=== PATIENT | male | born 1980 | race Caucasian/White ===

== ENCOUNTER 2017-08-16 07:10 | Emergency (ER) | payer SELFPAY ==
--- NOTE | 2017-08-16 08:06 | EDPHYS ---
Physician Documentation [facility] Name: Amna Jenkins Jr Age: 37 yrs Sex: Male : 1980 Arrival Date: 08/16/2017 Time: 07:14 Bed 14 Private MD: ED Physician Gal Francisco HPI: 08/16 08:02 This 37 yrs old Male presents to ER via Ambulatory with complaints of Flank eemli Pain, Blood Pressure Problem. 08:02 The patient complains of pain in the left low back and left mid back. The pain does not emeli radiate. Onset: The symptoms/episode began/occurred 1 day(s) ago. Modifying factors: The symptoms are alleviated by nothing. the symptoms are aggravated by nothing. Associated signs and symptoms: The patient has no apparent associated signs or symptoms. Severity of pain: At its worst the pain was very mild in the emergency department the pain has resolved and did so just prior to arrival. The patient has experienced similar episodes in the past, a few times. Historical: - Allergies: 07:21 No Known Allergies; ss - Home Meds: 07:21 None [Active]; ss - PMHx: 07:21 Hypertension; GI Bleed; ss - PSHx: 07:21 None; ss - Immunization history:: Adult Immunizations up to date. - Social history:: Smoking status: Patient/guardian denies using tobacco. - Ebola Screening: : Patient denies exposure to infectious person Patient denies travel to an Ebola-affected area in the 21 days before illness onset. ROS: 08:03 Constitutional: Negative for fever, chills, and weight loss, Eyes: Negative for injury, emeli pain, redness, and discharge, ENT: Negative for injury, pain, and discharge, Neck: Negative for injury, pain, and swelling, Cardiovascular: Negative for chest pain, palpitations, and edema, Respiratory: Negative for shortness of breath, cough, wheezing, and pleuritic chest pain, Back: Negative for injury and pain, : Negative for injury, bleeding, discharge, and swelling, MS/Extremity: Negative for injury and deformity, Skin: Negative for injury, rash, and discoloration, Neuro: Negative for headache, weakness, numbness, tingling, and seizure, Psych: Negative for depression, anxiety, suicide ideation, homicidal ideation, and hallucinations, Allergy/Immunology: Negative for hives, rash, and allergies, Endocrine: Negative for neck swelling, polydipsia, polyuria, polyphagia, and marked weight changes, Hematologic/Lymphatic: Negative for swollen nodes, abnormal bleeding, and unusual bruising. 08:03 Abdomen/GI: Positive for abdominal pain. 08:03 Abdomen/GI: Positive for Exam: 08:03 Constitutional: This is a well developed, well nourished patient who is awake, alert, emeli and in no acute distress. Head/Face: Normocephalic, atraumatic. Eyes: Pupils equal round and reactive to light, extra-ocular motions intact. Lids and lashes normal. Conjunctiva and sclera are non-icteric and not injected. Cornea within normal limits. Periorbital areas with no swelling, redness, or edema. ENT: Nares patent. No nasal discharge, no septal abnormalities noted. Tympanic membranes are normal and external auditory canals are clear. Oropharynx with no redness, swelling, or masses, exudates, or evidence of obstruction, uvula midline. Mucous membranes moist. Neck: Trachea midline, no thyromegaly or masses palpated, and no cervical lymphadenopathy. Supple, full range of motion without nuchal rigidity, or vertebral point tenderness. No Meningismus. Chest/axilla: Normal chest wall appearance and motion. Nontender with no deformity. No lesions are appreciated. Cardiovascular: Regular rate and rhythm with a normal S1 and S2. No gallops, murmurs, or rubs. Normal PMI, no JVD. No pulse deficits. Respiratory: Lungs have equal breath sounds bilaterally, clear to auscultation and percussion. No rales, rhonchi or wheezes noted. No increased work of breathing, no retractions or nasal flaring. Abdomen/GI: Soft, non-tender, with normal bowel sounds. No distension or tympany. No guarding or rebound. No evidence of tenderness throughout. Back: No spinal tenderness. No costovertebral tenderness. Full range of motion. Male : Normal genitalia with no discharge or lesions. Skin: Warm, dry with normal turgor. Normal color with no rashes, no lesions, and no evidence of cellulitis. MS/ Extremity: Pulses equal, no cyanosis. Neurovascular intact. Full, normal range of motion. Neuro: Awake and alert, GCS 15, oriented to person, place, time, and situation. Cranial nerves II-XII grossly intact. Motor strength 5/5 in all extremities. Sensory grossly intact. Cerebellar exam normal. Normal gait. Psych: Awake, alert, with orientation to person, place and time. Behavior, mood, and affect are within normal limits. Vital Signs: 07:21 BP 141 / 96; Pulse 67; Resp 16; Temp 97.9(TE); Pulse Ox 99% on R/A; Pain 4/10; ss 08:20 BP 119 / 86; Pulse 80; Resp 17; Pulse Ox 99% on R/A; rb1 MDM: 07:23 Patient medically screened. [facility] 08:04 Data reviewed: vital signs, nurses notes, lab test result(s). [facility] 08/16 08:12 Order name: Urine Dipstick--Ancillary (enter results) 08/16 08:02 Order name: Urine Dipstick-Ancillary (obtain specimen); Complete Time: 08:14 [facility] Administered Medications: No medications were administered Disposition: 08/16/17 08:05 Discharged to Home. Impression: Abdominal tenderness, Essential (primary) hypertension. - Condition is Stable. - Discharge Instructions: Abdominal Pain, Adult, Hypertension, Abdominal Pain, Adult, [id number], Hypertension, Rzyw-[id number], How to Take Your Blood Pressure, [id number], Managing Your High Blood Pressure. - Prescriptions for Pepcid 20 mg Oral Tablet - take 1 tablet by ORAL route every 12 hours for 10 days; 20 tablet. - Medication Reconciliation Form, Thank You Letter, Antibiotic Education, Prescription Opioid Use form. - Follow up: Private Physician; When: 2 - 3 days; Reason: Recheck today's complaints, Continuance of care, Re-evaluation by your physician. Follow up: Moy Valencia MD; When: 2 - 3 days; Reason: Recheck today's complaints, Continuance of care, Re-evaluation by your physician. - Problem is new. - Symptoms have improved. Signatures: Dispatcher [employer] EDGal Cazares MD MD cha Smirch, Shelby, RN RN ss Juliana Schafer, DEEPTHI RN rb1 Corrections: (The following items were deleted from the chart) 08:21 08:05 08/16/2017 08:05 Discharged to Home. Impression: Abdominal tenderness; Essential rb1 (primary) hypertension. Condition is Stable. Forms are Medication Reconciliation Form, Thank You Letter, Antibiotic Education, Prescription Opioid Use. Follow up: Private Physician; When: 2 - 3 days; Reason: Recheck today's complaints, Continuance of care, Re-evaluation by your physician. Follow up: Moy Valencia; When: 2 - 3 days; Reason: Recheck today's complaints, Continuance of care, Re-evaluation by your physician. Problem is new. Symptoms have improved. emeli
--- NOTE | 2017-08-16 08:06 | ER ---
Nurse's Notes [facility] Name: Amna Jenkins Jr Age: 37 yrs Sex: Male : 1980 Arrival Date: 08/16/2017 Time: 07:14 Bed 14 Private MD: Diagnosis: Abdominal tenderness;Essential (primary) hypertension Presentation: 08/16 07:18 Presenting complaint: Patient states: RUQ pain that began 4 days ago. Pt states, "my ss gallbladder is enlarged that I know of, and my blood pressure has been running high the past three weeks, but then it'll go down and make me feel drained." Pt reports at times the pain to his RUQ gets so bad it makes him nauseated. Pain is reportedly worse when he eats or drinks. Transition of care: patient was not received from another setting of care. Onset of symptoms is unknown. Risk Assessment: Do you want to hurt yourself or someone else? Patient reports no desire to harm self or others. Initial Sepsis Screen: Does the patient meet any 2 criteria? No. Patient's initial sepsis screen is negative. Does the patient have a suspected source of infection? No. Patient's initial sepsis screen is negative. Care prior to arrival: None. 07:18 Method Of Arrival: Ambulatory ss 07:18 Acuity: NEYDA 3 ss 07:22 Note Pt reports he has not taken his blood pressure medication in a while. ss Historical: - Allergies: 07:21 No Known Allergies; ss - Home Meds: 07:21 None [Active]; ss - PMHx: 07:21 Hypertension; GI Bleed; ss - PSHx: 07:21 None; ss - Immunization history:: Adult Immunizations up to date. - Social history:: Smoking status: Patient/guardian denies using tobacco. - Ebola Screening: : Patient denies exposure to infectious person Patient denies travel to an Ebola-affected area in the 21 days before illness onset. Screenin:25 Abuse screen: Denies threats or abuse. Nutritional screening: No deficits noted. rb1 Tuberculosis screening: No symptoms or risk factors identified. Fall Risk None identified. Assessment: 07:25 General: Appears in no apparent distress. comfortable, Behavior is calm, cooperative. rb1 Pain: Complains of pain in right upper quadrant Pain currently is 5 out of 10 on a pain scale. Pain began x 4 days. Neuro: Level of Consciousness is awake, alert, obeys commands, Oriented to person, place, time, situation. Cardiovascular: Capillary refill < 3 seconds is brisk in bilateral fingers. Respiratory: Airway is patent Respiratory effort is even, unlabored, Respiratory pattern is regular, symmetrical. GI: Reports nausea. : No signs and/or symptoms were reported regarding the genitourinary system. Derm: Skin is pink, warm \\T\\ dry. Vital Signs: 07:21 BP 141 / 96; Pulse 67; Resp 16; Temp 97.9(TE); Pulse Ox 99% on R/A; Pain 4/10; ss 08:20 BP 119 / 86; Pulse 80; Resp 17; Pulse Ox 99% on R/A; rb1 ED Course: 07:14 Patient arrived in ED. rg4 07:20 Triage completed. 07:21 Arm band placed on right wrist. 07:23 Gal Francisco MD is Attending Physician. [facility] 07:25 Patient has correct armband on for positive identification. Bed in low position. Call rb1 light in reach. Side rails up X 1. Pulse ox on. NIBP on. 07:36 Juliana Schafer, RN is Primary Nurse. rb1 08:05 Moy Valencia MD is Referral Physician. emeli 08:21 No provider procedures requiring assistance completed. Patient did not have IV access rb1 during this emergency room visit. Administered Medications: No medications were administered Outcome: 08:05 Discharge ordered by . emeli 08:21 Discharged to home ambulatory. rb1 08:21 Condition: stable 08:21 Discharge instructions given to patient, Instructed on discharge instructions, follow up and referral plans. medication usage, Demonstrated understanding of instructions, follow-up care, medications, Prescriptions given X 1. 08:21 Patient left the ED. rb1 Signatures: Gal Francisco MD MD cha Smirch, Shelby, RN RN Juliana Schafer, DEEPTHI RN rb1 Shannan Burciaga rg4
[2017-08-16 08:29] VITALS: TEMP 97.9; O2SAT 99
[2017-08-16 08:31] VITALS: BP 119/86
[2017-08-16 08:48] LABS: Urine Blood TRACE (NEG); Urine Glucose NEGATIVE (NEG); Urine Protein NEGATIVE (NEG)
== END 2017-08-16 08:21 | disposition home or self-care (01) ==
LOC: ER 07:10
DX: R10.9 Unspecified abdominal pain (principal); I10 Essential (primary) hypertension
CPT/HCPCS: 81003; 99283

== ENCOUNTER 2017-11-29 21:16 | Emergency (ER) | payer SELFPAY ==
[2017-11-29] MEDS ORDERED: DIAZEPAM 2 MG TABLET ONE (22:27)
[2017-11-29] MEDS ORDERED: PROMETHAZINE 25 MG/ML VIAL ONE (22:27)
[2017-11-29] MEDS ORDERED: KETOROLAC 30 MG/ML INJ ONE (22:27)
--- NOTE | 2017-11-29 23:30 | EDPHYS ---
Physician Documentation [facility] Name: Amna Jenkins Jr Age: 37 yrs Sex: Male : 1980 Arrival Date: 11/29/2017 Time: 21:19 Bed 14 Private MD: ED Physician Jesse Ch HPI: 11/29 21:57 This 37 yrs old Male presents to ER via Ambulatory with complaints of snw Congestion, Headache. 21:57 The patient complains of pain to the top of head, left frontal area, left side of the snw back of head, left temporal area, right frontal area, right side of the back of head and right temporal area. The patient describes the headache as a pressure. Onset: The symptoms/episode began/occurred 4 day(s) ago, and became persistent. Associated signs and symptoms: Pertinent positives: malaise, nausea, blurred vision, noise exacerbates headache. Severity of symptoms: At its worst the pain was moderate. Headache History: The patient has had previous headaches and this one is similar to previous episodes. The patient has experienced a previous episode. The patient has not recently seen a physician. recently sent home from work and pt needs work excuse. Historical: - Allergies: 21:44 No Known Allergies; tl2 - Home Meds: 21:44 lisinopril 20 mg Oral tab 1 tab once daily [Active]; tl2 - PMHx: 21:44 GI Bleed; Hypertension; tl2 - PSHx: 21:44 EGD; tl2 - Immunization history:: Adult Immunizations up to date. - Social history:: Smoking status: Patient/guardian denies using tobacco. - Ebola Screening: : No symptoms or risks identified at this time. ROS: 21:55 Eyes: Negative for injury, pain, redness, and discharge. snw 21:55 Cardiovascular: Negative for chest pain, palpitations, and edema, Respiratory: Negative for shortness of breath, cough, wheezing, and pleuritic chest pain, Abdomen/GI: Negative for abdominal pain, nausea, vomiting, diarrhea, and constipation, Back: Negative for injury and pain, : Negative for injury, bleeding, discharge, and swelling, MS/Extremity: Negative for injury and deformity, Skin: Negative for injury, rash, and discoloration. 21:55 Constitutional: Positive for malaise. 21:55 ENT: Positive for sinus congestion. 21:55 Neuro: Positive for headache, visual changes. Exam: 21:54 Constitutional: This is a well developed, well nourished patient who is awake, alert, snw and in no acute distress. Head/Face: Normocephalic, atraumatic. Eyes: Pupils equal round and reactive to light, extra-ocular motions intact. Lids and lashes normal. Conjunctiva and sclera are non-icteric and not injected. Cornea within normal limits. Periorbital areas with no swelling, redness, or edema. ENT: Nares patent. No nasal discharge, no septal abnormalities noted. Tympanic membrane to right is normal, TM to left is opaque with fluid behind TM and external auditory canals are clear. Oropharynx with no redness, swelling, or masses, exudates, or evidence of obstruction, uvula midline. Mucous membranes moist. Neck: Trachea midline, no thyromegaly or masses palpated, and no cervical lymphadenopathy. Supple, full range of motion without nuchal rigidity, or vertebral point tenderness. No Meningismus. Chest/axilla: Normal chest wall appearance and motion. Nontender with no deformity. No lesions are appreciated. Cardiovascular: Regular rate and rhythm with a normal S1 and S2. No gallops, murmurs, or rubs. Normal PMI, no JVD. No pulse deficits. 21:55 Respiratory: Lungs have equal breath sounds bilaterally, clear to auscultation and snw percussion. No rales, rhonchi or wheezes noted. No increased work of breathing, no retractions or nasal flaring. Abdomen/GI: Soft, non-tender, with normal bowel sounds. No distension or tympany. No guarding or rebound. No evidence of tenderness throughout. Back: No spinal tenderness. No costovertebral tenderness. Full range of motion. MS/ Extremity: Pulses equal, no cyanosis. Neurovascular intact. Full, normal range of motion. Neuro: Awake and alert, GCS 15, oriented to person, place, time, and situation. Cranial nerves II-XII grossly intact. Motor strength 5/5 in all extremities. Sensory grossly intact. Cerebellar exam normal. Normal gait. Psych: Awake, alert, with orientation to person, place and time. Behavior, mood, and affect are within normal limits. 21:55 Skin: Appearance: Color: erythematous, Temperature: normal temperature, Moisture: normal moisture. Vital Signs: 21:44 BP 137 / 94; Pulse 81; Resp 18; Temp 98.4(O); Pulse Ox 98% on R/A; Weight 99.79 kg; tl2 Height 5 ft. 10 in. (177.80 cm); Pain 6/10; 11/30 00:28 BP 135 / 93; Pulse 78; Resp 18; Pulse Ox 98% on R/A; tl2 11/29 21:44 Body Mass Index 31.57 (99.79 kg, 177.80 cm) tl2 [place] Coma Score: 11/29 23:32 Eye Response: spontaneous(4). Verbal Response: oriented(5). Motor Response: obeys snw commands(6). Total: 15. MDM: 21:53 Patient medically screened. snw 23:32 Data reviewed: vital signs, nurses notes. Data interpreted: Pulse oximetry: on room air snw is 98 %. Interpretation: normal. Counseling: I had a detailed discussion with the patient and/or guardian regarding: the historical points, exam findings, and any diagnostic results supporting the discharge/admit diagnosis, the presence of at least one elevated blood pressure reading (>120/80) during this emergency department visit, radiology results, the need for outpatient follow up, to return to the emergency department if symptoms worsen or persist or if there are any questions or concerns that arise at home. Special discussion: I discussed with the patient the need to follow-up with the PCP/specialist for the noted incidental finding on X-ray/CT scanning. Based on the history and exam findings, there is no indication for further emergent testing or inpatient evaluation. I discussed with the patient/guardian the need to see the ENT specialist for further evaluation of the symptoms. I discussed with the patient/guardian the need to see the primary care provider for further evaluation of the symptoms. pulmonary nodule, f/u outpt chest CT within 12 months. 11/29 21:53 Order name: CT Head C Spine snw Administered Medications: 22:30 Drug: Phenergan 25 mg Route: IM; Site: left gluteus; tl2 11/30 00:29 Follow up: Response: No adverse reaction tl2 11/29 22:30 Drug: TORadol 60 mg Route: IM; Site: right deltoid; tl2 10/10 00:29 Follow up: Response: No adverse reaction; Pain is decreased tl2 11/29 22:30 Drug: Valium 2 mg Route: PO; tl2 11/30 00:29 Follow up: Response: No adverse reaction; Pain is decreased tl2 00:04 Drug: Augmentin 875 mg Route: PO; tl2 00:30 Follow up: Response: No adverse reaction tl2 Disposition: 02:41 Co-signature as Attending Physician, Jesse Ch MD. rn Disposition: 11/29/17 23:30 Discharged to Home. Impression: Acute maxillary sinusitis, Acute sphenoidal sinusitis, Essential (primary) hypertension. - Condition is Stable. - Discharge Instructions: Migraine Headache, Hypertension, Sinusitis, Adult, Pulmonary Nodule, DASH Eating Plan, Rehydration, Adult, Managing Your Hypertension. - Prescriptions for Augmentin 875- 125 mg Oral Tablet - take 1 tablet by ORAL route every 12 hours for 10 days; 20 tablet. Zyrtec 10 mg Oral Tablet - take 1 tablet by ORAL route once daily As needed; 20 tablet. promethazine 25 mg Oral Tablet - take 1 tablet by ORAL route every 6 hours As needed; 20 tablet. - Work release form, Medication Reconciliation Form, Thank You Letter, Antibiotic Education, Prescription Opioid Use form. - Follow up: Private Physician; When: 2 - 3 days; Reason: Recheck today's complaints, Continuance of care, Re-evaluation by your physician. Follow up: Emergency Department; When: As needed; Reason: Worsening of condition. - Notes: Please f/u with PCP regarding incidental lung findings of pulmonary nodule. Signatures: Dispatcher [employer] EDMS Crystal Harris, KEVIN-C TRANSMISSION SYSTEMS OPERATOR-Csnw Jesse Ch MD MD rn Knox, Taylor, RN RN tl2 Corrections: (The following items were deleted from the chart) 00:30 11/29 23:30 11/29/2017 23:30 Discharged to Home. Impression: Acute maxillary sinusitis; tl2 Acute sphenoidal sinusitis; Essential (primary) hypertension. Condition is Stable. Forms are Medication Reconciliation Form, Thank You Letter, Antibiotic Education, Prescription Opioid Use. Follow up: Private Physician; When: 2 - 3 days; Reason: Recheck today's complaints, Continuance of care, Re-evaluation by your physician. Follow up: Emergency Department; When: As needed; Reason: Worsening of condition. snw
--- NOTE | 2017-11-29 23:30 | ER ---
Nurse's Notes [facility] Name: Amna Jenkins Jr Age: 37 yrs Sex: Male : 1980 Arrival Date: 11/29/2017 Time: 21:19 Bed 14 Private MD: Diagnosis: Acute maxillary sinusitis;Acute sphenoidal sinusitis;Essential (primary) hypertension Presentation: 11/29 21:42 Presenting complaint: Patient states: right ear pain since Tuesday and sinus congestion tl2 for 2 weeks. denies fever. Transition of care: patient was not received from another setting of care. Resp Distress? No respiratory distress is noted at this time. Onset of symptoms was November 24, 2017. Risk Assessment: Do you want to hurt yourself or someone else? Patient reports no desire to harm self or others. Initial Sepsis Screen: Does the patient meet any 2 criteria? No. Patient's initial sepsis screen is negative. Does the patient have a suspected source of infection? No. Patient's initial sepsis screen is negative. Care prior to arrival: None. 21:42 Method Of Arrival: Ambulatory tl2 21:42 Acuity: NEYDA 4 tl2 Triage Assessment: 21:44 General: Appears in no apparent distress. uncomfortable, Behavior is calm, cooperative, tl2 appropriate for age. Pain: Complains of pain in right ear, headache. Neuro: Level of Consciousness is awake, alert, obeys commands, Oriented to person, place, time, situation. Cardiovascular: Denies chest pain. Respiratory: Airway is patent Respiratory effort is even, unlabored, Respiratory pattern is regular, symmetrical, Breath sounds are clear bilaterally. GI: No signs and/or symptoms were reported involving the gastrointestinal system. : No signs and/or symptoms were reported regarding the genitourinary system. Derm: Skin is pink, warm \T\ dry. Historical: - Allergies: 21:44 No Known Allergies; tl2 - Home Meds: 21:44 lisinopril 20 mg Oral tab 1 tab once daily [Active]; tl2 - PMHx: 21:44 GI Bleed; Hypertension; tl2 - PSHx: 21:44 EGD; tl2 - Immunization history:: Adult Immunizations up to date. - Social history:: Smoking status: Patient/guardian denies using tobacco. - Ebola Screening: : No symptoms or risks identified at this time. Screenin:46 Abuse screen: Denies threats or abuse. Nutritional screening: No deficits noted. tl2 Tuberculosis screening: No symptoms or risk factors identified. Fall Risk None identified. Assessment: 21:44 General: see triage assessment. tl2 23:07 Reassessment: Patient appears in no apparent distress at this time. Patient and/or tl2 family updated on plan of care and expected duration. Pain level reassessed. Patient is alert, oriented x 3, equal unlabored respirations, skin warm/dry/pink. 11/30 00:28 Reassessment: Patient appears in no apparent distress at this time. Patient and/or tl2 family updated on plan of care and expected duration. Pain level reassessed. Patient is alert, oriented x 3, equal unlabored respirations, skin warm/dry/pink. Pt verbalized understanding of discharge instructions, need for follow up and prescription usage Patient states feeling better. Vital Signs: 11/29 21:44 BP 137 / 94; Pulse 81; Resp 18; Temp 98.4(O); Pulse Ox 98% on R/A; Weight 99.79 kg; tl2 Height 5 ft. 10 in. (177.80 cm); Pain 6/10; 11/30 00:28 BP 135 / 93; Pulse 78; Resp 18; Pulse Ox 98% on R/A; tl2 11/29 21:44 Body Mass Index 31.57 (99.79 kg, 177.80 cm) tl2 [place] Coma Score: 11/29 23:32 Eye Response: spontaneous(4). Verbal Response: oriented(5). Motor Response: obeys snw commands(6). Total: 15. ED Course: 21:19 Patient arrived in ED. am2 21:34 Crystal Harris FNP-C [facility]. snw 21:34 Jesse Ch MD is Attending Physician. snw 21:42 Jessica Pro, DEEPTHI is Primary Nurse. tl2 21:44 Triage completed. tl2 21:44 Arm band placed on right wrist. tl2 21:46 Patient has correct armband on for positive identification. Bed in low position. Call tl2 light in reach. Side rails up X 1. 22:04 CT Head C Spine In Process Unspecified. EDMS 11/30 00:28 No provider procedures requiring assistance completed. Patient did not have IV access tl2 during this emergency room visit. Administered Medications: 11/29 22:30 Drug: Phenergan 25 mg Route: IM; Site: left gluteus; tl2 12/01 99:29 Follow up: Response: No adverse reaction tl2 11/29 22:30 Drug: TORadol 60 mg Route: IM; Site: right deltoid; tl2 12/01 99:29 Follow up: Response: No adverse reaction; Pain is decreased tl2 11/29 22:30 Drug: Valium 2 mg Route: PO; tl2 11/30 00:29 Follow up: Response: No adverse reaction; Pain is decreased tl2 00:04 Drug: Augmentin 875 mg Route: PO; tl2 00:30 Follow up: Response: No adverse reaction tl2 Outcome: 11/29 23:30 Discharge ordered by MD. chung 11/30 00:28 Discharged to home ambulatory, with family. tl2 Condition: stable Discharge instructions given to patient, Instructed on discharge instructions, follow up and referral plans. medication usage, Demonstrated understanding of instructions, follow-up care, medications, Prescriptions given X 3. 00:30 Patient left the ED. tl2 Signatures: Dispatcher [employer] EDMS Crystal Harris, KEVIN-C AGRONOMY ADVISOR-Csnw Jessica Pro RN RN tl2 Cinthia Gruber
[2017-11-29] MEDS ORDERED: AMOX/K CLAV 875 MG TAB ONE (23:55)
[2017-11-30 00:51] VITALS: TEMP 98.4; O2SAT 98
[2017-11-30 00:52] VITALS: BP 135/93
--- NOTE | 2017-11-30 08:15 | RAD REPORT ---
EXAM DESCRIPTION: CT - Head C Spine Mpr Wo Con - 11/30/2017 6:52 am CLINICAL HISTORY: . Head and neck pain. Right ear pain COMPARISON: None. TECHNIQUE: Computed axial tomography of the head and cervical spine was obtained. Sagittal and coronal reconstruction was performed.Loss of the normal lordosis of the cervical spine m ay be secondary to muscle spasm or positioning All CT scans are performed using dose optimization technique as appropriate and may include automated exposure control or mA/KV adjustment according to patient size. FINDINGS: An intracranial bleed is not seen. The ventricles are normal in caliber. An extra-axial fl uid collection is not noted.Fluid is present within the right maxillary and sphenoid sinuses. Fluid w ithin the mastoids is not noted. A cervical fracture is not visualized. No dislocation is noted.Loss of the normal lordosis of the cer vical spine may be secondary to muscle spasm or positioning. Mild spondylosis is present. An obvious disc herniation is not noted. A 4 millimeter right upper lobe nodule is present IMPRESSION: No acute intracranial abnormality is seen. Acute sinusitis A cervical fracture is not visualized. If the patient continues to have symptoms to suggest intracra nial /spinal cord pathology then MRI would be recommended 4 millimeter right upper nodule. Per Fleischner guidelines if patient is low risk no followup is donna mmended. Patient is high risk CT chest in 1 year recommended
== END 2017-11-30 00:30 | disposition home or self-care (01) ==
LOC: ER 21:16
DX: J01.00 Acute maxillary sinusitis, unspecified (principal); J01.30 Acute sphenoidal sinusitis, unspecified; I10 Essential (primary) hypertension
CPT/HCPCS: 70450; 72125; 96372; 99283; J2550

== ENCOUNTER 2018-01-09 21:14 | Emergency (ER) | payer SELFPAY ==
[2018-01-09] MEDS ORDERED: IPRATROPIUM BROM 0.5MG/2.5ML ONE (22:32)
[2018-01-09] MEDS ORDERED: ALBUTEROL 2.5 MG/3 ML NEB SOL ONE (22:32)
[2018-01-09 22:35] LABS: Absolute Lymphocytes (CBC) 2.1 K/uL (0.7-4.9); Absolute Monocytes 0.9 K/uL (0.1-1.3); Absolute Neutrophil 5.6 K/uL (1.8-8.0); Basophils % 0.8 % (0-1.3); Eosinophils % 4.5 % (0-4.4); Hematocrit 42.4 % (39.6-49.0); Lymphocytes % 23.3 % (15.3-44.8); MCH 30.4 pg (27.0-35.0); MCV 86.2 fL (80-100); MPV 9.4 fL (7.6-11.3); Monocytes % 9.7 % (3.3-12.3); RBC Red Blood Cell Count 4.91 M/uL (4.33-5.43)
--- NOTE | 2018-01-09 22:43 | RAD REPORT ---
EXAM DESCRIPTION: RAD - Chest Pa And Lat (2 Views) - 01/09/2018 10:29 pm CLINICAL HISTORY: cough, SOB Chest pain. COMPARISON: Chest Pa And Lat (2 Views) dated 12/21/2016; Chest Single View dated 06/09/2015; CHEST SI NGLE VIEW dated 12/29/2014; CHEST SINGLE VIEW dated 12/13/2014 FINDINGS: The lungs are clear except for a small calcified granuloma in the right apex. The heart is normal in size. No displaced fractures. IMPRESSION: No acute or concerning finding suspected.
[2018-01-09 22:46] LABS: Bilirubin Total 0.5 mg/dL (0.2-1.0); Protein, Total 7.8 g/dL (6.4-8.2)
--- NOTE | 2018-01-09 23:08 | EDPHYS ---
Physician Documentation [facility] Name: Amna Jenkins Jr Age: 37 yrs Sex: Male : 1980 Arrival Date: 01/09/2018 Time: 21:18 Bed 15 Private MD: Mc Candelaria ED Physician Beltran Harrell HPI: 01/09 22:07 This 37 yrs old Male presents to ER via Ambulatory with complaints of Cough, jmm Shortness Of Breath. 22:07 The patient or guardian reports cough, described as moderate. Onset: The jmm symptoms/episode began/occurred gradually, 1 month(s) ago. Associated signs and symptoms: Pertinent positives:. This is a 37 year old male with a history of GI bleeding, HTN that presents to the ED with sinus congestion cough, shortness of breath, progressively worsening over the past month. Patient states last night he vomited after a coughing fit. . Historical: - Allergies: 21:25 "something for pain"; aj1 - Home Meds: 21:25 lisinopril 20 mg Oral tab 1 tab once daily [Active]; aj1 - PMHx: 21:25 GI Bleed; Hypertension; aj1 - Immunization history:: Flu vaccine is not up to date. - Social history:: Smoking status: Patient/guardian denies using tobacco. - Ebola Screening: : Patient denies travel to an Ebola-affected area in the 21 days before illness onset. ROS: 22:07 ENT: Negative for injury, pain, and discharge, Cardiovascular: Negative for chest pain, jmm palpitations, and edema. 22:07 Abdomen/GI: Negative for abdominal pain, nausea, vomiting, diarrhea, and constipation, Back: Negative for injury and pain, MS/Extremity: Negative for injury and deformity, Skin: Negative for injury, rash, and discoloration, Neuro: Negative for headache, weakness, numbness, tingling, and seizure. 22:07 Constitutional: Positive for body aches. 22:07 Respiratory: Positive for cough, shortness of breath. 22:07 All other systems are negative. Exam: 22:07 Head/Face: atraumatic. Eyes: EOMI, no conjunctival erythema appreciated ENT: Moist jmm Mucus Membranes Chest/axilla: Normal chest wall appearance and motion. Cardiovascular: Regular rate and rhythm. No edema appreciated 22:07 Abdomen/GI: Non distended, soft Back: Normal ROM Skin: General appearance color normal MS/ Extremity: Moves all extremities, no obvious deformities appreciated, no edema noted to the lower extremities Neuro: Awake and alert, normal gait Psych: Behavior is normal, Mood is normal, Patient is cooperative and pleasant 22:07 Constitutional: The patient appears in no acute distress, alert, awake. 22:07 Respiratory: the patient does not display signs of respiratory distress, Respirations: normal, Breath sounds: are clear throughout. Vital Signs: 21:25 BP 146 / 99; Pulse 83; Resp 18; Temp 97.8; Pulse Ox 99% on R/A; Weight 99.79 kg (R); aj1 Height 5 ft. 10 in. (177.80 cm) (R); Pain 5/10; 22:56 BP 139 / 93; Pulse 88; Resp 18; Pulse Ox 99% on R/A; jb4 23:40 BP 142 / 85; Pulse 81; Resp 18; Pulse Ox 97% on R/A; jb4 21:25 Body Mass Index 31.57 (99.79 kg, 177.80 cm) [facility] MDM: 22:05 Patient medically screened. [facility] 22:54 Data reviewed: vital signs, nurses notes. Counseling: I had a detailed discussion with rizwana the patient and/or guardian regarding: the historical points, exam findings, and any diagnostic results supporting the discharge/admit diagnosis, the need for outpatient follow up, to return to the emergency department if symptoms worsen or persist or if there are any questions or concerns that arise at home. 01/09 22:06 Order name: CBC with Diff [facility] 01/09 22:06 Order name: CMP [facility] 01/09 22:06 Order name: Influenza Screen (a \\T\\ B) [facility] 01/09 22:44 Order name: CBC with Automated Diff; Complete Time: 22:48 [facility] 01/09 22:47 Order name: Comprehensive Metabolic Panel; Complete Time: 22:48 [facility] 01/09 23:05 Order name: Influenza Screen (A ; Complete Time: 23:07 EDMS 01/09 22:06 Order name: Chest Pa And Lat (2 Views) XRAY [facility] 01/09 22:06 Order name: Saline Lock; Complete Time: 22:21 [facility] 01/09 22:45 Order name: RAD; Complete Time: 22:48 EDMS Administered Medications: 22:35 Drug: DuoNeb (3:1) (2.5 mg - 0.5 mg) 3 ml Route: Nebulizer; jb4 23:09 Follow up: Response: No adverse reaction jb4 Disposition: 01/10 05:41 Co-signature as Attending Physician, Beltran Harrell MD I agree with the assessment and tw4 plan of care. Disposition: 01/09/18 23:08 Discharged to Home. Impression: Acute bronchitis. - Condition is Stable. - Discharge Instructions: Acute Bronchitis, Adult. - Prescriptions for Zithromax Z- Srinivas 250 mg Oral Tablet - take 1 tablet by ORAL route as directed for 5 days Day 1 - take two (2) tablets one time. Day 2, 3, 4 , 5 take one (1) tablet once daily.; 6 tablet. Albuterol Sulfate 90 mcg/actuation - inhale 1-2 puff by INHALATION route every 4-6 hours; 1 Inhaler. Guaifenesin AC 10- 100 mg/5 mL Oral liquid - take 5 milliliter by ORAL route every 4 hours; 60 milliliter. - Medication Reconciliation Form, Thank You Letter, Antibiotic Education, Prescription Opioid Use form. - Follow up: Private Physician; When: 2 - 3 days; Reason: Recheck today's complaints, Continuance of care, Re-evaluation by your physician. Signatures: Dispatcher [employer] EDMS Diamante Desai RN RN aj1 Ross Gibson PA PA jmm Bryson, James, RN RN jb4 Beltran Harrell MD MD tw4 Corrections: (The following items were deleted from the chart) 01/09 23:42 23:08 01/09/2018 23:08 Discharged to Home. Impression: Acute bronchitis. Condition is jb4 Stable. Forms are Medication Reconciliation Form, Thank You Letter, Antibiotic Education, Prescription Opioid Use. Follow up: Private Physician; When: 2 - 3 days; Reason: Recheck today's complaints, Continuance of care, Re-evaluation by your physician. rizwana
--- NOTE | 2018-01-09 23:08 | ER ---
Nurse's Notes [facility] Name: Amna Jenkins Jr Age: 37 yrs Sex: Male : 1980 Arrival Date: 01/09/2018 Time: 21:18 Bed 15 Private MD: Mc Candelaria Diagnosis: Acute bronchitis Presentation: 01/09 21:22 Presenting complaint: Patient states: States that he was seen in this ER one month ago aj1 for the same complaint. States that he feels like he is "breathing underwater" Reports his SOB has gotten worse, his cough has gotten worse and now he has a pain in his right ribs. He has tried OTC Vicks and Robitussin, but it has not helped. Patient has not followed up with his PHCP since his last visit. Transition of care: patient was not received from another setting of care. Onset of symptoms was November 2017. Risk Assessment: Do you want to hurt yourself or someone else? Patient reports no desire to harm self or others. Initial Sepsis Screen: Does the patient meet any 2 criteria? No. Patient's initial sepsis screen is negative. Does the patient have a suspected source of infection? No. Patient's initial sepsis screen is negative. Care prior to arrival: None. 21:22 Method Of Arrival: Ambulatory aj1 21:22 Acuity: NEYDA 3 aj1 Triage Assessment: 21:25 General: Appears in no apparent distress. comfortable, Behavior is calm, cooperative, aj1 appropriate for age. Pain: Complains of pain in right lateral anterior chest Pain currently is 5 out of 10 on a pain scale. Neuro: Level of Consciousness is awake, alert, obeys commands. Cardiovascular: Patient's skin is warm and dry. Respiratory: Reports shortness of breath Airway is patent Respiratory effort is Respiratory pattern is regular, symmetrical, Onset: The symptoms/episode began/occurred one month ago, the patient has mild shortness of breath. Historical: - Allergies: 21:25 "something for pain"; aj1 - Home Meds: 21:25 lisinopril 20 mg Oral tab 1 tab once daily [Active]; aj1 - PMHx: 21:25 GI Bleed; Hypertension; aj1 - Immunization history:: Flu vaccine is not up to date. - Social history:: Smoking status: Patient/guardian denies using tobacco. - Ebola Screening: : Patient denies travel to an Ebola-affected area in the 21 days before illness onset. Screenin:16 Abuse screen: Denies threats or abuse. Nutritional screening: No deficits noted. jb4 Tuberculosis screening: No symptoms or risk factors identified. Fall Risk None identified. Assessment: 21:55 General: Appears in no apparent distress. uncomfortable, Behavior is calm, cooperative, jb4 appropriate for age. Pain: Complains of pain in right subscapular area, right lateral anterior chest and right lateral posterior chest Pain does not radiate. Pain currently is 4 out of 10 on a pain scale. at worst was 8 out of 10 on a pain scale. Neuro: Level of Consciousness is awake, alert, obeys commands, Oriented to person, place, time, situation. Cardiovascular: Heart tones S1 S2 present Patient's skin is warm and dry. Respiratory: Airway is patent Respiratory effort is even, unlabored, Respiratory pattern is regular, symmetrical, Breath sounds are clear bilaterally. GI: No signs and/or symptoms were reported involving the gastrointestinal system. : No signs and/or symptoms were reported regarding the genitourinary system. EENT: No signs and/or symptoms were reported regarding the EENT system. Derm: Skin is intact, Skin is pink, warm \\T\\ dry. Musculoskeletal: Circulation, motion, and sensation intact. 22:56 Reassessment: Patient appears in no apparent distress at this time. Patient and/or jb4 family updated on plan of care and expected duration. Pain level reassessed. Patient is alert, oriented x 3, equal unlabored respirations, skin warm/dry/pink. 23:40 Reassessment: Patient appears in no apparent distress at this time. Patient and/or jb4 family updated on plan of care and expected duration. Pain level reassessed. Patient is alert, oriented x 3, equal unlabored respirations, skin warm/dry/pink. Discussed D/c, F/u with pt, denies questions or concerns. Vital Signs: 21:25 BP 146 / 99; Pulse 83; Resp 18; Temp 97.8; Pulse Ox 99% on R/A; Weight 99.79 kg (R); aj1 Height 5 ft. 10 in. (177.80 cm) (R); Pain 5/10; 22:56 BP 139 / 93; Pulse 88; Resp 18; Pulse Ox 99% on R/A; jb4 23:40 BP 142 / 85; Pulse 81; Resp 18; Pulse Ox 97% on R/A; jb4 21:25 Body Mass Index 31.57 (99.79 kg, 177.80 cm) 1 ED Course: 21:18 Patient arrived in ED. am2 21:18 Mc Candelaria is Private Physician. am2 21:24 Triage completed. aj1 21:25 Arm band placed on Patient placed in an exam room. [facility] 21:51 Ross Gibson PA is PHCP. [facility] 21:51 Beltran Harrell MD is Attending Physician. [facility] 21:52 Hardeep Sahu, RN is Primary Nurse. jb4 22:15 Inserted saline lock: 20 gauge in right antecubital area, using aseptic technique. mw2 Blood collected. 22:16 Patient has correct armband on for positive identification. Call light in reach. Side jb4 rails up X 1. Pulse ox on. NIBP on. 22:21 Influenza Screen (a \\T\\ B) Sent. mw2 22:21 CMP Sent. mw2 22:21 CBC with Diff Sent. mw2 22:21 Chest Pa And Lat (2 Views) XRAY Sent. mw2 23:40 No provider procedures requiring assistance completed. IV discontinued, intact, jb4 bleeding controlled. Administered Medications: 22:35 Drug: DuoNeb (3:1) (2.5 mg - 0.5 mg) 3 ml Route: Nebulizer; jb4 23:09 Follow up: Response: No adverse reaction jb4 Outcome: 23:08 Discharge ordered by . [facility] 23:40 Discharged to home ambulatory. jb4 23:40 Condition: stable 23:40 Discharge instructions given to patient, Instructed on discharge instructions, follow up and referral plans. medication usage, Demonstrated understanding of instructions, follow-up care, medications, Prescriptions given X 3. 23:42 Patient left the ED. jb4 Signatures: Diamante Desai, RN RN aj1 Ross Gibson PA PA Hardeep Boyce, RN RN jb4 Cinthia Gruber am2 Jennifer Obrien mw2
[2018-01-10 00:52] VITALS: TEMP 97.8
[2018-01-10 00:55] VITALS: BP 142/85; O2SAT 97
== END 2018-01-09 23:42 | disposition home or self-care (01) ==
LOC: ER 21:14
DX: J20.9 Acute bronchitis, unspecified (principal); I10 Essential (primary) hypertension; Z79.899 Other long term (current) drug therapy
CPT/HCPCS: 36415; 71046; 80053; 85025; 87804; 94640; 99284

== ENCOUNTER 2019-03-10 17:52 | Emergency (ER) | payer SELFPAY ==
[2019-03-10 18:24] LABS: Absolute Lymphocytes (CBC) 2.2 K/uL (0.7-4.9); Basophils % 0.8 % (0-1.3); Hematocrit 44.8 % (39.6-49.0); MPV 8.9 fL (7.6-11.3); RBC Red Blood Cell Count 5.21 M/uL (4.33-5.43)
[2019-03-10 18:36] LABS: Potassium 3.6 mmol/L (3.5-5.1)
--- NOTE | 2019-03-10 19:00 | RAD REPORT ---
EXAM DESCRIPTION: CT - Head C Spine Cap Jacques Gudion - 03/10/2019 6:37 pm CLINICAL HISTORY: Head and neck injury with chest and abdominal pain status post fall. Head and neck pain . TECHNIQUE: Computed axial tomography of the head and cervical spine was obtained Computed axial tomography of the chest, abdomen and pelvis was obtained. 100 cc Isovue-300 was given intravenously coronal and sagittal reconstruction was performed. All CT scans are performed using dose optimization technique as appropriate and may include automated exposure control or mA/KV adjustment according to patient size. COMPARISON: CT 2015 and 2017 FINDINGS: An intracranial bleed is not seen. The ventricles are normal in caliber. An extra-axial fl uid collection is not noted. A cervical fracture is not seen. No dislocation is seen. Loss of the normal lordosis is unchanged. Sc oliosis involves cervical spine. A mediastinal hematoma is not noted. A pleural effusion is not present. A lung contusion is not seen. The liver, spleen, pancreas, adrenals, kidneys and bladder did not demonstrated dramatic injury. Fatty liver. Left inguinal hernia contains fat. IMPRESSION: 1. No acute intracranial abnormality is seen 2. A cervical fracture is not visualized. If the patient continues have symptoms to suggest intracran ial/spinal cord pathology then MRI would be recommended. 3. No traumatic injury involving the chest, abdomen or pelvis is seen.
[2019-03-10] MEDS ORDERED: FENTANYL CITR 100 MCG/2 ML ONE (19:30)
[2019-03-10] MEDS ORDERED: ONDANSETRON 4 MG/2 ML VIAL ONE (19:30)
[2019-03-10] MEDS ORDERED: KETOROLAC 30 MG/ML INJ ONE (19:30)
--- NOTE | 2019-03-10 19:35 | RAD REPORT ---
EXAM DESCRIPTION: Saima Griffin Left03/10/2019 6:42 pm CLINICAL HISTORY: Left leg pain status post injury FINDINGS: No fracture is seen
--- NOTE | 2019-03-10 19:35 | RAD REPORT ---
EXAM DESCRIPTION: RAD - Femur Left - 03/10/2019 6:41 pm CLINICAL HISTORY: Left leg pain status post fall FINDINGS: Bony density along the superolateral aspect of the patella likely bipartite. A fracture i s doubtful and should be correlated clinically Remainder of the exam unremarkable
--- NOTE | 2019-03-10 20:07 | EDPHYS ---
Physician Documentation [facility] Name: Amna Jenkins Jr Age: 38 yrs Sex: Male : 1980 Arrival Date: 03/10/2019 Time: 17:56 Bed 20 Private MD: ED Physician Cipriano Mahan HPI: 03/10 18:17 This 38 yrs old Male presents to ER via Unassigned with complaints of Fall pm1 Injury. 18:17 Details of fall: The patient fell from a height, off a roof, approximately 8 feet, but pm1 with the patient's fall somewhat interrupted, and struck wood decking. Onset: The symptoms/episode began/occurred just prior to arrival. Associated injuries: The patient sustained left leg and left hip, abrasions to right arm and left Achilles. The patient has not experienced similar symptoms in the past, Patient reports neck pain, but no different than his chronic neck pain. The patient has not recently seen a physician. Uncertain if he hit his head, but no headache. No LOC. 18:17 Patient was on his roof about 3 foot from the edge. Bucket with nails was falling and pm1 he attempted to get it. Slid down the roof and his left leg went into one the rungs of the ladder that he had on the roof. He landed on his left side of his body on to a wood deck . Historical: - Allergies: 18:35 "something for pain"; bp - Home Meds: 18:35 None [Active]; bp - PMHx: 18:35 Hypertension; GI Bleed; bp - Immunization history: Last tetanus immunization: unknown. - Social history:: Smoking status: Patient reports the use of cigarette tobacco products, unknown amount. - Ebola Screening: : No symptoms or risks identified at this time. ROS: 18:17 Constitutional: Negative for fever, chills, and weight loss, Eyes: Negative for injury, pm1 pain, redness, and discharge, ENT: Negative for injury, pain, and discharge. 18:17 Cardiovascular: Negative for chest pain, palpitations, and edema, Respiratory: Negative for shortness of breath, cough, wheezing, and pleuritic chest pain, Abdomen/GI: Negative for abdominal pain, nausea, vomiting, diarrhea, and constipation, Back: Negative for injury and pain, : Negative for injury, bleeding, discharge, and swelling. 18:17 Neuro: Negative for headache, weakness, numbness, tingling, and seizure. 18:17 Neck: Positive for of the lower neck. 18:17 MS/extremity: Positive for pain, of the left hip and left leg, Negative for paresthesias, tingling. 18:17 Skin: Positive for abrasion(s), of the right arm and left Achilles. Exam: 18:17 Constitutional: This is a well developed, well nourished patient who is awake, alert, pm1 and in no acute distress. Head/Face: Normocephalic, atraumatic. Eyes: Pupils equal round and reactive to light, extra-ocular motions intact. Lids and lashes normal. Conjunctiva and sclera are non-icteric and not injected. Cornea within normal limits. Periorbital areas with no swelling, redness, or edema. ENT: Nares patent. No nasal discharge, no septal abnormalities noted. Tympanic membranes are normal and external auditory canals are clear. Oropharynx with no redness, swelling, or masses, exudates, or evidence of obstruction, uvula midline. Mucous membranes moist. Neck: Trachea midline, no thyromegaly or masses palpated, and no cervical lymphadenopathy. Supple, full range of motion without nuchal rigidity, or vertebral point tenderness. No Meningismus. Chest/axilla: Normal chest wall appearance and motion. Nontender with no deformity. No lesions are appreciated. Cardiovascular: Regular rate and rhythm with a normal S1 and S2. No gallops, murmurs, or rubs. No pulse deficits. Respiratory: Lungs have equal breath sounds bilaterally, clear to auscultation and percussion. No rales, rhonchi or wheezes noted. No increased work of breathing, no retractions or nasal flaring. Abdomen/GI: Soft, non-tender, with normal bowel sounds. No distension or tympany. No guarding or rebound. No evidence of tenderness throughout. Back: No spinal tenderness. No costovertebral tenderness. Full range of motion. 18:17 Musculoskeletal/extremity: Extremities: grossly normal except: noted in the left hamstring, left quadriceps and anterior aspect of left ankle: tenderness, swelling to left ankle. No left patellar tenderness present, Pulses: noted to be 2+ in the left dorsalis pedis artery, Calf tenderness, is absent. 18:17 Skin: Appearance: normal except for affected area, injury, abrasion(s), small abrasion noted, of the right arm and left Achilles. 18:17 Neuro: Orientation: is normal, Mentation: is normal, Motor: is normal, moves all fours, Sensation: is normal, no obvious gross deficits. Vital Signs: 18:05 BP 161 / 98; Pulse 108; Resp 16; Temp 97.5; Pulse Ox 98% ; Weight 108.86 kg; bp 19:45 BP 134 / 92; Pulse 84; Resp 18; Pulse Ox 96% ; wh Badger Coma Score: 18:05 Eye Response: spontaneous(4). Verbal Response: oriented(5). Motor Response: obeys bp commands(6). Total: 15. Trauma Score (Adult): 18:05 Eye Response: spontaneous(1); Verbal Response: oriented(1); Motor Response: obeys bp commands(2); Systolic BP: > 89 mm Hg(4); Respiratory Rate: 10 to 29 per min(4); Peter Score: 15; Trauma Score: 12 MDM: 18:02 Patient medically screened. pm1 20:05 Data reviewed: vital signs. Data interpreted: Pulse oximetry: on room air is 96 %. pm1 Interpretation: normal. Counseling: I had a detailed discussion with the patient and/or guardian regarding: the historical points, exam findings, and any diagnostic results supporting the discharge/admit diagnosis, lab results, radiology results, the need for outpatient follow up, a orthopedic surgeon, to return to the emergency department if symptoms worsen or persist or if there are any questions or concerns that arise at home. 03/10 18:00 Order name: Basic Metabolic Panel; Complete Time: 18:41 pm1 18 18:00 Order name: CBC with Diff; Complete Time: 18:33 pm1 03/10 18:00 Order name: CT Traumagram (Head C Spine CAP W Con); Complete Time: 19:01 pm1 03/10 18:00 Order name: Creatinine for Radiology; Complete Time: 18:41 pm1 18 18:00 Order name: Type And Screen; Complete Time: 18:59 pm1 03/10 18:00 Order name: Femur Left XRAY; Complete Time: 19:55 pm1 03/10 17:58 Order name: C-Collar; Complete Time: 18:08 pm1 03/10 18:00 Order name: Labs collected and sent; Complete Time: 18:08 pm1 03/10 18:00 Order name: Tib Fib Left XRAY; Complete Time: 19:55 pm1 03/10 19:56 Order name: Knee Immobilizer; Complete Time: 20:09 pm1 03/10 19:56 Order name: Geoff Wrap: ankle; Complete Time: 20:09 pm1 03/10 19:56 Order name: Crutches; Complete Time: 20:09 pm1 Administered Medications: 19:30 Drug: fentaNYL (PF) 50 mcg Route: IVP; Site: right forearm; 20:10 Follow up: Response: No adverse reaction; Pain is decreased; RASS: Alert and Calm (0) 19:32 Drug: TORadol - Ketorolac 15 mg Route: IVP; Site: right forearm; 20:09 Follow up: Response: No adverse reaction; Pain is decreased 19:36 Drug: Zofran 4 mg Route: IVP; Site: right forearm; 20:09 Follow up: Response: No adverse reaction; Pain is decreased; RASS: Alert and Calm (0) 20:09 Follow up: Response: No adverse reaction; Nausea is decreased Disposition: 03/11 15:20 Co-signature as Attending Physician, Cipriano Mahan MD. ma2 Disposition: 03/10/19 20:06 Discharged to Home. Impression: Contusion of left hip, Pain in left knee, Pain in left ankle and joints of left foot, Fall from, out of or through roof. - Condition is Stable. - Discharge Instructions: Contusion, Crutch Use, Knee Immobilizer, Knee Pain, Hip Pain, Ankle Pain. - Prescriptions for Tylenol- Codeine #3 300-30 mg Oral Tablet - take 2 tablets by ORAL route every 6 hours As needed; 20 tablet. Diclofenac Sodium 75 mg Oral Tablet, Delayed Release (E.C.) - take 1 tablet by ORAL route 2 times per day As needed; 30 tablet. - Medication Reconciliation Form, Thank You Letter, Antibiotic Education, Prescription Opioid Use form. - Follow up: Emergency Department; When: As needed; Reason: Worsening of condition. Follow up: Private Physician; When: 2 - 3 days; Reason: Recheck today's complaints, Continuance of care, Re-evaluation by your physician. - Problem is new. - Symptoms have improved. Signatures: Dispatcher [employer] EDMS Koko Mahan, FLEET MAINTENANCE MANAGER FLEET MAINTENANCE MANAGER pm1 Man Parker Biswas RN RN Cipriano Frederick MD MD ma2 Corrections: (The following items were deleted from the chart) 03/10 20:24 20:06 03/10/2019 20:06 Discharged to Home. Impression: Contusion of left hip; Pain in wh left knee; Pain in left ankle and joints of left foot; Fall from, out of or through roof. Condition is Stable. Forms are Medication Reconciliation Form, Thank You Letter, Antibiotic Education, Prescription Opioid Use. Follow up: Emergency Department; When: As needed; Reason: Worsening of condition. Follow up: Private Physician; When: 2 - 3 days; Reason: Recheck today's complaints, Continuance of care, Re-evaluation by your physician. Problem is new. Symptoms have improved. pm1
--- NOTE | 2019-03-10 20:07 | ER ---
Nurse's Notes [facility] Name: Amna Jenkins Jr Age: 38 yrs Sex: Male : 1980 Arrival Date: 03/10/2019 Time: 17:56 Bed 20 Private MD: Diagnosis: Contusion of left hip;Pain in left knee;Pain in left ankle and joints of left foot;Fall from, out of or through roof Presentation: 03/10 18:05 Transition of care: patient was not received from another setting of care. Onset of bp symptoms is unknown. Risk Assessment: Do you want to hurt yourself or someone else? Patient reports no desire to harm self or others. Initial Sepsis Screen: Does the patient meet any 2 criteria? HR > 90 bpm. No. Patient's initial sepsis screen is negative. Does the patient have a suspected source of infection? No. Patient's initial sepsis screen is negative. 18:10 Presenting complaint: EMS states: FALL FROM LADDER ONTO PORCH, C/O LEFT HIP, KNEE AND bp ANKLE PAIN. 18:10 Care prior to arrival: None. Mechanism of Injury: Fall from roof. Trauma event details: bp Injury occurred in the [facility], Injury occurred: at home. Injury occurred: March 10, 2019 Injury occurred at: 17:00. 18:10 Acuity: NEYDA 3 bp 18:10 Method Of Arrival: EMS: [facility] bp Triage Assessment: 18:05 General: SEE TRAUMA CHART. bp Trauma Activation: Consult Physician: ED Physician; Name: ; Notified At: ; Arrived At: Physician: General Surgeon; Name: ; Notified At: ; Arrived At: Physician: Radiology; Name: ; Notified At: ; Arrived At: Physician: Respiratory; Name: ; Notified At: ; Arrived At: Physician: Lab; Name: ; Notified At: ; Arrived At: Historical: - Allergies: 18:35 "something for pain"; bp - Home Meds: 18:35 None [Active]; bp - PMHx: 18:35 Hypertension; GI Bleed; bp - Immunization history: Last tetanus immunization: unknown. - Social history:: Smoking status: Patient reports the use of cigarette tobacco products, unknown amount. - Ebola Screening: : No symptoms or risks identified at this time. Screenin:05 Abuse screen: Denies threats or abuse. Denies injuries from another. Tuberculosis bp screening: No symptoms or risk factors identified. 18:05 Nutritional screening: No deficits noted. bp 18:05 Fall Risk Fall in past 12 months (25 points). No secondary diagnosis (0 pts). IV access bp (20 points). Ambulatory Aid- None/Bed Rest/Nurse Assist (0 pts). Gait- Normal/Bed Rest/Wheelchair (0 pts) Mental Status- Oriented to own ability (0 pts). Total Coats Fall Scale indicates High Risk Score (45 or more points). Fall prevention measures have been instituted. Side Rails Up X 2 Placed Close to Nursing Station Frequent Obs/Assessments Occuring As available patient and family educated on Fall Prevention Program and Strategies. Primary Survey: 18:05 NO uncontrolled hemorrhage observed. A: The patient is alert. Airway: patent. bp Breathing/Chest: Respiratory pattern: regular, Respiratory effort: spontaneous, unlabored, Breath sounds: clear, bilaterally. Circulation: Skin color: pink, Skin temperature: warm, dry. Disability Alert. Exposure/Environment: All clothing and personal items were removed. Forensic evidence collection is not deemed to be indicated at this time. Items placed in patient belonging bag. There is no evidence of uncontrolled external bleeding. Obvious injury(ies) are noted at this time: LEFT HIP, KNEE AND ANKLE PAIN. 19:30 Reassessment Breathing/Chest Respiratory pattern Regular Respiratory effort Spontaneous wh Unlabored Breath sounds Clear. Assessment: 18:05 General: Appears in no apparent distress. comfortable, Behavior is cooperative, bp appropriate for age, anxious. Pain: Complains of pain in left leg and left Achilles. Neuro: Level of Consciousness is awake, alert, obeys commands, Oriented to person, place, time, situation, Appropriate for age. EENT: No deficits noted. Cardiovascular: No deficits noted. Respiratory: No deficits noted. GI: No signs and/or symptoms were reported involving the gastrointestinal system. : No signs and/or symptoms were reported regarding the genitourinary system. Derm: No deficits noted. Musculoskeletal: Circulation, motion, and sensation intact. Range of motion: intact in all extremities. Injury Description: Bruise sustained to left leg and left Achilles. 18:07 Reassessment: PT TO CT. bp 19:30 Reassessment: Patient appears in no apparent distress at this time. Patient and/or wh family updated on plan of care and expected duration. Pain level reassessed. Patient is alert, oriented x 3, equal unlabored respirations, skin warm/dry/pink. Vital Signs: 18:05 BP 161 / 98; Pulse 108; Resp 16; Temp 97.5; Pulse Ox 98% ; Weight 108.86 kg; bp 19:45 BP 134 / 92; Pulse 84; Resp 18; Pulse Ox 96% ; wh Benton Coma Score: 18:05 Eye Response: spontaneous(4). Verbal Response: oriented(5). Motor Response: obeys bp commands(6). Total: 15. Trauma Score (Adult): 18:05 Eye Response: spontaneous(1); Verbal Response: oriented(1); Motor Response: obeys bp commands(2); Systolic BP: > 89 mm Hg(4); Respiratory Rate: 10 to 29 per min(4); Benton Score: 15; Trauma Score: 12 ED Course: 17:56 Patient arrived in ED. bp 17:58 Koko Mahan NP is PHCP. pm1 17:58 Cipriano Mahan MD is Attending Physician. pm1 18:05 Patient maintains SpO2 saturation greater than 95% on room air. Thermoregulation: warm bp blanket given to patient. 18:05 Patient has correct armband on for positive identification. Bed in low position. Call bp light in reach. Side rails up X2. 18:05 Arm band placed on. bp 18:07 Inserted saline lock: 18 gauge in right forearm, using aseptic technique. Blood bp collected. 18:28 Parker [facility], RN is Primary Nurse. bp 18:30 Triage completed. bp 18:37 CT Traumagram (Head C Spine CAP W Con) In Process Unspecified. EDMS 18:39 CT completed. Patient tolerated procedure well. Patient moved to radiology. mw3 18:40 Femur Left XRAY In Process Unspecified. EDMS 18:40 Tib Fib Left XRAY In Process Unspecified. EDMS 20:22 No provider procedures requiring assistance completed. IV discontinued, intact, wh bleeding controlled, No redness/swelling at site. Administered Medications: 19:30 Drug: fentaNYL (PF) 50 mcg Route: IVP; Site: right forearm; wh 20:10 Follow up: Response: No adverse reaction; Pain is decreased; RASS: Alert and Calm (0) wh 19:32 Drug: TORadol - Ketorolac 15 mg Route: IVP; Site: right forearm; 20:09 Follow up: Response: No adverse reaction; Pain is decreased 19:36 Drug: Zofran 4 mg Route: IVP; Site: right forearm; 20:09 Follow up: Response: No adverse reaction; Pain is decreased; RASS: Alert and Calm (0) 20:09 Follow up: Response: No adverse reaction; Nausea is decreased Intake: 18:05 PO: 0ml; Total: 0ml. bp Output: 18:05 Urine: 0ml; Total: 0ml. bp Outcome: 20:06 Discharge ordered by MD. pm1 20:23 Discharged to home via wheelchair, with crutches, with family. 20:23 Condition: stable 20:23 Discharge instructions given to patient, Instructed on discharge instructions, follow up and referral plans. no drinking with medication, no driving heavy equipment, medication usage, crutch walking, POC Demonstrated understanding of instructions, follow-up care, medications, crutch walking, splint care, POC Prescriptions given X 1. 20:24 Patient's length of stay was not longer than 2 hours. 20:24 Patient left the ED. Signatures: Dispatcher [employer] EDMS Koko Mahan NP HIDE AND SKIN COLERER pm1 Yvette Conway Parker Keenan, DEEPTHI RN bp Analilia Burgess mw3 Corrections: (The following items were deleted from the chart) 18:30 18:28 Presenting complaint: EMS states: FALL FROM LADDER ONTO PORCH, C/O LEFT HIP, KNEE bp AND ANKLE PAIN bp
[2019-03-10 20:36] VITALS: TEMP 97.5
[2019-03-10 20:37] VITALS: BP 134/92; O2SAT 96
== END 2019-03-10 20:24 | disposition home or self-care (01) ==
LOC: ER 17:52
DX: S70.02XA Contusion of left hip, initial encounter (principal); M25.572 Pain in left ankle and joints of left foot; W13.2XXA Fall from, out of or through roof, initial encounter; Y93.89 Activity, other specified; Y92.9 Unspecified place or not applicable; I10 Essential (primary) hypertension; Z72.0 Tobacco use
CPT/HCPCS: 36415; 70450; 71260; 72125; 74177; 80048; 85025; 86850; 86900; 86901; 96374; 96375; 99284; J2405; J3010; Q9967

== ENCOUNTER 2020-04-10 21:04 | Emergency (ER) | payer SELFPAY ==
[2020-04-10 21:47] LABS: Urine Blood NEGATIVE (NEG); Urine Glucose NEGATIVE (NEG); Urine Protein NEGATIVE (NEG); Urine Specific Gravity 1.015 (1.005-1.030)
[2020-04-10 21:51] LABS: Absolute Lymphocytes (CBC) 1.7 K/uL (0.7-4.9); Basophils % 1.1 % (0-1.3); Hematocrit 42.8 % (39.6-49.0); Lymphocytes % 24.4 % (15.3-44.8); MPV 8.7 fL (7.6-11.3); RBC Red Blood Cell Count 5.07 M/uL (4.33-5.43)
[2020-04-10 21:52] LABS: Protime INR 1.03
[2020-04-10 21:55] LABS: Barbiturates NEGATIVE (NEGATIVE); Benzodiazepines NEGATIVE (NEGATIVE); Cocaine NEGATIVE (NEGATIVE); METHAMPHETAM NEGATIVE (NEGATIVE); Methadone NEGATIVE (NEGATIVE); Opiates NEGATIVE (NEGATIVE); Phencyclidine NEGATIVE (NEGATIVE); THC Cannibis NEGATIVE (NEGATIVE)
[2020-04-10 22:05] LABS: ALT/SGPT 81 U/L (12-78); AST/SGOT 38 U/L (15-37); Albumin 3.9 g/dL (3.4-5.0); Alkaline Phosphatase 60 U/L (45-117); BUN Blood Urea Nitrogen 5 mg/dL (7-18); Bicarbonate 27 mmol/L (21-32); Bilirubin Direct 0.2 mg/dL (0-0.2); Bilirubin Total 0.6 mg/dL (0.2-1.0); Glucose Level 112 mg/dL (74-106); NT PRO-BNP 6 pg/mL (<125); Potassium 3.6 mmol/L (3.5-5.1); Protein, Total 7.8 g/dL (6.4-8.2); Sodium Level 140 mmol/L (136-145); Troponin (Emerg Dept Use Only) < 0.02 ng/mL (0.0-0.045)
--- NOTE | 2020-04-10 22:23 | RAD REPORT ---
EXAM DESCRIPTION: RAD - Chest Single View - 04/10/2020 10:01 pm CLINICAL HISTORY: CHEST PAIN Chest pain. COMPARISON: Chest Pa And Lat (2 Views) dated 01/09/2018; Chest Pa And Lat (2 Views) dated 12/21/2016 ; Chest Single View dated 06/09/2015; CHEST SINGLE VIEW dated 12/29/2014 FINDINGS: Portable technique limits examination quality. The lungs are grossly clear. The heart is normal in size. No displaced fractures. IMPRESSION: No acute intrathoracic process suspected.
[2020-04-11] MEDS ORDERED: KETOROLAC 30 MG/ML INJ ONE (01:03)
[2020-04-11] MEDS ORDERED: HYDRALAZINE HCL 20 MG/ML VIAL ONE (01:03)
--- NOTE | 2020-04-11 01:52 | EDPHYS ---
Physician Documentation [facility] Name: Amna Jenkins Jr Age: 40 yrs Sex: Male : 1980 Arrival Date: 04/10/2020 Time: 21:05 Bed 3 Private MD: ED Physician Beltran Harrell HPI: 04/10 22:00 This 40 yrs old Male presents to ER via EMS with complaints of Chest Pain. tw4 22:00 The patient or guardian reports chest pain that is located primarily in the substernal tw4 area. The pain radiates to the left arm. Associated signs and symptoms: The patient has no apparent associated signs or symptoms. The chest pain is described as dull, a heaviness. Duration: The patient or guardian reports a single episode. Modifying factors: The symptoms are alleviated by nothing. the symptoms are aggravated by nothing. Severity of pain: At its worst the pain was moderate in the emergency department the pain is unchanged. The patient has not experienced similar symptoms in the past. Historical: - Allergies: 21:08 "something for pain"; mg2 - PMHx: 21:08 GI Bleed; Hypertension; mg2 - Immunization history:: Flu vaccine status is unknown. - Social history:: Smoking status: Patient denies any tobacco usage or history of. ROS: 22:00 Constitutional: Negative for fever, chills, and weight loss, Eyes: Negative for injury, tw4 pain, redness, and discharge, ENT: Negative for injury, pain, and discharge, Neck: Negative for injury, pain, and swelling, Respiratory: Negative for shortness of breath, cough, wheezing, and pleuritic chest pain, Abdomen/GI: Negative for abdominal pain, nausea, vomiting, diarrhea, and constipation, Back: Negative for injury and pain, MS/Extremity: Negative for injury and deformity, Skin: Negative for injury, rash, and discoloration, Neuro: Negative for headache, weakness, numbness, tingling, and seizure. 22:00 Cardiovascular: Positive for chest pain, Negative for edema, orthopnea, palpitations, paroxysmal nocturnal dyspnea. Exam: 22:00 Constitutional: This is a well developed, well nourished patient who is awake, alert, tw4 and in no acute distress. Head/Face: Normocephalic, atraumatic. Chest/axilla: Normal chest wall appearance and motion. Nontender with no deformity. No lesions are appreciated. Cardiovascular: Regular rate and rhythm with a normal S1 and S2. No gallops, murmurs, or rubs. Normal PMI, no JVD. No pulse deficits. Respiratory: Lungs have equal breath sounds bilaterally, clear to auscultation and percussion. No rales, rhonchi or wheezes noted. No increased work of breathing, no retractions or nasal flaring. Abdomen/GI: Soft, non-tender, with normal bowel sounds. No distension or tympany. No guarding or rebound. No evidence of tenderness throughout. Back: No spinal tenderness. No costovertebral tenderness. Full range of motion. MS/ Extremity: Pulses equal, no cyanosis. Neurovascular intact. Full, normal range of motion. Neuro: Awake and alert, GCS 15, oriented to person, place, time, and situation. Cranial nerves II-XII grossly intact. Motor strength 5/5 in all extremities. Sensory grossly intact. Cerebellar exam normal. Normal gait. Vital Signs: 21:08 BP 139 / 91; Pulse 88; Resp 18; Temp 98; Pulse Ox 98% on R/A; mg2 22:21 Pulse 81; Resp 18; Pulse Ox 97% on R/A; mg2 04/11 00:25 BP 140 / 105; Pulse 81; Resp 18; Pulse Ox 98% on R/A; Pain 5/10; em 01:54 BP 134 / 90; Pulse 65; Resp 18; Pulse Ox 98% on R/A; em MDM: 04/10 21:18 Patient medically screened. tw4 04/11 01:48 Differential diagnosis: cholecystitis, Cholelithiasis myocarditis, pancreatitis, tw4 pulmonary embolus, stable angina, thoracic aortic disection. HEART Score: History: Moderately Suspicious (1), ECG: Normal (0), Age: < or = 45 years (0), Risk Factors: 1 or 2 risk factors (1), [Hypertension] Troponin: < or = 1 x Normal Limit (0), Total Score = 2. Data reviewed: vital signs, nurses notes. Data interpreted: Pulse oximetry: Interpretation: normal. Test interpretation: by ED physician or midlevel provider: ECG, plain radiologic studies. Counseling: I had a detailed discussion with the patient and/or guardian regarding: the historical points, exam findings, and any diagnostic results supporting the discharge/admit diagnosis, lab results. Special discussion: Based on the patient's history, exam, and Dx evaluation, there is no indication for emergent intervention or inpatient Tx. It is understood by the patient/guardian that if the Sx's persist or worsen they need to return immediately for re-evaluation. I discussed with the patient/guardian in detail that at this point there is no indication for admission to the hospital. It is understood, however, that if the symptoms persist or worsen the patient needs to return immediately for re-evaluation. 04/10 21:07 Order name: Basic Metabolic Panel; Complete Time: 23:31 mg2 0218 23:31 Interpretation: Normal except: GLUC 112; BUN 5. 04/10 21:07 Order name: CBC with Diff; Complete Time: 23:31 mg2 0218 23:31 Interpretation: Within normal limits. 04/10 21:07 Order name: LFT's; Complete Time: 23:31 mg2 04/10 23:31 Interpretation: Normal except: AST 38; ALT 81; GLOB 3.9; A/G 1.0. 04/10 21:07 Order name: Magnesium; Complete Time: 23:31 mg2 02 23:31 Interpretation: Within normal limits: MG 2.0. 04/10 21:07 Order name: NT PRO-BNP; Complete Time: 23:31 mg2 0218 23:31 Interpretation: Within normal limits: NT PRO-BNP 6. 04/10 21:07 Order name: PT-INR; Complete Time: 23:31 mg2 18 23:32 Interpretation: Within normal limits: PT 11.8. 04/10 21:07 Order name: Troponin (emerg Dept Use Only); Complete Time: 23:31 mg2 18 23:32 Interpretation: Within normal limits: TROPED < 0.02. 04/10 21:07 Order name: XRAY Chest (1 view); Complete Time: 23:31 mg2 18 23:32 Interpretation: No acute disease. 04/10 21:25 Order name: Urine Drug Screen; Complete Time: 23:31 4 04/10 21:37 Order name: Urine Dipstick--Ancillary (enter results); Complete Time: 23:31 [facility] 04/10 23:47 Order name: Troponin (emerg Dept Use Only) tw4 04/10 23:47 Order name: Troponin (Emerg Dept Use Only); Complete Time: 01:48 EDMS 04/10 21: Order name: EKG; Complete Time: 21: mg2 04/10 21: Order name: Cardiac monitoring; Complete Time: 21: mg2 04/10 21: Order name: EKG - Nurse/Tech; Complete Time: 21: mg2 04/10 21: Order name: IV Saline Lock; Complete Time: 21: mg2 04/10 21: Order name: Labs collected and sent; Complete Time: 21: mg2 04/10 21: Order name: O2 Per Protocol; Complete Time: : mg2 04/10 21: Order name: O2 Sat Monitoring; Complete Time: : mg2 EC/18 22:00 Rate is 85 beats/min. Rhythm is regular. QRS Seth is Normal. PA interval is prolonged. tw4 QT interval is normal. No Q waves. T waves are Normal. No ST changes noted. Clinical impression: 1st degree heart block. Interpreted by me. Reviewed by me. Administered Medications: 04/11 00:50 Drug: hydrALAZINE 5 mg Route: IV; Rate: bolus; Site: left antecubital; em 00:52 Drug: TORadol 30 mg Route: IVP; Site: left antecubital; em Disposition: 04/11/20 01:51 Discharged to Home. Impression: Other chest pain, Hypertension secondary to other renal disorders. - Condition is Stable. - Discharge Instructions: Nonspecific Chest Pain, Hypertension, [id number]. - Medication Reconciliation Form, Thank You Letter, Antibiotic Education, Prescription Opioid Use form. - Follow up: Private Physician; When: Upon discharge from the Emergency Department; Reason: Recheck today's complaints, Continuance of care, Re-evaluation by your physician. - Problem is new. - Symptoms have improved. Signatures: Dispatcher [employer] Haris Guerrero, RN RN em Beltran Harrell MD MD tw4 Julien Crooks RN RN mg2 Corrections: (The following items were deleted from the chart) 02:06 01:51 04/11/2020 01:51 Discharged to Home. Impression: Other chest pain; Hypertension mg2 secondary to other renal disorders. Condition is Stable. Forms are Medication Reconciliation Form, Thank You Letter, Antibiotic Education, Prescription Opioid Use. Follow up: Private Physician; When: Upon discharge from the Emergency Department; Reason: Recheck today's complaints, Continuance of care, Re-evaluation by your physician. Problem is new. Symptoms have improved. tw4
--- NOTE | 2020-04-11 01:52 | ER ---
Nurse's Notes [facility] Name: Amna Jenkins Jr Age: 40 yrs Sex: Male : 1980 Arrival Date: 04/10/2020 Time: 21:05 Bed 3 Private MD: Diagnosis: Other chest pain;Hypertension secondary to other renal disorders Presentation: 04/10 21:09 Chief complaint: EMS states: he has chest pressure started 40 mins ago. also complained mg2 of left arm numbness and jaw pain given 324 ASA, 100 mcg Fentanyl enroute. Coronavirus screen: Client denies travel out of the [place] in the last 14 days. At this time, the client does not indicate any symptoms associated with coronavirus-19. Ebola Screen: No symptoms or risks identified at this time. Initial Sepsis Screen: Does the patient meet any 2 criteria? No. Patient's initial sepsis screen is negative. Does the patient have a suspected source of infection? No. Patient's initial sepsis screen is negative. Risk Assessment: Do you want to hurt yourself or someone else?. Onset of symptoms was April 10, 2020. 21:09 Method Of Arrival: EMS: [facility] mg2 21:09 Acuity: NEYDA 3 mg2 Historical: - Allergies: 21:08 "something for pain"; mg2 - PMHx: 21:08 GI Bleed; Hypertension; mg2 - Immunization history:: Flu vaccine status is unknown. - Social history:: Smoking status: Patient denies any tobacco usage or history of. Screenin:09 Abuse screen: Denies threats or abuse. Denies injuries from another. Nutritional mg2 screening: No deficits noted. Tuberculosis screening: No symptoms or risk factors identified. Fall Risk IV access (20 points). Assessment: 21:13 General: Appears in no apparent distress. comfortable, Behavior is calm, cooperative. mg2 Pain: Complains of pain in chest. Neuro: Level of Consciousness is awake, alert, obeys commands, Oriented to person, place, time, situation. Cardiovascular: Capillary refill < 3 seconds Patient's skin is warm and dry. Chest pain is described as mild. Respiratory: Airway is patent Respiratory effort is even, unlabored, Respiratory pattern is regular, symmetrical. GI: No signs and/or symptoms were reported involving the gastrointestinal system. : EENT: No signs and/or symptoms were reported regarding the EENT system. Derm: Skin is intact, is healthy with good turgor, Skin is pink, warm \\T\\ dry. normal. Musculoskeletal: Circulation, motion, and sensation intact. Capillary refill < 3 seconds. 22:21 Reassessment: Patient appears in no apparent distress at this time. Patient and/or mg2 family updated on plan of care and expected duration. Pain level reassessed. Patient is alert, oriented x 3, equal unlabored respirations, skin warm/dry/pink. 23:00 Reassessment: Patient appears in no apparent distress at this time. Patient and/or em family updated on plan of care and expected duration. Pain level reassessed. Patient is alert, oriented x 3, equal unlabored respirations, skin warm/dry/pink. 04/11 02:05 Reassessment: Patient denies pain at this time. Patient states feeling better. Patient mg2 states symptoms have improved. Vital Signs: 04/10 21:08 BP 139 / 91; Pulse 88; Resp 18; Temp 98; Pulse Ox 98% on R/A; mg2 22:21 Pulse 81; Resp 18; Pulse Ox 97% on R/A; mg2 04/11 00:25 BP 140 / 105; Pulse 81; Resp 18; Pulse Ox 98% on R/A; Pain 5/10; em 01:54 BP 134 / 90; Pulse 65; Resp 18; Pulse Ox 98% on R/A; em ED Course: 04/10 21:05 Patient arrived in ED. cf2 21:08 No provider procedures requiring assistance completed. Maintain EMS IV. Dressing mg2 intact. Good blood return noted. Site clean \\T\\ dry. Gauge \\T\\ site: 18 \\T\\ lAC. Patient maintains SpO2 saturation greater than 95% on room air. 21:10 Haris Freed, RN is Primary Nurse. em 21:11 Triage completed. mg2 21:11 Arm band placed on. mg2 21:14 Patient has correct armband on for positive identification. section leader on. Pulse mg2 ox on. NIBP on. 21:18 Beltran Harrell MD is Attending Physician. tw4 22:01 XRAY Chest (1 view) In Process Unspecified. EDMS 04/11 02:05 IV discontinued, intact, bleeding controlled, No redness/swelling at site. Pressure mg2 dressing applied. Administered Medications: 00:50 Drug: hydrALAZINE 5 mg Route: IV; Rate: bolus; Site: left antecubital; em 00:52 Drug: TORadol 30 mg Route: IVP; Site: left antecubital; em Outcome: 01:51 Discharge ordered by . tw4 02:06 Discharged to home ambulatory. mg2 02:06 Condition: improved 02:06 Discharge instructions given to patient, Instructed on discharge instructions, follow up and referral plans. medication usage, Demonstrated understanding of instructions, follow-up care. 02:06 Patient left the ED. mg2 Signatures: Dispatcher [employer] Haris Guerrero RN RN em Beltran Harrell MD MD tw4 Julien Crooks RN RN mg2 Daryl Abarca cf2 Corrections: (The following items were deleted from the chart) 04/10 21:13 21:09 Chief complaint: EMS states: he has chest pressure started 40 mins ago. given 324 mg2 ASA, 100 mcg Fentanyl enroute mg2 21:14 21:09 Chief complaint: EMS states: he has chest pressure started 40 mins ago. also mg2 complained of left arm numbness and pain given 324 ASA, 100 mcg Fentanyl enroute. mg2
[2020-04-11 02:32] VITALS: TEMP 98
[2020-04-11 02:35] VITALS: O2SAT 98
[2020-04-11 02:36] VITALS: BP 134/90
== END 2020-04-11 02:06 | disposition home or self-care (01) ==
LOC: ER 21:04
DX: R07.9 Chest pain, unspecified (principal); N28.9 Disorder of kidney and ureter, unspecified; I15.1 Hypertension secondary to other renal disorders
CPT/HCPCS: 36415; 71045; 80048; 80076; 80307; 81003; 83735; 83880; 84484; 85025; 85610; 96374; 96375; 99285; J0360

== ENCOUNTER 2021-09-20 21:58 | Emergency (ER) | payer SELFPAY ==
[2021-09-20 22:30] LABS: Absolute Lymphocytes (CBC) 2.2 K/uL (0.7-4.9); Hematocrit 41.3 % (39.6-49.0); MCV 83.1 fL (80-100); MPV 8.9 fL (7.6-11.3); RBC Red Blood Cell Count 4.97 M/uL (4.33-5.43)
[2021-09-20 22:54] LABS: Potassium 3.5 mmol/L (3.5-5.1); Troponin High Sensitivity 5.4 pg/mL (<58.9)
[2021-09-20] MEDS ORDERED: ACETAMINOPHEN 500 MG TAB ONE (22:56)
[2021-09-21] MEDS ORDERED: NA CHLORIDE 0.9% 500 ML ONE (00:23)
[2021-09-21] MEDS ORDERED: MECLIZINE HCL 12.5 MG TAB ONE (01:12)
--- NOTE | 2021-09-21 01:41 | ER ---
Nurse's Notes [facility] Name: Amna Jenkins Jr Age: 41 yrs Sex: Male : 1980 Arrival Date: 09/20/2021 Time: 21:59 Bed 18 Private MD: Diagnosis: Chest pain, unspecified;Hypertensive heart disease without heart failure Presentation: 09/20 22:14 Chief complaint: EMS states: [facility] [place] [facility] [employer] [facility]. c/o chest pain at aa9 08/30, upon ASA administration pain reported at 05/31. Released from [facility] on Tuesday with recommendation for cardiac follow up. pt reports possible AFib DX and blood in urine. Coronavirus screen: Vaccine status: Patient reports being unvaccinated. Ebola Screen: Patient denies exposure to infectious person. Patient denies travel to an Ebola-affected area in the 21 days before illness onset. No symptoms or risks identified at this time. Initial Sepsis Screen: Does the patient meet any 2 criteria? No. Patient's initial sepsis screen is negative. Does the patient have a suspected source of infection? No. Patient's initial sepsis screen is negative. Risk Assessment: Do you want to hurt yourself or someone else? Patient reports no desire to harm self or others. Onset of symptoms was September 20, 2021. 22:14 Method Of Arrival: EMS: [facility] aa9 22:14 Acuity: NEYDA 3 aa9 22:18 Care prior to arrival: Medication(s) given: ASA, 81 mg, x 4, zofran 4 mg, 1/2 inch aa9 nitro topical IV initiated. 18 GA, in the left in the right antecubital area, Glucose check: 144. Triage Assessment: 22:17 General: Appears uncomfortable, Behavior is cooperative, anxious. Pain: Complains of aa9 pain in chest. Historical: - Allergies: 22:17 No Known Allergies; aa9 - PMHx: 22:17 GI Bleed; Hypertension; aa9 - Immunization history:: Client reports having NOT received the Covid vaccine. Flu vaccine is not up to date. - Social history:: Smoking status: Patient denies any tobacco usage or history of. Screenin:01 Abuse screen: Denies threats or abuse. Denies injuries from another. Nutritional hb screening: No deficits noted. Tuberculosis screening: No symptoms or risk factors identified. Fall Risk None identified. Assessment: 21:59 General: Appears in no apparent distress. Behavior is calm, cooperative. Pain: Pain hb currently is 4 out of 10 on a pain scale. Neuro: Level of Consciousness is awake, alert, obeys commands, Oriented to person, place, time, situation. Cardiovascular: Patient's skin is warm and dry. Chest pain left sided. Respiratory: Respiratory effort is even, unlabored, Respiratory pattern is regular, symmetrical. GI: No signs and/or symptoms were reported involving the gastrointestinal system. : No signs and/or symptoms were reported regarding the genitourinary system. EENT: No signs and/or symptoms were reported regarding the EENT system. Derm: Skin is pink, warm \\T\\ dry. Musculoskeletal: No signs and/or symptoms reported regarding the musculoskeletal system. 23:32 Reassessment: No changes from previously documented assessment. Patient and/or family ll3 updated on plan of care and expected duration. Pain level reassessed. Patient is alert, oriented x 3, equal unlabored respirations, skin warm/dry/pink. 09/21 00:47 Reassessment: Pt c/o H/A, and feeling lightheaded and dizzy, Dr. Malloy notified, ll3 received a verbal order to D/C the nitro patch and for a 500 ml bolus of NS, medicated as ordered, tolerated well. 01:01 Reassessment: Fathers contact info [phone]. 3 Vital Signs: 09/20 22:14 BP 138 / 91; Pulse 67; Resp 18 S; Temp 98.7(O); Pulse Ox 98% on R/A; Weight 99.79 kg aa9 (R); Height 5 ft. 9 in. (175.26 cm) (R); Pain 4/10; 22:22 BP 138 / 91; Pulse 67; Resp 18 S; Temp 98.5(O); Pulse Ox 98% on R/A; Weight 99.79 kg aa9 (R); Height 5 ft. 9 in. (175.26 cm) (R); Pain 4/10; 23:32 BP 117 / 76; Pulse 67; Resp 11; Pulse Ox 97% on R/A; ll3 09/21 00:47 BP 108 / 76; Pulse 56; Resp 15; Pulse Ox 97% on R/A; ll3 01:12 BP 100 / 64 Supine; Pulse 50; Resp 16; Pulse Ox 100% on R/A; ll3 01:12 BP 111 / 75 Sitting; Pulse 55; Resp 15; Pulse Ox 100% on R/A; ll3 01:12 BP 110 / 71 Standing; Pulse 55; Resp 15; Pulse Ox 100% on R/A; ll3 09/20 22:22 Body Mass Index 32.49 (99.79 kg, 175.26 cm) aa9 ED Course: 09/20 21:59 Patient arrived in ED. hb 21:59 Maintain EMS IV. Dressing intact. Good blood return noted. Site clean \\T\\ dry. Gauge \\T\\ hb site: 18g LAC. Patient maintains SpO2 saturation greater than 95% on room air. 22:01 Armando Malloy MD is Attending Physician. kdr 22:01 Arm band placed on. hb 22:05 Clary Ware, RN is Primary Nurse. hb 22:17 Triage completed. aa9 22:45 XRAY Chest (1 view) In Process Unspecified. EDMS 23:36 Patient has correct armband on for positive identification. Bed in low position. Call ll3 light in reach. Side rails up X 1. Client placed on continuous cardiac and pulse oximetry monitoring. NIBP monitoring applied. 08 01:54 No provider procedures requiring assistance completed. IV discontinued, intact, ll3 bleeding controlled, No redness/swelling at site. Pressure dressing applied. Administered Medications: 09/20 22:50 Drug: Tylenol 1000 mg Route: PO; hb 09/21 01:56 Follow up: Response: No adverse reaction ll3 00:21 Drug: NS 0.9% 500 ml Route: IV; Rate: bolus; Site: left antecubital; ll3 01:11 Follow up: Response: No adverse reaction; IV Status: Completed infusion; IV Intake: ll3 500ml 01:05 Drug: Meclizine 25 mg Route: PO; ll3 01:56 Follow up: Response: No adverse reaction ll3 Medication: 09/20 22:01 VIS not applicable for this client. hb Intake: 09/21 01:11 IV: 500ml; Total: 500ml. ll3 Outcome: 01:41 Discharge ordered by . kdr 01:54 Discharged to home ambulatory, with family. ll3 01:54 Condition: stable 01:54 Discharge instructions given to patient, family, Instructed on discharge instructions, follow up and referral plans. medication usage, Demonstrated understanding of instructions, follow-up care, medications, Prescriptions given X 1. 01:56 Patient left the ED. ll3 Signatures: Dispatcher [employer] EDMS Armando Malloy MD MD [facility] Clary Ware RN RN Eileen Francisco RN RN ll3 Micaela Patton RN RN aa9 Corrections: (The following items were deleted from the chart) 09/20 22:17 22:17 Allergies: "something for pain"; aa9 aa9 22:22 22:14 Chief complaint: EMS states: [facility] [employer] [facility]. c/o chest pain aa9 at 08/30 aa9 22:23 22:14 Chief complaint: EMS states: pt [facility]. c/o chest pain aa9 at 08/30. Released from [facility] on Tuesday with recommendation for cardiac follow up. pt reports possible AFib DX and blood in urine. aa9
--- NOTE | 2021-09-21 01:41 | EDPHYS ---
Physician Documentation [facility] Name: Amna Jenkins Jr Age: 41 yrs Sex: Male : 1980 Arrival Date: 09/20/2021 Time: 21:59 Bed 18 Private MD: ED Physician Armando Malloy HPI: 09/20 23:28 This 41 yrs old Male presents to ER via EMS with complaints of Chest Pain. kdr 23:28 The patient or guardian reports chest pain that is located primarily in the anterior kdr chest wall, left, chest diffusely, anterior aspect of left upper chest, mid-sternal area, left lateral anterior chest and left lateral posterior chest. The pain radiates to the left shoulder. Associated signs and symptoms: Pertinent positives: lightheadedness, near-syncope. The chest pain is described as aching, dull, a heaviness, a pressure. Duration: The patient or guardian reports multiple episodes, that are intermittent, that wax and wane, with no pattern. Modifying factors: The symptoms are alleviated by nothing. the symptoms are aggravated by nothing. Severity of pain: At its worst the pain was moderate severe just prior to arrival, in the emergency department the pain has improved moderately. The patient has experienced similar episodes in the past, Patient states that he has been having intermittent chest pain of this nature for the past 2 years. He seen a labor relations consultant and was recently admitted at [facility]. He was discharged last Tuesday.. As noted above. Patient had acute onset of left lateral chest pain. It starts around his axillary area and radiates into his left chest and up into her shoulder.. Historical: - Allergies: 22:17 No Known Allergies; aa9 - PMHx: 22:17 GI Bleed; Hypertension; aa9 - Immunization history:: Client reports having NOT received the Covid vaccine. Flu vaccine is not up to date. - Social history:: Smoking status: Patient denies any tobacco usage or history of. ROS: 23:28 Constitutional: Negative for fever, chills, and weight loss, Eyes: Negative for injury, kdr pain, redness, and discharge, ENT: Negative for injury, pain, and discharge, Neck: Negative for injury, pain, and swelling, Respiratory: Negative for shortness of breath, cough, wheezing, and pleuritic chest pain, Abdomen/GI: Negative for abdominal pain, nausea, vomiting, diarrhea, and constipation, Back: Negative for injury and pain, : Negative for injury, bleeding, discharge, and swelling, MS/Extremity: Negative for injury and deformity, Skin: Negative for injury, rash, and discoloration, Neuro: Negative for headache, weakness, numbness, tingling, and seizure activity. Psych: Negative for depression, anxiety, suicide ideation, homicidal ideation, and hallucinations, Allergy/Immunology: Negative for hives, rash, and allergies, Endocrine: Negative for neck swelling, polydipsia, polyuria, polyphagia, and marked weight changes, Hematologic/Lymphatic: Negative for swollen nodes, abnormal bleeding, and unusual bruising. 23:28 Cardiovascular: Positive for chest pain, Negative for edema, orthopnea, palpitations. Exam: 23:24 ECG was reviewed by the Attending Physician. kdr 23:28 Constitutional: This is a well developed, well nourished patient who is awake, alert, kdr and in no acute distress. Head/Face: Normocephalic, atraumatic. Eyes: Pupils equal round and reactive to light, extra-ocular motions intact. Lids and lashes normal. Conjunctiva and sclera are non-icteric and not injected. Cornea within normal limits. Periorbital areas with no swelling, redness, or edema. Neck: Trachea midline, no thyromegaly or masses palpated, and no cervical lymphadenopathy. Supple, full range of motion without nuchal rigidity, or vertebral point tenderness. No Meningismus. Chest/axilla: Normal chest wall appearance and motion. Nontender with no deformity. No lesions are appreciated. Cardiovascular: Regular rate and rhythm with a normal S1 and S2. No gallops, murmurs, or rubs. Normal PMI, no JVD. No pulse deficits. Respiratory: Lungs have equal breath sounds bilaterally, clear to auscultation and percussion. No rales, rhonchi or wheezes noted. No increased work of breathing, no retractions or nasal flaring. Abdomen/GI: Soft, non-tender, with normal bowel sounds. No distension or tympany. No guarding or rebound. No evidence of tenderness throughout. Back: No spinal tenderness. No costovertebral tenderness. Full range of motion. Skin: Warm, dry with normal turgor. Normal color with no rashes, no lesions, and no evidence of cellulitis. MS/ Extremity: Pulses equal, no cyanosis. Neurovascular intact. Full, normal range of motion. Neuro: Awake and alert, GCS 15, oriented to person, place, time, and situation. Cranial nerves II-XII grossly intact. Motor strength 5/5 in all extremities. Sensory grossly intact. Cerebellar exam normal. Normal gait. Psych: Awake, alert, with orientation to person, place and time. Behavior, mood, and affect are within normal limits. Vital Signs: 22:14 BP 138 / 91; Pulse 67; Resp 18 S; Temp 98.7(O); Pulse Ox 98% on R/A; Weight 99.79 kg aa9 (R); Height 5 ft. 9 in. (175.26 cm) (R); Pain 4/10; 22:22 BP 138 / 91; Pulse 67; Resp 18 S; Temp 98.5(O); Pulse Ox 98% on R/A; Weight 99.79 kg aa9 (R); Height 5 ft. 9 in. (175.26 cm) (R); Pain 4/10; 23:32 BP 117 / 76; Pulse 67; Resp 11; Pulse Ox 97% on R/A; ll3 09/21 00:47 BP 108 / 76; Pulse 56; Resp 15; Pulse Ox 97% on R/A; ll3 01:12 BP 100 / 64 Supine; Pulse 50; Resp 16; Pulse Ox 100% on R/A; ll3 01:12 BP 111 / 75 Sitting; Pulse 55; Resp 15; Pulse Ox 100% on R/A; ll3 01:12 BP 110 / 71 Standing; Pulse 55; Resp 15; Pulse Ox 100% on R/A; ll3 09/20 22:22 Body Mass Index 32.49 (99.79 kg, 175.26 cm) aa9 MDM: 09/20 23:28 Data reviewed: vital signs, nurses notes, lab test result(s), EKG, radiologic studies. kdr Counseling: I had a detailed discussion with the patient and/or guardian regarding: the historical points, exam findings, and any diagnostic results supporting the discharge/admit diagnosis, lab results, radiology results, the need for outpatient follow up. 09/21 01:41 Patient medically screened. kdr 09/20 21:59 Order name: Basic Metabolic Panel; Complete Time: :12 hb 09/20 21:59 Order name: CBC with Diff; Complete Time: 22:46 hb 09/20 21:59 Order name: Troponin HS; Complete Time: 00:12 hb 09/20 21:59 Order name: XRAY Chest (1 view) hb 09/21 00:04 Order name: Troponin HS; Complete Time: 01:03 ll3 09/20 21:59 Order name: EKG; Complete Time: 22:01 hb 09/20 21:59 Order name: Cardiac monitoring; Complete Time: 21:59 hb 09/20 21:59 Order name: EKG - Nurse/Tech; Complete Time: 21:59 hb 09/20 21:59 Order name: IV Saline Lock; Complete Time: 21:59 hb 09/20 21:59 Order name: Labs collected and sent; Complete Time: 21:59 hb 09/20 21:59 Order name: O2 Per Protocol; Complete Time: 21:59 hb 09/20 21:59 Order name: O2 Sat Monitoring; Complete Time: 21:59 hb 09/21 01:04 Order name: Orthostatic Blood Pressure; Complete Time: 01:12 kdr EC/31 23:24 Rate is 67 beats/min. Rhythm is regular, Sinus Rhythm with No ectopy, Right bundle kdr branch block. QRS [place] is Normal. [place] interval is normal. QRS interval is normal. QT interval is normal. Clinical impression: NSR w/ Non-specific ST/T Changes. Administered Medications: 22:50 Drug: Tylenol 1000 mg Route: PO; 09/21 01:56 Follow up: Response: No adverse reaction ll3 00:21 Drug: NS 0.9% 500 ml Route: IV; Rate: bolus; Site: left antecubital; ll3 01:11 Follow up: Response: No adverse reaction; IV Status: Completed infusion; IV Intake: ll3 500ml 01:05 Drug: Meclizine 25 mg Route: PO; ll3 01:56 Follow up: Response: No adverse reaction ll3 Disposition Summary: 09/21/21 01:41 Discharge Ordered Location: Home kdr Problem: an acute exacerbation kdr Symptoms: have improved kdr Condition: Stable kdr Diagnosis - Chest pain, unspecified kdr - Hypertensive heart disease without heart failure kdr Followup: kdr - With: Private Physician - When: 2 - 3 days - Reason: If symptoms return, Further diagnostic work-up, Recheck today's complaints, Continuance of care, Re-evaluation by your physician Discharge Instructions: - Discharge Summary Sheet kdr - Nonspecific Chest Pain, Adult, [id number] kdr - Hypertension, Adult, [id number] kdr Forms: - Medication Reconciliation Form kdr - Thank You Letter kdr Prescriptions: - isosorbide dinitrate 10 mg Oral tablet - take 1 tablet by ORAL route 3 times per day As needed; 16 tablet; Refills: 0, kdr Product Selection Permitted Signatures: Dispatcher [employer] EDMS Armando Malloy MD MD kdr Clary Ware RN RN Eileen Francisco RN RN ll3 Micaela Patton RN RN aa9 Corrections: (The following items were deleted from the chart) 09/20 22:17 22:17 Allergies: "something for pain"; aa9 aa9
[2021-09-21 03:09] VITALS: TEMP 98.5
[2021-09-21 03:20] VITALS: BP 110/71; O2SAT 100
--- NOTE | 2021-09-21 12:20 | EKG ---
Test Date: 2021-09-20 Test Time: 21:57:18 Director Of Early Childhood: HENRY MEASUREMENT RESULTS: Intervals: Rate: 67 NE: 194 QRSD: 112 QT: 378 QTc: 399 [place]: P: 41 NE: 194 QRS: 7 T: 21 INTERPRETIVE STATEMENTS: Normal sinus rhythm Incomplete right bundle branch block Borderline ECG Compared to ECG 04/10/2020 21:06:40 Incomplete right bundle-branch block now present Sinus bradycardia no longer present First degree AV block no longer present Electronically Signed On 09-21-21 12:19:51 CDT by Beto Serrano
--- NOTE | 2021-09-21 13:11 | RAD REPORT ---
EXAM DESCRIPTION: RAD - Chest Single View - 09/20/2021 10:43 pm CLINICAL HISTORY: CHEST PAIN COMPARISON: None. FINDINGS: Single frontal radiograph view of the chest. Cardiomediastinal silhouette: Normal size and contour. Lungs: No consolidation, pneumothorax, or pleural effusion. Bones: No acute osseous abnormality. Leads overlie the chest. Upper abdomen: No abnormality identified. IMPRESSION: 1. No acute pulmonary process identified. Electronically signed by: Dimas Luz 09/20/2021 11:20 PM CDT Due to temporary technical issues with the PACS/Fluency reporting system, reports are being signed by the in house radiologists without review as a courtesy to insure prompt reporting. The interpreting radiologist is fully responsible for the content of the report.
== END 2021-09-21 01:56 | disposition home or self-care (01) ==
LOC: ER 21:58
DX: I11.9 Hypertensive heart disease without heart failure (principal); I10 Essential (primary) hypertension
CPT/HCPCS: 36415; 71045; 80048; 84484; 85025; 93005; 96360; 99284; J7040; J8597

== ENCOUNTER 2022-12-08 10:56 | Observation (INO) | payer SELFPAY ==
--- OUTSIDE RECORDS SUMMARY | 2022-12-08 11:04 | XMS REPORT | Continuity of Care Document ---
:1980 Author Organization [facility] t Address [address] [place] [address] Care Team Providers Name Role Phone PCP, PATIENT DOES NOT HAVE A Primary Care Physician UnavailLEROY Marti Attending Clinician Unavailable Leroy Em Attending Clinician JEREMI LUCIANO Attending Clinician Unavailable Nara Young Attending Clinician Jeremi Luciano MD Attending Clinician LEROY NELSON Admitting Clinician Unavailable JEREMI LUCIANO Admitting Clinician Unavailable Jeremi Luciano MD Admitting Clinician Problems Condition Condition Condition Status Onset Resolution Last Treating Co mments Source Name Details Category Date Date Treatment Clinician Date Paroxysmal Paroxysmal Disease Active U nivers atrial atrial 09-17 [place] History of History of Disease Active U nivers myocardial myocardial 09-17 [place] of infarction [place] [facility] [place] Hypertensi Hypertensi Disease Active U nivers on on 09-17 ity of 00:00: [address] Hyperlipid Hyperlipid Disease Active U earlene emia emia 09-17 ity of 00:00: [address] Family Family Disease Active Univers history of history of 09-17 [place] premature [place] coronary coronary 00 [place] artery artery Branch disease disease Chest Chest Disease Active Univers pain, pain, 09-16 it[place] of unspecifie [place]if[place] d type [facility] Obesity Obesity Disease Active Univers (BMI (BMI 09-16 ity of 30-39.9) 30-39.9) 00:00: [address] Allergies, Adverse Reactions, Alerts Allergy Allergy Status Severity Reaction(s) Onset Inactive Treating Comm ents Source Name Type Date Date Clinician NO KNOWN Drug Active Univers ALLERGIE Class ity of S [facility] Social History Social Habit Start Date Stop Date Quantity Comments Source Gender identity [facility]it [facility] of [facility] Social 2022-09-28 2022-09-28 Univers ity of function 00:00:00 00:00:00 [facility] Exposure to 2021-09-06 2021-09-16 Not sure [facility] SARS-CoV-2 (event) 00:00:00 15:50:00 [facility] Tobacco use and 2021-09-16 2021-09-16 Smokeless Universit y of exposure 00:00:00 00:00:00 tobacco non-user [facility] Sex Assigned At [birth year] Universit y of 00:00:00 00:00:00 [facility] Smoking Status Start Date Stop Date Source Never smoked tobacco [facility] Medications Ordered Filled Start Stop Current Ordering Indication Dosage Frequency Signature Comments Components Source Medication Medication Date Date Medication? Clinician (SIG) Name Name acetaminoph 2022- No 650mg 650 mg, U earlene en 09-29 Oral, ity of (TYLENOL) 01:15: 00:34 [place]CE[place] 650 00 :00 dose, On Medic al mg 09/28/22 Branch at 2015, MIO ibuprofen 2022- No 600mg 600 mg, Uni vers (IBU) 09-29 Oral, ity of tablet 600 01:15: 00:34 ONCE, 1 Ap as mg 00 :00 dose, On Medical Tu09/28/22 Branch at 2015, MIO aspirin 81 2021- No [id number] 81mg Take 1 Univers mg chewable 09-18 tablet by it y of tablet 00:00: 04:59 mouth in [place] 00 :00 the Medical Branch for 30 days. maalox:diph Yes 15mL 15 mL, Univ ers enhydrAMINE 09-17 Oral, ity of :lidocaine 20:18: QDAILYPRN, [place] 2 % viscous 28 Starting Medi yakelin 1:1:1 on [facility] Branch (FIRST-MOUT 09/17/21 at [facility]) 1518, oral Until suspension Discontinu 15 mL ed, MIO, epigastric pain iopamidol 2021- No [id number] 80mL 80 mL, U nivers (ISOVUE 09-17 Intravenou ity o f 370-500 mL) 16:15: 16:07 s, ONCE, 1 [place] injection 00 :00 dose, On Medica l 80 mL [facility] Branch 09/17/21 at 1115, Routine nitroglycer No .4mg 0.4 mg, Un [place] in 09-17 Sublingual ity of (NITROSTAT) 16:15: 15:41 , ONCE, 1 [place] sublingual 00 :00 dose, On Medic al tablet 0.4 [facility] Branch mg 09/17/21 at 1115, Routine metoprolol Yes 50mg Take 50 mg U nivers succinate 09-17 by mouth ity of XL 50 mg 24 15:50: [place] tablet 39 morning. Medica l Branch metoprolol Yes 50mg Take 50 mg U nivers succinate 09-17 by mouth ity of XL 50 mg 24 15:50: [place] tablet 39 morning. Medica l Branch isosorbide 2021- No 30mg Take 30 mg Univers mononitrate 09-17 by mouth ity of 30 mg 24 hr 15:31: 00:00 as needed [place] tablet 02 :00 for Other Medical (chest Branch pain). metoprolol 2021- No 50mg 50 mg, Univ ers tartrate 09-17 Oral, ONCE ity of (LOPRESSOR) 15:30: 14:25 NOW, 1 [place] as tablet 50 00 :00 dose, On Medica l mg [facility] Branch 09/17/21 at 1030, Routine aspirin 0 Yes 81mg 81 mg, Univers chewable 09-17 Oral, ity of tablet 81 14:00: DAILY, [place] mg 00 First dose Medical on [facility] Branch 09/17/21 at 0900, Until Discontinu ed, Routine enoxaparin Yes 40mg 40 mg, Unive rs (LOVENOX) 09-17 Subcutaneo ity of injection 14:00: [place], [place]ILY, [place] 40 mg 00 First dose Medical on [facility] Branch 09/17/21 at 0900, Until Discontinu ed, Routine metoprolol Yes 50mg 50 mg, Unive rs succinate 09-17 Oral, ity of XL (TOPROL 14:00: DAILY, [place] XL) tablet 00 First dose Med ical 50 mg on [facility] Branch 09/17/21 at 0900, Until Discontinu ed, Routine nitroglycer Yes .4mg 0.4 mg, Uni vers in 09-17 Sublingual ity of (NITROSTAT) 12:09: , Q5MIN [place] as sublingual 06 PRN, Medical tablet 0.4 Starting Branc h mg on [facility] 09/17/21 at 0709, Until Discontinu ed, Routine, Chest pain ondansetron 0 Yes 4mg 4 mg, Slow Univers (ZOFRAN 09-17 IV Push, ity of (PF)) 04:39: Q6HPRN, [place] injection 4 31 Starting Medi yakelin mg on Tue Branch 09/16/21 at 2339, Until Discontinu ed, Routine, Nausea and Vomiting (N/V) morpHINE (2 No 2mg 2 mg, Slow Univers mg/mL) 09-17 IV Push, ity of injection 2 04:39: 04:38 Q4HPRN, [place] mg 24 :24 Starting Medical on Tue Branch 09/16/21 at 2339, Until Priscila 09/17/21 at 2338, Routine, Pain (scale 7-10) traMADoL 2021- No 50mg 50 mg, Univer s (ULTRAM) 09-17 Oral, ity of tablet 50 04:39: 04:38 Q8HPRN, [place] mg 20 :20 Starting Medical on Tue Branch 09/16/21 at 2339, Until Tue09/18/21 at 2338, Routine, Pain (scale 4-6) acetaminoph Yes 650mg 650 mg, Un [place] en 09-17 Oral, ity of (TYLENOL) 04:39: Q6HPRN, [place] tablet 650 18 Starting Medic al mg on Tue Branch 09/16/21 at 2339, Until Discontinu ed, Routine, Pain (scale 1-3) isosorbide Yes 30mg 30 mg, Unive rs mononitrate 09-17 Oral, PRN, it y of (IMDUR) 24 04:37: 1 dose, [place] tablet 33 Starting Medica l 30 mg on Tue Branch 09/16/21 at 2337, Until Discontinu ed, Routine, chest pain pantoprazol 2021- No [id number] 40mg Take 1 Univers e 40 mg EC 09-17 tablet by ity of tablet 00:00: 04:59 mouth in [place] 00 :00 the Medical morning Branch for 30 days. NaCl 0.9% 2021- No 1000mL at 999 Uni vers (NS) bolus 09-16 mL/hr, ity of infusion 23:00: 00:16 1,000 mL, Ap as 1,000 mL 00 :00 IV Medical Infusion, Branch ONCE, 1 dose, On Tue09/16/21 at 1800, STAT aspirin 2021- No 324mg 324 mg, Unive rs chewable 09-16 Oral, ity of tablet 324 21:45: 20:45 ONCE, 1 [place] mg 00 :00 dose, On Medical Tue Branch 09/16/21 at 1645, Routine benzonatate 2017-02- No 200mg Take 1 [place] 200 mg 03-05 capsule by ity of capsule 00:00: 00:00 mouth 3 [place] 00 :00 (three) Medical times Branch daily as needed for Cough. traMADOL 2015- 50mg Take 1 Univer s (ULTRAM) 50 6-15 - tablet by it y of mg tablet 00:00: 00:00 mouth [place] 00 :00 every 6 Medical (six) Branch hours as needed for Pain (scale 7-10). Vital Signs Vital Name Observation Time Observation Value Comments Source Systolic blood 2022-09-28 23:00:00 130 mm[Hg] Univer [facility]ity of [facility] Diastolic blood 2022-09-28 23:00:00 93 mm[Hg] Unive rsity of [facility] Heart rate 2022-09-28 23:00:00 99 /min [facility]i [facility] Body temperature 2022-09-28 23:00:00 37.06 [place] [facility] rate 2022-09-28 23:00:00 16 /min [facility] O[facility] saturation in 2022-09-28 23:00:00 98 /min University of Arterial blood by [place] [employer] Pulse oximetry Branch Body height 2022-09-28 22:29:00 175.3 cm Universi ty [facility] Body weight 2022-09-28 22:29:00 88.905 kg [facility] BMI 2022-09-28 22:29:00 28.94 [facility] 2021-09-17 16:42:00 133 mm[Hg] Univer sity of [facility] Diastolic blood 2021-09-17 16:42:00 80 mm[Hg] Unive rsity of [facility] Heart rate 2021-09-17 16:42:00 57 /min Universi ty [facility] Body temperature 2021-09-17 16:42:00 36.22 [place] Univ ersity [facility] Respiratory rate 2021-09-17 16:42:00 18 /min Univ ersity [facility] Oxygen saturation in 2021-09-17 16:42:00 97 /min University of Arterial blood by [facility] Pulse oximetry Branch Body weight 2021-09-17 09:08:00 112.492 kg Universi ty [facility] BMI 2021-09-17 09:08:00 35.58 kg/m2 [facility] Body height 2021-09-17 00:56:00 177.8 cm [facility] Procedures Procedure Date / Time Performing Clinician Source Performed TROPONIN I 2022-09-29 00:57:00 Leroy Nelson [facility] XR CHEST 1 VW 2022-09-28 22:52:00 [facility] 2022-09-28 22:44:00 Leslie [facility] CBC WITH DIFF 2022-09-28 22:44:00 Leslie [facility] D-DIMER 2022-09-28 22:44:00 Leslie [facility] CONSENT/REFUSAL FOR 2022-09-28 22:25:13 Doctor [facility]igned, [facility] Name [facility] CT ANGIOGRAPHY CORONARIES 2021-09-17 18:22:48 Zhang Guzman [facility] WITH CARDIAC CALCIUM [facility] SCORE TRANSTHORACIC ECHO (TTE) 2021-09-17 12:51:00 Jeremi Luciano [facility] URINE DRUG (IMMUNOASSAY) 2021-09-17 12:11:00 Pedro [facility] COMPREHENSIVE DRUG [facility] SCREEN CBC WITH DIFF 2021-09-17 10:53:00 Pedro [facility] TROPONIN I 2021-09-17 09:12:00 Pedro [facility] BASIC METABOLIC PANEL 2021-09-17 09:12:00 Pedro [facility] (NA, K, CL, CO2, GLUCOSE, Medica l Branch BUN, CREATININE, CA) TROPONIN I 2021-09-17 05:14:00 Pedro [facility] XR CHEST 1 VW 2021-09-16 21:41:58 Nara Paige [facility] MAGNESIUM 2021-09-16 20:46:00 Nara Paige [facility] TROPONIN I 2021-09-16 20:46:00 Nara Paige [facility] COMP. METABOLIC PANEL 2021-09-16 20:46:00 Nara Paige [facility] ([id number]) [facility] [place] CBC WITH DIFF 2021-09-16 20:46:00 Nara Paige [facility] URINALYSIS 2021-09-16 20:46:00 Nara Paige Lydia [facility] N-TERMINAL PRO-BNP 2021-09-16 20:46:00 [facility] COVID-19 (ID NOW RAPID 2021-09-16 20:46:00 Nara Paige [facility] TESTING) Medical Branch LAB ONLY COVID 2021-09-16 20:46:00 Nara Paige Lydia [facility] HB ECG ROUTINE & RHYTHM 2021-09-16 20:08:21 Nara Paige [facility] [place] NOTICE OF PRIVACY 2021-09-16 19:42:18 Doctor Unassigned, No Univ [facility] PRACTICES Name Medical [place] Encounters Start End Encounter Admission Attending Care Care Encounter Source Date/Time Date/Time Type Type Clinicians Facility Department ID 2022-09-28 2022-09-28 Emergency X [facility] ERT [id number] Univers 17:33:00 20:57:00 LEROY collier [facility] 2022-09-28 2022-09-28 Emergency [facility] [id number] Univers 17:33:00 20:57:00 [facility] [id number] [facility] [id number] [facility] [id number] [facility] 084 Branch 2021-09-16 2021-09-17 Outpatient X YE [facility] LEON [id number] Univers 15:05:00 15:50:00 [facility] 2021-09-16 2021-09-17 Emergency Nara Paige [facility] [id number] Univers 15:05:00 15:50:00 Jeremi Luciano [id number] [facility] SABINE [id number] [facility] [id number] [address] Results Test Description Test Time Test Comments Results Result Comments Source TROPONIN I 2022-09-29 01:30:02 Test Item Value Reference Range Interpretation Comme nts TROPONIN I (test code = 6375248876) 0.003 ng/mL <=0.034 SANJIV (test code = SANJIV) Reference (Normal) Range (defined by the 99th percentile reference limit): <= 0.034 ng/mL Note: Cardiac troponin begins to rise 3-4 hours after the onset of ischemia. Repeat in 4-6 hours if the sample was drawn within 3-4 hours of the onset of the symptom and found normal. Diagnosis of myocardial injury is made with acute changes in cTn concentrations with at least one serial sample above the 99th percentile upper reference limit (URL), taken together with the patient's clinical presentation. Biotin has been reported to cause a negative bias, interpret results relative to patient's use of biotin. Lab Interpretation (test code = Normal 29571-4) [facility] [id number] 23:34:45 Test Item Value Reference Range Interpretation Comments TROPONIN I (test code = 0.003 ng/mL <=0.034 2670924677) SANJIV (test code = SANJIV) Reference (Normal) Range (defined by the 99th percentile reference limit): <= 0.034 ng/mL Note: Cardiac troponin begins to rise 3-4 hours after the onset of ischemia. Repeat in 4-6 hours if the sample was drawn within 3-4 hours of the onset of the symptom and found normal. Diagnosis of myocardial injury is made with acute changes in cTn concentrations with at least one serial sample above the 99th percentile upper reference limit (URL), taken together with the patient's clinical presentation. Biotin has been reported to cause a negative bias, interpret results relative to patient's use of biotin. Lab Interpretation Normal (test code = 77123-7) [facility] Hospital[facility][id number] 23:22:42 Test Item Value Reference Interpretation Comments Range D-DIMER (test code = 0.32 See_Comment [Autom ated [id number]) message] The system which generated this result transmitted reference range : <0.41 ?g/mL (FEU). The reference range was not used to interpret this result as normal/abnormal . SANJIV (test code = This test may be SANJIV) used in conjunction with a clinical pretest probability (PTP) assessment model to exclude venous thromboembolism (VTE) in patients suspected of deep venous thrombosis (DVT) and pulmonary embolism (PE) A D-Dimer value less than 0.50 ?g/ml (FEU) has a negative predicative value of 96 to 100% (95% CI)and 97 to 100% (95% CI) as an aid in the diagnosis of deep vein thrombosis (DVT) and pulmonary embolism when there is low or moderate pretest probability of PE or DVT. D-Dimer values are expressed in initial fibrinogen equivalent units (FEU)" The assay results should be used with other information, including the clinical context, in forming a diagnosis. Lab Interpretation Normal (test code = 54304-1) [facility] WITH [id number] 23:09:03 Test Item Value Reference Range Interpretation Comments WBC (test code = 5.01 See_Comment [Automated 5442-2) message] The sy stem which generated this result transmitted reference range : 4.20 - 10.70 10*3/?L. The reference range was not used to interpret this result as normal/abnormal . RBC (test code = 4.97 See_Comment [Automated 201-8) message] The sy stem which generated this result transmitted reference range : 4.26 - 5.52 10*6/?L. The reference range was not used to interpret this result as normal/abnormal . HGB (test code = 15.0 g/dL 12.2-16.4 718-7) HCT (test code = 42.0 % 38.4-49.3 4544-3) MCV (test code = 84.5 fL 81.7-95.6 787-2) MCH (test code = 30.2 pg 26.1-32.7 785-6) MCHC (test code = 35.7 g/dL 31.2-35.0 H 786-4) RDW-SD (test code = 38.0 fL 38.5-51.6 L 61689-9) RDW-CV (test code = 12.6 % 12.1-15.4 788-0) PLT (test code = 224 See_Comment [Automated 777-3) message] The sy stem which generated this result transmitted reference range : 150 - 328 10*3/ ?L. The reference r michael was not used to interpret this result as normal/abnormal . MPV (test code = 10.6 fL 9.8-13.0 84903-2) NRBC/100 WBC (test 0.0 See_Comment [Automat ed code = 9126652508) message] The system which generated this result transmitted reference range : 0.0 - 10.0 /100 WBCs. The refer ence range was not u sed to interpret th is result as normal/abnormal . NRBC x10^3 (test code See_Comment [Auto mated = 9348409210) message] The s ystem which generated this result transmitted reference range : 10*3/?L. The reference range was not used to interpret this result as normal/abnormal . GRAN MAT (NEUT) % 69.4 % (test code = 770-8) IMM GRAN % (test code 0.20 % = 1167392613) LYMPH % (test code = 12.4 % 736-9) MONO % (test code = 16.0 % 5905-5) EOS % (test code = 1.4 % 713-8) BASO % (test code = 0.6 % 706-2) GRAN MAT x10^3(ANC) 3.48 10*3/uL 1.99-6.95 (test code = 2964397679) IMM GRAN x10^3 (test 0.00-0.06 code = 8863138557) LYMPH x10^3 (test code 0.62 10*3/uL 1.09-3.23 L = 731-0) MONO x10^3 (test code 0.80 10*3/uL 0.36-1.02 = 742-7) EOS x10^3 (test code = 0.07 10*3/uL 0.06-0.53 711-2) BASO x10^3 (test code 0.03 10*3/uL 0.01-0.09 = 704-7) Lab Interpretation Abnormal (test code = 58839-1) [facility] Hospital[facility] (TTE)2021-09-17 17:01:28 Test Item Value Reference Range Interpretation Comments Height (test code = in 3591820402) Weight (test code = lbs 9462602406) Systolic BP (test code = mmHg 6705449015) Diastolic BP (test code mmHg = 4102408980) Heart Rate (test code = bpm 4462104927) BSA (test code = 2.17 m2 1063924106) Ao root annulus (test 3.7 cm code = 0695039138) Ao root diam (test code 3.70 cm = 0292266639) Aortic root (test code = 3.7 cm 5194423974) LVOT diameter (test code 2.19 cm = 8646580571) LVIDD (test code = 5.00 cm 2360460770) IVS (test code = 1.06 cm 8581437538) Interventricular Septum 1.06 cm Diastolic Thickness by 2D (test code = 5869585) LVPWD (test code = 1.06 cm 3840374527) PW (test code = 1.06 cm 0.6-1.7 8510862761) EF(Teich) (test code = 55.80 % 9823011039) LVIDS (test code = 3.60 cm 6219250016) FS (test code = 29 % 4915098406) EF - 2D (test code = 55.80 % 63673114) LA size (test code = 3.2 cm 3622839406) TR Peak Eric (test code = 188.2 cm/s 1574603603) Triscuspid Valve mmHg Regurgitation Peak Gradient (test code = 5140845127) LAV(MOD-sp4) (test code 59.50 mL = 3222110530) E wave decelartion time 0.22 s (test code = 9886463428) MV stenosis pressure 1/2 63.4 ms time (test code = 4572739828) MV Peak E Eric (test code 77.8 cm/s = 2814985412) MV Peak A Eric (test code 81.2 cm/s = 3053739850) E/A ratio (test code = ratio 5425563627) MV Prop V (test code = 39.70 cm/s 8655981773) MV E/e' septal (test 17.5 cm/s code = 1432462212) Tapse (test code = 2.31 cm 5015207844) LVOT stroke volume (test 67.40 cm3 code = 9069301688) LVOT peak eric (test code 91.7 cm/s = 7355832427) LVOT mn grad (test code mmHg = 0442829858) AV LVOT peak gradient mmHg (test code = 7235943890) LVOT peak VTI (test code 18.0 cm = 0369979632) LV V1 mean (test code = 66.30 cm/s 1835536238) Aortic valve mean 94.2 cm/s velocity (test code = 2410470157) Ao peak eric (test code = 134.8 cm/s 8509848043) Ao VTI (test code = 27.8 cm 9189797934) AV area by cont VTI 2.4 cm2 (test code = 6928263789) AV area peak eric (test 2.6 cm2 code = 7692308755) Ao max PG (test code = 7.30 mm[Hg] 7670888085) AV peak gradient (test mmHg code = 0771111986) AV valve area (test code 2.42 cm2 = 4918942947) AV mean gradient (test mmHg code = 4304428474) AV regurgitation 978.3 ms pressure 1/2 time (test code = 5051106764) AI dec slope (test code 71.10 cm/s2 = 3740782936) AI max eric (test code = 237.50 cm/s 2711319881) AI max PG (test code = 22.60 mm[Hg] 6356828148) Radiology Study observation (narrative) (test code = 22676-7) SANJIV (test code = SANJIV) Formatting of this result is different from the original. ?Left?Ventricle: Left ventricle size is normal. Normal wall thickness. Normal wall motion. Normal systolic function with a visually estimated EF of 55 - 60%. Normal diastolic function. ?Tricuspid?Valve: Trace transvalvular regurgitation. Right ventricular systolic pressure is 15-20 mmHg. ?RA pressure is 0-5 mmHg. ?Right?Ventricle: Normal systolic function. Left VentricleLeft ventricle size is normal. Normal wall thickness. Normal wall motion. Normal systolic function with a visually estimated EF of 55 - 60%. Normal diastolic function.Right VentricleRight ventricle size is normal. Normal systolic function.Left AtriumLeft atrium size is normal.Right AtriumRight atrium size is normal.IVC/SVCRA pressure is 0-5 mmHg.Mitral ValveMitral valve structure is normal. Trace transvalvular regurgitation.Tricusp id ValveTricuspid valve structure is grossly normal. Trace transvalvular regurgitation. Right ventricular systolic pressure is 15-20 mmHg. RA pressure is 0-5 mmHg.Aortic ValveTricuspid. Trace transvalvular regurgitation.Pulmoni c ValveNot well visualized. Trace transvalvular regurgitation.Ascendi ng AortaAnnulus and sinus of Valsalva is normal in size.PericardiumNo pericardial effusion.Study DetailsStudy quality was adequate. A complete echocardiogram was performed using 2D, color flow Doppler and spectral Doppler. [facility] HospitalTROP[facility]IN [id number] 21:30:45 Test Item Value Reference Interpretation Comments Range TROPONIN I (test 0.003 ng/mL See_Comment [Automated code = 4577191907) message] The system which generated this result transmitted reference range : <=0.034. The reference range was not used to interpret this result as normal/abnormal . SANJIV (test code = Reference (Normal) SANJIV) Range (defined by the 99th percentile reference limit): <= 0.034 ng/mL Note: Cardiac troponin begins to rise 3-4 hours after the onset of ischemia. Repeat in 4-6 hours if the sample was drawn within 3-4 hours of the onset of the symptom and found normal. Diagnosis of myocardial injury is made with acute changes in cTn concentrations with at least one serial sample above the 99th percentile upper reference limit (URL), taken together with the patient's clinical presentation. Biotin has been reported to cause a negative bias, interpret results relative to patient's use of biotin. Lab Interpretation Normal (test code = 63444-1) [facility] HospitalN-TERMINAL [id number] 21:27:27 Test Item Value Reference Range Interpretation Comments NT-proBNP (test code 23 pg/mL See_Comment [Autom ated = 5494114430) message] The system which generated this result transmitted reference range : <=125. The reference range was not used to interpret this result as normal/abnormal . SANJIV (test code = SANJIV) Biotin has been reported to cause a negative bias, interpret results relative to patient's use of biotin. Lab Interpretation Normal (test code = 13636-7) [facility] HospitalMAG[facility]UM2022-07-27 21:19:03 Test Item Value Reference Range Interpretation Comments MAGNESIUM (test code = 9802971091) 1.9 mg/dL 1.7-2.4 Lab Interpretation (test code = Normal 97750-0) [facility] HospitalCOMP. METABOLIC PANEL (20269)2021-09-16 21:18:43 Test Item Value Reference Range Interpretation Comments NA (test code = 140 mmol/L 135-145 9452580322) K (test code = 4.1 mmol/L 3.5-5 1649091480) CL (test code = 102 mmol/L 98-108 2524446566) CO2 TOTAL (test code = 27 mmol/L 23-31 4086066466) AGAP (test code = 2-16 9422367974) BUN (test code = 4 mg/dL 7-23 L 7229318610) GLUCOSE (test code = 104 mg/dL 70-110 4510603864) CREATININE (test code = 0.97 mg/dL 0.6-1.25 1254645756) TOTAL BILI (test code = 0.9 mg/dL 0.1-1.6 1614010735) CALCIUM (test code = 9.6 mg/dL 8.6-10.6 9830330650) T PROTEIN (test code = 8.0 g/dL 6.3-8.2 5218801707) ALBUMIN (test code = 4.8 g/dL 3.5-5 0485022874) ALK PHOS (test code = 63 U/L 34-122 2294671567) ALTv (test code = 55 U/L 5-50 H 1742-6) AST(SGOT) (test code = 41 U/L 13-40 H 5381337054) eGFR (test code = mL/min/1.73m2 2127860252) SANJIV (test code = SANJIV) Association of Glomerular Filtration Rate (GFR) and Staging of Kidney Disease* + --+ --+ ------+| GFR (mL/min/1.73 m2) ?| With Kidney Damage ?| ?Without Kidney Damage+ --------+ --------+ +| ?>90 ?| ?Stage one ?| ? Normal ?+ ---+ ---+ -------+| ?60-89 ?| ?Stage two ?| ? Decreased GFR ? + --+ --+ ------+| ?30-59 ?| ?Stage three ?| ? Stage three ? + --+ --+ ------+| ?15-29 ?| ?Stage four ? | ? Stage four ?+ ---+ ---+ -------+| ?<15 (or dialysis) ? ?| ?Stage five ? | ? Stage five ?+ ---+ ---+ -------+ *Each stage assumes the associated GFR level has been in effect for at least three months. ?Stages 1 to 5, with or without kidney disease, indicate chronic kidney disease. Notes: Determination of stages one and two (with eGFR >59mL/min/1.73 m2) requires estimation of kidney damage for at least three months as defined by structural or functional abnormalities of the kidney, manifested by either:Pathological abnormalities or Markers of kidney damage (including abnormalities in the composition of the blood or urine or abnormalities in imaging tests). Lab Interpretation Abnormal (test code = 92387-8) [facility] WITH [id number] 21:10:57 Test Item Value Reference Range Interpretation Comments WBC (test code = See_Comment [Automated 0807-2) message] The sy stem which generated this result transmitted reference range : 4.20 - 10.70 10*3/?L. The reference range was not used to interpret this result as normal/abnormal . RBC (test code = See_Comment [Automated 303-8) message] The sy stem which generated this result transmitted reference range : 4.26 - 5.52 10*6/?L. The reference range was not used to interpret this result as normal/abnormal . HGB (test code = 15.2 g/dL 12.2-16.4 718-7) HCT (test code = 42.7 % 38.4-49.3 4544-3) MCV (test code = 83.4 fL 81.7-95.6 787-2) MCH (test code = 29.7 pg 26.1-32.7 785-6) MCHC (test code = 35.6 g/dL 31.2-35 H 786-4) RDW-SD (test code = 37.2 fL 38.5-51.6 L 35107-6) RDW-CV (test code = 12.2 % 12.1-15.4 788-0) PLT (test code = See_Comment [Automated 777-3) message] The sy stem which generated this result transmitted reference range : 150 - 328 10*3/ ?L. The reference r michael was not used to interpret this result as normal/abnormal . MPV (test code = 10.7 fL 9.8-13 52767-8) NRBC/100 WBC (test See_Comment [Automat ed code = 3927698937) message] The system which generated this result transmitted reference range : 0.0 - 10.0 /100 WBCs. The refer ence range was not u sed to interpret th is result as normal/abnormal . NRBC x10^3 (test code See_Comment [Auto mated = 9793414854) message] The s ystem which generated this result transmitted reference range : 10*3/?L. The reference range was not used to interpret this result as normal/abnormal . GRAN MAT (NEUT) % 70.3 % (test code = 770-8) IMM GRAN % (test code 0.40 % = 6211189324) LYMPH % (test code = 19.8 % 736-9) MONO % (test code = 6.7 % 5905-5) EOS % (test code = 1.8 % 713-8) BASO % (test code = 1.0 % 706-2) GRAN MAT x10^3(ANC) 5.45 10*3/uL 1.99-6.95 (test code = 1264374831) IMM GRAN x10^3 (test 0.03 10*3/uL 0-0.06 code = 0376157423) LYMPH x10^3 (test code 1.54 10*3/uL 1.09-3.23 = 731-0) MONO x10^3 (test code 0.52 10*3/uL 0.36-1.02 = 742-7) EOS x10^3 (test code = 0.14 10*3/uL 0.06-0.53 711-2) BASO x10^3 (test code 0.08 10*3/uL 0.01-0.09 = 704-7) Lab Interpretation Abnormal (test code = 66938-6) [facility]
[2022-12-08 11:55] LABS: Absolute Lymphocytes (CBC) 1.7 K/uL (0.7-4.9); Hematocrit 43.4 % (39.6-49.0); Lymphocytes % 26.4 % (15.3-44.8); MCV 84.3 fL (80-100); MPV 8.6 fL (7.6-11.3); Platelets 216 thou/uL (152-406); Protime INR 1.09; RBC Red Blood Cell Count 5.15 M/uL (4.33-5.43)
[2022-12-08 12:08] LABS: Bilirubin Direct 0.2 mg/dL (0-0.2); Bilirubin Indirect, Calculated 0.4 mg/dL (0.2-0.8); Bilirubin Total 0.6 mg/dL (0.2-1.0); Magnesium 2.1 mg/dL (1.6-2.4); Protein, Total 8.1 g/dL (6.4-8.2); Troponin High Sensitivity 5.8 pg/mL (<58.9)
[2022-12-08] MEDS ORDERED: ASPIRIN EC 325 MG TABLET PO ONE (12:17)
--- NOTE | 2022-12-08 12:21 | EKG ---
Test Date: 2022-12-08 Test Time: 11:38:00 [employer]: MEASUREMENT RESULTS: Intervals: Rate: 58 OR: 186 QRSD: 110 QT: 378 QTc: 371 [place]: P: 49 OR: 186 QRS: 23 T: 33 INTERPRETIVE STATEMENTS: Sinus bradycardia Otherwise normal ECG Compared to ECG 05/03/2022 16:20:02 Intraventricular conduction delay no longer present T-wave abnormality no longer present Electronically Signed On 12-08-22 12:20:47 CDT by Beto Serrano
--- NOTE | 2022-12-08 12:21 | RAD REPORT ---
EXAM DESCRIPTION: RAD - Chest Single View - 12/08/2022 11:37 am CLINICAL HISTORY: CHEST PAIN Chest pain. COMPARISON: Chest Single View dated 05/03/2022; Chest Single View dated 09/20/2021; Chest Single View dated 04/10/2020; Chest Pa And Lat (2 Views) dated 01/09/2018 FINDINGS: Portable technique limits examination quality. The lungs are grossly clear. The heart is normal in size. No displaced fractures. IMPRESSION: No acute intrathoracic process suspected.
--- NOTE | 2022-12-08 12:24 | RAD REPORT ---
EXAM DESCRIPTION: CT - Head Brain Wo Cont - 12/08/2022 11:43 am CLINICAL HISTORY: SYNCOPE Headache, drowsiness, syncope COMPARISON: Head angio dated 05/03/2022; Head Brain Wo Cont dated 05/03/2022 TECHNIQUE: All CT scans are performed using dose optimization technique as appropriate and may inclu de automated exposure control or mA/KV adjustment according to patient size. FINDINGS: No intracranial hemorrhage, hydrocephalus or extra-axial fluid collection.No areas of brai n edema or evidence of midline shift. Mild mucoperiosteal thickening is seen right maxillary antrum. The paranasal sinuses and mastoids are otherwise clear. The calvarium is intact. IMPRESSION: No acute intracranial abnormality.
--- NOTE | 2022-12-08 13:06 | ER ---
Nurse's Notes [facility] Name: Amna Jenkins Jr Age: 42 yrs Sex: Male : 1980 Arrival Date: 12/08/2022 Time: 10:56 Bed 4 Private MD: Diagnosis: Chest pain, hypertension, syncope Presentation: 12/08 11:15 Chief complaint: Patient states: "I've been having CP for 1 week now, dizzy spells for mb9 2 weeks, left neck pain, and high BP at home with my systolic in the 200s." Pt denies SOB. Coronavirus screen: Vaccine status: Patient reports receiving the 2nd dose of the covid vaccine. Ebola Screen: No symptoms or risks identified at this time. Initial Sepsis Screen: Does the patient meet any 2 criteria? No. Patient's initial sepsis screen is negative. Does the patient have a suspected source of infection? No. Patient's initial sepsis screen is negative. Risk Assessment: Do you want to hurt yourself or someone else? Patient reports no desire to harm self or others. Onset of symptoms was December 08, 2022. 11:15 Method Of Arrival: Ambulatory mb9 11:15 Acuity: NEYDA 3 mb9 Historical: - Allergies: 11:14 No Known Allergies; mb9 - Home Meds: 11:14 isosorbide mononitrate 20 mg Oral tab 1 tab 2 times per day [Active]; metoprolol mb9 tartrate 50 mg Oral tab 1 tab 2 times per day [Active]; - PMHx: 11:14 GI Bleed; Hypertension; Atrial fibrillation; mb9 - PSHx: 11:14 None; mb9 - Immunization history:: Adult Immunizations up to date. - Social history:: Smoking status: Patient denies any tobacco usage or history of. Screenin:33 [facility] ED Fall Risk Assessment (Adult) Score/Fall Risk Level 0 - 2 = Low Risk nj1 Oriented to surroundings, Maintained a safe environment, Hourly rounding (assess needs \\T\\ fall precautionary measures) done. Abuse screen: Denies threats or abuse. Denies injuries from another. Nutritional screening: No deficits noted. Tuberculosis screening: No symptoms or risk factors identified. Assessment: 11:30 General: Appears in no apparent distress. comfortable, Behavior is calm, cooperative, nj1 appropriate for age. Pain: Complains of pain in chest Pain does not radiate. Pain currently is 4 out of 10 on a pain scale. Neuro: Level of Consciousness is awake, alert, obeys commands, Oriented to person, place, time, situation. Cardiovascular: Patient's skin is warm and dry. Respiratory: Airway is patent Respiratory effort is even, unlabored. 11:48 Pain: Pain began gradually. ko1 18:15 Reassessment: Patient appears in no apparent distress at this time. Patient and/or nj1 family updated on plan of care and expected duration. Pain level reassessed. Patient is alert, oriented x 3, equal unlabored respirations, skin warm/dry/pink. Vital Signs: 11:15 BP 143 / 84; Pulse 79; Resp 18; Temp 98; Pulse Ox 97% on R/A; Weight 90.72 kg; Height 5 mb9 ft. 10 in. ; 11:48 BP 148 / 116; Pulse 65; Resp 14; Pulse Ox 99% ; ko1 12:30 BP 143 / 102; Pulse 71; Resp 19; Pulse Ox 99% ; nj1 13:30 BP 129 / 91; Pulse 63; Resp 14; Pulse Ox 96% on R/A; nj1 16:47 BP 134 / 98; Pulse 72; Resp 16; Pulse Ox 97% ; ko1 18:15 BP 140 / 95; Pulse 83; Resp 17; Pulse Ox 98% ; Pain 4/10; nj1 11:15 Body Mass Index 28.70 (90.72 kg, 177.8 cm) mb9 18:15 Pain Scale: Adult ks1 ED Course: 11:02 Patient arrived in ED. mg5 11:07 Leeanna Kat MD is Attending Physician. sp3 11:12 Jasmin Jarquin, DEEPTHI is Primary Nurse. ko1 11:14 Arm band placed on. mb9 11:17 Triage completed. mb9 11:30 Inserted saline lock: 22 gauge in right forearm, using aseptic technique. Blood nj1 collected. 11:34 Patient has correct armband on for positive identification. Bed in low position. Call nj1 light in reach. Provided Education on: call light, fall precautions. Client placed on continuous cardiac and pulse oximetry monitoring. NIBP monitoring applied. 11:34 Patient maintains SpO2 saturation greater than 95% on room air. nj1 11:38 XRAY Chest (1 view) In Process Unspecified. EDMS 11:44 CT Head Brain wo Cont In Process Unspecified. EDMS 13:05 Cipriano López MD is Hospitalizing Provider. sp3 16:47 Door closed. Noise minimized. Lights dimmed. Warm blanket given. ko1 16:47 No provider procedures requiring assistance completed. Patient admitted, IV remains in ko1 place. Administered Medications: 12:06 Drug: Aspirin PO 325 mg PO once Route: PO; nj1 12:30 Follow up: Response: No adverse reaction nj1 Medication: 16:47 VIS not applicable for this client. ko1 Outcome: 13:06 Decision to Hospitalize by Provider. sp3 18:47 Admitted to Tele accompanied by tech, via wheelchair, room 409, Report called to Zara Valderrama RN 18:47 Condition: stable 18:47 Instructed on the need for admit, 18:52 Patient left the ED. nj Signatures: Dispatcher [employer] Leeanna Watts MD MD sp3 Jasmin Jarquin, RN RN ko1 Candy Macedo, RN RN mb9 Belen Arellano, RN RN nj1 Imelda Loredo mg5 Corrections: (The following items were deleted from the chart) 18:32 18:15 BP 140 / 95; Pulse 83bpm; Resp 17bpm; Pulse Ox 98%; nj1 nj
--- NOTE | 2022-12-08 13:06 | EDPHYS ---
Physician Documentation [facility] Name: Amna Jenkins Jr Age: 42 yrs Sex: Male : 1980 Arrival Date: 12/08/2022 Time: 10:56 Bed 4 Private MD: ED Physician Leeanna Kat HPI: 12/08 11:49 This 42 yrs old Male presents to ER via Ambulatory with complaints of Chest Pain, Blood sp3 Pressure Problem, Dizziness. 11:49 42-year-old male with a history of hypertension, paroxysmal atrial fibrillation who has sp3 ran out of his medication secondary to not being able to go back to his primary doctor in [place] due to his sick son who has seizure disorder presents to the ED secondary to off-and-on chest pain for the last 3 to 4 days. Patient states it comes on and 2 days ago he had a full syncope episode as witnessed by his boss at work while he was working inside of an automobile. He states his blood pressures been over 200 and he has been out of his metoprolol. He is not having chest pain currently but he did earlier today which is what prompted him to come in. His last cardiac stress test was chemically induced and had to be stopped secondary to induced dyspnea occurred approximately 3 years ago at [facility] in the [facility]. Patient denies any headache, URI symptoms, fever, shortness of breath, abdominal pain, nausea, vomiting, diarrhea, focal neurological deficit, rash, known sick contacts, travel history, prolonged immobilization, or any other signs or symptoms on ROS at this time.. Historical: - Allergies: 11:14 No Known Allergies; mb9 - Home Meds: 11:14 isosorbide mononitrate 20 mg Oral tab 1 tab 2 times per day [Active]; metoprolol mb9 tartrate 50 mg Oral tab 1 tab 2 times per day [Active]; - PMHx: 11:14 GI Bleed; Hypertension; Atrial fibrillation; mb9 - PSHx: 11:14 None; mb9 - Immunization history:: Adult Immunizations up to date. - Social history:: Smoking status: Patient denies any tobacco usage or history of. ROS: 11:57 Constitutional: Negative for fever, chills, and weight loss, Eyes: Negative for injury, sp3 pain, redness, and discharge, ENT: Negative for injury, pain, and discharge, Neck: Negative for injury, pain, and swelling, Respiratory: Negative for shortness of breath, cough, wheezing, and pleuritic chest pain, Abdomen/GI: Negative for abdominal pain, nausea, vomiting, diarrhea, and constipation, Back: Negative for injury and pain, MS/Extremity: Negative for injury and deformity, Skin: Negative for injury, rash, and discoloration, Psych: Negative for depression, anxiety, suicide ideation, homicidal ideation, and hallucinations, Allergy/Immunology: Negative for hives, rash, and allergies, Endocrine: Negative for neck swelling, polydipsia, polyuria, polyphagia, and marked weight changes, Hematologic/Lymphatic: Negative for swollen nodes, abnormal bleeding, and unusual bruising, 11:57 All other systems are negative, Exam: 11:57 Constitutional: This is a well developed, well nourished patient who is awake, alert, sp3 and in no acute distress. Head/Face: Normocephalic, atraumatic. Eyes: Pupils equal round and reactive to light, extra-ocular motions intact. Lids and lashes normal. Conjunctiva and sclera are non-icteric and not injected. Cornea within normal limits. Periorbital areas with no swelling, redness, or edema. ENT: Nares patent. No nasal discharge, no septal abnormalities noted. External auditory canals are clear. Oropharynx with no redness, swelling, or masses, exudates, or evidence of obstruction, uvula midline. Mucous membranes moist. Neck: Trachea midline, no thyromegaly or masses palpated, and no cervical lymphadenopathy. Supple, full range of motion without nuchal rigidity, or vertebral point tenderness. No Meningismus. Chest/axilla: Normal chest wall appearance and motion. Nontender with no deformity. No lesions are appreciated. Cardiovascular: Regular rate and rhythm with a normal S1 and S2. No gallops, murmurs, or rubs. Normal PMI, no JVD. No pulse deficits. Respiratory: Lungs have equal breath sounds bilaterally, clear to auscultation and percussion. No rales, rhonchi or wheezes noted. No increased work of breathing, no retractions or nasal flaring. Abdomen/GI: Soft, non-tender, with normal bowel sounds. No distension or tympany. No guarding or rebound. No evidence of tenderness throughout. Back: No spinal tenderness. No costovertebral tenderness. Full range of motion. Skin: Warm, dry with normal turgor. Normal color with no rashes, no lesions, and no evidence of cellulitis. MS/ Extremity: Pulses equal, no cyanosis. Neurovascular intact. Full, normal range of motion. Neuro: Awake and alert, GCS 15, oriented to person, place, time, and situation. Cranial nerves II-XII grossly intact. Motor strength 5/5 in all extremities. Sensory grossly intact. Cerebellar exam normal. Normal gait. Psych: Awake, alert, with orientation to person, place and time. Behavior, mood, and affect are within normal limits. 11:57 ECG was reviewed by the Attending Physician. EKG demonstrates sinus bradycardia 58 bpm with normal intervals, normal QRS, normal axis, nonspecific inferior ST/T changes without evidence of acute ischemia. Vital Signs: 11:15 BP 143 / 84; Pulse 79; Resp 18; Temp 98; Pulse Ox 97% on R/A; Weight 90.72 kg; Height 5 mb9 ft. 10 in. ; 11:48 BP 148 / 116; Pulse 65; Resp 14; Pulse Ox 99% ; ko1 12:30 BP 143 / 102; Pulse 71; Resp 19; Pulse Ox 99% ; nj1 13:30 BP 129 / 91; Pulse 63; Resp 14; Pulse Ox 96% on R/A; nj1 16:47 BP 134 / 98; Pulse 72; Resp 16; Pulse Ox 97% ; ko1 18:15 BP 140 / 95; Pulse 83; Resp 17; Pulse Ox 98% ; Pain 4/10; nj1 11:15 Body Mass Index 28.70 (90.72 kg, 177.8 cm) mb9 18:15 Pain Scale: Adult nj1 MDM: 11:22 Patient medically screened. sp3 11:58 Data reviewed: vital signs, nurses notes, lab test result(s), EKG, radiologic studies. sp3 ED course: 42-year-old male with past cardiac history now presents with recurrent chest pain and hypertension secondary to being out of his medications. His cardiac risk score/heart score is in the moderate range therefore he will require 23-hour observation and cardiology consultation. He is currently not hypertensive and his heart rate is 60. We will hold on any other intervention until his work-up is complete. Differential includes acute coronary syndrome, angina, esophageal reflux, MSK pain.. 12/08 11:22 Order name: Basic Metabolic Panel; Complete Time: 12:51 sp3 12/08 11:22 Order name: CBC with Diff; Complete Time: 12:51 sp3 12/08 11:22 Order name: LFT's; Complete Time: 12:51 sp3 12/08 11:22 Order name: Magnesium; Complete Time: 12:51 sp3 12/08 11:22 Order name: NT PRO-BNP; Complete Time: 12:51 sp3 12/08 11:22 Order name: PT-INR; Complete Time: 12:51 sp3 12/08 11:22 Order name: Troponin HS; Complete Time: 12:51 sp3 12/08 15:27 Order name: T4 Free EDMS 12/08 15:27 Order name: Thyroid Stimulating Hormone EDMS 12/08 15:27 Order name: Urinalysis w/ reflexes EDMS 12/08 15:27 Order name: Basic Metabolic Panel EDMS 12/08 15:27 Order name: Basic Metabolic Panel EDMS 12/08 15:27 Order name: CBC with Automated Diff EDMS 12/08 15:27 Order name: CBC with Automated Diff EDMS 12/08 15:27 Order name: Lipid Profile EDMS 12/08 15:28 Order name: Lipid Profile EDMS 12/08 15:28 Order name: Magnesium EDMS 12/08 15:28 Order name: Magnesium EDMS 12/08 15:28 Order name: Phosphorus EDMS 12/08 15:28 Order name: Phosphorus EDMS 12/08 15:28 Order name: Troponin High Sensitivity EDMS 12/08 15:28 Order name: Troponin High Sensitivity EDMS 12/08 15:28 Order name: Troponin High Sensitivity EDMS 12/08 15:32 Order name: Hemoglobin A1c EDMS 12/08 11:22 Order name: XRAY Chest (1 view); Complete Time: 12:51 sp3 12/08 11:34 Order name: CT Head Brain wo Cont; Complete Time: 12:51 sp3 12/08 15:32 Order name: Echo with Doppler EDMS 12/08 15:32 Order name: Carotid Artery Bilateral EDMS 12/08 11:22 Order name: EKG; Complete Time: 11:23 sp3 12/08 15:27 Order name: CONS Physician Consult EDMS 12/08 11:22 Order name: Cardiac monitoring; Complete Time: 11:35 sp3 12/08 11:22 Order name: EKG - Nurse/Tech; Complete Time: 11:37 sp3 12/08 11:22 Order name: IV Saline Lock; Complete Time: 11:34 sp3 12/08 11:22 Order name: Labs collected and sent; Complete Time: 11:34 sp3 12/08 11:22 Order name: O2 Per Protocol; Complete Time: 11:34 sp3 12/08 11:22 Order name: O2 Sat Monitoring; Complete Time: 11:35 sp3 Administered Medications: 12:06 Drug: Aspirin PO 325 mg PO once Route: PO; nj1 12:30 Follow up: Response: No adverse reaction nj1 Disposition Summary: 12/08/22 13:06 Hospitalization Ordered Notes: Hospitalization Status: Observation sp3 Provider: Cipriano López Location: Telemetry/MedSurg (observation) sp3 Condition: Stable sp3 Problem: an acute exacerbation sp3 Symptoms: have worsened sp3 Bed/Room Type: Standard sp3 Room Assignment: 409(12/08/22 18:13) bd Diagnosis - Chest pain, hypertension, syncope sp3 Forms: - Medication Reconciliation Form sp3 - SBAR form sp3 - Leadership Thank You Letter sp3 Signatures: Dispatcher [employer] EDVerena Reed Setul, MD MD sp3 Candy Macedo RN RN mb9 Belen Arellano RN RN nj1 Corrections: (The following items were deleted from the chart) 18:13 13:06 sp3 bd
--- NOTE | 2022-12-08 18:48 | P.HP ---
Certification for Inpatient Patient admitted to: Observation With expected LOS: >2 Midnights Patient will require the following post-hospital care: None Practitioner: I am a practitioner with admitting privileges, knowledge of patient current condition, hospital course, and medical plan of care. Services: Services provided to patient in accordance with Admission requirements found in Title 42 Section 412.3 of the Code of Federal Regulations Patient History Date of Service: 12/08/22 Reason for admission: Syncopal episodes, Chest pain History of Present Illness: Amna Jenkins is a 42-year-old male with past medical history GI bleed, hypertension, atrial fibrillation who presents to the ED with complaints of Running out of his medication and not being able to see his doctor in [place] due to his sick son who has seizure disorder. He describes chest pain which is off and on in the last 3 to 4 days causing blurry vision and difficult to breath. He also experiences orthopnea, PND, and occasional swelling in his left foot. He states full syncopal episode witnessed at work today while sitting in his truck. His coworkers called the ambulance for him to go to the ED. Initial vitals BP 143/84, heart rate 79, respirations 18, pulse ox 97 on room air. Significant labs troponin 5.8 with redraw of 6.9, TSH 1.440, T40.86, A1c 5.0. Head CT "Mild mucoperiosteal thickening is seen right maxillary antrum. The paranasal sinuses and mastoids are otherwise clear. The calvarium is intact." Amna will be admitted to hospitalist service for evaluation and treatment of syncopal episode and hypertension. Allergies No Known Allergies Allergy (Verified 12/08/22 20:11) Review of Systems General: Chills ENT: Unremarkable Respiratory: Shortness of Breath Cardiovascular: Chest Pain, Unremarkable Gastrointestinal: Unremarkable Genitourinary: Unremarkable Musculoskeletal: Unremarkable Integumentary: Unremarkable Neurological: Other (syncope, lightheadedness) Lymphatics: Unremarkable Physical Examination - Physical Exam General: Alert, In no apparent distress, Oriented x3 HEENT: Atraumatic, Normocephalic, PERRLA Neck: Supple, 2+ carotid pulse no bruit, JVD not distended Respiratory: Clear to auscultation bilaterally, Normal air movement Cardiovascular: No edema, Normal pulses, Regular rate/rhythm, Normal S1 S2 Capillary refill: <2 Seconds Gastrointestinal: Normal bowel sounds, Soft and benign Musculoskeletal: No clubbing, No swelling, No contractures, No erythema Integumentary: No rashes, No breakdown Neurological: Normal speech, Normal strength at 5/5 x4 extr, Normal tone - Studies Laboratory Data (last 24 hrs) 12/08/22 12/08/22 12/08/22 11:30 11:30 11:30 WBC 6.60 Hgb 15.4 Hct 43.4 Plt Count 216 PT 12.0 INR 1.09 Sodium 137 Potassium 4.0 BUN 7 Creatinine 1.03 Glucose 124 H Magnesium 2.1 Total Bilirubin 0.6 AST 21 ALT 44 Alkaline Phosphatase 65 Assessment and Plan - Plan Assessment and plan Syncopal episodes Chest pain r/o ACS and valve dysfunction -head CT "Mild mucoperiosteal thickening is seen right maxillary antrum. The paranasal sinuses and mastoids are otherwise clear. The calvarium is intact." -ECHO and carotid dopplers- pending -serial troponin 5.6/ 6.9 -aspirin, statin, BB started -EKG Bradycardic, sinus rhythm -Consult Dr Serrano, recommendations apprciated h/o HTN -Restart home medication when available DVT ppx: lovenox Full code LOS 2 days Discharge Plan: Home Plan to discharge in: 48 Hours - Advance Directives Does patient have a Living Will: No Does patient have a Durable POA for Healthcare: No Time Spent Managing Pts Care (In Minutes): 55
[2022-12-08 19:33] LABS: Thyroid Stimulating Hormone 1.44 uIU/mL (0.358-3.740)
--- NOTE | 2022-12-08 19:36 | RAD REPORT ---
EXAM DESCRIPTION: US - CP - 12/08/2022 4:09 pm CLINICAL HISTORY: syncopal episodes COMPARISON: Neck Angio dated 05/03/2022 TECHNIQUE: Real-time sonographic grayscale, color duplex, and spectral wave Doppler evaluation of bird carotid systems was performed. FINDINGS: Normal high resistance waveforms are noted in both external carotid arteries. The common c arotid arteries and internal carotid arteries show normal low resistance waveforms. No significant plaque formation is seen. Peak systolic velocity less than 125 cm/ sec bilaterally. I CA/CCA peak systolic ratios less than 2.0 bilaterally. Antegrade flow seen in both vertebral arteries. IMPRESSION: No significant atherosclerotic changes noted. No evidence of a hemodynamically significant stenosis. Evaluation of carotid artery stenosis, if any, is reported based on consensus recommendations of the Society of Radiologists in Ultrasound (Vince et al., Radiology, 2003)
[2022-12-08] MEDS ORDERED: ACETAMINOPHEN 500 MG TAB PO PRN (20:13)
[2022-12-08] MEDS: ATORVASTATIN 40 MG TAB PO SCH (20:28)
[2022-12-08] MEDS: METOPROLOL XL 25 MG TAB PO SCH (20:28)
[2022-12-08] MEDS: ENOXAPARIN 40 MG/0.4 ML SQ SCH (20:29)
[2022-12-08] MEDS ORDERED: ACETAMINOPHEN 500 MG TAB ONE (20:36)
[2022-12-08] MEDS: ONDANSETRON 4 MG (ODT) TAB PO PRN (23:42)
[2022-12-08] MEDS: MECLIZINE HCL 12.5 MG TAB PO SCH (23:42)
[2022-12-09 02:16] LABS: Absolute Lymphocytes (CBC) 2.4 K/uL (0.7-4.9); Hematocrit 41.2 % (39.6-49.0); Lymphocytes % 28.1 % (15.3-44.8); MCV 83.4 fL (80-100); MPV 8.6 fL (7.6-11.3); Platelets 228 thou/uL (152-406); RBC Red Blood Cell Count 4.94 M/uL (4.33-5.43)
[2022-12-09 02:30] LABS: Magnesium 2.2 mg/dL (1.6-2.4); Phosphorus 3.4 mg/dL (2.5-4.9); Potassium 3.7 mEq/L (3.5-5.1)
[2022-12-09 04:01] VITALS: BMI 28.7
[2022-12-09] MEDS ORDERED: POTASSIUM CL SA 10 MEQ TAB PO ONE (05:38)
[2022-12-09] MEDS: ASPIRIN EC 81 MG TAB PO SCH (09:00)
[2022-12-09] MEDS: ONDANSETRON 4 MG (ODT) TAB PO PRN (09:30)
[2022-12-09] MEDS: METOPROLOL XL 25 MG TAB PO SCH ×2 (09:31→20:49)
[2022-12-09] MEDS: ENOXAPARIN 40 MG/0.4 ML SQ SCH (09:32)
[2022-12-09] MEDS: MECLIZINE HCL 12.5 MG TAB PO SCH ×3 (09:32→20:49)
--- NOTE | 2022-12-09 10:45 | P.PN ---
Subjective Date of Service: 12/09/22 Chief Complaint: Syncopal episodes, Chest pain HPI 12/08: Amna Jenkins is a 42-year-old male with past medical history GI bleed, hypertension, atrial fibrillation who presents to the ED with complaints of Running out of his medication and not being able to see his doctor in [place] due to his sick son who has seizure disorder. He describes chest pain which is off and on in the last 3 to 4 days causing blurry vision and difficult to breath. He also experiences orthopnea, PND, and occasional swelling in his left foot. He states full syncopal episode witnessed at work today while sitting in his truck. His coworkers called the ambulance for him to go to the ED. Initial vitals BP 143/84, heart rate 79, respirations 18, pulse ox 97 on room air. Significant labs troponin 5.8 with redraw of 6.9, TSH 1.440, T40.86, A1c 5.0. Head CT "Mild mucoperiosteal thickening is seen right maxillary antrum. The paranasal sinuses and mastoids are otherwise clear. The calvarium is intact." Amna will be admitted to hospitalist service for evaluation and treatment of syncopal episode and hypertension. 12/09: Amna is awake conversing with his nurse. Dr. Serrano will need to schedule him for a necessary procedures this admission. Carotid dopplers negat gabriel for stenosis. Amna continues to have blurry vision, dizziness, orthopnea, and PND. He denies SOB, CORONEL, fever, chills, and abdominal pain. Physical Examination - Vital Signs Temperature: 98.5 F Blood Pressure: 136/86 Pulse: 70 Respirations: 18 Pulse Ox (%): 98 - Studies Laboratory Data (last 24 hrs) 12/08/22 12/08/22 12/08/22 11:30 11:30 11:30 WBC 6.60 Hgb 15.4 Hct 43.4 Plt Count 216 PT 12.0 INR 1.09 Sodium 137 Potassium 4.0 BUN 7 Creatinine 1.03 Glucose 124 H Magnesium 2.1 Total Bilirubin 0.6 AST 21 ALT 44 Alkaline Phosphatase 65 Assessment And Plan - Plan Physical Exam General: Alert, In no apparent distress, Oriented x3 HEENT: Atraumatic, Normocephalic, PERRLA Neck: Supple, 2+ carotid pulse no bruit, JVD not distended Respiratory: Clear to auscultation bilaterally, Normal air movement Cardiovascular: No edema, Normal pulses, Regular rate/rhythm, Normal S1 S2, murmur present Capillary refill: <2 Seconds Gastrointestinal: Normal bowel sounds, Soft and benign Musculoskeletal: No clubbing, No swelling, No contractures, No erythema Integumentary: No rashes, No breakdown Neurological: Normal speech, Normal strength at 5/5 x4 extr, Normal tone Assessment and plan Syncopal episodes Chest pain r/o ACS and valve dysfunction -head CT "Mild mucoperiosteal thickening is seen right maxillary antrum. The paranasal sinuses and mastoids are otherwise clear. The calvarium is intact." -ECHO pending -carotid dopplers- negative for stenosis -serial troponin 5.6/ 6.9/7.0 -aspirin, statin, BB started -EKG Bradycardic, sinus rhythm -Consult Dr Serrano, recommendations apprciated h/o HTN -Restart home medication DVT ppx: lovenox Full code LOS 2 days Time Spent Managing PTS Care (In Minutes): 35
[2022-12-09] MEDS ORDERED: HYDROCODONE/APAP 5/325 MG TAB PO ONE (12:37)
[2022-12-09] MEDS ORDERED: ACETAMIN/CAFFEINE/BUTALB TAB PO ONE (12:37)
--- NOTE | 2022-12-09 13:06 | CON ---
Date of Consultation: 12/09/2022 Reason For Consultation: Chest pain. History Of Present Illness: A 42-year-old male with history of GI bleed, hypertension, atrial fibril lation, presented with chest pain on and off that has been going on for a long time and no ischemia. Evaluation was done recently and no active chest pain at present time. Past Medical History: As outlined above in the HPI. Medications: Refer to reconciliation sheet for detailed list. Allergies: NO KNOWN DRUG ALLERGIES. Family History: No premature coronary artery disease or cancer. Social History: He does not smoke or drink. Does not use any drugs. Review of Systems: All systems reviewed and they were negative except what mentioned in the HPI. Physical Examination: Vital Signs: Reviewed. Head and Neck: Pupils are equal, reactive to light. Intact eye movements. No JVD. No cervical lym phadenopathy. Neck is supple. Thyroid is not enlarged. Lungs: Clear to auscultation bilaterally. No rhonchi, wheezing, or crackles. No accessory muscle u se. Heart: Regular rate and rhythm. No extra sounds. Abdomen: Soft, nontender. Bowel sounds positive. No organomegaly. No masses or hernia. No rigidi ty or rebound. Extremities: No clubbing or cyanosis. Intact pulses. Skin: No rashes or nodules. Neurologic: Alert, awake, oriented x3. No acute focal deficits appreciated. Investigations: Troponins are negative. BUN 10, creatinine 1.0, hemoglobin 14.9. Assessment And Recommendations: Chest pain. It is atypical, but he has been having it for some time now. Ischemia evaluation is warranted. Obtain stress test and echo to further evaluate and follow up after that. SR/MODL Voice ID: [id number] Report ID: [id number]
--- NOTE | 2022-12-09 14:31 | ECHO ---
HEIGHT: 5 ft 10 in WEIGHT: 200 lb 0.054 oz DATE OF STUDY: 12/09/[address]: Ashlyn Coles NP 2-DIMENSIONAL: YES M.MODE: YES DOPPLER: YES COLOR FLOW: YES TDS: PORTABLE: YES DEFINITY: BUBBLE STUDY: DIAGNOSIS: CHEST PAIN, ACUTE CORONARY SYNDROME CARDIAC HISTORY: CATHERIZATION: NO SURGERY: NO PROSTHETIC VALVE: NO PACEMAKER: NO MEASUREMENTS (cm) DIASTOLIC (NORMALS) SYSTOLIC (NORMALS) IVSd 1.1 (0.6-1.2) LA Diam 2.7 (1.9-4.0) LVEF 67% LVIDd 4.1 (3.5-5.7) LVIDs 2.6 (2.0-3.5) %FS 36% LVPWd 1.2 (0.6-1.2) Ao Diam 2.7 (2.0-3.7) 2 DIMENSIONAL ASSESSMENT: RIGHT ATRIUM: NORMAL LEFT ATRIUM: NORMAL RIGHT VENTRICLE: NORMAL LEFT VENTRICLE: NORMAL TRICUSPID VALVE: MILD TRICUSPID REGURGITATION MITRAL VALVE: MILD MITRAL REGURGITATION PULMONIC VALVE: NORMAL AORTIC VALVE: MILD AORTIC INSUFFICIENCY PERICARDIAL EFFUSION: NONE AORTIC ROOT: NORMAL LEFT VENTRICULAR WALL MOTION: NORMAL DOPPLER/COLOR FLOW: SEE BELOW COMMENTS: 1. NORMAL LEFT VENTRICULAR EJECTION FRACTION 55-60% 2. NORMAL WALL MOTION 3. MILD MITRAL REGURGITATION, TRICUSPID REGURGITATION, AORTIC INSUFFICIENCY TECHNOLOGIST: ZACK MCARTHUR
[2022-12-09] MEDS: ATORVASTATIN 40 MG TAB PO SCH (20:50)
[2022-12-09] MEDS ORDERED: HYDROCODONE/APAP 5/325 MG TAB PO PRN (23:15)
[2022-12-10 03:36] LABS: Magnesium 2.1 mg/dL (1.6-2.4); Phosphorus 3.3 mg/dL (2.5-4.9)
[2022-12-10] MEDS ORDERED: REGADENOSON 0.4 MG/5 ML SYR IV ONE (08:12)
[2022-12-10] MEDS: METOPROLOL XL 25 MG TAB PO SCH (09:00)
[2022-12-10] MEDS: ENOXAPARIN 40 MG/0.4 ML SQ SCH (09:00)
[2022-12-10] MEDS: MECLIZINE HCL 12.5 MG TAB PO SCH ×2 (09:00→15:41)
[2022-12-10] MEDS: ASPIRIN EC 81 MG TAB PO SCH (09:00)
[2022-12-10 13:39] VITALS: BP 126/76; TEMP 98.1
--- NOTE | 2022-12-10 13:48 | RAD REPORT ---
EXAM DESCRIPTION: NM - Rest Stress Cardiac Imaging - 12/10/2022 1:13 pm CLINICAL HISTORY: CP Chest pain. COMPARISON: No comparisons TECHNIQUE: The patient was administered approximately 10.8 mCi of Tc 99m Sestamibi prior to resting SPECT imaging of the heart. The patient was then administered approximately 31.5 mCi of Tc 99m Sestam ibi following exercise or pharmacologic stress. Multiplanar SPECT images were reviewed. FINDINGS: No definitive stress induced ischemic defect is seen to suggest stress induced ischemia. I nferior wall moderate to large defect, favored to be artifactual, related to diaphragmatic attenuatio n. A small component of the inferior wall apical segment show some reversible defect which may also b e artifactual. Small to moderate anterior wall mid to apical segment fixed defect, suggestive of a re gion of infarct/scarring. The end diastolic volume is 152 ml, the end systolic volume is 84 ml, and the ejection fraction is 45 %. IMPRESSION: Questionable small component of inferior wall apical segment showing reversible defect, favored to be artifactual No other definitive stress induced ischemia. Larger region of fixed defect along the inferior wall is very likely artifactual. Small to moderate anterior wall mid to apical segment fixed defect suggestive of a region of infarct/ scarring. Mildly reduced left ventricular ejection fraction, 45%.
--- NOTE | 2022-12-10 14:43 | TREADPHA ---
DX: CHEST PAIN Date of Study: 12/09/2022 Ht: 5' 10 " Wt: 200 lb 0.054 oz Consulting Physician: TRELL MEDICATIONS: TYLENOL, ASPIRIN, LIPITOR, LOVENOX, ANTIVERT, TOPROL XL, ZOFRAN HISTORY: 42 YEAR OLD MALE WITH COMPLAINTS OF CHEST PAIN. HISTORY OF HYPERTENSION, HYPERLIPIDEMIA, GASTROESOPHAGEAL REFLUX DISEASE, GI BLEED. NON SMOKER, NON DRINKER. PHYSICIAL EXAMINATION: RESTING B.P.: 126/89 RESTING H.R.: 63 RESTING EKG: NORMAL SINUS RHYTHM PROTOCOL: PHARMACOLOGIC EXERCISE TIME: 3:30 B.P. AT PEAK STRESS: 128/72 IMPRESSION: LEXISCAN INJECTED, FOLLOWED BY CARDIOLITE PER PROTOCOL. SEE NUCLEAR MEDICINE REPORT. NO SUPRAVENTRICULAR TACHCARDIA, VENTRICULAR TACHYCARDIA, PREMATURE ATRIAL COMPLEXES, PREMATURE VENTRICULAR COMPLEXES. PATIENT REPORTED CHEST PAIN FOUR OUT OF TEN BEFORE PROCEDURE. NO CHANGE IN CHEST PAIN. NO ELECTROCARDIOGRAM CHANGES OF ISCHEMIA WITH LEXISCAN.
[2022-12-10 18:05] VITALS: O2SAT 98
--- NOTE | 2022-12-10 18:09 | P.DS ---
Admission Date: 12/08/22 Discharge Date: 12/10/22 Disposition: ROUTINE DISCHARGE Discharge Condition: GOOD Reason for Admission: Syncopal episodes, Chest pain Brief History of Present Illness: Amna Jenkins is a 42-year-old male with past medical history GI bleed, hypertension, atrial fibrillation who presents to the ED with complaints of Running out of his medication and not being able to see his doctor in [place] due to his sick son who has seizure disorder. He describes chest pain which is off and on in the last 3 to 4 days causing blurry vision and difficult to breath. He also experiences orthopnea, PND, and occasional swelling in his left foot. He states full syncopal episode witnessed at work today while sitting in his truck. His coworkers called the ambulance for him to go to the ED. Initial vitals BP 143/84, heart rate 79, respirations 18, pulse ox 97 on room air. Significant labs troponin 5.8 with redraw of 6.9, TSH 1.440, T40.86, A1c 5.0. Head CT "Mild mucoperiosteal thickening is seen right maxillary antrum. The paranasal sinuses and mastoids are otherwise clear. The calvarium is intact." Amna will be admitted to hospitalist service for evaluation and treatment of syncopal episode and hypertension. Hospital Course: Amna Jenkins is a pleasant 50-year-old male with a past medical history significant for GI bleed, hypertension, atrial fibrillation who was admitted to the [facility] on 12/09/2019 for syncopal episode and hypertension. Amna presented to the ED after syncopal episode at work. He is complaining of chest pain for the past 3 to 4 days causing blurriness and difficulty breathing. Dr. Serrano consulted and stress test is negative. Amna ambulates in his room independently, tolerating p.o. diet, tolerating blood pressure meds and atorvastatin during his admission. Amna is stable for discharge. On 12/10/2022, Amna was seen on morning rounds and deemed medically stable for discharge. Amna was discharged with instructions to schedule follow-up appointments with Dr. Serrano. Amna was provided prescriptions for amlodipine, aspirin, atorvastatin. The patient and family members were given the opportunity to ask questions and reported no further questions. Furthermore, all questions were answered to the best of my ability. A copy of this discharge summary will be sent to the above providers to facilitate continuity of care. Today, I personally spent 55 minutes with 50, of which greater than 50% of the time was spent in patient education, counseling, and coordination of care as described above. Physical Exam General: Alert, In no apparent distress, Oriented x3 HEENT: Atraumatic, Normocephalic, PERRLA Neck: Supple, 2+ carotid pulse no bruit, JVD not distended Respiratory: Clear to auscultation bilaterally, Normal air movement Cardiovascular: No edema, Normal pulses, Regular rate/rhythm, Normal S1 S2, murmur present Capillary refill: <2 Seconds Gastrointestinal: Normal bowel sounds, Soft and benign Musculoskeletal: No clubbing, No swelling, No contractures, No erythema Integumentary: No rashes, No breakdown Neurological: Normal speech, Normal strength at 5/5 x4 extr, Normal tone Assessment and plan Vital Signs/Physical Exam: Temp Pulse Resp BP Pulse Ox 98.1 F 69 17 126/76 99 12/10/22 12:00 12/10/22 12:00 12/10/22 12:00 12/10/22 12:00 12/10/22 12:00 Laboratory Data at Discharge: WBC 8.60 thou/uL (4.3-10.9) 12/09/22 01:29 Hgb 14.9 g/dL (13.6-17.9) 12/09/22 01:29 Hct 41.2 % (39.6-49.0) 12/09/22 01:29 Plt Count 228 thou/uL (152-406) 12/09/22 01:29 PT 12.0 SECONDS (9.5-12.5) 12/08/22 11:30 INR 1.09 12/08/22 11:30 Sodium 137 mEq/L (136-145) 12/10/22 02:55 Potassium 4.0 mEq/L (3.5-5.1) 12/10/22 02:55 BUN 16 mg/dL (7-18) 12/10/22 02:55 Creatinine 1.15 mg/dL (0.70-1.30) 12/10/22 02:55 Glucose 125 mg/dL (74-106) H 12/10/22 02:55 Phosphorus 3.3 mg/dL (2.5-4.9) 12/10/22 02:55 Magnesium 2.1 mg/dL (1.6-2.4) 12/10/22 02:55 Total Bilirubin 0.6 mg/dL (0.2-1.0) 12/08/22 11:30 AST 21 U/L (15-37) 12/08/22 11:30 ALT 44 U/L (16-61) 12/08/22 11:30 Alkaline Phosphatase 65 U/L (45-117) 12/08/22 11:30 Triglycerides 276 mg/dL (<150) H 12/09/22 01:29 Cholesterol 162 mg/dL (<200) 12/09/22 01:29 HDL Cholesterol 29 mg/dL (40-60) L 12/09/22 01:29 Cholesterol/HDL Ratio 5.59 12/09/22 01:29 Home Medications: Amlodipine Besylate 5 mg PO DAILY #30 tab 12/10/22 Aspirin [Aspirin EC 81 MG] 81 mg PO DAILY #30 tab 12/10/22 Aspirin [Ecotrin 81 MG] 81 mg PO DAILY #30 tab 12/10/22 Atorvastatin Calcium [Lipitor] 10 mg PO BEDTIME #30 tab 12/10/22 New Medications: Amlodipine Besylate 5 mg PO DAILY #30 tab Aspirin [Aspirin EC 81 MG] 81 mg PO DAILY #30 tab Aspirin [Ecotrin 81 MG] 81 mg PO DAILY #30 tab Atorvastatin Calcium [Lipitor] 10 mg PO BEDTIME #30 tab Physician Discharge Instructions: -DC IV and DC home -Follow-up with PCP in 1 to 2 weeks -Follow-up with Cardiology in 1 to 2 weeks -Please call Dr. López at [phone] if any questions regarding hospital stay -Please call nursing station at [phone] if any nursing or medication questions -Return to the emergency room if symptoms worsen Diet: AHA Activity: Fall precautions Followup: NONE,NONE [Primary Care Provider] - 1-2 Weeks (call to schedule an appointment) Beto Serrano MD [ACTIVE - CAN ADMIT] - 1-2 Weeks (call to schedule an appointment) Time spent managing pt's care (in minutes): 55
== END 2022-12-10 17:40 | disposition home or self-care (01) ==
LOC: ER 10:56 → ERHOLD 15:15 → 4TH 18:42
PROVIDERS: ADMIT Hospitalist; ATTEND Hospitalist
DX: R55 Syncope and collapse (principal); R07.89 Other chest pain; I10 Essential (primary) hypertension; I48.91 Unspecified atrial fibrillation; R06.02 Shortness of breath
CPT/HCPCS: 36415; 70450; 71045; 78452; 80048; 80061; 80076; 83036; 83735; 83880; 84100; 84439; 84443; 84484; 85025; 85610; 93005; 93017; 93306; 93880; 99285; A9500; G0378; J1650; J2785; J8597; Q0162

== ENCOUNTER → 2023-03-16 | Emergency (ER) | payer OTHER, SELFPAY ==
--- OUTSIDE RECORDS SUMMARY | 2023-03-16 10:21 | XMS REPORT | Continuity of Care Document ---
Author Name Unknown Address [address] [facility] [address] [place] [address] [facility] Address [address] [facility] [address] [place] [address] Care Team Providers Care Enrobing Machine Corder Name Role Phone PCP, PATIENT DOES NOT HAVE A Primary Care Physic maximo Unavailable LEROY LANGLEY Attending Clinician UnavailLeroy Carrillo Attending Clinician [phone]- [phone] JEREMI BELCHER Attending Clinician Unavailable Nara Young Attending Clinician [phone] Jeremi Belcher MD Attending Clinician [phone] LEROY LANGLEY Admitting Clinician UnavailJEREMI Watson Admitting Clinician Unavailable Jeremi Belcher MD Admitting Clinician [phone] Problems Condition Name Condition Details Condition Category Status Onset Date Resolution Date Last Treatment Date Treating Clinician Comments Source Paroxysmal atrial fibrillati on Paroxysmal atrial fibrillati on Disease Active 09-17 00:00: 00 [facility] History of myocardial infarction History of myocardial infarction Disease Active 09-17 00:00: 00 [facility] Hypertensi on Hypertensi on Disease Active 09-17 00:00: 00 [facility] Hyperlipid emia Hyperlipid emia Disease Active 09-17 00:00: 00 [facility] Family history of premature coronary artery disease Family history of premature coronary artery disease Disease Active 09-17 00:00: 00 [facility] Chest pain, unspecifie d type Chest pain, unspecifie d type Disease Active 09-16 00:00: 00 [facility] Obesity (BMI 30-39.9) Obesity (BMI 30-39.9) Disease Active 09-16 00:00: 00 [facility] Allergies, Adverse Reactions, Alerts Allergy Name Allergy Type Status Severity Reaction(s) Onset Date Inactive Date Treating Clinician Comments Source NO KNOWN ALLERGIE S Drug Class Active [facility] Social History Social Habit Start Date Stop Date Quantity Comments Source Gender identity [facility] of Social function 2022-09-28 00:00:00 2022-09-28 00:00:00 [facility] Exposure to SARS-CoV-2 (event) 2021-09-06 00:00:00 2021-09-16 15:50:00 Not sure [facility] Tobacco use and exposure 2021-09-16 00:00:00 2021-09-16 00:00:00 Smokeless tobacco non-user [facility] Sex Assigned At 1980 00:00:00 1980 00:00:00 [facility] Smoking Status Start Date Stop Date Source Never smoked tobacco [facility] Medications Ordered Medication Name Filled Medication Name Start Date Stop Date Current Medication? Ordering Clinician Indication Dosage Frequency Signature (SIG) Comments Components Source acetaminoph en (TYLENOL) tablet 650 mg 09-29 01:15: 00 09-29 00:34 :00 No 650mg 650 mg, Oral, ONCE, 1 dose, On Tue09/28/22 at 2015, MIO [facility] ibuprofen (IBU) tablet 600 mg 09-29 01:15: 00 09-29 00:34 :00 No 600mg 600 mg, Oral, ONCE, 1 dose, On Tue09/28/22 at 2015, MIO [facility] aspirin 81 mg chewable tablet 09-18 00:00: 00 10-19 04:59 :00 No [id number] 81mg Take 1 tablet by mouth in the morning for 30 days. [facility] ity [facility] maalox:diph enhydrAMINE :lidocaine 2 % viscous 1:1:1 (FIRST-MOUT HWASH BLM) oral suspension 15 mL 09-17 20:18: 28 Yes 15mL 15 mL, Oral, QDAILYPRN, Starting on Tue09/17/21 at 1518, Until Discontinu ed, MIO, epigastric pain [facility] iopamidol (ISOVUE 370-500 mL) injection 80 mL 09-17 16:15: 00 09-17 16:07 :00 No [id number] 80mL 80 mL, Intravenou s, ONCE, 1 dose, On Tue09/17/21 at 1115, Routine [facility] nitroglycer in (NITROSTAT) sublingual tablet 0.4 mg 09-17 16:15: 00 09-17 15:41 :00 No .4mg 0.4 mg, Sublingual , ONCE, 1 dose, On Tue09/17/21 at 1115, Routine [facility] metoprolol succinate XL 50 mg 24 hr tablet 09-17 15:50: 39 Yes 50mg Take 50 mg by mouth in the morning. [facility] metoprolol succinate XL 50 mg 24 hr tablet 09-17 15:50: 39 Yes 50mg Take 50 mg by mouth in the morning. [facility] isosorbide mononitrate 30 mg 24 hr tablet 09-17 15:31: 02 09-17 00:00 :00 No 30mg Take 30 mg by mouth as needed for Other (chest pain). [facility] metoprolol tartrate (LOPRESSOR) tablet 50 mg 09-17 15:30: 00 09-17 14:25 :00 No 50mg 50 mg, Oral, ONCE NOW, 1 dose, On Tue09/17/21 at 1030, [facility]ine [facility] chewable [facility] 81 mg 09-17 14:00: 00 Yes 81mg 81 mg, Oral, DAILY, First dose on Tue09/17/21 at 0900, Until Discontinu ed, Routine [facility] enoxaparin (LOVENOX) injection 40 mg 09-17 14:00: 00 Yes 40mg 40 mg, Subcutaneo us, DAILY, First dose on Tue09/17/21 at 0900, Until Discontinu ed, Routine Univers it[facility] metoprolol succinate XL (TOPROL XL) tablet 50 mg 09-17 14:00: 00 Yes 50mg 50 mg, Oral, DAILY, First dose on Tue09/17/21 at 0900, Until Discontinu ed, Routine [facility] nitroglycer in (NITROSTAT) sublingual tablet 0.4 mg 09-17 12:09: 06 Yes .4mg 0.4 mg, Sublingual , Q5MIN PRN, Starting on Tue09/17/21 at 0709, Until Discontinu ed, Routine, Chest pain [facility] ondansetron (ZOFRAN (PF)) injection 4 mg 09-17 04:39: 31 Yes 4mg 4 mg, Slow IV Push, Q6HPRN, Starting on Tue09/16/21 at 2339, Until Discontinu ed, Routine, Nausea and Vomiting (N/V) [facility] morpHINE (2 mg/mL) injection 2 mg 09-17 04:39: 24 09-18 04:38 :24 No 2mg 2 mg, Slow IV Push, Q4HPRN, Starting on Tue09/16/21 at 2339, Until Tue09/17/21 at 2338, Routine, Pain (scale 7-10) [facility] traMADoL (ULTRAM) tablet 50 mg 09-17 04:39: 20 09-19 04:38 :20 No 50mg 50 mg, Oral, Q8HPRN, Starting on Tue09/16/21 at 2339, Until Tue09/18/21 at 2338, Routine, Pain (scale 4-6) [facility] acetaminoph en (TYLENOL) tablet 650 mg 09-17 04:39: 18 Yes 650mg 650 mg, Oral, Q6HPRN, Starting on Tue09/16/21 at 2339, Until Discontinu ed, Routine, Pain (scale 1-3) [facility] isosorbide mononitrate (IMDUR) 24 hr tablet 30 mg 09-17 04:37: 33 Yes 30mg 30 mg, Oral, PRN, 1 dose, Starting on Tue09/16/21 at 2337, Until Discontinu ed, Routine, chest pain [facility] pantoprazol e 40 mg EC tablet 09-17 00:00: 00 10-18 04:59 :00 No [id number] 40mg Take 1 tablet by mouth in the morning for 30 days. [facility] NaCl 0.9% (NS) bolus infusion 1,000 mL 09-16 23:00: 00 09-17 00:16 :00 No 1000mL at 999 mL/hr, 1,000 mL, IV Infusion, ONCE, 1 dose, On Tue09/16/21 at 1800, STAT [facility] aspirin chewable tablet 324 mg 09-16 21:45: 00 09-16 20:45 :00 No 324mg 324 mg, Oral, ONCE, 1 dose, On Tue09/16/21 at 1645, Routine [facility] benzonatate 200 mg capsule 2017-02-13 00:00: 00 09-16 00:00 :00 No 200mg Take 1 capsule by mouth 3 (three) times daily as needed for Cough. [facility] traMADOL (ULTRAM) 50 mg tablet 15 00:00: 00 09-16 00:00 :00 No 50mg Take 1 tablet by mouth every 6 (six) hours as needed for Pain (scale 7-10). [facility] Vital Signs Vital Name Observation Time Observation Value Comments Lavelle santigao Systolic blood pressure 2022-09-28 23:00:00 130 mm[Hg[facility] Diastolic blood pressure 2022-09-28 23:00:00 93 mm[Hg[facility] Heart rate 2022-09-28 23:00:00 99 /min [facility] Body temperature 2022-09-28 23:00:00 37.06 Chelsy [facility] Respiratory rate 2022-09-28 23:00:00 16 /min [facility] Oxygen saturation in Arterial blood by Pulse oximetry 2022-09-28 23:00:00 98 /min [facility] Body height 2022-09-28 22:29:00 175.3 cm [facility] Body weight 2022-09-28 22:29:00 88.905 kg [facility] BMI 2022-09-28 22:29:00 28.94 kg/m2 [facility] Systolic blood pressure 2021-09-17 16:42:00 133 mm[Hg] [facility] Diastolic blood pressure 2021-09-17 16:42:00 80 mm[Hg] [facility] Heart rate 2021-09-17 16:42:00 57 /min [facility] Body temperature 2021-09-17 16:42:00 36.22 Chelsy [facility] Respiratory rate 2021-09-17 16:42:00 18 /min [facility] Oxygen saturation in Arterial blood by Pulse oximetry 2021-09-17 16:42:00 97 /min [facility] Body weight 2021-09-17 09:08:00 112.492 kg [facility] BMI 2021-09-17 09:08:00 35.58 kg/m2 [facility] Body height 2021-09-17 00:56:00 177.8 cm [facility] Procedures Procedure Date / Time Performed Performing Clinician Source TROPONIN I 2022-09-29 00:57[facility] 2022-09-28 22:52:00 [facility]ONIN I 2022-09-28 22:44:00 Leroy Langley [facility] CBC WITH DIFF 2022-09-28 22:44:00 Shivam [facility] D-DIMER 2022-09-28 22:44:00 Leroy Langley [facility] CONSENT/REFUSAL FOR DIAGNOSIS AND TREATMENT 2022-09-28 22:25:13 Doctor Unassigned, [place] [facility] CT ANGIOGRAPHY CORONARIES WITH CARDIAC CALCIUM SCORE 2021-09-17 18:22:48 Zhang Guzman [facility] TRANSTHORACIC ECHO (TTE) COMPLETE 2021-09-17 12:51:00 Jeremi Belcher [facility] URINE DRUG (IMMUNOASSAY) - COMPREHENSIVE DRUG SCREEN 2021-09-17 12:11:[address] [facility] CBC WITH DIFF 2021-09-17 10:53:00 Pedro [facility] TROPONIN I 2021-09-17 09:12[facility]OLIC PAN[facility] (NA, K, CL, CO2, GLUCOSE, BUN, CREATININE, CA) 2021-09-17 09:12:[address] [facility] TROPONIN I 2021-09-17 05:14:00 Pedro [facility] XR CHEST 1 VW 2021-09-16 21:41:58 Nara Paige [facility] MAGNESIUM 2021-09-16 20:46:00 [facility] TROPONIN I 2021-09-16 20:46:00 [facility] COMP. METABOLIC PANEL (47399) 2021-09-16 20:46:00 Nara Paige [facility] CBC WITH DIFF 2021-09-16 20:46:00 Nara Paige [facility] URINALYSIS 2021-09-16 20:46:00 Nara Paige [facility] N-TERMINAL PRO-BNP 2021-09-16 20:46:00 Nara Paige [facility] COVID-19 (ID NOW RAPID TESTING) 2021-09-16 20:46:00 Nara Paige [facility] LAB ONLY COVID INTERPRETATION 2021-09-16 20:46:00 Nara Paige [facility] HB ECG ROUTINE & RHYTHM STRIP 2021-09-16 20:08:21 Nara Paige [facility] NOTICE OF PRIVACY PRACTICES 2021-09-16 19:42:18 Doctor Unassigned, [place] [facility] Encounters Start Date/Time End Date/Time Encounter Type Admission Type Attending [facility] Care Department Encounter ID Source 2022-09-28 17:33:00 2022-09-28 20:57:00 Emergency X [facility] ERT [id number] [facility] 2022-09-28 17:33:00 2022-09-28 20:57:00 Emergency Shivam [facility] [id number] [facility] 2021-09-16 15:05:00 2021-09-17 15:50:00 Outpatient X JEREMI BELCHER RUST LEON [id number] [facility] 2021-09-16 15:05:00 2021-09-17 15:50:00 Emergency Nara Paige Yaman [facility] [id number] [facility] Results Test Description Test Time Test Comments Results Result Co mments Source [facility] [id number] 23:34:45* Test Item Value Reference Range Interpretation Comme nts TROPONIN I (test code = 9750230880) 0.003 ng/mL <=0.034 SANJIV (test code = [...] of biotin. Lab Interpretation (test code = 77291-3) Normal [facility][id number] 23:22:42* Test Item Value Reference Range Interpretation Comments D-DIMER (test code = 8191785425) 0.32 See_Comment [Automated message] The system which generated this result transmitted reference range: <0.41 ?g/mL (FEU). The reference range was not used to interpret this result as normal/abnormal. SANJIV (test code = SANJIV) This test may be used in conjunction with a clinical pretest [...] context, in forming a diagnosis. Lab Interpretation (test code = 36223-9) Normal [facility] WITH [id number] 23:09:03* Test Item Value Reference Range Interpretation Comme nts WBC (test code = 6690-2) 5.01 See_Comment [Automated [employer] ge] The system which generated this result transmitted reference range: 4.20 - 10.70 10*3/?L. The reference range was not used to interpret this result as normal/abnormal. RBC (test code = 789-8) 4.97 See_Comment [Automated messa ge] The system which generated this result transmitted reference range: 4.26 - 5.52 10*6/?L. The reference range was not used to interpret this result as normal/abnormal. HGB (test code = 718-7) 15.0 g/dL 12.2-16.4 HCT (test code = 4544-3) 42.0 % 38.4-49.3 MCV (test code = 787-2) 84.5 fL 81.7-95.6 MCH (test code = 785-6) 30.2 pg 26.1-32.7 MCHC (test code = 786-4) 35.7 g/dL 31.2-35.0 H RDW-SD (test code = 20438-5) 38.0 fL 38.5-51.6 L RDW-CV (test code = 788-0) 12.6 % 12.1-15.4 PLT (test code = 777-3) 224 See_Comment [Automated messa ge] The system which generated this result transmitted reference range: 150 - 328 10*3/?L. The reference range was not used to interpret this result as normal/abnormal. MPV (test code = 61066-3) 10.6 fL 9.8-13.0 NRBC/100 WBC (test code = 3999477124) 0.0 See_Comment [Automated [employer] ssage] The system which generated this result transmitted reference range: 0.0 - 10.0 /100 WBCs. The reference range was not used to interpret this result as normal/abnormal. NRBC x10^3 (test code = 0265773305) See_Comment [Automated messa ge] The system which generated this result transmitted reference range: 10*3/?L. The reference range was not used to interpret this result as normal/abnormal. GRAN MAT (NEUT) % (test code = 770-8) 69.4 % IMM GRAN % (test code = 8956705816) 0.20 % LYMPH % (test code = 736-9) 12.4 % MONO % (test code = 5905-5) 16.0 % EOS % (test code = 713-8) 1.4 % BASO % (test code = 706-2) 0.6 % GRAN MAT x10^3(ANC) (test code = 1207711249) 3.48 10*3/uL 1.99-6.95 IMM GRAN x10^3 (test code = 0807758508) 0.00-0.06 LYMPH x10^3 (test code = 731-0) 0.62 10*3/uL 1.09-3.23 L MONO x10^3 (test code = 742-7) 0.80 10*3/uL 0.36-1.02 EOS x10^3 (test code = 711-2) 0.07 10*3/uL 0.06-0.53 BASO x10^3 (test code = 704-7) 0.03 10*3/uL 0.01-0.09 Lab Interpretation (test code = 85735-2) [facility]normal [facility]2021-09-17 17:01:28* Test Item Value Reference Range Interpretation Comme nts Height (test code = 3639009807) in Weight (test code = 8006464947) lbs Systolic BP (test code = 6426411655) mmHg Diastolic BP (test code = 8013344526) mmHg Heart Rate (test code = 0482105801) bpm BSA (test code = 1640837327) 2.17 m2 Ao root annulus (test code = 4809103930) 3.7 cm Ao root diam (test code = 3075367242) 3.70 cm Aortic root (test code = 5111087720) 3.7 cm LVOT diameter (test code = 6980431711) 2.19 cm LVIDD (test code = 5999515044) 5.00 cm IVS (test code = 5078237113) 1.06 cm Interventricular Septum Diastolic Thickness by 2D (test code = 6730962) 1.06 cm LVPWD (test code = 8705159182) 1.06 cm PW (test code = 5723654248) 1.06 cm 0.6-1.1 EF(Teich) (test code = 3302371218) 55.80 % LVIDS (test code = 9806069291) 3.60 cm FS (test code = 2981520170) 29 % EF - 2D (test code = 75399267) 55.80 % LA size (test code = 9991912999) 3.2 cm TR Peak Eric (test code = 9839715659) 188.2 cm/s Triscuspid Valve Regurgitation Peak Gradient (test code = 0052111383) mmHg LAV(MOD-sp4) (test code = 9405838565) 59.50 mL E wave decelartion time (test code = 1455424899) 0.22 s MV stenosis pressure 1/2 time (test code = 4917168281) 63.4 ms MV Peak E Eric (test code = 5292978072) 77.8 cm/s MV Peak A Eric (test code = 3766404872) 81.2 cm/s E/A ratio (test code = 4264129339) ratio MV Prop V (test code = 1815781435) 39.70 cm/s MV E/e' septal (test code = 4477088815) 17.5 cm/s Tapse (test code = 9784737986) 2.31 cm LVOT stroke volume (test code = 0933072134) 67.40 cm3 LVOT peak eric (test code = 8532434708) 91.7 cm/s LVOT mn grad (test code = 8494221275) mmHg AV LVOT peak gradient (test code = 9950325516) mmHg LVOT peak VTI (test code = 8059260625) 18.0 cm LV V1 mean (test code = 6449311552) 66.30 cm/s Aortic valve mean velocity (test code = 4379268270) 94.2 cm/s Ao peak eric (test code = 4948756073) 134.8 cm/s Ao VTI (test code = 1123209618) 27.8 cm AV area by cont VTI (test code = 5503247036) 2.4 cm2 AV area peak eric (test code = 5524229735) 2.6 cm2 Ao max PG (test code = 2134394864) 7.30 mm[Hg] AV peak gradient (test code = 0129066388) mmHg AV valve area (test code = 1428742597) 2.42 cm2 AV mean gradient (test code = 6145403384) mmHg AV regurgitation pressure 1/2 time (test code = 6203186875) 978.3 ms AI dec slope (test code = 0373912412) 71.10 cm/s2 AI max eric (test code = 8351432722) 237.50 cm/s AI max PG (test code = 5110035831) 22.60 mm[Hg] Radiology Study observation (narrative) (test code = 62027-8) SANJIV (test code = SANJIV) Formatting of [...] 2D, color flow Doppler and spectral Doppler. [facility] [id number] 21:30:45* Test Item Value Reference Range Interpretation Comments TROPONIN I (test code = 4300049742) 0.003 ng/mL See_Comment [Automated message] The system which generated this result transmitted reference range: <=0.034. The reference range was not used to interpret this result as normal/abnormal. SANJIV (test code = SANJIV) Reference (Normal) [...] of biotin. Lab Interpretation (test code = 81223-3) Normal [facility] [id number] 21:27:27* Test Item Value Reference Range Interpretation Comme nts NT-proBNP (test code = 8160785759) 23 pg/mL See_Comment [Automated message] The system which generated this result transmitted reference range: <=125. The reference range was not used to interpret this result as normal/abnormal. SANJIV (test code = SANJIV) Biotin has been reported to cause a negative bias, interpret results relative to patient's use of biotin. Lab Interpretation (test code = 96400-0) Normal [facility]2022-07-27 21:19:03* Test Item Value Reference Range Interpretation Comme nts MAGNESIUM (test code = 6682671805) 1.9 mg/dL 1.7-2.4 Lab Interpretation (test cod e = 38514-7) Normal [facility]OLIC PANEL (59476)2021-09-16 21:18:43* Test Item Value Reference Range Interpretation Comme nts NA (test code = 7279128905) 140 mmol/L 135-145 K (test code = 0163362665) 4.1 mmol/L 3.5-5 CL (test code = 4869201850) 102 mmol/L 98-108 CO2 TOTAL (test code = 6732208135) 27 mmol/L 23-31 AGAP (test code = 4915666224) 2-16 BUN (test code = 8708637494) 4 mg/dL 7-23 L GLUCOSE (test code = 7123441411) 104 mg/dL 70-110 CREATININE (test code = 8669751979) 0.97 mg/dL 0.6-1.25 TOTAL BILI (test code = 1750788618) 0.9 mg/dL 0.1-1.1 CALCIUM (test code = 2295945668) 9.6 mg/dL 8.6-10.6 T PROTEIN (test code = 2817897760) 8.0 g/dL 6.3-8.2 ALBUMIN (test code = 1031624074) 4.8 g/dL 3.5-5 ALK PHOS (test code = 3810967007) 63 U/L 34-122 ALTv (test code = 1742-6) 55 U/L 5-50 H AST(SGOT) (test code = 3071938324) 41 U/L 13-40 H eGFR (test code = 5465138710) mL/min/1.73m2 SANJIV (test code = SANJIV) Association of [...] or abnormalities in imaging tests). Lab Interpretation (test code = 56642-3) Abnormal [facility] WITH [id number] 21:10:57* Test Item Value Reference Range Interpretation Comme nts WBC (test code = 6690-2) See_Comment [Automated messa ge] The system which generated this result transmitted reference range: 4.20 - 10.70 10*3/?L. The reference range was not used to interpret this result as normal/abnormal. RBC (test code = 789-8) See_Comment [Automated messa ge] The system which generated this result transmitted reference range: 4.26 - 5.52 10*6/?L. The reference range was not used to interpret this result as normal/abnormal. HGB (test code = 718-7) 15.2 g/dL 12.2-16.4 HCT (test code = 4544-3) 42.7 % 38.4-49.3 MCV (test code = 787-2) 83.4 fL 81.7-95.6 MCH (test code = 785-6) 29.7 pg 26.1-32.7 MCHC (test code = 786-4) 35.6 g/dL 31.2-35 H RDW-SD (test code = 34312-0) 37.2 fL 38.5-51.6 L RDW-CV (test code = 788-0) 12.2 % 12.1-15.4 PLT (test code = 777-3) See_Comment [Automated [employer]] The system which generated this result transmitted reference range: 150 - 328 10*3/?L. The reference range was not used to interpret this result as normal/abnormal. MPV (test code = 90895-3) 10.7 fL 9.8-13 NRBC/100 WBC (test code = 8372022186) See_Comment [Automated [employer] ssage] The system which generated this result transmitted reference range: 0.0 - 10.0 /100 WBCs. The reference range was not used to interpret this result as normal/abnormal. NRBC x10^3 (test code = 6149206043) See_Comment [Automated messa ge] The system which generated this result transmitted reference range: 10*3/?L. The reference range was not used to interpret this result as normal/abnormal. GRAN MAT (NEUT) % (test code = 770-8) 70.3 % IMM GRAN % (test code = 7810266648) 0.40 % LYMPH % (test code = 736-9) 19.8 % MONO % (test code = 5905-5) 6.7 % EOS % (test code = 713-8) 1.8 % BASO % (test code = 706-2) 1.0 % GRAN MAT x10^3(ANC) (test code = 3160599443) 5.45 10*3/uL 1.99-6.95 IMM GRAN x10^3 (test code = 3832733803) 0.03 10*3/uL 0-0.06 LYMPH x10^3 (test code = 731-0) 1.54 10*3/uL 1.09-3.23 MONO x10^3 (test code = 742-7) 0.52 10*3/uL 0.36-1.02 EOS x10^3 (test code = 711-2) 0.14 10*3/uL 0.06-0.53 BASO x10^3 (test code = 704-7) 0.08 10*3/uL 0.01-0.09 Lab Interpretation (test code = 93025-4) Abnormal [facility] Notes Date/Time Note Provider Source 2022-09-28 20:56:02 DIzYYEG9w9WGUDH6NXpi G1IZSe1TnP6T kqKpnQF9ymRGuisUKtx3Op+rxcOId8lH 3149-39-72G79:56:02 Awake, alert oriented X4, respiratory even and unlabored,skin w/d color appropriate for race, moves all ext well, pt encouraged to follow up with pcp and or return as neededPt given printed and verbal discharge instructions regarding Chest pain, Pain of left upper extremity , patient verbralized understanding and signature obtained, patient denies any other concerns.Advised to seek medical attention for new/prolonged/worsening of symptoms, No adverse reaction to meds given in ER noted upon dischargePt [facility] [address]-7Qjmslbyhj department RrbpGT6247-70-86N19:56:46Emergen department [id number] .7.2.230406|[id number] e for patient zvhg49408-3RfcsXM889219870Dtgtyx J Amanda [address] TmauJpcryjwgyRekxrnpvcZPTP660193 8761ERNIEURFEAFNBLTIAZCAKJ8498-6 09-28T20:56:461.2.840.420108.1.72 .3.15|1.2.840.502783.1.13.104.2. [id number] Marlen Thomson Amanda RN [facility] 2022-09-28 18:26:10 VLlSr9JbaXm2cDe1gY2A TwUSMU61PJKJ UZTg/UMoALKLgRxTTfFvSGy8io+WKZzO 4930-07-22G81:26:10 Patient's name and verified with patient. Chief Complaint Patient presents with Chest Pain Dizziness Patient ambulatory with steady gait with EC arrival. Patient is conscious and alert, with normal/unlabored breathing, and normal color/tone for ethnicity -oriented to name, time, place, and situation. GCS 15.Patient reports chest pain since this morning - patient mentions that he took a nitroglycerin and he felt some relief but the pressure has been "going on and off" all day regardless of medication. Patient denies nausea, vomiting, shortness of breath, fever, chills, and diarrhea. Past Medical History: Diagnosis Date HTN (hypertension) No known allergies. Vitals obtained. Assessment performed. IV in place and patent.Placed on continuous spo2/cardiac monitoring, HR 87Bed low and locked, secured with two rails, call light within reach.Belongings at bedside. Patient [place] [id number] department [id number]:32:09[facility] department [id number] e for patient [id number] la Jon R[address] Yq[id number] 8:32:[id number] .3.15|[id number]. [id number] Mirta Jon RN [facility] 2022-09-28 17:26:15 [id number] CLZhFWBGgGbF/[id number] [id number]:26:15 Pt to ed via pov. Alert and ambulatory. Vss. C/o chest pain radiating to back and dizziness. Onset approx 2 weeks but has gotten increasingly worse. Took one nitro this morning around 1030 am. States it did help slightly. [id number] department Triage [id number]:28:49[facility] department Triage [id number] e for patient [id number] department [id number] A Paul RN[address] Fj[id number] :28:[id number] .3.15|[id number]. [id number] Christy Fernandez RN [facility]
--- NOTE | 2023-03-16 11:11 | RAD REPORT ---
EXAM DESCRIPTION: CT - Head C Spine Mpr Wo Con - 03/16/2023 10:50 am CLINICAL HISTORY: Head and neck injury status post fall. Head and neck pain. Left arm numbness COMPARISON: 2018 TECHNIQUE: Computed axial tomography of the head and cervical spine was obtained. Sagittal and coronal reconstruction was performed. All CT scans are performed using dose optimization technique as appropriate and may include automated exposure control or mA/KV adjustment according to patient size. FINDINGS: An intracranial bleed is not seen. The ventricles are normal in caliber. No significant hypodensity within the brain. An extra-axial fluid collection is not noted. Fluid within the visualized sinuses and mastoids is not seen A cervical fracture is not visualized. No dislocation is noted. Chronic loss of the normal lordosis of the cervical spine paraumbilical spondylosis. No high-grade ce ntral/foraminal stenosis IMPRESSION: No acute intracranial abnormality is seen. A cervical fracture is not visualized. If the patient continues to have symptoms to suggest intracranial /spinal cord/spinal canal pathology then MRI would be recommended
--- NOTE | 2023-03-16 11:14 | RAD REPORT ---
EXAM DESCRIPTION: Cherrie Single View03/16/2023 10:54 am CLINICAL HISTORY: Chest pain COMPARISON: 2022 FINDINGS: Calcified granuloma right lung The lungs appear clear of acute infiltrate. The heart is normal size IMPRESSION: No acute abnormalities displayed
[2023-03-16 11:53] LABS: Hematocrit 45.1 % (39.6-49.0); Lymphocytes % 28.5 % (15.3-44.8); MCV 84.1 fL (80-100); MPV 8.5 fL (7.6-11.3); Platelets 272 thou/uL (152-406); Protime INR 1.11; RBC Red Blood Cell Count 5.36 M/uL (4.33-5.43)
[2023-03-16 12:06] LABS: Potassium 4.2 mEq/L (3.5-5.1); Troponin High Sensitivity 4.2 pg/mL (<58.9)
--- NOTE | 2023-03-16 13:04 | ER ---
Nurse's Notes [facility] Name: Amna Jenkins Jr Age: 42 yrs Sex: Male : 1980 Arrival Date: 03/16/2023 Time: 10:18 Bed 11 Private MD: Diagnosis: Essential (primary) hypertension;Chest pain, unspecified Presentation: 03/16 10:25 Chief complaint: Patient states: he has been having high blood pressure "for a couple ap3 weeks". patient also reports dizziness with possible syncope 3 days ago which he reports head and neck pain since. patient also reports intermittent blurry vision over the last two weeks. Coronavirus screen: At this time, the client does not indicate any symptoms associated with coronavirus-19. Ebola Screen: No symptoms or risks identified at this time. Initial Sepsis Screen: Does the patient meet any 2 criteria? No. Patient's initial sepsis screen is negative. Does the patient have a suspected source of infection? No. Patient's initial sepsis screen is negative. Risk Assessment: Do you want to hurt yourself or someone else? Patient reports no desire to harm self or others. Onset of symptoms is unknown. 10:25 Method Of Arrival: Ambulatory ap3 10:25 Acuity: NEYDA 3 ap3 Triage Assessment: 10:29 General: Appears in no apparent distress. Behavior is calm, cooperative, appropriate ap3 for age. Pain: Complains of pain in anterior aspect of left shoulder and neck Pain currently is 6 out of 10 on a pain scale. Pain began 2-3 days ago. Neuro: Level of Consciousness is awake, alert, obeys commands, Oriented to person, place, time, situation, Appropriate for age Moves all extremities. Gait is steady, Facial symmetry appears normal, Reports a syncopal episode. Cardiovascular: Patient's skin is warm and dry. Respiratory: Airway is patent Respiratory effort is even, unlabored, Respiratory pattern is regular, symmetrical. 10:29 EENT: Reports blurred vision since approx 2 weeks ago. ap3 Historical: - Allergies: 10:27 No Known Allergies; ap3 - Home Meds: 10:27 amlodipine oral [Active]; aspirin 81 mg Oral capsule [Active]; atorvastatin oral ap3 [Active]; - PMHx: 10:27 Atrial fibrillation; GI Bleed; Hypertension; ap3 - Immunization history:: Client reports having NOT received the Covid vaccine. Flu vaccine is not up to date. - Social history:: Smoking status: Patient denies any tobacco usage or history of. - Family history:: not pertinent. - Hospitalizations: : No recent hospitalization is reported. Screenin:30 [facility] ED Fall Risk Assessment (Adult) History of falling in the last 3 months, ap3 including since admission Yes- physiologic fall (2 pts) Confusion or Disorientation No (0 pts) Intoxicated or Sedated No (0 pts) Impaired Gait No (0 pts) Mobility Assist Device Used No (0 pt) Altered Elimination No (0 pt). Abuse screen: Denies threats or abuse. Nutritional screening: No deficits noted. Tuberculosis screening: No symptoms or risk factors identified. Assessment: 10:30 Pain: Pain does not radiate. ap3 11:29 Reassessment: No changes from previously documented assessment. Patient and/or family ll1 updated on plan of care and expected duration. Pain level reassessed. 11:40 Reassessment: No changes from previously documented assessment. Patient and/or family ll1 updated on plan of care and expected duration. Pain level reassessed. Patient is alert, oriented x 3, equal unlabored respirations, skin warm/dry/pink. 13:09 Reassessment: No changes from previously documented assessment. Patient and/or family tl4 updated on plan of care and expected duration. Pain level reassessed. Patient is alert, oriented x 3, equal unlabored respirations, skin warm/dry/pink. Pain: Complains of pain in chest Pain does not radiate. Vital Signs: 10:25 BP 139 / 94; Pulse 85; Resp 17; Temp 97; Pulse Ox 100% ; Weight 99.79 kg; Height 5 ft. ap3 9 in. ; Pain 6/10; 13:09 BP 120 / 88; Pulse 88; Resp 15; Pulse Ox 100% on R/A; Pain 5/10; tl4 13:34 BP 126 / 87; Pulse 74; Resp 15; Pulse Ox 99% on R/A; Pain 5/10; tl4 10:25 Body Mass Index 32.49 (99.79 kg, 175.26 cm) ap3 10:25 Pain Scale: Adult ap3 13:09 Pain Scale: Adult tl4 13:34 Pain Scale: Adult tl4 Vitals: 13:09 Cardiac Rhythm Assessment Regular Sinus rhythm. tl4 13:34 Cardiac Rhythm Assessment Regular Sinus rhythm. tl4 [place] Coma Score: 13:09 Eye Response: spontaneous(4). Motor Response: obeys commands(6). Verbal Response: tl4 oriented(5). Total: 15. 13:34 Eye Response: spontaneous(4). Motor Response: obeys commands(6). Verbal Response: tl4 oriented(5). Total: 15. ED Course: 10:21 Patient arrived in ED. mg5 10:27 Triage completed. ap3 10:30 Arm band placed on right wrist. ap3 10:30 Patient maintains SpO2 saturation greater than 95% on room air. ap3 10:32 Jesse Ch MD is Attending Physician. rn 10:43 EKG done, by ED staff, reviewed by Jesse Ch MD. ap3 10:49 CT Head C Spine In Process Unspecified. EDMS 10:56 XRAY Chest (1 view) In Process Unspecified. EDMS 11:25 Inserted saline lock: 22 gauge in right antecubital area, using aseptic technique. ll1 Blood collected. 12:35 Robert Elaine is Primary Nurse. tl4 13:02 Patient has correct armband on for positive identification. Placed in gown. Bed in low tl4 position. Call light in reach. Side rails up X2. Provided Education on: ed process. Client placed on continuous cardiac and pulse oximetry monitoring. NIBP monitoring applied. regulator inspector on. Door closed. Lights dimmed. Moved to private room. Warm blanket given. 13:03 No provider procedures requiring assistance completed. tl4 13:35 IV discontinued, intact, bleeding controlled, No redness/swelling at site. Pressure tl4 dressing applied. Administered Medications: No medications were administered Medication: 13:02 VIS not applicable for this client. tl4 Outcome: 13:03 Discharge ordered by . rn 13:35 Discharged to home ambulatory, tl4 13:35 Condition: stable 13:35 Discharge instructions given to patient, Instructed on discharge instructions, follow up and referral plans. medication usage, Demonstrated understanding of instructions, follow-up care, medications, Prescriptions given X 2, 13:35 Patient left the ED. tl4 Signatures: Dispatcher [employer] EDMS Jesse Ch MD MD rn Prokisch, Amanda, RN RN ap3 Jh Rosas RN RN ll1 Imelda Loredo mg5 Robert Elaine tl4 Corrections: (The following items were deleted from the chart) 10:30 10:29 General: Appears in no apparent distress. Behavior is calm, cooperative, ap3 appropriate for age, ap3 13:16 13:15 Pain: Complains of pain in chest Pain does not radiate. Pain currently is 55 out tl4 of 10 on a pain scale. tl4
--- NOTE | 2023-03-16 13:04 | EDPHYS ---
Physician Documentation [facility] Name: Amna Jenkins Jr Age: 42 yrs Sex: Male : 1980 Arrival Date: 03/16/2023 Time: 10:18 Bed 11 Private MD: ED Physician Jesse Ch HPI: 03/16 11:18 This 42 yrs old Male presents to ER via Ambulatory with complaints of Chest Pain, Blood rn Pressure Problem, Near Syncope, Headache. 11:18 The patient has elevated blood pressure and discovered this at home. Onset: The rn symptoms/episode began/occurred at an unknown time. Modifying factors:. Associated signs and symptoms: Pertinent positives: chest pain, headache, lightheadedness, Pertinent negatives: weakness. Severity of symptoms: At its worst the blood pressure was moderate, in the emergency department the blood pressure is improved. The patient has experienced similar episodes in the past. Patient reports known hypertension, takes amlodipine. Has had problems for the last few weeks including headache, dizziness, chest pain, intermittent blurred vision. States checks his blood pressure and usually pretty high but at times gets too low as well. Took blood pressure medication this morning and blood pressure has improved.. Historical: - Allergies: 10:27 No Known Allergies; ap3 - Home Meds: 10:27 amlodipine oral [Active]; aspirin 81 mg Oral capsule [Active]; atorvastatin oral ap3 [Active]; - PMHx: 10:27 Atrial fibrillation; GI Bleed; Hypertension; ap3 - Immunization history:: Client reports having NOT received the Covid vaccine. Flu vaccine is not up to date. - Social history:: Smoking status: Patient denies any tobacco usage or history of. - Family history:: not pertinent. - Hospitalizations: : No recent hospitalization is reported. ROS: 11:18 Constitutional: Negative for fever, chills, and weight loss, Eyes: Positive for rn intermittent blurred vision Neck: Negative for injury, pain, and swelling, Cardiovascular: Positive for chest pain Respiratory: Negative for shortness of breath, cough, wheezing, and pleuritic chest pain, Abdomen/GI: Negative for abdominal pain, nausea, vomiting, diarrhea, and constipation, Back: Negative for injury and pain, MS/Extremity: Negative for injury and deformity, Skin: Negative for injury, rash, and discoloration, Neuro: Positive for headache, negative for focal weakness or numbness Exam: 11:18 Constitutional: This is a well developed, well nourished patient who is awake, alert, rn and in no acute distress. Head/Face: Normocephalic, atraumatic. Eyes: Pupils equal round and reactive to light, extra-ocular motions intact. Cardiovascular: Regular rate and rhythm. No pulse deficits. Respiratory: No increased work of breathing, no retractions or nasal flaring. Abdomen/GI: Soft, non-tender MS/ Extremity: Pulses equal, no cyanosis. Neurovascular intact. Full, normal range of motion. Equal circumference. Neuro: Awake and alert, GCS 15, oriented to person, place, time, and situation. Cranial nerves II-XII grossly intact. Motor strength 5/5 in all extremities. Sensory grossly intact. Cerebellar exam normal. Normal gait. Vital Signs: 10:25 BP 139 / 94; Pulse 85; Resp 17; Temp 97; Pulse Ox 100% ; Weight 99.79 kg; Height 5 ft. ap3 9 in. ; Pain 6/10; 13:09 BP 120 / 88; Pulse 88; Resp 15; Pulse Ox 100% on R/A; Pain 5/10; tl4 13:34 BP 126 / 87; Pulse 74; Resp 15; Pulse Ox 99% on R/A; Pain 5/10; tl4 10:25 Body Mass Index 32.49 (99.79 kg, 175.26 cm) ap3 10:25 Pain Scale: Adult ap3 13:09 Pain Scale: Adult tl4 13:34 Pain Scale: Adult tl4 [place] Coma Score: 13:09 Eye Response: spontaneous(4). Motor Response: obeys commands(6). Verbal Response: tl4 oriented(5). Total: 15. 13:34 Eye Response: spontaneous(4). Motor Response: obeys commands(6). Verbal Response: tl4 oriented(5). Total: 15. MDM: 10:32 Patient medically screened. rn 13:02 Differential diagnosis: hypertensive crisis, Malignant HTN, CVA, intracerebral rn hemorrhage, Anxiety, blunt trauma, radiculopathy. Data reviewed: vital signs, nurses notes, lab test result(s), EKG, radiologic studies, CT scan, plain films, and as a result, I will discharge patient. Counseling: I had a detailed discussion with the patient and/or guardian regarding the historical points, exam findings, and any diagnostic results supporting the discharge/admit diagnosis, lab results, radiology results, the need for outpatient follow up, to return to the emergency department if symptoms worsen or persist or if there are any questions or concerns that arise at home. Counseling: I had a detailed discussion with the patient and/or guardian regarding the presence of at least one elevated blood pressure reading (>120/80) during this emergency department visit. Response to treatment: the patient's symptoms have mildly improved after treatment, and as a result, I will discharge patient. Special discussion: Based on the patient's history, exam, and Dx evaluation, there is no indication for emergent intervention or inpatient Tx. It is understood by the patient/guardian that if the Sx's persist or worsen they need to return immediately for re-evaluation. I have referred the patient to see his PCP for further evaluation of high blood pressure. I discussed with the patient/guardian in detail that at this point there is no indication for admission to the hospital. It is understood, however, that if the symptoms persist or worsen the patient needs to return immediately for re-evaluation. 03/16 10:39 Order name: Basic Metabolic Panel; Complete Time: 12:03/16 10:39 Order name: CBC with Diff; Complete Time: :03/16 10:39 Order name: NT PRO-BNP; Complete Time: 12:03/16 10:39 Order name: PT-INR; Complete Time: 12:03/16 10:39 Order name: Troponin HS; Complete Time: 12:03/16 10:39 Order name: CT Head C Spine; Complete Time: 11:18 03/16 10:39 Order name: XRAY Chest (1 view); Complete Time: 11:18 03/16 10:39 Order name: EKG; Complete Time: 10:40 03/16 10:39 Order name: Cardiac monitoring; Complete Time: 12:35 03/16 10:39 Order name: EKG - Nurse/Tech; Complete Time: 10:44 03/16 10:39 Order name: IV Saline Lock; Complete Time: 11:30 03/16 10:39 Order name: Labs collected and sent; Complete Time: 11:30 ap3 03/16 10:39 Order name: O2 Per Protocol; Complete Time: 12:35 ap3 03/16 10:39 Order name: O2 Sat Monitoring; Complete Time: 12:35 ap3 Administered Medications: No medications were administered Disposition Summary: 03/16/23 13:03 Discharge Ordered Notes: Location: Home rn Problem: an ongoing problem rn Symptoms: have improved rn Condition: Stable rn Diagnosis - Essential (primary) hypertension rn - Chest pain, unspecified rn Followup: rn - With: Private Physician - When: As needed - Reason: Recheck today's complaints, Re-evaluation by your physician Discharge Instructions: - Discharge Summary Sheet rn - Nonspecific Chest Pain, Adult rn - Hypertension, Adult rn Forms: - Medication Reconciliation Form rn - Thank You Letter rn - Antibiotic rn eligibility - Prescription Opioid Use rn - Patient Portal Instructions rn - Leadership Thank You Letter rn Prescriptions: - gabapentin 300 mg Oral capsule - take 1 capsule ORAL route every 8 hours As needed; 14 capsule; Refills: 0, rn Product Selection Permitted - Cyclobenzaprine 10 mg Oral tablet - take 1 tablet ORAL route every 8 hours As needed; 15 tablet; Refills: 0, rn Product Selection Permitted Signatures: Dispatcher [employer] Jesse Gutierrez MD MD rn Cinthia Mondragon RN RN ap3
[2023-03-16 16:02] VITALS: BP 126/87; TEMP 97; O2SAT 99
--- NOTE | 2023-03-17 16:30 | EKG ---
Test Date: 2023-03-16 Test Time: 10:35:28 Slasher Hand: ALP MEASUREMENT RESULTS: Intervals: Rate: 85 [place]: 180 QRSD: 114 QT: 346 QTc: 411 Page: P: 63 [place]: 180 QRS: 30 T: 40 INTERPRETIVE STATEMENTS: Normal sinus rhythm Normal ECG Compared to ECG 02/07/2023 23:48:18 No significant changes Electronically Signed On 03-17-23 16:26:16 [employer] by Beto Serrano
== END ==
LOC: ER 10:18
DX: I10 Essential (primary) hypertension (principal); R07.89 Other chest pain; I48.91 Unspecified atrial fibrillation; Z28.310 Unvaccinated for COVID-19; Z79.82 Long term (current) use of aspirin
CPT/HCPCS: 36415; 70450; 71045; 72125; 80048; 83880; 84484; 85025; 85610; 93005; 99285

== ENCOUNTER 2023-10-24 17:43 | Observation (INO) | payer OTHER ==
--- OUTSIDE RECORDS SUMMARY | 2023-10-24 17:47 | XMS REPORT | Continuity of Care Document ---
Author Name Unknown Address [address] [facility]. [address] [place] [address] [facility] thconnect Address [address] [facility] [address] [place] [address] Care Team Providers Care Quality Engineer Name Role Phone PCP, PATIENT DOES NOT HAVE A Primary Care Physic maximo Unavailable CHAD BAUTISTA Attending Clinician Unavailable LAB90 Attending Clinician Unavailable JOHNATHAN SANCHEZ Attending Clinician Unavailable 2, Adc Lab Attending Clinician Unavailable Johnathan Sanchez MD Attending Clinician [phone] LEROY LANGLEY Attending Clinician UnavailLeroy Carrillo Attending Clinician + [phone] JEREMI BELHCER Attending Clinician Unavailable Naar Young Attending Clinician [phone] Jeremi Belcher MD Attending Clinician [phone] LEROY LANGLEY Admitting Clinician UnavailJEREMI Watson Admitting Clinician Unavailable Jeremi Belcher MD Admitting Clinician [phone] Payers Payer Name Policy Type Policy Number Effective Date Expirati on Date Source [facility] JAMAL CRISTOPHER COPAY FOCUS 9 [id number] 2023 00:00:00 [facility] [id number] 2023 00:00:00 Problems Condition Name Condition Details Condition Category Status Onset Date Resolution Date Last Treatment Date Treating Clinician Comments Source Hyperlipid emia Hyperlipid emia Disease Active 05-22 00:00: 00 Chey Seybold - Externa l HTN (hypertens ion) HTN (hypertens ion) Disease Active 05-22 00:00: 00 Chey Seybold - Externa l Fatty liver Fatty liver Disease Active 05-22 00:00: 00 Chey Seybold - Externa l Obesity Obesity Disease Active 05-22 00:00: 00 Chey Seybold - Externa l Paroxysmal atrial fibrillati on Paroxysmal atrial fibrillati on Disease Active 09-17 00:00: 00 [facility] History of myocardial infarction History of myocardial infarction Disease Active 09-17 00:00: 00 [facility] Hypertensi on Hypertensi on Disease Active 09-17 00:00: 00 [facility] Hyperlipid emia Hyperlipid emia Disease Active 09-17 00:00: 00 [facility] Family history of premature coronary artery disease Family history of premature coronary artery disease Disease Active 09-17 00:00: 00 [facility] Chest pain, unspecifie d type Chest pain, unspecifie d type Disease Active 09-16 00:00: 00 [facility] Obesity (BMI 30-39.9) Obesity (BMI 30-39.9) Disease Active 09-16 00:00: 00 [facility] Allergies, Adverse Reactions, Alerts Allergy Name Allergy Type Status Severity Reaction(s) Onset Date Inactive Date Treating Clinician Comments Source NO KNOWN ALLERGIE S Drug Class Active [facility] Social History Social Habit Start Date Stop Date Quantity Comments Source Gender identity [facility] Sexual orientation K christal Metcalfybold - External Tobacco use and exposure 2023-05-23 00:00:00 2023-05-23 00:00:00 Smokeless tobacco non-user Chey Beltrán - External Alcohol intake 2023-05-23 00:00:00 2023-05-23 00:00:00 Current drinker of alcohol (finding) Chey Beltrán - External History of Social function 2023-05-23 00:00:00 2023-05-23 00:00:00 Chey Beltrán - External Education - What is the highest level of school you have completed or the highest degree you have received? 2023-05-23 00:00:00 2023-05-23 00:00:00 12th grade Chey Beltrán - External Alcohol Comment 2023-05-23 00:00:00 2023-05-23 00:00:00 rarely Chey Beltrán - External Exposure to SARS-CoV-2 (event) 2021-09-06 00:00:00 2021-09-16 15:50:00 Not sure [facility] Sex Assigned At 1980 00:00:00 1980 00:00:00 Chey Beltrán - External Smoking Status Start Date Stop Date Source Never smoked tobacco Chey Beltrán - External Medications Ordered Medication Name Filled Medication Name Start Date Stop Date Current Medication? Ordering Clinician Indication Dosage Frequency Signature (SIG) Comments Components Source Amlodipine Besylate (NORVASC) 5 MG oral Tablet 05-22 00:00: 00 Yes [id number] 5mg Take 1 tablet (5 mg total) by mouth daily. Chey johnson Atorvastati n Calcium 10 MG oral Tablet 05-22 00:00: 00 Yes [id number] 10mg Take 1 tablet (10 mg total) by mouth nightly. Chey johnson Meloxicam 15 MG oral Tablet 05-22 00:00: 00 Yes [id number] 15mg QD Take 1 tablet (15 mg total) by mouth daily as needed for pain. Chey johnson Aspirin Low Dose 81 MG oral Tablet Delayed Response 3- 00:00: 00 Yes 81mg Take 1 tablet (81 mg total) by mouth daily. Chey johnson Atorvastati n Calcium 10 MG oral Tablet 2022-02 00:00: 00 05-22 00:00 :00 No 10mg Take 1 tablet (10 mg total) by mouth daily. Chey jhonson Amlodipine Besylate (NORVASC) 5 MG oral Tablet 2022-02 00:00: 00 05-22 00:00 :00 No 5mg Take 1 tablet (5 mg total) by mouth daily. Chey johnson acetaminoph en (TYLENOL) tablet 650 mg 09-29 01:15: 00 09-29 00:34 :00 No 650mg 650 mg, Oral, ONCE, 1 dose, On Tue09/28/22 at 2014, MIO [facility] ibuprofen (IBU) tablet 600 mg 09-29 01:15: 00 09-29 00:34 :00 No 600mg 600 mg, Oral, ONCE, 1 dose, On Tue09/28/22 at 2014, MIO [facility] aspirin 81 mg chewable tablet 09-18 00:00: 00 10-19 04:59 :00 No [id number] 81mg Take 1 tablet by mouth in the morning for 30 days. [facility] maalox:diph enhydrAMINE :lidocaine 2 % viscous 1:1:1 (FIRST-MOUT HWASH BLM) oral suspension 15 mL 09-17 20:18: 28 Yes 15mL 15 mL, Oral, QDAILYPRN, Starting on Tue09/17/21 at 1518, Until Discontinu ed, MIO, epigastric pain [facility] iopamidol (ISOVUE 370-500 mL) injection 80 mL 09-17 16:15: 00 09-17 16:07 :00 No [id number] 80mL 80 mL, Intravenou s, ONCE, 1 dose, On Tue09/17/21 at 1115, Routine [facility] nitroglycer in (NITROSTAT) sublingual tablet 0.4 mg 09-17 16:15: 00 09-17 15:41 :00 No .4mg 0.4 mg, Sublingual , ONCE, 1 dose, On Tue09/17/21 at 1115, Routine [facility] metoprolol succinate XL 50 mg 24 hr tablet 09-17 15:50: 39 Yes 50mg Take 50 mg by mouth in the morning. [facility] isosorbide mononitrate 30 mg 24 hr tablet 09-17 15:31: 02 09-17 00:00 :00 No 30mg Take 30 mg by mouth as needed for Other (chest pain). [facility] metoprolol tartrate (LOPRESSOR) tablet 50 mg 09-17 15:30: 00 09-17 14:25 :00 No 50mg 50 mg, Oral, ONCE NOW, 1 dose, On Priscila 09/17/21 at 1030, Routine [facility] aspirin chewable tablet 81 mg 09-17 14:00: 00 Yes 81mg 81 mg, Oral, DAILY, First dose on Tue09/17/21 at 0900, Until Discontinu ed, [facility]ox[facility] (LOVENOX) [facility] 40 mg 09-17 14:00: 00 Yes 40mg 40 mg, Subcutaneo us, DAILY, First dose on Tue09/17/21 at 0900, Until Discontinu ed, [facility] succinate XL (TOPROL XL) tablet 50 mg 09-17 14:00: 00 Yes 50mg 50 mg, Oral, DAILY, First dose on Tue09/17/21 at 0900, Until Discontinu ed, Routine [facility] nitroglycer in (NITROSTAT) sublingual tablet 0.4 mg 09-17 12:09: 06 Yes .4mg 0.4 mg, Sublingual , Q5MIN PRN, Starting on Tue09/17/21 at 0709, Until Discontinu ed, Routine, Chest pain [facility] ondansetron (ZOFRAN (PF)) injection 4 mg 09-17 04:39: 31 Yes 4mg 4 mg, Slow IV Push, Q6HPRN, Starting on Tue09/16/21 at 2339, Until Discontinu ed, Routine, Nausea and Vomiting (N/V) [facility] morpHINE (2 mg/mL) injection 2 mg 09-17 04:39: 24 09-18 04:38 :24 No 2mg 2 mg, Slow IV Push, Q4HPRN, Starting on Tue09/16/21 at 2339, Until Priscila 09/17/21 at 2338, Routine, Pain (scale 7-10) [facility] traMADoL (ULTRAM) tablet 50 mg 09-17 04:39: 20 09-19 04:38 :20 No 50mg 50 mg, Oral, Q8HPRN, Starting on Tue09/16/21 at 2339, Until Tue09/18/21 at 2338, Routine, Pain (scale 4-6) [facility] acetaminoph en (TYLENOL) tablet 650 mg 09-17 04:39: 18 Yes 650mg 650 mg, Oral, Q6HPRN, Starting on Tue09/16/21 at 2339, Until Discontinu ed, Routine, Pain (scale 1-3) [facility] isosorbide mononitrate (IMDUR) 24 hr tablet 30 mg 09-17 04:37: 33 Yes 30mg 30 mg, Oral, PRN, 1 dose, Starting on Tue09/16/21 at 2337, Until Discontinu ed, Routine, chest pain [facility] pantoprazol e 40 mg EC tablet 09-17 00:00: 00 10-18 04:59 :00 No [id number] 40mg Take 1 tablet by mouth in the morning for 30 days. [facility] NaCl 0.9% (NS) bolus infusion 1,000 mL 09-16 23:00: 00 09-17 00:16 :00 No 1000mL at 999 mL/hr, 1,000 mL, IV Infusion, ONCE, 1 dose, On Tue09/16/21 at 1800, STAT [facility] aspirin chewable tablet 324 mg 09-16 21:45: 00 09-16 20:45 :00 No 324mg 324 mg, Oral, ONCE, 1 dose, On Tue09/16/21 at 1645, Routine [facility] benzonatate 200 mg capsule 2017-02 00:00: 00 09-16 00:00 :00 No 200mg Take 1 capsule by mouth 3 (three) times daily as needed for Cough. [facility] traMADOL (ULTRAM) 50 mg tablet 08-05 00:00: 00 09-16 00:00 :00 No 50mg Take 1 tablet by mouth every 6 (six) hours as needed for Pain (scale 7-10). [facility] Vital Signs Vital Name Observation Time Observation Value Comments S ource Systolic blood pressure 2023-05-23 19:47:00 134 mm[Hg] Chey Gudinoo ld - External Diastolic blood pressure 2023-05-23 19:47:00 80 mm[Hg] Chey Corral ld - External Heart rate 2023-05-23 19:15:00 91 /min Mariia santana Seybhaily - External Body temperature 2023-05-23 19:15:00 37.11 Chelsy Cheystalin Beltrán - External Respiratory rate 2023-05-23 19:15:00 15 /min Chey Beltrán - External Body height 2023-05-23 19:15:00 175.3 cm Brittanimickey oakes Seybold - External Body weight 2023-05-23 19:15:00 103.874 kg Brittani oakes Seybold - External BMI 2023-05-23 19:15:00 33.82 kg/m2 Brittani oakes ybold - External Oxygen saturation in Arterial blood by Pulse oximetry 2023-05-23 19:15:00 100 /min Chey Corral ld - External Systolic blood pressure 2022-09-28 23:00:00 130 mm[Hg] [facility] Diastolic blood pressure 2022-09-28 23:00:00 93 mm[Hg] [facility] Heart rate 2022-09-28 23:00:00 99 /min [facility] Body temperature 2022-09-28 23:00:00 37.06 Chelsy [facility] Respiratory rate 2022-09-28 23:00:00 16 /min [facility] Oxygen saturation in Arterial blood by Pulse oximetry 2022-09-28 23:00:00 98 /min [facility] Body height 2022-09-28 22:29:00 175.3 cm [facility] Body weight 2022-09-28 22:29:00 88.905 kg [facility] BMI 2022-09-28 22:29:00 28.94 kg/m2 [facility] Systolic blood pressure 2021-09-17 16:42:00 133 mm[Hg] [facility] Diastolic blood pressure 2021-09-17 16:42:00 80 mm[Hg] [facility] Heart rate 2021-09-17 16:42:00 57 /min [facility] Body temperature 2021-09-17 16:42:00 36.22 Chelsy [facility] Respiratory rate 2021-09-17 16:42:00 18 /min [facility] Oxygen saturation in Arterial blood by Pulse oximetry 2021-09-17 16:42:00 97 /min [facility] Body weight 2021-09-17 09:08:00 112.492 kg [facility] BMI 2021-09-17 09:08:00 35.58 kg/m2 [facility] Body height 2021-09-17 00:56:00 177.8 cm [facility] Procedures Procedure Date / Time Performed Performing Clinician Source TROPONIN I 2022-09-29 00:57:00 Leroy Langley [facility] XR CHEST 1 VW 2022-09-28 22:52:00 [facility] TROPONIN I 2022-09-28 22:44:00 Leroy Langley [facility] CBC WITH DIFF 2022-09-28 22:44:00 [facility] D-DIMER 2022-09-28 22:44:00 Leroy Langley [facility] CONSENT/REFUSAL FOR DIAGNOSIS AND TREATMENT 2022-09-28 22:25:13 Doctor Unassigned, Magazine [facility] CT ANGIOGRAPHY CORONARIES WITH CARDIAC CALCIUM SCORE 2021-09-17 18:22:48 Zhang Guzman [facility] TRANSTHORACIC ECHO (TTE) COMPLETE 2021-09-17 12:51:00 Jeremi Belcher [facility] URINE DRUG (IMMUNOASSAY) - COMPREHENSIVE DRUG SCREEN 2021-09-17 12:11:00 Pedro [facility] CBC WITH DIFF 2021-09-17 10:53[facility] 2021-09-17 [facility]OLIC PANEL (NA, K, CL, CO2, GLUCOSE, BUN, CREATININE, CA) 2021-09-17 09:12:00 Pedro [facility] TROPONIN I 2021-09-17 05:14:00 Pedro [facility] XR CHEST 1 VW 2021-09-16 21:41:58 Nara Paige [facility] MAGNESIUM 2021-09-16 20:46:00 [facility] TROPONIN I 2021-09-16 20:46:00 Nara Paige [facility] COMP. METABOLIC PANEL ([id number]) 2021-09-16 20:46:00 Nara Paige Lydia [facility] CBC WITH DIFF 2021-09-16 20:46:00 Nara Paige [facility] URINALYSIS 2021-09-16 20:46:00 [facility] N-TERMINAL PRO-BNP 2021-09-16 20:46:00 Nara Paige Lydia [facility] COVID-19 (ID NOW RAPID TESTING) 2021-09-16 20:46:00 Nara Paige Lydia [facility] LAB ONLY COVID INTERPRETATION 2021-09-16 20:46:00 Nara Paige [facility] HB ECG ROUTINE & RHYTHM STRIP 2021-09-16 20:08:21 Nara Paige [facility] NOTICE OF PRIVACY PRACTICES 2021-09-16 19:42:18 Doctor Unassigned, Magazine [facility] Encounters Start Date/Time End Date/Time Encounter Type Admission Type Attending [facility] Care Department Encounter ID Source 2023-08-01 00:00:00 2023-08-01 00:00:00 Outpatient LILY CHAD CHEY DRAKE [id number] Chey [facility] 2023-07-05 13:45:00 2023-07-05 13:45:00 Outpatient CHAD BAUTISTA [id number] Chey [facility] 2023-06-19 00:00:00 2023-06-19 00:00:00 Outpatient CHAD BAUTISTA [id number] Chey [facility] 2023-05-26 00:00:00 2023-05-26 00:00:00 Outpatient LILY CHAD CHEY DRAKE [id number] Chey [facility] 2023-05-24 08:40:00 2023-05-24 08:40:00 Outpatient LAB90 CHEY DRAKE [id number] [facility] 2023-05-23 14:15:00 2023-05-23 14:15:00 Outpatient LILYCHAD CHEY DRAKE [id number] [facility] 2023-04-27 11:30:00 2023-04-27 12:36:11 Outpatient R JOHNATHAN SANCHEZ [facility] [id number] [facility] 2023-04-27 11:30:00 2023-04-27 11:45:00 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, Adc Lab Johnathan Sanchez [facility] [id number] [facility] 2022-09-28 17:33:00 2022-09-28 20:57:00 Emergency X LEROY LANGLEY [facility] ERT [id number] [facility] 2022-09-28 17:33:00 2022-09-28 20:57:00 Emergency Leroy Langley [facility] [id number] [facility] 2021-09-16 15:05:00 2021-09-17 15:50:00 Outpatient X YE JEREMI [facility] LEON [id number] [facility] 2021-09-16 15:05:00 2021-09-17 15:50:00 Emergency Nara Paige [facility] [id number] [facility] Results Test Description Test Time Test Comments Results Result Co mments Source [id number] 23:34:45* Test Item Value Reference Range Interpretation Comme nts TROPONIN I (test code = 8685421040) 0.003 ng/mL <=0.034 SANJIV (test code = [...] of biotin. Lab Interpretation (test code = 51924-4) Normal [id number] 23:22:42* Test Item Value Reference Range Interpretation Comments D-DIMER (test code = 1887200675) 0.32 See_Comment [Automated message] The system which [...] a diagnosis. Lab Interpretation (test code = 88174-3) Normal [facility] WITH [id number] 23:09:03* Test Item Value Reference Range Interpretation Comme nts WBC (test code = 6690-2) 5.01 See_Comment [Automated DeRev] The system which generated this result transmitted reference range: 4.20 - 10.70 10*3/?L. The reference range was not used to interpret this result as normal/abnormal. RBC (test code = 789-8) 4.97 See_Comment [Automated DeRev] The system which generated this result transmitted [...] g/dL 31.2-35.0 H RDW-SD (test code = 76740-7) 38.0 fL 38.5-51.6 L RDW-CV (test code = 788-0) 12.6 % 12.1-15.4 PLT (test code = 777-3) 224 See_Comment [Automated messa ge] The system which generated this result transmitted reference range: 150 - 328 10*3/?L. The reference range was not used to interpret this result as normal/abnormal. MPV (test code = 65778-9) 10.6 fL 9.8-13.0 NRBC/100 WBC (test code = 0979592167) 0.0 See_Comment [Automated [employer] ssage] The system which generated this result transmitted reference range: 0.0 - 10.0 /100 WBCs. The reference range was not used to interpret this result as normal/abnormal. NRBC x10^3 (test code = 6533169060) See_Comment [Automated messa ge] The system which generated this result transmitted reference range: 10*3/?L. The reference range was not used to interpret this result as normal/abnormal. GRAN MAT (NEUT) % (test code = 770-8) 69.4 % IMM GRAN % (test code = 1257082862) 0.20 % LYMPH % (test code = 736-9) 12.4 % MONO % (test code = 5905-5) 16.0 % EOS % (test code = 713-8) 1.4 % BASO % (test code = 706-2) 0.6 % GRAN MAT x10^3(ANC) (test code = 7595594350) 3.48 10*3/uL 1.99-6.95 IMM GRAN x10^3 (test code = 9690682508) 0.00-0.06 LYMPH x10^3 (test code = 731-0) 0.62 10*3/uL 1.09-3.23 L MONO x10^3 (test code = 742-7) 0.80 10*3/uL 0.36-1.02 EOS x10^3 (test code = 711-2) 0.07 10*3/uL 0.06-0.53 BASO x10^3 (test code = 704-7) 0.03 10*3/uL 0.01-0.09 Lab Interpretation (test code = 68282-9) [facility]-17 17:01:28* Test Item Value Reference Range Interpretation Comme nts Height (test code = 1658618233) in Weight (test code = 3303683311) lbs Systolic BP (test code = 7973768169) mmHg Diastolic BP (test code = 8136048124) mmHg Heart Rate (test code = 1713788308) bpm BSA (test code = 4450997850) 2.17 m2 Ao root annulus (test code = 3064114161) 3.7 cm Ao root diam (test code = 2156313035) 3.70 cm Aortic root (test code = 2809207973) 3.7 cm LVOT diameter (test code = 1998536296) 2.19 cm LVIDD (test code = 6631006845) 5.00 cm IVS (test code = 1505367578) 1.06 cm Interventricular Septum Diastolic Thickness by 2D (test code = 4068016) 1.06 cm LVPWD (test code = 4916859496) 1.06 cm PW (test code = 3686587045) 1.06 cm 0.6-1.1 EF(Teich) (test code = 9668834392) 55.80 % LVIDS (test code = 4096317892) 3.60 cm FS (test code = 9596607881) 29 % EF - 2D (test code = 97262057) 55.80 % LA size (test code = 5712210621) 3.2 cm TR Peak Eric (test code = 5077828538) 188.2 cm/s Triscuspid Valve Regurgitation Peak Gradient (test code = 2972829035) mmHg LAV(MOD-sp4) (test code = 9513814441) 59.50 mL E wave decelartion time (test code = 2220745845) 0.22 s MV stenosis pressure 1/2 time (test code = 6714487018) 63.4 ms MV Peak E Eric (test code = 9493876551) 77.8 cm/s MV Peak A Eric (test code = 6521668642) 81.2 cm/s E/A ratio (test code = 4706027066) ratio MV Prop V (test code = 0084541821) 39.70 cm/s MV E/e' septal (test code = 7510285053) 17.5 cm/s Tapse (test code = 4644979173) 2.31 cm LVOT stroke volume (test code = 6923809968) 67.40 cm3 LVOT peak eric (test code = 1063245591) 91.7 cm/s LVOT mn grad (test code = 4698652110) mmHg AV LVOT peak gradient (test code = 4419652360) mmHg LVOT peak VTI (test code = 5323096981) 18.0 cm LV V1 mean (test code = 6729174003) 66.30 cm/s Aortic valve mean velocity (test code = 1087510868) 94.2 cm/s Ao peak eric (test code = 7302333368) 134.8 cm/s Ao VTI (test code = 1673676384) 27.8 cm AV area by cont VTI (test code = 4045293413) 2.4 cm2 AV area peak eric (test code = 9709471023) 2.6 cm2 Ao max PG (test code = 3864846666) 7.30 mm[Hg] AV peak gradient (test code = 2617677654) mmHg AV valve area (test code = 9595762095) 2.42 cm2 AV mean gradient (test code = 7551670752) mmHg AV regurgitation pressure 1/2 time (test code = 0225195771) 978.3 ms AI dec slope (test code = 4285137408) 71.10 cm/s2 AI max eric (test code = 5140186739) 237.50 cm/s AI max PG (test code = 5453793134) 22.60 mm[Hg] Radiology Study observation (narrative) (test code = 75831-3) SANJIV (test code = SANJIV) Formatting of [...] 2D, color flow Doppler and spectral Doppler. [facility] [id number] 21:30:45* Test Item Value Reference Range Interpretation Comments TROPONIN I (test code = 4801423872) 0.003 ng/mL See_Comment [Automated message] The system [...] of biotin. Lab Interpretation (test code = 56942-4) Normal [id number] 21:27:27* Test Item Value Reference Range Interpretation Comme nts NT-proBNP (test code = 6724893611) 23 pg/mL See_Comment [Automated message] The system which generated this result transmitted reference range: <=125. The reference range was not used to interpret this result as normal/abnormal. SANJIV (test code = SANJIV) Biotin has been reported to cause a negative bias, interpret results relative to patient's use of biotin. Lab Interpretation (test code = 40655-7) Normal [facility] 21:19:03* Test Item Value Reference Range Interpretation Comme nts MAGNESIUM (test code = 3116013861) 1.9 mg/dL 1.7-2.4 Lab Interpretation (test cod e = 18661-3) Normal [facility]OLIC [facility] (16175)2021-09-16 21:18:43* Test Item Value Reference Range Interpretation Comme nts NA (test code = 3791070937) 140 mmol/L 135-145 K (test code = 6708232015) 4.1 mmol/L 3.5-5 CL (test code = 2934921937) 102 mmol/L 98-108 CO2 TOTAL (test code = 9679173059) 27 mmol/L 23-31 AGAP (test code = 6765490462) 2-16 BUN (test code = 9726753193) 4 mg/dL 7-23 L GLUCOSE (test code = 9351713412) 104 mg/dL 70-110 CREATININE (test code = 0175709381) 0.97 mg/dL 0.6-1.25 TOTAL BILI (test code = 7312893802) 0.9 mg/dL 0.1-1.1 CALCIUM (test code = 6263251395) 9.6 mg/dL 8.6-10.6 T PROTEIN (test code = 2342115973) 8.0 g/dL 6.3-8.2 ALBUMIN (test code = 3159705070) 4.8 g/dL 3.5-5 ALK PHOS (test code = 3384847178) 63 U/L 34-122 ALTv (test code = 1742-6) 55 U/L 5-50 H AST(SGOT) (test code = 9792596696) 41 U/L 13-40 H eGFR (test code = 8031864863) mL/min/1.73m2 SANJIV (test code = SANJIV) Association [...] imaging tests). Lab Interpretation (test code = 14371-9) Abnormal [facility] WITH [id number] 21:10:57* Test Item Value Reference Range Interpretation Comme nts WBC (test code = 6690-2) See_Comment [[employer]plan] The system which generated this result transmitted reference range: 4.20 - 10.70 10*3/?L. The reference range was not used to interpret this result as normal/abnormal. RBC (test code = 789-8) See_Comment [[employer]] The system which generated this result transmitted [...] g/dL 31.2-35 H RDW-SD (test code = 68848-6) 37.2 fL 38.5-51.6 L RDW-CV (test code = 788-0) 12.2 % 12.1-15.4 PLT (test code = 777-3) See_Comment [Automated messa ge] The system which generated this result transmitted reference range: 150 - 328 10*3/?L. The reference range was not used to interpret this result as normal/abnormal. MPV (test code = 68191-2) 10.7 fL 9.8-13 NRBC/100 WBC (test code = 6549694425) See_Comment [Automated [employer] ssage] The system which generated this result transmitted reference range: 0.0 - 10.0 /100 WBCs. The reference range was not used to interpret this result as normal/abnormal. NRBC x10^3 (test code = 1289471912) See_Comment [Automated messa ge] The system which generated this result transmitted reference range: 10*3/?L. The reference range was not used to interpret this result as normal/abnormal. GRAN MAT (NEUT) % (test code = 770-8) 70.3 % IMM GRAN % (test code = 7371739498) 0.40 % LYMPH % (test code = 736-9) 19.8 % MONO % (test code = 5905-5) 6.7 % EOS % (test code = 713-8) 1.8 % BASO % (test code = 706-2) 1.0 % GRAN MAT x10^3(ANC) (test code = 3319829067) 5.45 10*3/uL 1.99-6.95 IMM GRAN x10^3 (test code = 8774237793) 0.03 10*3/uL 0-0.06 LYMPH x10^3 (test code = 731-0) 1.54 10*3/uL 1.09-3.23 MONO x10^3 (test code = 742-7) 0.52 10*3/uL 0.36-1.02 EOS x10^3 (test code = 711-2) 0.14 10*3/uL 0.06-0.53 BASO x10^3 (test code = 704-7) 0.08 10*3/uL 0.01-0.09 Lab Interpretation (test code = 62877-1) Abnormal [facility] Notes Date/Time Note Provider Source 2023-04-27 11:30:00 Nater collection only [employer] [facility] 2022-09-28 20:56:02 Formatting of this n ote might be different from the original. Awake, alert oriented X4, respiratory even and unlabored,skin w/d color appropriate for race, moves all ext well, pt encouraged to follow up with pcp and or return as needed Pt given printed and verbal discharge instructions regarding Chest pain, Pain of left upper extremity , patient verbralized understanding and signature obtained, patient denies any other concerns. Advised to seek medical attention for new/prolonged/worsening of symptoms, No adverse reaction to meds given in ER noted upon discharge Pt ambulated to the [facility] with steady gait Marlen Patel RN [facility] 2022-09-28 18:26:10 Formatting of this n ote is different from the original. Patient's name and verified with patient. Chief Complaint Patient presents with Chest Pain Dizziness Patient ambulatory with steady gait with EC arrival. Patient is conscious and alert, with normal/unlabored breathing, and normal color/tone for ethnicity -oriented to name, time, place, and situation. GCS 15. Patient reports chest pain since this morning - patient mentions that he took a nitroglycerin and he felt some relief but the pressure has been "going on and off" all day regardless of medication. Patient denies nausea, vomiting, shortness of breath, fever, chills, and diarrhea. Past Medical History: Diagnosis Date HTN (hypertension) No known allergies. Vitals obtained. Assessment performed. IV in place and patent. Placed on continuous spo2/cardiac monitoring, HR 87 Bed low and locked, secured with two rails, call light within reach. Belongings at bedside. Patient aware of plan of care. Mirta Webb RN Mirta Webb RN [facility] 2022-09-28 17:26:15 Formatting of this n ote might be different from the original. Pt to ed via pov. Alert and ambulatory. Vss. C/o chest pain radiating to back and dizziness. Onset approx 2 weeks but has gotten increasingly worse. Took one nitro this morning around 1030 am. States it did help slightly. Christy Fernandez RN [facility]
[2023-10-24] MEDS ORDERED: ASPIRIN 81 MG CHEWABLE TABLET ONE (18:27)
[2023-10-24] MEDS ORDERED: ONDANSETRON 4 MG/2 ML VIAL ONE (18:27)
[2023-10-24] MEDS ORDERED: MORPHINE 4 MG/ML SYR ONE (18:28)
[2023-10-24 18:35] LABS: Absolute Basophils 0.1 K/uL (0-0.5); Absolute Eosinophils 0.2 K/uL (0-0.5); Absolute Lymphocytes (CBC) 1.9 K/uL (0.7-4.9); Absolute Monocytes 0.6 K/uL (0.1-1.3); Absolute Neutrophil 3.9 K/uL (1.8-8.0); Eosinophils % 2.9 % (0-4.4); Hematocrit 42.9 % (39.6-49.0); Hemoglobin 14.9 g/dL (13.6-17.9); Lymphocytes % 28.7 % (15.3-44.8); MCH 29.8 pg (27.0-35.0); MCHC 34.8 g/dL (32.0-36.0); MCV 85.6 fL (80-100); MPV 8.1 fL (7.6-11.3); Monocytes % 9.1 % (3.3-12.3); Neutrophils % 58.3 % (41.7-73.7); Nucleated Red Blood Cells % 0.1 % (0-0); Platelets 241 thou/uL (152-406); RBC Red Blood Cell Count 5.01 M/uL (4.33-5.43); Red Cell Distribution Width 13.1 % (12.1-15.2)
[2023-10-24 18:36] LABS: PT Prothrombin Time 12.1 SECONDS (9.4-12.5); Protime INR 1.08
[2023-10-24 18:51] LABS: Albumin/Globulin Ratio 1.1 (1.1-1.8); Bilirubin Direct 0.2 mg/dL (0-0.2); Bilirubin Indirect, Calculated 0.4 mg/dL (0.2-0.8); Bilirubin Total 0.6 mg/dL (0.2-1.0); Globulin 3.8 g/dL (2.3-3.5); Magnesium 2.2 mg/dL (1.6-2.4); Protein, Total 7.8 g/dL (6.4-8.2); Troponin High Sensitivity 5.5 pg/mL (<58.9)
--- NOTE | 2023-10-24 18:54 | RAD REPORT ---
EXAM DESCRIPTION: RAD - Chest Single View - 10/24/2023 6:45 pm CLINICAL HISTORY: CHEST PAIN COMPARISON: Chest Single View dated 03/16/2023; Chest Single View dated 02/08/2023; Chest Single View dated 12/08/2022; Chest Single View dated 05/03/2022 FINDINGS: Lines: None. Lungs: No evidence of edema or pneumonia. Pleural: No significant pleural effusions or pneumothorax. Cardiac: The heart size is within normal limits. Mediastinum: Within normal limits. Bones: No acute fractures. Other: None IMPRESSION: No acute cardiopulmonary disease.
--- NOTE | 2023-10-24 18:55 | RAD REPORT ---
EXAM DESCRIPTION: CT - Head Brain Wo Cont - 10/24/2023 6:44 pm CLINICAL HISTORY: htn, dizziness COMPARISON: Head Brain Wo Cont dated 02/08/2023; Head Brain Wo Cont dated 12/08/2022 TECHNIQUE: All CT scans are performed using dose optimization technique as appropriate and may inclu de automated exposure control or mA/KV adjustment according to patient size. FINDINGS: No intracranial hemorrhage, hydrocephalus or extra-axial fluid collection.No areas of brai n edema or evidence of midline shift. The paranasal sinuses and mastoids are clear. The calvarium is intact. IMPRESSION: No acute intracranial abnormality.
--- NOTE | 2023-10-24 19:03 | ER ---
Nurse's Notes [facility] Name: Amna Jenkins Jr Age: 43 yrs Sex: Male : 1980 Arrival Date: 10/24/2023 Time: 17:43 Bed 2 Private MD: Diagnosis: Chest pain, unspecified Presentation: 10/23 18:01 Chief complaint: Patient states: STABBING CHEST PAINS ON RIGHT SIDE RADIATES DOWN ARM db AND LEG. STATES BP HAS BEEN RUNNING HIGH. TAKING MEDICATIONS PRESCRIBED. STATES ALSO HAS BILAT LEG SWELLING. STATES TOOK 2 BABY ASA TODAY. Coronavirus screen: Client denies travel out of the [place] in the last 14 days. At this time, the client does not indicate any symptoms associated with coronavirus-19. Ebola Screen: Patient negative for fever greater than or equal to 101.5 degrees Fahrenheit, and additional compatible Ebola Virus Disease symptoms Patient denies exposure to infectious person. Patient denies travel to an Ebola-affected area in the 21 days before illness onset. No symptoms or risks identified at this time. Initial Sepsis Screen: Does the patient meet any 2 criteria? No. Patient's initial sepsis screen is negative. Does the patient have a suspected source of infection? No. Patient's initial sepsis screen is negative. Risk Assessment: Do you want to hurt yourself or someone else? Patient reports no desire to harm self or others. Onset of symptoms was October 24, 2023. 18:01 Method Of Arrival: Ambulatory db 18:01 Acuity: NEYDA 2 db Triage Assessment: 18:03 General: Appears in no apparent distress. uncomfortable, Behavior is calm, cooperative. db Pain: Complains of pain in chest. Neuro: Level of Consciousness is awake, alert, obeys commands, Oriented to person, place, time, situation. Cardiovascular: Reports chest pain. Respiratory: Airway is patent Respiratory effort is even, unlabored, Respiratory pattern is regular, symmetrical. Historical: - Allergies: 18:02 No Known Allergies; db - PMHx: 18:02 Atrial fibrillation; Hypertension; GI Bleed; db - Immunization history:: Adult Immunizations unknown. - Infectious Disease History:: Denies. - Social history:: Smoking status: Patient denies any tobacco usage or history of. Screenin:34 [facility] ED Fall Risk Assessment (Adult) History of falling in the last 3 months, kc6 including since admission No falls in past 3 months (0 pts) Confusion or Disorientation No (0 pts) Intoxicated or Sedated No (0 pts) Impaired Gait No (0 pts) Mobility Assist Device Used No (0 pt) Altered Elimination No (0 pt) Score/Fall Risk Level 0 - 2 = Low Risk. Abuse screen: Denies threats or abuse. Denies injuries from another. Nutritional screening: No deficits noted. Tuberculosis screening: No symptoms or risk factors identified. Assessment: 18:34 General: Appears in no apparent distress. comfortable, well groomed, well developed, kc6 Behavior is calm, cooperative, appropriate for age. Pain: Complains of pain in base of the skull and right arm and chest Quality of pain is described as sharp, shooting. Neuro: Level of Consciousness is awake, alert, obeys commands, Oriented to person, place, time, situation, Appropriate for age. Cardiovascular: Reports chest pain, Denies shortness of breath, Heart tones S1 S2 present Capillary refill < 3 seconds Rhythm is sinus rhythm. Respiratory: Airway is patent Trachea midline Respiratory effort is even, unlabored, Respiratory pattern is regular, symmetrical. GI: No signs and/or symptoms were reported involving the gastrointestinal system. : No signs and/or symptoms were reported regarding the genitourinary system. EENT: No signs and/or symptoms were reported regarding the EENT system. Derm: No signs and/or symptoms reported regarding the dermatologic system. Skin is intact, is healthy with good turgor, Skin is pink, warm \T\ dry. Musculoskeletal: No signs and/or symptoms reported regarding the musculoskeletal system. Circulation, motion, and sensation intact. Capillary refill < 3 seconds, Range of motion: intact in all extremities. 19:36 Reassessment: Patient appears in no apparent distress at this time. No changes from al5 previously documented assessment. Patient and/or family updated on plan of care and expected duration. Pain level reassessed. Patient is alert, oriented x 3, equal unlabored respirations, skin warm/dry/pink. patient being admitted to room 212. Vital Signs: 18:01 BP 138 / 110; Pulse 72; Resp 16; Temp 98.2; Pulse Ox 100% ; Height 5 ft. 9 in. ; db 18:36 BP 143 / 90; kc6 19:00 BP 127 / 89; Pulse 79; Resp 14; Pulse Ox 98% on R/A; al5 ED Course: 17:46 Patient arrived in ED. mr 17:47 [facility] sb4 17:47 Saul Armando MD is Attending Physician. sb4 18:02 Triage completed. db 18:03 Arm band placed on right wrist. Patient placed in an exam room. db 18:10 Nadira Underwood RN is Primary Nurse. kc6 18:30 Initial lab(s) drawn, by me, sent to lab. Inserted saline lock: 20 gauge in right cc6 antecubital area, using aseptic technique. Blood collected. Flushed with 10 mL NS. 18:30 EKG done, by ED staff, reviewed by Lynsey Almeida PA-C. cc6 18:33 Patient has correct armband on for positive identification. Bed in low position. Call kc6 light in reach. Side rails up X 1. conveyor monitor on. Pulse ox on. NIBP on. Door closed. Noise minimized. Lights dimmed. Warm blanket given. Pillow given. 18:46 XRAY Chest (1 view) In Process Unspecified. EDMS 18:46 Head Brain Wo Cont CT In Process Unspecified. EDMS 19:01 Report given to DEEPTHI Bo \T\ DEEPTHI Vicente. kc6 19:02 Prince Lassiter MD is Hospitalizing Provider. sb4 19:31 Provided Education on: need for admission. al5 19:31 No provider procedures requiring assistance completed. al5 19:32 Patient admitted, IV remains in place. al5 Administered Medications: 18:33 Drug: Aspirin PO Chewable Tablet 162 mg PO once Route: PO; kc6 19:38 Follow up: Response: No adverse reaction; No adverse reaction; chest pain eased up al5 18:33 Drug: morphine IVP or IV 4 mg IVP once over 4 mins Route: IVP; Infused Over: 4 mins; kc6 Site: right antecubital; 19:37 Follow up: Response: No adverse reaction; No adverse reaction; patient states chest al5 pain has eased up but still has head and r sided pain 18:33 Drug: Ondansetron IVP 4 mg IVP once; over 2 minutes Route: IVP; Site: right antecubital;kc6 19:37 Follow up: Response: No adverse reaction; Nausea is decreased al5 19:15 Drug: Nitroglycerin Sublingual 0.4 mg Sublingual once; every five minute if needed x3 al5 Route: Sublingual; 19:28 Drug: Nitroglycerin Sublingual 0.4 mg Sublingual once; every five minute if needed x3 bm8 Route: Sublingual; 20:32 Follow up: Response: No adverse reaction; Pain is decreased al5 Medication: 19:32 VIS not applicable for this client. al5 Outcome: 19:02 Decision to Hospitalize by Provider. sb4 20:32 Admitted to Med/surg accompanied by tech, via wheelchair, room 212, with chart, Report al5 called to christie pulido 20:32 Condition: good 20:32 Instructed on the need for admit, 20:33 Patient left the ED. al5 Signatures: Dispatcher [employer] EDMS Candy Marie, Reg Reg mr Nadira Underwood, RN RN kc6 Juliet Banks, RN RN Lynsey Stahl, PA-C PA-C sb4 Anupam Ribeiro, RN RN bm8 Cinthia Jenkins RN RN al5 Siri Melton cc6 Corrections: (The following items were deleted from the chart) 18:03 18:01 Chief complaint: Patient states: STABBING CHEST PAINS ON RIGHT SIDE RADIATES DOWN db ARM AND LEG. STATES BP HAS BEEN RUNNING HIGH. TAKING MEDICATIONS PRESCRIBED. STATES ALSO HAS BILAT LEG SWELLING db
--- NOTE | 2023-10-24 19:03 | EDPHYS ---
Physician Documentation [facility] Name: Amna Jenkins Jr Age: 43 yrs Sex: Male : 1980 Arrival Date: 10/24/2023 Time: 17:43 Bed 2 Private MD: ED Physician Saul Armando HPI: 10/23 18:22 This 43 yrs old Male presents to ER via Ambulatory with complaints of chest pain, sb4 headache. 18:22 Patient states that he has had substernal chest pain for a few weeks now. He states sb4 that today it started radiating down his right arm and leg. Additionally, he states that he has had severe pain on the top of his head and his blood pressure has been running very high. He states that he has history of atrial fibrillation and is not on blood thinners because of his history of a GI bleed. Additionally he states that he has been "treated for heart attacks and strokes "but was never formally diagnosed with either. His medications include amlodipine, baby aspirin, and atorvastatin which she is not very compliant with. He additionally states that his legs have been swollen intermittently, but improve with elevation. Historical: - Allergies: 18:02 No Known Allergies; db - PMHx: 18:02 Atrial fibrillation; Hypertension; GI Bleed; db - Immunization history:: Adult Immunizations unknown. - Infectious Disease History:: Denies. - Social history:: Smoking status: Patient denies any tobacco usage or history of. ROS: 18:22 Constitutional: Negative for fever, chills, and weight loss, sb4 18:22 Cardiovascular: Positive for chest pain, 18:22 Neuro: Positive for dizziness, headache, 18:22 All other systems are negative, Exam: 18:22 Head/Face: Normocephalic, atraumatic. Eyes: Extra-ocular motions intact. Periorbital sb4 areas with no swelling, redness, or edema. ENT: Mucous membranes moist. Cardiovascular: Regular rate and rhythm with a normal S1 and S2. Respiratory: Lungs have equal breath sounds bilaterally, clear to auscultation and percussion. No rales, rhonchi or wheezes noted. No increased work of breathing, no retractions or nasal flaring. Abdomen/GI: Soft, non-tender, no distension. Skin: Warm, dry with normal turgor. Normal color with no rashes, no lesions, and no evidence of cellulitis. MS/ Extremity: Pulses equal, no cyanosis. Neurovascular intact. Full, normal range of motion. Neuro: Awake and alert, GCS 15, oriented to person, place, time, and situation. Motor strength 5/5 in all extremities. Sensory grossly intact. 18:22 Constitutional: The patient appears alert, awake, uncomfortable, Vital Signs: 18:01 BP 138 / 110; Pulse 72; Resp 16; Temp 98.2; Pulse Ox 100% ; Height 5 ft. 9 in. ; db 18:36 BP 143 / 90; kc6 19:00 BP 127 / 89; Pulse 79; Resp 14; Pulse Ox 98% on R/A; al5 MDM: 17:50 Patient medically screened. sb4 18:39 External Records Reviewed: Inpatient record: nuclear stress test from 12/14/23 showed sb4 "Questionable small component of inferior wall apical segment showing reversible defect, favored to be artifactual No other definitive stress induced ischemia. Larger region of fixed defect along the inferior wall is very likely artifactual. Small to moderate anterior wall mid to apical segment fixed defect suggestive of a region of infarct/scarring. Mildly reduced left ventricular ejection fraction, 45%". 18:52 Scoring Tools HEART Score: History: ECG: Age: Risk Factors: > or = 3 Risk factors for sb4 atherosclerotic disease (2), Troponin: Total Score = 3. 19:02 Data reviewed: vital signs, nurses notes, lab test result(s), EKG, radiologic studies, sb4 and as a result, I will admit patient. Consideration of Admission/Observation Patient was admitted/placed on observation. Counseling: I had a detailed discussion with the patient and/or guardian regarding the historical points, exam findings, and any diagnostic results supporting the discharge/admit diagnosis, the presence of at least one elevated blood pressure reading (>120/80) during this emergency department visit, lab results, radiology results, the need for further work-up and treatment in the hospital. 10/23 18:13 Order name: Basic Metabolic Panel; Complete Time: 18:51 sb4 10/23 18:13 Order name: CBC with Diff; Complete Time: 18:37 sb4 10/23 18:13 Order name: LFT's; Complete Time: 18:51 sb4 10/23 18:13 Order name: Magnesium; Complete Time: 18:51 sb4 10/23 18:13 Order name: NT PRO-BNP; Complete Time: 18:51 sb4 10/23 18:13 Order name: PT-INR; Complete Time: 18:37 sb4 10/23 18:13 Order name: Troponin HS; Complete Time: 18:51 sb4 10/23 19:35 Order name: Urine Drug Screen EDOK 10/23 18:13 Order name: XRAY Chest (1 view); Complete Time: 18:55 sb4 10/23 18:13 Order name: Head Brain Wo Cont CT; Complete Time: 18:55 sb4 10/23 19:35 Order name: Echo with Doppler EDOK 10/23 18:13 Order name: EKG; Complete Time: 18:14 sb4 10/23 18:13 Order name: Cardiac monitoring; Complete Time: 18:25 sb4 10/23 18:13 Order name: EKG - Nurse/Tech; Complete Time: 18:25 sb4 10/23 18:13 Order name: IV Saline Lock; Complete Time: 18:25 sb4 10/23 18:13 Order name: Labs collected and sent; Complete Time: 18:25 sb4 10/23 18:13 Order name: O2 Per Protocol; Complete Time: 18:25 sb4 10/23 18:13 Order name: O2 Sat Monitoring; Complete Time: 18:25 sb4 EC:19 Rate is 68 beats/min. Rhythm is regular, Normal Sinus Rhythm. [place] interval is normal at sb4 182 msec. QRS interval is normal at 114 msec. QT interval is normal at 376 msec. No Q waves. T waves are Normal. No ST changes noted. Clinical impression: No evidence of ischemia. Interpreted by me. Reviewed by me. Administered Medications: 18:33 Drug: Aspirin PO Chewable Tablet 162 mg PO once Route: PO; kc6 19:38 Follow up: Response: No adverse reaction; No adverse reaction; chest pain eased up al5 18:33 Drug: morphine IVP or IV 4 mg IVP once over 4 mins Route: IVP; Infused Over: 4 mins; kc6 Site: right antecubital; 19:37 Follow up: Response: No adverse reaction; No adverse reaction; patient states chest al5 pain has eased up but still has head and r sided pain 18:33 Drug: Ondansetron IVP 4 mg IVP once; over 2 minutes Route: IVP; Site: right antecubital;kc6 19:37 Follow up: Response: No adverse reaction; Nausea is decreased al5 19:15 Drug: Nitroglycerin Sublingual 0.4 mg Sublingual once; every five minute if needed x3 al5 Route: Sublingual; 19:28 Drug: Nitroglycerin Sublingual 0.4 mg Sublingual once; every five minute if needed x3 bm8 Route: Sublingual; 20:32 Follow up: Response: No adverse reaction; Pain is decreased al5 Disposition: 10/24 13:28 Co-signature as Attending Physician, Saul Armando MD I reviewed the patient's care rt provided by the Advanced Practice Provider and agree with the diagnosis and treatment plan. Disposition Summary: 10/24/23 19:02 Hospitalization Ordered Notes: Hospitalization Status: Observation sb4 Provider: Prince Sravani sb4 Location: Telemetry/MedSurg (observation) sb4 Condition: Fair sb4 Problem: new sb4 Symptoms: are unchanged sb4 Bed/Room Type: Standard sb4 Room Assignment: 212(10/24/23 19:21) rv1 Diagnosis - Chest pain, unspecified sb4 Forms: - Medication Reconciliation Form sb4 - SBAR form sb4 - Leadership Thank You Letter sb4 Signatures: Dispatcher [employer] Nadira Childs RN RN kc6 Juliet Banks RN RN Lynsey Stahl PATrenaC PATrenaC sb4 Saul Armando MD MD rt Juliana Bueno rv1 Anupam Ribeiro RN RN bm8 Cinthia Jenkins RN RN al5 Corrections: (The following items were deleted from the chart) 10/23 18:41 18:22 Patient states that he has had substernal chest pain for a few weeks now. He sb4 states that today it started radiating down his right arm and leg. Additionally, he states that he has had severe pain on the top of his head and his blood pressure has been running very high. He states that he has history of atrial fibrillation and is not on blood thinners because of his history of a GI bleed. Additionally he states that he has been "treated for heart attacks and strokes "but was never formally diagnosed with either. His medications include amlodipine, baby aspirin, and atorvastatin which she is not very compliant with. sb4 19:21 19:02 sb4 rv1
--- NOTE | 2023-10-24 19:32 | P.HP ---
Certification for Inpatient Patient admitted to: Observation With expected LOS: <2 Midnights Practitioner: I am a practitioner with admitting privileges, knowledge of patient current condition, hospital course, and medical plan of care. Services: Services provided to patient in accordance with Admission requirements found in Title 42 Section 412.3 of the Code of Federal Regulations Patient History Date of Service: 10/24/23 Reason for admission: chest pain, acs r/o History of Present Illness: Patient is a 43-year-old male with a past medical history of hypertension. He presented to the ER with progressively worsening chest pain and headache. Patient is describing a chest pain radiating to his right arm associated with paresthesia to right fingers. He is also having some lower extremity swelling which he manages by propping up his legs. Patient states that his blood pressure was 196/148 this morning. He takes amlodipine and aspirin at home. Workup in the ER included an EKG which revealed normal sinus rhythm without signs of ischemia. He was a normal EKG. His first troponin was negative. During my evaluation, patient was alert and awake. His SBP was 126. Was doing well on room air Allergies No Known Allergies Allergy (Verified 12/08/22 20:11) Home Medications: Amlodipine Besylate 5 mg PO DAILY #30 tab 12/10/22 Aspirin [Aspirin EC 81 MG] 81 mg PO DAILY #30 tab 12/10/22 Aspirin [Ecotrin 81 MG] 81 mg PO DAILY #30 tab 12/10/22 Atorvastatin Calcium [Lipitor] 10 mg PO BEDTIME #30 tab 12/10/22 - Past Medical/Surgical History Diabetic: No -: htn - Social History Alcohol use: Yes CD- Drugs: No Caffeine use: Yes Physical Examination - Physical Exam General: In no apparent distress HEENT: Atraumatic, Normocephalic Respiratory: Clear to auscultation bilaterally, Normal air movement Cardiovascular: No edema, Normal pulses, Regular rate/rhythm, Normal S1 S2 Musculoskeletal: No clubbing, No swelling Neurological: Normal speech, Normal strength at 5/5 x4 extr - Studies Laboratory Data (last 24 hrs) 10/24/23 10/24/23 10/24/23 18:24 18:24 18:24 WBC 6.70 Hgb 14.9 Hct 42.9 Plt Count 241 PT 12.1 INR 1.08 Sodium 136 Potassium 4.0 BUN 9 Creatinine 1.13 Glucose 99 Magnesium 2.2 Total Bilirubin 0.6 AST 27 ALT 56 Alkaline Phosphatase 62 Assessment and Plan - Problems (Diagnosis) (1) Chest pain Current Visit: Yes Status: Acute - Plan Assessment Patient is a 43-year-old male who is being admitted for ACS workup after he presented with chest pain. His blood pressure at home was reportedly 196/143. First troponin and EKG were negative in the ER. This could be a manifestation of hypertensive crisis accompanied by symptoms of chest pain, headache and right-sided paresthesia. His chest x-ray was negative for pulmonary edema. Chest pain-ACS rule out Hypertension Plan: Admit under observation with telemetry Blood pressure control Will obtain lipid panel and hemoglobin A1c Will also go ahead and check for urine drug screen Follow-up 2D echo Trend troponin Due to persistent right upper extremity paresthesia, also going obtain MRI brain Patient can be discharged tomorrow morning if above workup is negative Patient is full code - Advance Directives Does patient have a Living Will: No Does patient have a Durable POA for Healthcare: No
[2023-10-24 21:01] VITALS: O2SAT 98
[2023-10-24 21:20] VITALS: BMI 33.0
[2023-10-24] MEDS: ACETAMINOPHEN 325 MG TABLET PO ONE (21:58)
[2023-10-24] MEDS: ATORVASTATIN 80 MG TAB PO SCH (21:59)
[2023-10-24 23:47] LABS: Barbiturates NEGATIVE (NEGATIVE); Benzodiazepines NEGATIVE (NEGATIVE); Cocaine NEGATIVE (NEGATIVE); METHAMPHETAM NEGATIVE (NEGATIVE); Methadone NEGATIVE (NEGATIVE); Opiates POSITIVE (NEGATIVE); Phencyclidine NEGATIVE (NEGATIVE); THC Cannibis NEGATIVE (NEGATIVE)
[2023-10-25 04:21] VITALS: TEMP 97.9
[2023-10-25] MEDS: KETOROLAC 30 MG/ML INJ IV ONE (06:48)
[2023-10-25] MEDS: ASPIRIN EC 81 MG TAB PO SCH (08:31)
[2023-10-25] MEDS: AMLODIPINE 5 MG TAB PO SCH (08:31)
[2023-10-25] MEDS ORDERED: ASPIRIN EC 81 MG TAB PO SCH (09:00)
--- NOTE | 2023-10-25 09:01 | RAD REPORT ---
EXAM DESCRIPTION: MRI - Brain Wo Cont - 10/25/2023 8:18 am CLINICAL HISTORY: RUE paresthesia COMPARISON: Head CT 10/24/2023 TECHNIQUE: Multiplanar multisequence MRI of the brain performed without IV contrast. FINDINGS: No evidence of acute infarct or other diffusion signal abnormality. No evidence of acute intracranial hemorrhage or abnormal extra-axial fluid collections. Ventricular caliber within normal for age. Midline structures are unremarkable. No significant white matter signal abnormalities. Renteria-white matter differentiation is intact. No mass effect or midline shift. Major vascular flow voids are preserved. Mastoid air cells and paranasal sinuses are clear. IMPRESSION: No acute intracranial process. No evidence of ventriculomegaly or mass effect.
--- NOTE | 2023-10-25 11:52 | P.CNS ---
Date of Consult: 10/25/23 Chief Complaint: chest pain, acs r/o History of Present Illness: Patient with PMH of HTN, HLD presented with chest pain, mid chest, radiated to left and right arms with headache and leg swelling, denies palpitations, no SOB, no LAW, no syncope. Allergies No Known Allergies Allergy (Verified 10/24/23 21:26) Home medications list reviewed: Yes Home Medications: Amlodipine Besylate 5 mg PO DAILY #30 tab 12/10/22 Aspirin [Ecotrin 81 MG] 81 mg PO DAILY #30 tab 12/10/22 Atorvastatin Calcium [Lipitor] 10 mg PO BEDTIME #30 tab 12/10/22 - Past Medical/Surgical History Diabetic: No -: htn -: Nodules in esophagus , stomach and intestine -: Endoscopy - Family History Father Medical History: Hypertension Mother Medical History: Hypertension - Social History Smoking Status: Current every day smoker Alcohol use: Yes CD- Drugs: No Caffeine use: Yes Review of Systems 10-point ROS is otherwise unremarkable Physical Examination Temp Pulse Resp BP Pulse Ox 97.9 F 77 16 116/70 98 10/25/23 04:00 10/25/23 04:00 10/25/23 04:00 10/25/23 04:00 10/25/23 04:00 General: Alert, In no apparent distress HEENT: Atraumatic, PERRLA, Mucous membr. moist/pink, EOMI, Sclerae nonicteric Neck: Supple, 2+ carotid pulse no bruit, No LAD, Without JVD or thyroid abnormality Respiratory: Clear to auscultation bilaterally, Normal air movement Cardiovascular: Regular rate/rhythm, Normal S1 S2 Gastrointestinal: Normal bowel sounds, No tenderness Musculoskeletal: No tenderness Integumentary: No rashes Neurological: Normal gait, Normal speech, Normal tone, Normal affect Lymphatics: No axilla or inguinal lymphadenopathy Laboratory Data (last 24 hrs) 10/24/23 10/24/23 10/24/23 18:24 18:24 18:24 WBC 6.70 Hgb 14.9 Hct 42.9 Plt Count 241 PT 12.1 INR 1.08 Sodium 136 Potassium 4.0 BUN 9 Creatinine 1.13 Glucose 99 Magnesium 2.2 Total Bilirubin 0.6 AST 27 ALT 56 Alkaline Phosphatase 62 - Problems (1) HTN (hypertension) Current Visit: Yes Status: Acute Plan: Continue Norvasc 5 mg daily (2) HLD (hyperlipidemia) Current Visit: Yes Status: Acute Plan: Lower lipitor to 40 mg daily (3) Chest pain Current Visit: Yes Status: Acute Plan: atypical, negative cardiac markers, most recent stress test is negative, No further cardiac work up is needed. follow up as outpatient with cardiology.
[2023-10-25 12:19] VITALS: BP 138/87
--- NOTE | 2023-10-25 12:37 | EKG ---
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
--- NOTE | 2023-10-25 12:46 | ECHO ---
HEIGHT: 5 ft 9 in WEIGHT: 224 lb 0 oz DATE OF STUDY: 10/25/[address]: Prince Marilin Lassiter MD 2-DIMENSIONAL: YES M.MODE: YES DOPPLER: YES COLOR FLOW: YES TDS: PORTABLE: YES DEFINITY: BUBBLE STUDY: DIAGNOSIS: CHEST PAIN CARDIAC HISTORY: CATHERIZATION: NO SURGERY: NO PROSTHETIC VALVE: NO PACEMAKER: NO MEASUREMENTS (cm) DIASTOLIC (NORMALS) SYSTOLIC (NORMALS) IVSd 1.1 (0.6-1.2) LA Diam 3.0 (1.9-4.0) LVEF 60-65% LVIDd 5.0 (3.5-5.7) LVIDs 2.7 (2.0-3.5) %FS LVPWd 1.1 (0.6-1.2) Ao Diam 3.3 (2.0-3.7) 2 DIMENSIONAL ASSESSMENT: RIGHT ATRIUM: NORMAL LEFT ATRIUM: NORMAL RIGHT VENTRICLE: NORMAL LEFT VENTRICLE: NORMAL TRICUSPID VALVE: NORMAL MITRAL VALVE: NORMAL PULMONIC VALVE: NORMAL AORTIC VALVE: NORMAL PERICARDIAL EFFUSION: NONE AORTIC ROOT: NORMAL LEFT VENTRICULAR WALL MOTION: NORMAL DOPPLER/COLOR FLOW: NORMAL COMMENTS: 1. MILD LEFT VENTRICULAR HYPERTROPHY 2. NORMAL LEFT VENTRICULAR SYSTOLIC FUNCTION, EJECTION FRACTION 60-65%, NORMAL WALL MOTION 3. NORMAL DIASTOLIC FUNCTION TECHNOLOGIST: ZACK MCARTHUR
--- NOTE | 2023-10-25 12:52 | P.DS ---
Admission Date: 10/24/23 Discharge Date: 10/25/23 Disposition: ROUTINE DISCHARGE Discharge Condition: FAIR Reason for Admission: chest pain, acs r/o - Problems (1) Migraine Current Visit: Yes Status: Acute (2) Chest pain Current Visit: Yes Status: Acute (3) HTN (hypertension) Current Visit: Yes Status: Acute Brief History of Present Illness: 43-year-old male with a past medical history of hypertension presented to the ER with chest pain and headache. Patient described left-sided headache with associated paresthesia to right fingers. He also reported chest pain. Patient states that his blood pressure was up 196/148 before presentation to the ED. He takes amlodipine and aspirin at home. Workup in the ER included an EKG which revealed normal sinus rhythm without signs of ischemia. He was a normal EKG. His first troponin was negative. Patient was hospitalized for further management. Hospital Course: Patient was hospitalized with a complaint of headache with associated right- sided numbness as well as chest pain. Patient was evaluated by cardiology for chest pain, patient chest pain considered atypical, no further workup recommended by cardiology. Patient underwent stroke evaluation, MRI of the brain did not show any evidence of an infarct. Patient reported left-sided headache which is sometimes associated with nausea, blurry vision and photophobia. Symptoms are consistent with migraine headaches. Patient's blood pressure was stable during the hospital stay. Case discussed with neurology Dr. Hernandez was agreed to follow-up with patient in the office. Vital Signs/Physical Exam: Temp Pulse Resp BP Pulse Ox 97.9 F 65 16 138/87 98 10/25/23 12:00 10/25/23 12:10/25/23 12:10/25/23 12:10/25/23 12:00 General: Alert, In no apparent distress, Oriented x3 HEENT: Mucous membr. moist/pink Neck: Supple, JVD not distended Respiratory: Clear to auscultation bilaterally, Normal air movement Cardiovascular: No edema, Regular rate/rhythm, Normal S1 S2 Gastrointestinal: Normal bowel sounds, Soft and benign, Non-distended, No tenderness Musculoskeletal: No swelling, No tenderness Integumentary: No rashes, No cyanosis Neurological: Normal speech, Normal strength at 5/5 x4 extr, Cranial nerves 3-12 intact Lymphatics: No axilla or inguinal lymphadenopathy Laboratory Data at Discharge: WBC 6.70 thou/uL (4.3-10.9) 10/24/23 18:24 Hgb 14.9 g/dL (13.6-17.9) 10/24/23 18:24 Hct 42.9 % (39.6-49.0) 10/24/23 18:24 Plt Count 241 thou/uL (152-406) 10/24/23 18:24 PT 12.1 SECONDS (9.4-12.5) 10/24/23 18:24 INR 1.08 10/24/23 18:24 Sodium 136 mEq/L (136-145) 10/24/23 18:24 Potassium 4.0 mEq/L (3.5-5.1) 10/24/23 18:24 BUN 9 mg/dL (7-18) 10/24/23 18:24 Creatinine 1.13 mg/dL (0.70-1.30) 10/24/23 18:24 Glucose 99 mg/dL (74-106) 10/24/23 18:24 Magnesium 2.2 mg/dL (1.6-2.4) 10/24/23 18:24 Total Bilirubin 0.6 mg/dL (0.2-1.0) 10/24/23 18:24 AST 27 U/L (15-37) 10/24/23 18:24 ALT 56 U/L (16-61) 10/24/23 18:24 Alkaline Phosphatase 62 U/L (45-117) 10/24/23 18:24 Triglycerides 169 mg/dL (<150) H 10/25/23 06:05 Cholesterol 153 mg/dL (<200) 10/25/23 06:05 HDL Cholesterol 30 mg/dL (40-60) L 10/25/23 06:05 Cholesterol/HDL Ratio 5.10 10/25/23 06:05 Home Medications: Amlodipine Besylate 5 mg PO DAILY #30 tab 12/10/22 Aspirin [Ecotrin 81 MG] 81 mg PO DAILY #30 tab 12/10/22 Atorvastatin Calcium [Lipitor*] 10 mg PO BEDTIME #30 tab 12/10/22 Physician Discharge Instructions: Patient was hospitalized with a complaint of headache with associated right- sided numbness as well as chest pain. Patient was evaluated by cardiology for chest pain, patient chest pain considered atypical, no further workup recommended by cardiology. Patient underwent stroke evaluation, MRI of the brain did not show any evidence of an infarct. Patient reported left-sided headache which is sometimes associated with nausea, blurry vision and photophobia. Symptoms are consistent with migraine headaches. Patient's blood pressure was stable during the hospital stay. Case discussed with neurology Dr. Hernandez was agreed to follow-up with patient in the office. Diet: AHA Activity: Ad my Followup: Maikol Hernandez MD [ASSOCIATE-ACTIVE - CAN ADMIT] - 1-2 Weeks NONE,NONE [Primary Care Provider] - Time spent managing pt's care (in minutes): 28
== END 2023-10-25 13:34 | disposition home or self-care (01) ==
LOC: ER 17:43 → ERHOLD 19:15 → 2ND 20:00
PROVIDERS: ADMIT Internal Medicine; ATTEND Internal Medicine
DX: R07.9 Chest pain, unspecified (principal); G43.909 Migraine, unspecified, not intractable, without status migrainosus; I10 Essential (primary) hypertension; R51.9 Headache, unspecified; R22.43 Localized swelling, mass and lump, lower limb, bilateral; E78.5 Hyperlipidemia, unspecified; F17.210 Nicotine dependence, cigarettes, uncomplicated; Z79.82 Long term (current) use of aspirin
CPT/HCPCS: 93005; 93306; 80061; 84484; 70551; 96375; 96374; 99285; G0378 ×3

== ENCOUNTER 2023-11-04 10:52 | Emergency (ER) | payer OTHER ==
--- OUTSIDE RECORDS SUMMARY | 2023-11-04 10:54 | XMS REPORT | Continuity of Care Document ---
Author Name Unknown Address [address] [facility]. [address] [place] [address] [facility] Address [address] [facility] [address] [place] [address] Care Team Providers Care Rubber Trimmer Name Role Phone PCP, PATIENT DOES NOT HAVE A Primary Care Physic maximo Unavailable CHAD BAUTISTA Attending Clinician Unavailable LAB90 Attending Clinician Unavailable JOHNATHAN SANCHEZ Attending Clinician Unavailable 2, [facility] Attending Clinician Unavailable Johnathan Sanchez MD Attending Clinician [phone] LEROY LANGLEY Attending Clinician UnavailLeroy Carrillo Attending Clinician + [phone] JEREMI BELCHER Attending Clinician Unavailable Nara Young Attending Clinician [phone] Jeremi Belcher MD Attending Clinician [phone] LEROY LANGLEY Admitting Clinician UnavailJEREMI Watson Admitting Clinician Unavailable Jeremi Belcher MD Admitting Clinician [phone] Payers Payer Name Policy Type Policy Number Effective Date Expirati on Date Source [facility] JAMAL DURAN COPAY FOCUS 9 [id number] 2023 00:00:00 ABILIO Dickson [id number] 2023 00:00:00 [facility] [id number] 2023 00:00:00 Problems Condition Name Condition Details Condition Category Status Onset Date Resolution Date Last Treatment Date Treating Clinician Comments Source Hyperlipid emia Hyperlipid emia Disease Active 05-22 00:00: 00 Chey Seoctavioold - Externa l HTN (hypertens ion) HTN (hypertens ion) Disease Active 05-22 00:00: 00 Chey Seybold - Externa l Fatty liver Fatty liver Disease Active 05-22 00:00: 00 Chey Seybold - Externa l Obesity Obesity Disease Active 05-22 00:00: 00 Chey Gudinoold - Externa l Paroxysmal atrial fibrillati on Paroxysmal atrial fibrillati on Disease Active 09-17 00:00: 00 [facility] History of myocardial infarction History of myocardial infarction Disease Active 09-17 00:00: 00 [facility] Hypertensi on Hypertensi on Disease Active 09-17 00:00: 00 [facility] Hyperlipid emia Hyperlipid emia Disease Active 09-17 00:00: 00 [facility] Family history of premature coronary artery disease Family history of premature coronary artery disease Disease Active 09-17 00:00: 00 [facility] Chest pain, unspecifie d type Chest pain, unspecifie d type Disease Active 09-16 00:00: 00 [facility] Obesity (BMI 30-39.9) Obesity (BMI 30-39.9) Disease Active 09-16 00:00: 00 [facility] Allergies, Adverse Reactions, Alerts Allergy Name Allergy Type Status Severity Reaction(s) Onset Date Inactive Date Treating Clinician Comments Source NO KNOWN ALLERGIE S Drug Class Active [facility] Social History Social Habit Start Date Stop Date Quantity Comments Source Gender identity [facility] Sexual orientation Nara siegel Jerel - External Tobacco use and exposure 2023-05-23 [...] (event) 2021-09-06 00:00:00 2021-09-16 15:50:00 Not sure [facility] Sex Assigned At 1980 00:00:00 1980 00:00:00 Chey Beltrán - External Smoking Status Start Date Stop Date Source Never smoked tobacco Chey Beltrán - External Medications Ordered Medication Name Filled Medication Name Start Date Stop Date Current Medication? Ordering Clinician Indication Dosage Frequency Signature (SIG) Comments Components Source Amlodipine Besylate (NORVASC) 5 MG oral Tablet 05-22 00:00: 00 Yes [id number] 5mg Take 1 tablet (5 mg total) by mouth daily. Chey johnson Atorvastati n Calcium 10 MG oral Tablet 05-22 00:00: 00 Yes [id number] 10mg Take 1 tablet (10 mg total) by mouth nightly. Chey johnson Meloxicam 15 MG oral Tablet 05-22 00:00: 00 Yes [id number] 15mg QD Take 1 tablet (15 mg total) by mouth daily as needed for pain. Chey johnson Aspirin Low Dose 81 MG oral Tablet Delayed Response 2024-0 3-21 00:00: 00 Yes 81mg Take 1 tablet (81 mg total) by mouth daily. Chey johnson Atorvastati n Calcium 10 MG oral Tablet 2022-02 00:00: 00 05-22 00:00 :00 No 10mg Take 1 tablet (10 mg total) by mouth daily. Chey johnson Amlodipine Besylate (NORVASC) 5 MG oral Tablet 2022-02 00:00: 00 05-22 00:00 :00 No 5mg Take 1 tablet (5 mg total) by mouth daily. Chey johnson acetaminoph en (TYLENOL) tablet 650 mg 09-29 01:15: 00 09-29 00:34 :00 No 650mg 650 mg, Oral, ONCE, 1 dose, On Tue09/28/22 at 2014, MIO [facility] ibuprofen (IBU) tablet 600 mg 09-29 01:15: 09-29 00:34 :00 No 600mg 600 mg, Oral, ONCE, 1 dose, On Tue09/28/22 at 2014, MIO [facility] aspirin 81 mg chewable tablet 09-18 00:00: 00 10-19 04:59 :00 No [id number] 81mg Take 1 tablet by mouth in the morning for 30 days. [facility] maalox:diph enhydrAMINE :lidocaine 2 % viscous 1:1:1 ([facility]) oral suspension 15 mL 09-17 20:18: 28 Yes 15mL 15 mL, Oral, QDAILYPRN, Starting on Tue09/17/21 at 1518, Until Discontinu ed, MIO, epigastric pain [facility] iopamidol (ISOVUE 370-500 mL) injection 80 mL 09-17 16:15: 00 09-17 16:07 :00 No [id number] 80mL 80 mL, Intravenou s, ONCE, 1 dose, On Tue09/17/21 at 1115, Routine [facility] nitroglycer in (NITROSTAT) sublingual tablet 0.4 mg 09-17 16:15: 00 09-17 15:41 :00 No .4mg 0.4 mg, Sublingual , ONCE, 1 dose, On Priscila 09/17/21 at 1115, Routine [facility] metoprolol succinate XL 50 mg 24 hr tablet 09-17 15:50: 39 Yes 50mg Take 50 mg by mouth in the morning. [facility] isosorbide mononitrate 30 mg 24 hr tablet 09-17 15:31: 02 09-17 00:00 :00 No 30mg Take 30 mg by mouth as needed for Other (chest pain). [facility] metoprolol tartrate (LOPRESSOR) tablet 50 mg 09-17 15:30: 00 09-17 14:25 :00 No 50mg 50 mg, Oral, ONCE NOW, 1 dose, On Priscila 09/17/21 at 1030, [facility] succ[facility] XL (TOPROL XL) tablet 50 mg 09-17 14:00: 00 Yes 50mg 50 mg, Oral, DAILY, First dose on Tue09/17/21 at 0900, Until Discontinu ed, Routine [facility] aspirin chewable tablet 81 mg 09-17 14:00: 00 Yes 81mg 81 mg, Oral, DAILY, First dose on Tue09/17/21 at 0900, Until Discontinu ed, Routine [facility] enoxaparin (LOVENOX) injection 40 mg 09-17 14:00: 00 Yes 40mg 40 mg, Subcutaneo us, DAILY, First dose on Tue09/17/21 at 0900, Until Discontinu ed, Routine [facility] nitroglycer in (NITROSTAT) sublingual tablet 0.4 mg 09-17 12:09: 06 Yes .4mg 0.4 mg, Sublingual , Q5MIN PRN, Starting on Tue09/17/21 at 0709, Until Discontinu ed, Routine, Chest pain [facility] ondansetron (ZOFRAN (PF)) injection 4 mg 09-17 04:39: 31 Yes 4mg 4 mg, Slow IV Push, Q6HPRN, Starting on Tue09/16/21 at 2339, Until Discontinu ed, Routine, Nausea and Vomiting (N/V) [facility] morpHINE (2 mg/mL) injection 2 mg 09-17 04:39: 24 09-18 04:38 :24 No 2mg 2 mg, Slow IV Push, Q4HPRN, Starting on Tue09/16/21 at 2339, Until Priscila 09/17/21 at 2338, Routine, Pain (scale 7-10) [facility] traMADoL (ULTRAM) tablet 50 mg 09-17 04:39: 20 09-19 04:38 :20 No 50mg 50 mg, Oral, Q8HPRN, Starting on Tue09/16/21 at 2339, Until Tue09/18/21 at 2338, Routine, Pain (scale 4-6) [facility] acetaminoph en (TYLENOL) tablet 650 mg 09-17 04:39: 18 Yes 650mg 650 mg, Oral, Q6HPRN, Starting on Tue09/16/21 at 2339, Until Discontinu ed, Routine, Pain (scale 1-3) [facility] isosorbide mononitrate (IMDUR) 24 hr tablet 30 mg 09-17 04:37: 33 Yes 30mg 30 mg, Oral, PRN, 1 dose, Starting on Tue09/16/21 at 2337, Until Discontinu ed, Routine, chest pain [facility] pantoprazol e 40 mg EC tablet 09-17 00:00: 00 10-18 04:59 :00 No [id number] 40mg Take 1 tablet by mouth in the morning for 30 days. [facility] NaCl 0.9% (NS) bolus infusion 1,000 mL 09-16 23:00: 00 09-17 00:16 :00 No 1000mL at 999 mL/hr, 1,000 mL, IV Infusion, ONCE, 1 dose, On Tue09/16/21 at 1800, STAT [facility] aspirin chewable tablet 324 mg 09-16 21:45: 00 09-16 20:45 :00 No 324mg 324 mg, Oral, ONCE, 1 dose, On Tue09/16/21 at 1645, Routine [facility] benzonatate 200 mg capsule 2017-02 00:00: 00 09-16 00:00 :00 No 200mg Take 1 capsule by mouth 3 (three) times daily as needed for Cough. [facility] traMADOL (ULTRAM) 50 mg tablet 08-05 00:00: 00 09-16 00:00 :00 No 50mg Take 1 tablet by mouth every 6 (six) hours as needed for Pain (scale 7-10). [facility] Vital Signs Vital Name Observation Time Observation Value Comments S ource Systolic blood pressure 2023-05-23 19:47:00 134 mm[Hg] Chey Corral ld - External Diastolic blood pressure 2023-05-23 19:47:00 80 mm[Hg] Chey ramos - External Heart rate 2023-05-23 19:15:00 91 /min Mariia Beltrán - External Body temperature 2023-05-23 19:15:00 37.11 Chelsy Chey Beltrán - External Respiratory rate 2023-05-23 19:15:00 15 /min Chey Beltrán - External Body height 2023-05-23 19:15:00 175.3 cm Brittani Beltrán - External Body weight 2023-05-23 19:15:00 103.874 kg Brittani Beltrán - External BMI 2023-05-23 19:15:00 33.82 kg/m2 Brittani Beltrán - External Oxygen saturation in Arterial blood by Pulse oximetry 2023-05-23 19:15:00 100 /min Chey ramos - External Systolic blood pressure 2022-09-28 23:00:00 130 mm[Hg] [facility] Diastolic blood pressure 2022-09-28 23:00:00 93 mm[Hg] [facility] Heart rate 2022-09-28 23:00:00 99 /min [facility] Body temperature 2022-09-28 23:00:00 37.06 Chelsy [facility] Respiratory rate 2022-09-28 23:00:00 16 /min [facility] Oxygen saturation in Arterial blood by Pulse oximetry 2022-09-28 23:00:00 98 /min [facility] Body height 2022-09-28 22:29:00 175.3 cm [facility] Body weight 2022-09-28 22:29:00 88.905 kg [facility] BMI 2022-09-28 22:29:00 28.94 kg/m2 [facility] Systolic blood pressure 2021-09-17 16:42:00 133 mm[Hg] [facility] Diastolic blood pressure 2021-09-17 16:42:00 80 mm[Hg] [facility] Heart rate 2021-09-17 16:42:00 57 /min [facility] Body temperature 2021-09-17 16:42:00 36.22 Chelsy [facility] Respiratory rate 2021-09-17 16:42:00 18 /min [facility] Oxygen saturation in Arterial blood by Pulse oximetry 2021-09-17 16:42:00 97 /min [facility] Body weight 2021-09-17 09:08:00 112.492 kg [facility] BMI 2021-09-17 09:08:00 35.58 kg/m2 [facility] Body height 2021-09-17 00:56:00 177.8 cm [facility] Procedures Procedure Date / Time Performed Performing Clinician Source TROPONIN I 2022-09-29 00:57:00 Leroy Langley [facility] XR CHEST 1 VW 2022-09-28 22:52:00 Leslie [facility] TROPONIN I 2022-09-28 22:44:[facility] 2022-09-28 22:44:00 Leslie [facility] D-DIMER 2022-09-28 22:44:00 Leroy Langley [facility] CONSENT/REFUSAL FOR DIAGNOSIS AND TREATMENT 2022-09-28 22:25:13 Doctor Unassigned, [place] [facility] CT ANGIOGRAPHY CORONARIES WITH CARDIAC CALCIUM SCORE 2021-09-17 18:22:48 Zhang Guzman [facility] TRANSTHORACIC ECHO (TTE) COMPLETE 2021-09-17 12:51:00 Jeremi Belcher [facility] URINE DRUG (IMMUNOASSAY) - COMPREHENSIVE DRUG SCREEN 2021-09-17 12:11:00 Pedro [facility] CBC WITH DIFF 2021-09-17 10:[facility] METABOLIC PANEL (NA, K, CL, CO2, GLUCOSE, BUN, CREATININE, CA) 2021-09-17 09:12:00 Pedro [facility] TROPONIN I 2021-09-17 05:14:00 Pedro [facility] XR CHEST 1 VW 2021-09-16 21:41:58 Nara Paige [facility] MAGNESIUM 2021-09-16 20:46:00 [facility] TROPONIN I 2021-09-16 20:46:00 [facility] COMP. METABOLIC PANEL (22550) 2021-09-16 20:46:00 Nara Paige [facility] CBC WITH DIFF 2021-09-16 20:46:00 Nara Paige [facility] URINALYSIS 2021-09-16 20:46:00 [facility] N-TERMINAL PRO-BNP 2021-09-16 20:46:00 Nara Paige [facility] COVID-19 (ID NOW RAPID TESTING) 2021-09-16 20:46:00 Nara Paige [facility] LAB ONLY COVID INTERPRETATION 2021-09-16 20:46:00 Nara Paige [facility] HB ECG ROUTINE & RHYTHM STRIP 2021-09-16 20:08:21 Nara Paige [facility] NOTICE OF PRIVACY PRACTICES 2021-09-16 19:42:18 Doctor Unassigned, [place] [facility] Encounters Start Date/Time End Date/Time Encounter Type Admission Type Attending [facility] Facility Care Department Encounter ID Source 2023-11-04 00:00:00 2023-11-04 00:00:00 Outpatient PREZACHAD Valderrama CHEY [facility]RAKE [id number] [facility] 2023-08-01 00:00:00 2023-08-01 00:00:00 Outpatient SUMMERCHAD MACK [place] [place] [id number] [facility] 2023-07-05 13:45:00 2023-07-05 13:45:00 Outpatient PREZACHAD Valderrama [facility] [place] [id number] [facility] 2023-06-19 00:00:00 2023-06-19 00:00:00 Outpatient PREZACHAD Valderrama [place] [id number] [facility] 2023-05-26 00:00:00 2023-05-26 00:00:00 Outpatient PREZACHAD Valderrama [place] [place] [id number] [facility] 2023-05-24 08:40:00 2023-05-24 08:40:00 Outpatient LAB90 CHEY DRAKE [id number] [facility] 2023-05-23 14:15:00 2023-05-23 14:15:00 Outpatient PREZACHAD Valderrama [place] [id number] [facility] 2023-04-27 11:30:00 2023-04-27 12:36:11 Outpatient JOHNATHAN TRIPATHI [facility] [id number] [facility] 2023-04-27 11:30:00 2023-04-27 11:45:00 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, Adc Johnathan Kaur [facility] [id number] [facility] 2022-09-28 17:33:00 2022-09-28 20:57:00 [id number] 2022-09-28 17:33:00 2022-09-28 20:57:00 Emergency [place] [id number] [facility] 2021-09-16 15:05:00 2021-09-17 15:50:00 Outpatient X LANETTEJASENPARVIN [facility] [id number] [facility] 2021-09-16 15:05:00 2021-09-17 15:50:00 Emergency Nara Paige [facility] [id number] [facility] Results Test Description Test Time Test Comments Results Result Co mments Source [facility] [id number] 23:34:45* Test Item Value Reference Range Interpretation Comme nts TROPONIN I (test code = 9009084992) 0.003 ng/mL <=0.034 SANJIV (test code = [...] of biotin. Lab Interpretation (test code = 22598-5) Normal [id number] 23:22:42* Test Item Value Reference Range Interpretation Comments D-DIMER (test code = 1306697174) 0.32 See_Comment [Automated message] The system which [...] a diagnosis. Lab Interpretation (test code = 37874-1) Normal [facility] WITH [id number] 23:09:03* Test Item Value Reference Range Interpretation Comme nts WBC (test code = 6690-2) 5.01 See_Comment [Automated [employer]] The system which generated this result transmitted reference range: 4.20 - 10.70 10*3/?L. The reference range was not used to interpret this result as normal/abnormal. RBC (test code = 789-8) 4.97 See_Comment [Automated [employer]] The system which generated this result transmitted [...] g/dL 31.2-35.0 H RDW-SD (test code = 59909-7) 38.0 fL 38.5-51.6 L RDW-CV (test code = 788-0) 12.6 % 12.1-15.4 PLT (test code = 777-3) 224 See_Comment [Automated [employer]] The system which generated this result transmitted reference range: 150 - 328 10*3/?L. The reference range was not used to interpret this result as normal/abnormal. MPV (test code = 85262-9) 10.6 fL 9.8-13.0 NRBC/100 WBC (test code = 7819901139) 0.0 See_Comment [Automated [employer] ssage] The system which generated this result transmitted reference range: 0.0 - 10.0 /100 WBCs. The reference range was not used to interpret this result as normal/abnormal. NRBC x10^3 (test code = 2323346101) See_Comment [Automated [employer]] The system which generated this result transmitted reference range: 10*3/?L. The reference range was not used to interpret this result as normal/abnormal. GRAN MAT (NEUT) % (test code = 770-8) 69.4 % IMM GRAN % (test code = 6215104874) 0.20 % LYMPH % (test code = 736-9) 12.4 % MONO % (test code = 5905-5) 16.0 % EOS % (test code = 713-8) 1.4 % BASO % (test code = 706-2) 0.6 % GRAN MAT x10^3(ANC) (test code = 0336829738) 3.48 10*3/uL 1.99-6.95 IMM GRAN x10^3 (test code = 6548148544) 0.00-0.06 LYMPH x10^3 (test code = 731-0) 0.62 10*3/uL 1.09-3.23 L MONO x10^3 (test code = 742-7) 0.80 10*3/uL 0.36-1.02 EOS x10^3 (test code = 711-2) 0.07 10*3/uL 0.06-0.53 BASO x10^3 (test code = 704-7) 0.03 10*3/uL 0.01-0.09 Lab Interpretation (test code = 32855-2) Abnormal [facility]2021-09-17 17:01:28* Test Item Value Reference Range Interpretation Comme nts Height (test code = 6943170050) in Weight (test code = 7401542155) lbs Systolic BP (test code = 9925377283) mmHg Diastolic BP (test code = 3218096040) mmHg Heart Rate (test code = 5586982482) bpm BSA (test code = 6095043932) 2.17 m2 Ao root annulus (test code = 5921571553) 3.7 cm Ao root diam (test code = 1626721134) 3.70 cm Aortic root (test code = 2738959372) 3.7 cm LVOT diameter (test code = 7941691111) 2.19 cm LVIDD (test code = 2181820650) 5.00 cm IVS (test code = 8768122846) 1.06 cm Interventricular Septum Diastolic Thickness by 2D (test code = 1945722) 1.06 cm LVPWD (test code = 4194135830) 1.06 cm PW (test code = 4989956684) 1.06 cm 0.6-1.1 EF(Teich) (test code = 0682708260) 55.80 % LVIDS (test code = 5194797129) 3.60 cm FS (test code = 9463762365) 29 % EF - 2D (test code = 54401292) 55.80 % LA size (test code = 0489782070) 3.2 cm TR Peak Eric (test code = 3418679559) 188.2 cm/s Triscuspid Valve Regurgitation Peak Gradient (test code = 1185748982) mmHg LAV(MOD-sp4) (test code = 9035910190) 59.50 mL E wave decelartion time (test code = 8834289706) 0.22 s MV stenosis pressure 1/2 time (test code = 4967639709) 63.4 ms MV Peak E Eric (test code = 1093051681) 77.8 cm/s MV Peak A Eric (test code = 7927853509) 81.2 cm/s E/A ratio (test code = 9425305935) ratio MV Prop V (test code = 4593523924) 39.70 cm/s MV E/e' septal (test code = 0600362882) 17.5 cm/s Tapse (test code = 9932144330) 2.31 cm LVOT stroke volume (test code = 4785272746) 67.40 cm3 LVOT peak eric (test code = 3954506081) 91.7 cm/s LVOT mn grad (test code = 5546307357) mmHg AV LVOT peak gradient (test code = 8125200432) mmHg LVOT peak VTI (test code = 5270731109) 18.0 cm LV V1 mean (test code = 6152359495) 66.30 cm/s Aortic valve mean velocity (test code = 2629127731) 94.2 cm/s Ao peak eric (test code = 7288578957) 134.8 cm/s Ao VTI (test code = 7408326747) 27.8 cm AV area by cont VTI (test code = 4726967538) 2.4 cm2 AV area peak eric (test code = 2103853541) 2.6 cm2 Ao max PG (test code = 5465427150) 7.30 mm[Hg] AV peak gradient (test code = 1761511983) mmHg AV valve area (test code = 0982801690) 2.42 cm2 AV mean gradient (test code = 9661934240) mmHg AV regurgitation pressure 1/2 time (test code = 4625195632) 978.3 ms AI dec slope (test code = 3552859251) 71.10 cm/s2 AI max eric (test code = 8863532994) 237.50 cm/s AI max PG (test code = 5312897485) 22.60 mm[Hg] Radiology Study observation (narrative) (test code = 33642-1) SANJIV (test code = SANJIV) Formatting of [...] 2D, color flow Doppler and spectral Doppler. [facility] [id number] 21:30:45* Test Item Value Reference Range Interpretation Comments TROPONIN I (test code = 2634691037) 0.003 ng/mL See_Comment [Automated message] The system [...] of biotin. Lab Interpretation (test code = 35193-5) Normal [facility] [id number] 21:27:27* Test Item Value Reference Range Interpretation Comme nts NT-proBNP (test code = 4022890077) 23 pg/mL See_Comment [Automated message] The system which generated this result transmitted reference range: <=125. The reference range was not used to interpret this result as normal/abnormal. SANJIV (test code = SANJIV) Biotin has been reported to cause a negative bias, interpret results relative to patient's use of biotin. Lab Interpretation (test code = 20362-9) Normal [facility]2022-[facility]-27 21:19:03* Test Item Value Reference Range Interpretation Comme nts MAGNESIUM (test code = 1915743609) 1.9 mg/dL 1.7-2.4 Lab Interpretation (test cod e = 91435-5) Normal [facility]. METABOLIC PANEL (95927)2021-09-16 21:18:43* Test Item Value Reference Range Interpretation Comme nts NA (test code = 9780659569) 140 mmol/L 135-145 K (test code = 0581099947) 4.1 mmol/L 3.5-5 CL (test code = 0273532122) 102 mmol/L 98-108 CO2 TOTAL (test code = 4555569298) 27 mmol/L 23-31 AGAP (test code = 5607372860) 2-16 BUN (test code = 1118318365) 4 mg/dL 7-23 L GLUCOSE (test code = 0267916842) 104 mg/dL 70-110 CREATININE (test code = 0858516838) 0.97 mg/dL 0.6-1.25 TOTAL BILI (test code = 4717549514) 0.9 mg/dL 0.1-1.1 CALCIUM (test code = 4477671038) 9.6 mg/dL 8.6-10.6 T PROTEIN (test code = 3739992882) 8.0 g/dL 6.3-8.2 ALBUMIN (test code = 8128226046) 4.8 g/dL 3.5-5 ALK PHOS (test code = 3818877243) 63 U/L 34-122 ALTv (test code = 1742-6) 55 U/L 5-50 H AST(SGOT) (test code = 8886324072) 41 U/L 13-40 H eGFR (test code = 9107189692) mL/min/1.73m2 SANJIV (test code = SANJIV) Association [...] imaging tests). Lab Interpretation (test code = 83151-1) Abnormal [facility] WITH [id number] 21:10:57* Test Item Value Reference Range Interpretation Comme nts WBC (test code = 6690-2) See_Comment [[employer]] The system which generated this result transmitted reference range: 4.20 - 10.70 10*3/?L. The reference range was not used to interpret this result as normal/abnormal. RBC (test code = 789-8) See_Comment [Automated [employer]] The system which generated this result transmitted [...] g/dL 31.2-35 H RDW-SD (test code = 39056-8) 37.2 fL 38.5-51.6 L RDW-CV (test code = 788-0) 12.2 % 12.1-15.4 PLT (test code = 777-3) See_Comment [Automated messa ge] The system which generated this result transmitted reference range: 150 - 328 10*3/?L. The reference range was not used to interpret this result as normal/abnormal. MPV (test code = 25529-4) 10.7 fL 9.8-13 NRBC/100 WBC (test code = 3233343128) See_Comment [Automated [employer] ssage] The system which generated this result transmitted reference range: 0.0 - 10.0 /100 WBCs. The reference range was not used to interpret this result as normal/abnormal. NRBC x10^3 (test code = 6366156447) See_Comment [Automated [employer]] The system which generated this result transmitted reference range: 10*3/?L. The reference range was not used to interpret this result as normal/abnormal. GRAN MAT (NEUT) % (test code = 770-8) 70.3 % IMM GRAN % (test code = 4838806088) 0.40 % LYMPH % (test code = 736-9) 19.8 % MONO % (test code = 5905-5) 6.7 % EOS % (test code = 713-8) 1.8 % BASO % (test code = 706-2) 1.0 % GRAN MAT x10^3(ANC) (test code = 0398473285) 5.45 10*3/uL 1.99-6.95 IMM GRAN x10^3 (test code = 4955093510) 0.03 10*3/uL 0-0.06 LYMPH x10^3 (test code = 731-0) 1.54 10*3/uL 1.09-3.23 MONO x10^3 (test code = 742-7) 0.52 10*3/uL 0.36-1.02 EOS x10^3 (test code = 711-2) 0.14 10*3/uL 0.06-0.53 BASO x10^3 (test code = 704-7) 0.08 10*3/uL 0.01-0.09 Lab Interpretation (test code = 90169-1) Abnormal [facility] Notes Date/Time Note Provider Source 2023-04-27 11:30:00 Nater collection only [facility] 2022-09-28 20:56:02 Formatting of this n ote [...] noted upon discharge Pt ambulated to the [facility] with steady gait Marlen Patel RN [facility] 2022-09-28 18:26:10 Formatting of this n ote [...] care. Mirta Webb RN Mirta Webb RN [facility] 2022-09-28 17:26:15 Formatting of this n ote might be different from the original. Pt to ed via pov. Alert and ambulatory. Vss. C/o chest pain radiating to back and dizziness. Onset approx 2 weeks but has gotten increasingly worse. Took one nitro this morning around 1030 am. States it did help slightly. IT Christy Fernandez RN [facility]
[2023-11-04 11:51] LABS: Absolute Basophils 0.1 K/uL (0-0.5); Absolute Eosinophils 0.2 K/uL (0-0.5); Absolute Lymphocytes (CBC) 1.7 K/uL (0.7-4.9); Absolute Monocytes 0.5 K/uL (0.1-1.3); Absolute Neutrophil 4.2 K/uL (1.8-8.0); Basophils % 0.9 % (0-1.3); Eosinophils % 2.8 % (0-4.4); Hematocrit 43.2 % (39.6-49.0); Lymphocytes % 25.2 % (15.3-44.8); MCH 29.6 pg (27.0-35.0); MCHC 34.6 g/dL (32.0-36.0); MCV 85.4 fL (80-100); MPV 8.6 fL (7.6-11.3); Monocytes % 7.8 % (3.3-12.3); Neutrophils % 63.3 % (41.7-73.7); Platelets 231 thou/uL (152-406); RBC Red Blood Cell Count 5.06 M/uL (4.33-5.43); Red Cell Distribution Width 13.4 % (12.1-15.2)
[2023-11-04] MEDS ORDERED: MORPHINE 4 MG/ML SYR ONE ×2 (11:57→13:32)
[2023-11-04] MEDS ORDERED: NA CHLORIDE 0.9% 1,000 ML ONE (11:57)
[2023-11-04 12:05] LABS: Anion Gap 9.7 mEq/L (5.0-15.0); Potassium 3.7 mEq/L (3.5-5.1); Troponin High Sensitivity 5.5 pg/mL (<58.9)
--- NOTE | 2023-11-04 12:35 | RAD REPORT ---
EXAM DESCRIPTION: CT - Angio Aorta For Dissection - 11/04/2023 11:49 am CLINICAL HISTORY: . Chest and abd pain COMPARISON: Due to technical issues prior CT abdomen 2016 unavailable for comparison TECHNIQUE: Computed tomography angiography of the chest, abdomen pelvis were obtained. 100 cc Isovue 370 was administered intravenously. Coronal and sagittal reconstruction were performed. MIP 3D reconstruction was performed All CT scans are performed using dose optimization technique as appropriate and may include automated exposure control or mA/KV adjustment according to patient size. FINDINGS: An aortic dissection is not seen. An aortic aneurysm is not displayed. The celiac, SMA and JUVENCIO are patent . Calcified granuloma right lung A lung consolidation is not present. A pericardial effusion is not seen. A pleural effusion is not no mana. Fatty liver. Several enhancing lesions within the spleen. The largest 10 millimeters spleen 13 centimeters. Adrenals, kidneys and pancreas appear unremarkable There no evidence diverticulitis. Normal appendix IMPRESSION: Negative for an aortic dissection. Small enhancing splenic lesions are nonspecific. Follow up splenic ultrasound in 3 months recommended re-evaluation
--- NOTE | 2023-11-04 13:21 | RAD REPORT ---
EXAM: MRA head without contrast HISTORY: numbness, stroke like symptoms COMPARISON: None TECHNIQUE: An MRA of the head was performed without contrast using 3-D amgj-nv-dzhjdg imaging. 3-D rotational re formats were performed. FINDINGS: Right intracranial internal carotid artery: Patent without narrowing or occlusion Right anterior cerebral artery: Patent without narrowing or occlusion Right middle cerebral artery: Patent without narrowing or occlusion Left intracranial internal carotid artery: Patent without narrowing or occlusion Left anterior cerebral artery: Patent without narrowing or occlusion Left middle cerebral artery: Patent without narrowing or occlusion No aneurysmal dilatation is seen in the anterior circulation. Right vertebral artery: Patent without narrowing or occlusion Left vertebral artery: Patent without narrowing or occlusion Basilar artery: Patent without narrowing or occlusion The posterior cerebral arteries and cerebellar arteries are patent without narrowing or occlusion. No aneurysmal dilatation is seen in the posterior circulation. IMPRESSION: No significant MRA abnormality of the head
--- NOTE | 2023-11-04 13:27 | RAD REPORT ---
EXAM: MRA neck without and with contrast HISTORY: numbness, stroke like symptoms COMPARISON: None TECHNIQUE: An MRA of the neck was performed without contrast using 2-D vdae-cc-qrarfe imaging. Postcontrast imag es were also performed using 2-D llnh-dz-gpgqgr imaging. 3-D rotational reformats were performed. FINDINGS: Aortic arch: Normal origin of the carotid arteries from the arch. No significant atherosclerotic dise ase of the subclavian arteries. Right common carotid artery: No significant atherosclerotic disease or narrowing Left common carotid artery: No significant atherosclerotic disease or narrowing Right internal carotid artery: No significant atherosclerotic disease or narrowing per NASCET criteri a Right external carotid artery: No significant atherosclerotic disease or narrowing Left internal carotid artery: No significant atherosclerotic disease or narrowing per NASCET criteri a Left external carotid artery: No significant atherosclerotic disease or narrowing Right cervical vertebral artery: No significant atherosclerotic disease or narrowing Left cervical vertebral artery: No significant atherosclerotic disease or narrowing IMPRESSION: No significant MRA abnormality of the neck
[2023-11-04] MEDS ORDERED: KETOROLAC 30 MG/ML INJ ONE (13:32)
--- NOTE | 2023-11-04 14:14 | RAD REPORT ---
EXAMINATION: ONE VIEW CHEST XR CLINICAL INDICATION: Male, 43 years old. CHEST PAIN TECHNIQUE: 1 View, AP supine, X-ray of the chest was performed. [id number]. COMPARISON: 10/24/2023 FINDINGS: Lungs and pleura: Clear lungs. No effusion. Heart and mediastinum: Normal heart size. Unremarkable mediastinal contours. Osseous structures: No acute abnormality. Tubes/lines: None Other: None. IMPRESSION: No acute intrathoracic abnormality.
--- NOTE | 2023-11-04 14:31 | ER ---
Nurse's Notes [facility] Name: Amna Jenkins Jr Age: 43 yrs Sex: Male : 1980 Arrival Date: 11/04/2023 Time: 10:52 Bed 7 Private MD: Diagnosis: Chest pain, unspecified;Parasthesias Presentation: 11/03 10:55 Chief complaint: Patient states: right arm and right leg numbness and weakness for aa5 approximately 2 weeks and pt states"the right side of my face and tongue are numb now and it just started 1 hour ago". Pt also reports dizziness and blurry vision. 10:55 Acuity: NEYDA 2 aa5 10:55 Coronavirus screen: At this time, the client does not indicate any symptoms associated aa5 with coronavirus-19. Ebola Screen: Patient denies travel to an Ebola-affected area in the 21 days before illness onset. Initial Sepsis Screen: Does the patient meet any 2 criteria? No. Patient's initial sepsis screen is negative. Does the patient have a suspected source of infection? No. Patient's initial sepsis screen is negative. Risk Assessment: Do you want to hurt yourself or someone else? Patient reports no desire to harm self or others. 10:55 Method Of Arrival: Ambulatory aa5 10:55 Onset of symptoms was October 2023. aa5 Historical: - Allergies: 10:55 No Known Allergies; aa5 - PMHx: 10:55 Atrial fibrillation; Hypertension; GI Bleed; aa5 - Immunization history:: Adult Immunizations unknown. - Infectious Disease History:: Denies. - Social history:: Smoking status: Patient denies any tobacco usage or history of. Screenin:42 [facility] ED Fall Risk Assessment (Adult) History of falling in the last 3 months, tm6 including since admission No falls in past 3 months (0 pts) Confusion or Disorientation No (0 pts) Intoxicated or Sedated No (0 pts) Impaired Gait No (0 pts) Mobility Assist Device Used No (0 pt) Altered Elimination No (0 pt) Score/Fall Risk Level 0 - 2 = Low Risk Oriented to surroundings, Maintained a safe environment, Educated pt \\T\\ family on fall prevention, incl call for assistance when getting out of bed. Abuse screen: Denies threats or abuse. Denies injuries from another. Nutritional screening: No deficits noted. Tuberculosis screening: No symptoms or risk factors identified. Assessment: 11:42 General: Appears in no apparent distress. Behavior is calm, cooperative. Pain: tm6 Complains of pain in face, right arm and right leg Pain does not radiate. Pain currently is 3 out of 10 on a pain scale. Quality of pain is described as tingling, numb, Pain began two weeks ago. Neuro: Level of Consciousness is awake, alert, obeys commands, Oriented to person, place, time, situation, Reports dizziness, numbness in face, right arm and right leg since two weeks ago. Cardiovascular: Patient's skin is warm and dry. Respiratory: Airway is patent Respiratory effort is even, unlabored, Respiratory pattern is regular, symmetrical. GI: No signs and/or symptoms were reported involving the gastrointestinal system. Abdomen is flat, non-distended. : No signs and/or symptoms were reported regarding the genitourinary system. EENT: No signs and/or symptoms were reported regarding the EENT system. Derm: No signs and/or symptoms reported regarding the dermatologic system. Musculoskeletal: Reports numbness in face, right arm and right leg since two weeks ago. 13:43 Reassessment: Patient and/or family updated on plan of care and expected duration. Pain tm6 level reassessed. Patient is alert, oriented x 3, equal unlabored respirations, skin warm/dry/pink. 14:57 Reassessment: Patient and/or family updated on plan of care and expected duration. Pain tm6 level reassessed. Patient is alert, oriented x 3, equal unlabored respirations, skin warm/dry/pink. Vital Signs: 10:55 BP 147 / 101; Pulse 75; Resp 18 S; Temp 97.5(TE); Pulse Ox 98% on R/A; Weight 103.42 kg aa5 (R); Height 5 ft. 9 in. (R); 11:44 BP 137 / 92; Pulse 75; Resp 14; Pulse Ox 97% on R/A; tm6 12:05 Pain 6/10; tm6 13:03 BP 134 / 96; Pulse 73; Resp 14; Pulse Ox 100% on R/A; Pain 6/10; tm6 13:43 BP 134 / 96; Pulse 64; Pulse Ox 96% on R/A; Pain 6/10; tm6 14:57 BP 119 / 84; Pulse 64; Resp 17; Temp 97.5; Pulse Ox 99% on R/A; Pain 4/10; tm6 10:55 Body Mass Index 33.67 (103.42 kg, 175.26 cm) aa5 12:05 Pain Scale: Adult tm6 13:03 Pain Scale: Adult tm6 13:43 Pain Scale: Adult tm6 14:57 Pain Scale: Adult tm6 ED Course: 10:54 Patient arrived in ED. mg5 10:54 Emery Pabon MD is Attending Physician. ec2 10:55 Arm band placed on. aa5 11:01 Triage completed. aa5 11:25 Aris Hollis, DEEPTHI is Primary Nurse. tm6 11:41 Inserted saline lock: 20 gauge in right forearm, using aseptic technique. Blood tm6 collected. Flushed with 10 mL NS. Patient maintains SpO2 saturation greater than 95% on room air. 11:41 Basic Metabolic Panel Sent. tm6 11:41 CBC with Diff Sent. tm6 11:41 Troponin HS Sent. tm6 11:42 Patient has correct armband on for positive identification. Placed in gown. Bed in low tm6 position. Call light in reach. Side rails up X 1. Provided Education on: use of call griffiths. Client placed on continuous cardiac and pulse oximetry monitoring. NIBP monitoring applied. environmental monitoring specialist on. Pulse ox on. NIBP on. Door closed. Noise minimized. Pillow given. 11:50 Angio Aorta For Dissection In Process Unspecified. EDMS 12:05 EKG done, by ED staff, reviewed by Emery Pabon MD. tm6 13:01 MRA Neck W/Wo Cont In Process Unspecified. EDMS 13:02 MRA Head Wo Cont In Process Unspecified. EDMS 13:38 EKG done, by ED staff, reviewed by Emery Pabon MD. tm6 13:38 Troponin High Sensitivity Sent. tm6 14:02 XRAY Chest (1 view) In Process Unspecified. EDMS 14:57 No provider procedures requiring assistance completed. IV discontinued, intact, tm6 bleeding controlled, No redness/swelling at site. Pressure dressing applied. Administered Medications: 12:04 Drug: NS 0.9% IV 1000 ml IV at 1 bolus Per protocol; 1000 mL bolus Route: IV; Rate: 1 tm6 bolus; Site: right forearm; 13:08 Follow up: Response: No adverse reaction; IV Status: Completed infusion; IV Intake: tm6 1000ml 12:05 Drug: morphine IVP or IV 4 mg IVP once over 4 mins Route: IVP; Infused Over: 4 mins; tm6 Site: right forearm; 13:08 Follow up: Response: No adverse reaction; Pain is unchanged, physician notified tm6 13:39 Drug: morphine IVP or IV 4 mg IVP once over 4 mins Route: IVP; Infused Over: 4 mins; rs5 Site: right antecubital; 14:59 Follow up: Response: No adverse reaction tm6 13:39 Drug: Ketorolac IVP 15 mg IVP once Route: IVP; Site: right antecubital; rs5 14:59 Follow up: Response: No adverse reaction; Pain is decreased tm6 Medication: 11:42 VIS not applicable for this client. tm6 Intake: 13:08 IV: 1000ml; Total: 1000ml. tm6 Outcome: 14:31 Discharge ordered by . ec2 14:57 Discharged to home ambulatory, with family, tm6 14:57 Condition: stable 14:57 Discharge instructions given to patient, Instructed on discharge instructions, follow up and referral plans. Demonstrated understanding of instructions, follow-up care, 14:58 Patient left the ED. tm6 Signatures: Dispatcher [employer] Eryn Graff RN RN aa5 Jens Velazquez RN RN rs5 Imelda Loredo 5 Emery Pabon MD MD ec2 Aris Hollis RN RN tm6 Corrections: (The following items were deleted from the chart) 11:09 10:55 Chief complaint: Patient states: right arm and right leg numbness for aa5 approximately 2 weeks and pt states" the right side of my face and tongue are numb now and it just started 1 hour ago" aa5
--- NOTE | 2023-11-04 14:31 | EDPHYS ---
Physician Documentation [facility] Name: Amna Jenkins Jr Age: 43 yrs Sex: Male : 1980 Arrival Date: 11/04/2023 Time: 10:52 Bed 7 Private MD: ED Physician Emery Pabon HPI: 11/03 11:54 This 43 yrs old Male presents to ER via Ambulatory with complaints of ec2 Numbness, Blurred Vision, Chest Pain - Sometimes. 11:55 Patient arrives today for evaluation of right upper and lower extremity numbness has ec2 been ongoing for approximately 2 weeks. States that he is not having 1 day of worsening right facial numbness as well as right tongue numbness. Patient reports generalized weakness. Patient reports no head injuries. Patient was recently admitted here approximately 2 weeks ago for complaints of chest pain. External record review shows that patient had a CT scan of the head as well as MRI of the head. Patient reports that the facial symptoms and tongue symptoms are new today Patient also reports a chest pain that has been ongoing for this timeframe as well.. Historical: - Allergies: 10:55 No Known Allergies; aa5 - PMHx: 10:55 Atrial fibrillation; Hypertension; GI Bleed; aa5 - Immunization history:: Adult Immunizations unknown. - Infectious Disease History:: Denies. - Social history:: Smoking status: Patient denies any tobacco usage or history of. ROS: 11:55 Constitutional: as per hpi ec2 Exam: 11:55 Constitutional: GEN: NAD Head: atraumatic Eyes: EOMI Ears: External ears are ec2 normal. CV: regular rate LUNGS: no respiratory distress ABD: non-distended SKIN: no evidence of rashes MSK: no evidence of trauma. Neuro: Diminished sensation in the right upper and lower extremities. Cranial nerves II through XII intact, strength intact in all extremities, no pronator drift, no dysmetria 11:57 CT study not indicated or reported. Reason for not performing CT: mr ordered, not in ec2 stroke window 12:03 ECG was reviewed by the Attending Physician. ec2 Vital Signs: 10:55 BP 147 / 101; Pulse 75; Resp 18 S; Temp 97.5(TE); Pulse Ox 98% on R/A; Weight 103.42 kg aa5 (R); Height 5 ft. 9 in. (R); 11:44 BP 137 / 92; Pulse 75; Resp 14; Pulse Ox 97% on R/A; tm6 12:05 Pain 6/10; tm6 13:03 BP 134 / 96; Pulse 73; Resp 14; Pulse Ox 100% on R/A; Pain 6/10; tm6 13:43 BP 134 / 96; Pulse 64; Pulse Ox 96% on R/A; Pain 6/10; tm6 14:57 BP 119 / 84; Pulse 64; Resp 17; Temp 97.5; Pulse Ox 99% on R/A; Pain 4/10; tm6 10:55 Body Mass Index 33.67 (103.42 kg, 175.26 cm) aa5 12:05 Pain Scale: Adult tm6 13:03 Pain Scale: Adult tm6 13:43 Pain Scale: Adult tm6 14:57 Pain Scale: Adult tm6 MDM: 11:02 Patient medically screened. ec2 11:55 TNKase (Tenecteplase) Screening: Not Applicable. Data reviewed: vital signs. ED course: ec2 Patient arrives today for evaluation of numbness along with chest pain. Examination remarkable for neuro intact individual with diminished sensation. Given the duration of symptoms of approximately 2 weeks and 1 day of worsening today, did not proceed with a code stroke. Will obtain CT dissection protocol as well as MRA of the head and neck. Differential includes processes such as arterial pathology, dissection, ACS.. 12:03 ED course: EKG independently reviewed and interpreted by me, shows normal sinus rhythm, ec2 rate of 61, no acute ST segment elevations, intervals are nonconcerning.. 12:22 ED course: Metabolic profile reassuring, CBC reassuring, troponin within normal ranges. ec2 . 13:37 ED course: Repeat EKG independently reviewed and interpreted by me, shows normal sinus ec2 rhythm, rate of 61, no acute ST segment elevations, otherwise nonconcerning. When compared to initial EKG, appears markedly unchanged.. 14:10 ED course: Repeat troponin is static. . ec2 14:31 ED course: Repeat troponin is static. Will discharge home. Return precautions given.. ec2 11/03 11:24 Order name: Basic Metabolic Panel; Complete Time: 12:22 ec2 11/03 11:24 Order name: CBC with Diff; Complete Time: 12:22 ec2 11/03 11:24 Order name: Troponin HS; Complete Time: 12:22 ec2 11/03 13:30 Order name: Troponin High Sensitivity; Complete Time: 14:10 ec2 11/03 11:24 Order name: XRAY Chest (1 view); Complete Time: 14:30 ec2 11/03 11:30 Order name: Angio Aorta For Dissection; Complete Time: 13:28 EDMS 11/03 11:56 Order name: MRA Head Wo Cont; Complete Time: 13:28 EDMS 11/03 13:01 Order name: MRA Neck W/Wo Cont; Complete Time: 13:28 EDMS 11/03 11:24 Order name: Cardiac monitoring; Complete Time: 11:41 ec2 11/03 11:24 Order name: EKG - Nurse/Tech; Complete Time: 12:05 ec2 11/03 11:24 Order name: IV Saline Lock; Complete Time: 11:41 ec2 11/03 11:24 Order name: Labs collected and sent; Complete Time: 11:41 ec2 11/03 11:24 Order name: O2 Per Protocol; Complete Time: 11:41 ec2 11/03 11:24 Order name: O2 Sat Monitoring; Complete Time: 11:41 ec2 11/03 13:30 Order name: EKG - Nurse/Tech; Complete Time: 13:38 ec2 Administered Medications: 12:04 Drug: NS 0.9% IV 1000 ml IV at 1 bolus Per protocol; 1000 mL bolus Route: IV; Rate: 1 tm6 bolus; Site: right forearm; 13:08 Follow up: Response: No adverse reaction; IV Status: Completed infusion; IV Intake: tm6 1000ml 12:05 Drug: morphine IVP or IV 4 mg IVP once over 4 mins Route: IVP; Infused Over: 4 mins; tm6 Site: right forearm; 13:08 Follow up: Response: No adverse reaction; Pain is unchanged, physician notified tm6 13:39 Drug: morphine IVP or IV 4 mg IVP once over 4 mins Route: IVP; Infused Over: 4 mins; rs5 Site: right antecubital; 14:59 Follow up: Response: No adverse reaction tm6 13:39 Drug: Ketorolac IVP 15 mg IVP once Route: IVP; Site: right antecubital; rs5 14:59 Follow up: Response: No adverse reaction; Pain is decreased tm6 Disposition Summary: 11/04/23 14:31 Discharge Ordered Notes: Location: Home ec2 Condition: Stable ec2 Diagnosis - Chest pain, unspecified ec2 - Parasthesias ec2 Followup: ec2 - With: Private Physician - When: - Reason: Re-evaluation by your physician Discharge Instructions: - Discharge Summary Sheet ec2 - Nonspecific Chest Pain, Adult, Niwo-cb-Vcap ec2 Forms: - Medication Reconciliation Form ec2 - Antibiotic Education ec2 - Prescription Opioid Use ec2 - Patient Portal Instructions ec2 - Leadership Thank You Letter ec2 - Work release form tm6 Signatures: Dispatcher [employer] Eryn Graff RN RN aa5 Jens Velazquez RN RN rs5 Emery Pabon MD MD ec2 Aris Hollis RN RN tm6 Corrections: (The following items were deleted from the chart) 11:25 11:25 BASIC METABOLIC PANEL+C.LAB.BRZ ordered. [facility] 11:25 11:25 CBC+H.LAB.BRZ ordered. [facility] 11:25 11:25 Troponin High Sensitivity+C.LAB.BRZ ordered. [facility] 11:25 11:25 Chest Single View+RAD.RAD.BRZ ordered. [facility] 11:25 11:25 Neck Angio+CT.RAD.BRZ ordered. [facility] 11:57 11:55 Patient arrives today for evaluation of right upper and lower extremity numbness ec2 has been ongoing for approximately 2 weeks. States that he is not having 1 day of worsening right facial numbness as well as right tongue numbness. Patient reports generalized weakness. Patient reports no head injuries. Patient was recently admitted here approximately 2 weeks ago for complaints of chest pain. External record review shows that patient had a CT scan of the head as well as MRI of the head. Patient reports that the facial symptoms and tongue symptoms are new today . ec2 13:01 11:56 MRA Neck With Cont ordered. [facility]
[2023-11-04 15:24] VITALS: TEMP 97.5
[2023-11-04 15:32] VITALS: BP 119/84; O2SAT 99
--- NOTE | 2023-11-07 12:57 | EKG ---
Test Date: 2023-11-04 Test Time: 13:33:37 Corporate Sales Manager: MARIELENA MEASUREMENT RESULTS: Intervals: Rate: 61 CO: 212 QRSD: 114 QT: 394 QTc: 396 [place]: P: 52 CO: 212 QRS: 44 T: 33 INTERPRETIVE STATEMENTS: Sinus rhythm with 1st degree AV block Otherwise normal ECG Compared to ECG 11/04/2023 11:56:57 First degree AV block now present Electronically Signed On 11-07-23 12:49:43 CDT by Beto Serrano
--- NOTE | 2023-11-07 12:59 | EKG ---
Test Date: 2023-11-04 Test Time: 11:56:57 Engine Repairer: VELASQUEZ MEASUREMENT RESULTS: Intervals: Rate: 61 [place]: 204 QRSD: 116 QT: 392 QTc: 394 [place]: P: 52 [place]: 204 QRS: 36 T: 28 INTERPRETIVE STATEMENTS: Normal sinus rhythm Normal ECG Compared to ECG 10/24/2023 18:12:38 No significant changes Electronically Signed On 11-07-23 12:50:13 CDT by Beto Serrano
== END 2023-11-04 14:58 | disposition home or self-care (01) ==
LOC: ER 10:52
DX: R07.9 Chest pain, unspecified (principal); R20.2 Paresthesia of skin; I10 Essential (primary) hypertension; I48.91 Unspecified atrial fibrillation
CPT/HCPCS: 93005 ×2; 85025; 80048; 36415; 84484 ×2; 71275; 74175; 71045; 70544; 70549; 99285; Q9967; A9577; J7030

== ENCOUNTER 2024-01-22 09:00 | Emergency (ER) | payer BC, OTHER ==
--- OUTSIDE RECORDS SUMMARY | 2024-01-22 09:04 | XMS REPORT | Continuity of Care Document ---
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 result as normal/abnormal. GRAN MAT (NEUT) % (test code = 770-8) 70.3 % IMM GRAN % (test code = 6064489399) 0.40 % LYMPH % (test code = 736-9) 19.8 % MONO % (test code = 5905-5) 6.7 % EOS % (test code = 713-8) 1.8 % BASO % (test code = 706-2) 1.0 % GRAN MAT x10^3(ANC) (test code = 4988177238) 5.45 10*3/uL 1.99-6.95 IMM GRAN x10^3 (test code = 1476585720) 0.03 10*3/uL 0-0.06 LYMPH x10^3 (test code = 731-0) 1.54 10*3/uL 1.09-3.23 MONO x10^3 (test code = 742-7) 0.52 10*3/uL 0.36-1.02 EOS x10^3 (test code = 711-2) 0.14 10*3/uL 0.06-0.53 BASO x10^3 (test code = 704-7) 0.08 10*3/uL 0.01-0.09 Lab Interpretation (test code = 51996-3) Abnormal [facility] Notes Date/Time Note Provider Source 2023-11-09 11:29:54 Chief Complaint Patient presents with [facility] F/U [facility] 11/04/2023 Numbness The whole right side of his body Sees dr. Hernandez 12/07/23 [facility] 2023-04-27 11:30:00 Nater collection only [facility] 2022-09-28 20:56:02 Formatting of this n ote [...] noted upon discharge Pt ambulated to the [facility] with steady gait Marlen Patel RN [facility] 2022-09-28 18:26:10 Formatting of this n ote [...] care. Mirta Webb RN Mirta Webb RN [facility] 2022-09-28 17:26:15 Formatting of this n ote might be different from the original. Pt to ed via pov. Alert and ambulatory. Vss. C/o chest pain radiating to back and dizziness. Onset approx 2 weeks but has gotten increasingly worse. Took one nitro this morning around 1030 am. States it did help slightly. IT Christy Fernandez RN [facility]
--- NOTE | 2024-01-22 09:13 | EDPHYS ---
Physician Documentation [facility] Name: Amna Jenkins Jr Age: 43 yrs Sex: Male : 1980 Arrival Date: 01/22/2024 Time: 09:00 Bed 5 Private MD: ED Physician Gal Francisco HPI: 01/21 09:06 This 43 yrs old Male presents to ER via Unassigned with complaints of Mouth Problem. kb 09:06 Pt is a 43 year old male who presents for dental pain and swelling to left upper side kb for 3 days. Denies fever. States he feels like the swelling is getting worse. No aggravating or alleviating factors. . Historical: - Allergies: :21 No Known Allergies; ss - PMHx: :21 Atrial fibrillation; GI Bleed; Hypertension; ss - Immunization history:: Adult Immunizations up to date. - Infectious Disease History:: Denies. - Social history:: Smoking status: Patient denies any tobacco usage or history of. ROS: 09:06 Constitutional: As per HPI kb Exam: 09:06 Constitutional: This is a well developed, well nourished patient who is awake, alert, kb and in no acute distress. Head/Face: Normocephalic, atraumatic. Cardiovascular: Regular rate Respiratory: Respirations even and unlabored. No increased work of breathing. Talking in full sentences Skin: Warm, dry with normal turgor. Normal color. MS/ Extremity: Pulses equal, no cyanosis. Neurovascular intact. Full, normal range of motion. Neuro: Awake and alert, GCS 15, oriented to person, place, time, and situation. 09:06 ENT: Dental exam: abscess, that is mild, specifically in the upper left lateral incisor (#10), gum swelling, pain, Vital Signs: 09:18 BP 136 / 98; Pulse 88; Resp 16; Temp 98.2(TE); Pulse Ox 99% on R/A; Weight 102.06 kg; ss Height 5 ft. 9 in. ; Pain 7/10; 09:18 Body Mass Index 33.23 (102.06 kg, 175.26 cm) ss 09:18 Pain Scale: Adult ss MDM: 09:04 Medical Screening Exam initiated kb 09:11 Data reviewed: vital signs, nurses notes. kb 09:12 Differential diagnosis: dental caries, gingivitis, dental abscess, pericoronitis, kb aphthous ulcers. Counseling: I had a detailed discussion with the patient and/or guardian regarding the historical points, exam findings, and any diagnostic results supporting the discharge/admit diagnosis, the need for outpatient follow up, a dentist, to return to the emergency department if symptoms worsen or persist or if there are any questions or concerns that arise at home. Administered Medications: 09:19 Drug: Amoxicillin-Clavulanate PO 875 mg PO once Route: PO; bp 09:25 Follow up: Response: No adverse reaction bp Disposition Summary: 01/22/24 09:12 Discharge Ordered Notes: Location: Home kb Condition: Stable kb Diagnosis - Dental Abscess kb Followup: kb - With: Emergency Department - When: As needed - Reason: Worsening of condition Followup: kb - With: Private Physician - When: 2 - 3 days - Reason: Recheck today's complaints, Continuance of care, Re-evaluation by your physician Discharge Instructions: - Discharge Summary Sheet kb - Dental Abscess, [id number]-[id number]-Ucxe kb Forms: - Medication Reconciliation Form kb - Antibiotic Education kb - Prescription Opioid Use kb - Patient Portal Instructions kb - Leadership Thank You Letter kb Prescriptions: - Augmentin 875-125 mg Oral Tablet - take 1 tablet ORAL route every 12 hours for 10 days; 20 tablet; Refills: 0, kb Product Selection Permitted Signatures: Lisbet Moura FNP-C FNP-Carmen Thomas, RN RN ss Parker Keenan, RN RN bp
[2024-01-22] MEDS ORDERED: AMOX/K CLAV 875 MG TAB ONE (09:17)
--- NOTE | 2024-01-22 09:26 | ER ---
Nurse's Notes [facility] Name: Amna Jenkins Jr Age: 43 yrs Sex: Male : 1980 Arrival Date: 01/22/2024 Time: 09:00 Bed 5 Private MD: Diagnosis: Dental Abscess Presentation: 01/21 09:18 Chief complaint: Patient states: pain and swelling to L side of face and upper gums ss that began 2 days ago. Coronavirus screen: Client denies travel out of the [place] in the last 14 days. Ebola Screen: Patient denies exposure to infectious person. Patient denies travel to an Ebola-affected area in the 21 days before illness onset. Initial Sepsis Screen: Does the patient meet any 2 criteria? No. Patient's initial sepsis screen is negative. Does the patient have a suspected source of infection? No. Patient's initial sepsis screen is negative. Risk Assessment: Do you want to hurt yourself or someone else? Patient reports no desire to harm self or others. Onset of symptoms was January 20, 2024. 09:18 Method Of Arrival: Ambulatory ss 09:18 Acuity: NEYDA 5 ss Historical: - Allergies: 09:21 No Known Allergies; ss - PMHx: 09:21 Atrial fibrillation; GI Bleed; Hypertension; ss - Immunization history:: Adult Immunizations up to date. - Infectious Disease History:: Denies. - Social history:: Smoking status: Patient denies any tobacco usage or history of. Screenin:24 [facility] ED Fall Risk Assessment (Adult) History of falling in the last 3 months, bp including since admission No falls in past 3 months (0 pts) Confusion or Disorientation No (0 pts) Intoxicated or Sedated No (0 pts) Impaired Gait No (0 pts) Mobility Assist Device Used No (0 pt) Altered Elimination No (0 pt) Score/Fall Risk Level 0 - 2 = Low Risk Oriented to surroundings. Abuse screen: Denies threats or abuse. Denies injuries from another. Nutritional screening: No deficits noted. Tuberculosis screening: No symptoms or risk factors identified. Assessment: 09:24 General: Appears in no apparent distress. comfortable, Behavior is calm, cooperative, bp appropriate for age. Pain: Complains of pain in upper left lateral incisor (#10). Neuro: No deficits noted. Cardiovascular: No deficits noted. Respiratory: No deficits noted. GI: No signs and/or symptoms were reported involving the gastrointestinal system. : No signs and/or symptoms were reported regarding the genitourinary system. EENT: No deficits noted. Derm: No deficits noted. Musculoskeletal: No deficits noted. Vital Signs: 09:18 BP 136 / 98; Pulse 88; Resp 16; Temp 98.2(TE); Pulse Ox 99% on R/A; Weight 102.06 kg; ss Height 5 ft. 9 in. ; Pain 7/10; 09:18 Body Mass Index 33.23 (102.06 kg, 175.26 cm) ss 09:18 Pain Scale: Adult ss ED Course: 09:03 Patient arrived in ED. mr 09:04 Lisbet Moura FNP-C is [facility]. kb 09:04 Gal Francisco MD is Attending Physician. kb 09:09 Parker Keenan, RN is Primary Nurse. bp 09:20 Triage completed. ss 09:21 Arm band placed on right wrist. ss 09:24 Patient has correct armband on for positive identification. bp 09:24 No provider procedures requiring assistance completed. Patient did not have IV access bp during this emergency room visit. Administered Medications: 09:19 Drug: Amoxicillin-Clavulanate PO 875 mg PO once Route: PO; bp 09:25 Follow up: Response: No adverse reaction bp Medication: 09:24 VIS not applicable for this client. bp Outcome: 09:12 Discharge ordered by . kb 09:24 Discharged to home ambulatory, bp 09:24 Condition: stable 09:24 Discharge instructions given to patient, Instructed on discharge instructions, follow up and referral plans. medication usage, Demonstrated understanding of instructions, follow-up care, medications, Prescriptions given X 1, 09:25 Patient left the ED. bp Signatures: Lisbet Moura FNP-C FIELD SERVICE SUPERVISOR-Ckb Frank Candy, Reg Reg Carmen Rai, RN RN Parker Keenan, RN RN bp
[2024-01-22 11:44] VITALS: BP 136/98; TEMP 98.2; O2SAT 99
== END 2024-01-22 09:25 | disposition home or self-care (01) ==
LOC: ER 09:00
DX: K04.7 Periapical abscess without sinus (principal)
CPT/HCPCS: 99283

== ENCOUNTER 2024-11-19 20:46 | Emergency (ER) | payer BC, OTHER ==
--- OUTSIDE RECORDS SUMMARY | 2024-11-19 20:58 | XMS REPORT | Continuity of Care Document ---
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 Chey Seybold - External Respiratory rate 2023-05-23 19:15:00 15 /min Chey Seybold - External Body height 2023-05-23 19:15:00 175.3 cm Chey Seybold - External Body weight 2023-05-23 19:15:00 103.874 kg Chey Seybold - External BMI 2023-05-23 19:15:00 33.82 kg/m2 Chey Seybold - External Oxygen saturation in Arterial blood by Pulse oximetry 2023-05-23 19:15:00 100 /min Chey Seybold - External Heart rate 2023-05-23 19:15:00 91 /min Chey Seybold - Felix Systolic blood pressure 2022-09-28 23:00:00 130 mm[Hg] [facility] Diastolic blood pressure 2022-09-28 23:00:00 93 mm[Hg] [facility] Heart rate 2022-09-28 23:00:00 99 /min [facility] Body temperature 2022-09-28 23:00:00 37.06 Chelsy [facility] Respiratory rate 2022-09-28 23:00:00 16 /min [facility] Oxygen saturation in Arterial blood by Pulse oximetry 2022-09-28 23:00:00 98 /min [facility] Body height 2022-09-28 22:29:00 175.3 cm [facility] Body weight 2022-09-28 22:29:00 88.905 kg [facility] BMI 2022-09-28 22:29:00 28.94 kg/m2 [facility] Systolic blood pressure 2021-09-17 16:42:00 133 mm[Hg] [facility] Diastolic blood pressure 2021-09-17 16:42:00 80 mm[Hg] [facility] Heart rate 2021-09-17 16:42:00 57 /min [facility] Body temperature 2021-09-17 16:42:00 36.22 Chelsy [facility] Respiratory rate 2021-09-17 16:42:00 18 /min [facility] Oxygen saturation in Arterial blood by Pulse oximetry 2021-09-17 16:42:00 97 /min [facility] Body weight 2021-09-17 09:08:00 112.492 kg [facility] BMI 2021-09-17 09:08:00 35.58 kg/m2 [facility] Body height 2021-09-17 00:56:00 177.8 cm [facility] BP Systolic 2024-07-24 17:11:00 135 mm[Hg] Nathan Espitia BP Diastolic 2024-07-24 17:11:00 83 mm[Hg] Nathan Espitia Weight Measured 2024-07-24 17:11:00 229.80 pounds Nathan Espitia Height Measured 2024-07-24 17:11:00 70.00 inches Nathan Espitia Body Temperature 2024-07-24 17:11:00 98.30 degrees Nathan Espitia Heart Rate 2024-07-24 17:11:00 81.00 /min Nathan Espitai Respiratory Rate 2024-07-24 17:11:00 18.00 /min Nathan Espitia Respiratory Rate 2024-05-22 16:29:00 18.00 /min Nathan Espitia BP Systolic 2024-05-22 16:29:00 125 mm[Hg] Nathan Espitia BP Diastolic 2024-05-22 16:29:00 79 mm[Hg] Nathan Espitia Weight Measured 2024-05-22 16:29:00 235.00 pounds Nathan Espitia Height Measured 2024-05-22 16:29:00 70.00 inches Nathan Espitia Body Temperature 2024-05-22 16:29:00 98.90 degrees Nathan Espitia Heart Rate 2024-05-22 16:29:00 73.00 /min Nathan Espitia Procedures Procedure Date / Time Performed Performing Clinician Source US ABDOMEN LIMITED 2024-10-24 15:57:39 John Mckay [facility] XR LUMBAR SPINE 2 VW 2024-10-08 06:02:14 Anish Guerrier [facility] URINALYSIS 2024-10-08 06:02:00 Anish Guerrier [facility] MOTILITY REPORTS EPIC 2024-10-02 14:55:36 Doctor Unassigned, [place] [facility] ESOPHAGEAL MANOMETRY 2024-09-19 13:58:00 Motility, Endoscopy [facility] MR CERVICAL SPINE WO CONTRAST 2024-09-07 14:57:08 Parker Sotelo [facility] CT ABDOMEN PELVIS W CONTRAST 2024-08-22 23:24:13 Iva Knowles [facility] XR CHEST 2 VW 2024-08-22 23:11:21 Iva Knowles [facility] LIPASE 2024-08-22 22:19:00 Iva Knowles [facility] COMP. METABOLIC PANEL (01253) 2024-08-22 22:19:00 Iva Knowles [facility] CBC WITH DIFF 2024-08-22 22:19:00 Iva Knowles [facility] URINALYSIS 2024-08-22 22:19:00 Iva Knowles [facility] XR CERVICAL SPINE 2 VW 2024-08-01 20:44:19 Zeinab Fernandez [facility] ENDOSCOPY PROCEDURE DOCUMENTATION 16 14:59:24 Doctor Unassigned, [place] [facility] EGD (ENDO) 2024-06-05 18:35:16 Pcp, Patient Does Not Have A [facility] EGD (ENDO) 2024-06-05 18:35:16 Pcp, Patient Does Not Have A [facility] ESOPHAGOGASTRODUODENOSCOPY 2024-06-05 17:50:00 Balta Gross [facility] PHYSICIAN ORDERS 2024-03-27 19:16:04 Doctor Unassigned, [place] [facility] POCT URINALYSIS AUTO 2024-03-21 21:14:00 Espinoza Carcamo [facility] CT ABDOMEN PELVIS W CONTRAST 2024-02-20 22:54:51 John Mckay [facility] SCANNED LAB RESULTS 2023-06-21 18:58:58 Doctor Unassigned, [place] [facility] TROPONIN I 2022-09-29 00:57:00 Leslie [facility] XR CHEST 1 VW 2022-09-28 22:52:00 Leslie [facility] TROPONIN I 2022-09-28 22:44:00 Leslie [facility] CBC WITH DIFF 2022-09-28 22:44:00 Leslie [facility] D-DIMER 2022-09-28 22:44:00 Leslie [facility] CONSENT/REFUSAL FOR DIAGNOSI S AND TREATMENT 2022-09-28 22:25:13 Doctor Unassigned, [place] [facility] CT ANGIOGRAPHY CORONARIES WI TH CARDIAC CALCIUM SCORE 2021-09-17 18:22:48 Zhang Guzman [facility] TRANSTHORACIC ECHO (TTE) COMPLETE 09-17 12:51:00 Carlos Manuel Luciano [facility] URINE DRUG (IMMUNOASSAY) - COMPREHENSIVE DRUG SCREEN 2021-09-17 12:11:[address] [facility] CBC WITH DIFF 2021-09-17 10:53:[address] [facility] TROPONIN I 2021-09-17 09:12:[address] [facility] BASIC METABOLIC PANEL (NA, K , CL, CO2, GLUCOSE, BUN, CREATININE, CA) 2021-09-17 09:12:[address] [facility] TROPONIN I 2021-09-17 05:14:[address] [facility] XR CHEST 1 VW 2021-09-16 21:41:58 Nara Paige [facility] MAGNESIUM 2021-09-16 20:46:00 Nara Paige Lydia [facility] TROPONIN I 2021-09-16 20:46:00 Nara Paige [facility] COMP. METABOLIC PANEL ([id number]) 2021-09-16 20:46:00 Nara Paige [facility] CBC WITH DIFF 2021-09-16 20:46:00 Nara Paige [facility] URINALYSIS 2021-09-16 20:46:00 Nara Paige Lydia [facility] N-TERMINAL PRO-BNP 2021-09-16 20:46:00 Nara Paige [facility] COVID-19 (ID NOW RAPID TESTING) 20:46:00 Nara Paige [facility] LAB ONLY COVID INTERPRETATION 2021-09-16 20:46:00 Nara Paige [facility] HB ECG ROUTINE & RHYTHM STRIP 2021-09-16 20:08:21 Nara Paige [facility] NOTICE OF PRIVACY PRACTICES 2021-09-16 19:42:18 Doctor Unassigned, [place] [facility] Encounters Start Date/Time End Date/Time Encounter Type Admission Type Attending Clinicians Care Facility Care Department Encounter ID Source 2024-11-23 09:00:00 2024-11-23 09:00:00 Outpatient GLO DUQUE CHEY [id number] Chey Seoctaviohaily 2024-11-13 00:00:00 2024-11-13 00:00:00 Outpatient VERO HERNANDEZ [facility] [id number] [facility] 2024-11-05 00:00:00 2024-11-05 00:00:00 Outpatient ROSIE SAL [facility] [id number] [facility] 2024-10-30 00:00:00 2024-10-30 13:47:07 Telephone Rosie Allen [facility] 1..840.114 350.1.13.10 4.2.7.2.686 [id number] [facility] 2024-10-29 15:15:00 2024-10-29 15:15:00 Outpatient FIDEL OTTO CRAIG [facility] [id number] [facility] 2024-10-26 16:21:25 2024-10-26 16:21:25 Outpatient SFA [id number] Nathan Espitia 2024-10-26 00:00:00 2024-10-26 00:00:00 Outpatient CHAD BAUTISTA CHEY CHEY [id number] Cheystalin Beltrán 2024-10-25 00:00:00 2024-10-25 11:42:13 Letter (Out) [facility] 1..840.114 350.1.13.10 4.2.7.2.686 [id number] [facility] 2024-10-24 10:01:56 2024-10-24 23:59:00 Hospital Encounter JOHN ROTHMAN LAUREN [facility] 1..840.114 350.1.13.10 4.2.7.2.686 [id number] [facility] 2024-10-17 13:30:00 2024-10-17 13:45:00 Otr Flatbed Driver Visit R [facility] Edgardo John [facility] 1.2.840.114 350.1.13.10 4.2.7.2.686 [id number] [facility] 2024-10-17 13:00:00 2024-10-17 13:26:12 Office Visit R JOHN MCKAY LAUREN [facility]) 1.2.840.114 350.1.13.10 4.2.7.2.686 [id number] [facility] 2024-10-16 00:00:00 2024-10-16 16:00:09 Telephone Rosie Allen [facility] 1.2.840.114 350.1.13.10 4.2.7.2.686 [id number] [facility] 2024-09-06 00:00:00 2024-10-13 18:39:06 Patient Secure Msg Doctor Unassigned, [place] Doctor Unassigned, [place] [facility] 1.2.840.114 350.1.13.10 4.2.7.2.686 [id number] [facility] 2024-10-11 09:30:00 2024-10-11 09:43:14 Office Visit VERO HERNANDEZ [facility] 1.2.840.114 350.1.13.10 4.2.7.2.686 [id number] [facility] 2024-10-08 00:20:00 2024-10-08 02:44:00 Emergency X ANISH GUERRIER SHEENA [facility] ERT [id number] [facility] 2024-10-07 00:00:00 2024-10-07 23:07:07 Nurse Triage Velia Kelsey Jenny L [facility] 1.2.840.114 350.1.13.10 4.2.7.2.686 [id number] [facility] 2024-10-05 10:30:00 2024-10-05 10:59:29 Office Visit Rosie Sal [facility] 1.2.840.114 350.1.13.10 4.2.7.2.686 [id number] [facility] 2024-10-02 00:00:00 2024-10-03 02:04:05 Orders Only Doctor Unassigned, [place] Doctor Unassigned, [place] [facility] 1.2.840.114 350.1.13.10 4.2.7.2.686 [id number] [facility] 2024-09-28 00:00:00 2024-09-28 16:38:16 Telephone Parker Sotelo [facility] 1.2.840.114 350.1.13.10 4.2.7.2.686 [id number] [facility] 2024-09-20 00:00:00 2024-09-21 10:19:01 Telephone John Mckay [facility]) 1.2.840.114 350.1.13.10 4.2.7.2.686 [id number] [facility] 2024-09-19 00:00:00 2024-09-19 16:54:46 Telephone John Mckay [facility]) 1.2.840.114 350.1.13.10 4.2.7.2.686 [id number] [facility] 2024-09-19 09:00:00 2024-09-19 11:00:00 Surgery Motility, Endoscopy [facility] 1.2.840.114 350.1.13.10 4.2.7.2.686 [id number] [facility] 2024-09-19 08:24:00 2024-09-19 10:46:00 Hospital Encounter R Matt Nance [facility] 1.2840.114 350.1.13.10 4.2.7.2.686 [id number] [facility] 2024-09-12 14:40:00 2024-09-12 14:40:00 Office Visit Parker Gu [facility] 1.20.114 350.1.13.10 4.2.7.2.686 [id number] [facility] 2024-09-07 08:39:52 2024-09-07 23:59:00 Hospital Encounter PARKER GU [facility] 1.0.114 350.1.13.10 4.2.7.2.686 [id number] [facility] 2024-08-29 15:20:00 2024-08-29 15:20:00 Outpatient PARKER GU [facility] [id number] [facility] 2024-08-22 16:27:00 2024-08-22 20:34:00 Emergency X ELENI, IVA KNOWLES, IVA [facility] ERT [id number] [facility] 2024-08-10 00:00:00 2024-08-10 00:00:00 Outpatient JOHN ROTHMAN LAUREN [facility] [id number] [facility] 2024-08-01 15:35:03 2024-08-01 23:59:00 Hospital Encounter R Zeinab Fernandez [facility] 1.2840.114 350.1.13.10 4.2.7.2.686 [id number] [facility] 2024-08-01 16:00:00 2024-08-01 16:17:25 Office Visit Alexsandra Parker Sotelo [facility] 1.2840.114 350.1.13.10 4.2.7.2.686 [id number] [facility] 2024-08-01 14:45:00 2024-08-01 15:34:00 Hospital Encounter Alexsandra Parker Sotelo [facility] 1.2840.114 350.1.13.10 4.2.7.2.686 [id number] [facility] 2024-07-25 14:00:00 2024-07-25 14:00:00 Outpatient CHONG PIZARRO BRIA [facility] [id number] [facility] 2024-07-24 17:02:55 2024-07-24 17:02:55 Outpatient SFA SFA [id number] Nathan Espitia 2024-07-24 00:00:00 2024-07-24 00:00:00 Outpatient Visit SFA [id number] Nathan Espitia 2024-06-18 00:00:00 2024-07-21 18:20:56 Patient Secure Msg Doctor Unassigned, [place] Doctor Unassigned, [place] [facility] 1.840.114 350.1.13.10 4.2.7.2.686 [id number] [facility] 2024-06-19 00:00:00 2024-07-21 18:18:29 Patient Secure Msg John Mckay [facility] ([facility]) 1.2.840.114 350.1.13.10 4.2.7.2.686 [id number] [facility] 2024-06-08 00:00:00 2024-07-14 18:24:42 Patient Secure Msg Balta Gross [facility] 1.2.840.114 350.1.13.10 4.2.7.2.686 [id number] [facility] 2024-05-30 00:00:00 2024-06-30 18:14:43 Patient Secure Msg Doctor Unassigned, [place] Doctor Unassigned, [place] [facility] ([facility] 1.2.840.114 350.1.13.10 4.2.7.2.686 [id number] [facility] 2024-06-22 14:00:00 2024-06-22 14:00:00 Outpatient SANJUANITA JACKSON [facility] [id number] [facility] 2024-06-18 08:07:52 2024-06-18 23:59:00 Outpatient JOHN ROTHMAN LAUREN [facility] [id number] [facility] 2024-06-18 08:00:00 2024-06-18 23:59:00 Hospital Encounter John Mckay [facility] 1.2.840.114 350.1.13.10 4.2.7.2.686 [id number] [facility] 2024-06-11 09:30:00 2024-06-11 10:00:00 Office Visit John Mckay [facility] ([facility]) 1.2.840.114 350.1.13.10 4.2.7.2.686 [id number] [facility] 2024-06-11 09:30:00 2024-06-11 09:30:00 Outpatient JOHN ROTHMAN LAUREN [facility] [id number] [facility] 2024-06-06 00:00:00 2024-06-07 02:04:06 Orders Only Doctor Unassigned, [place] Doctor Unassigned, [place] [facility] 1.2.840.114 350.1.13.10 4.2.7.2.686 [id number] [facility] 2024-06-05 12:24:00 2024-06-05 14:52:00 Outpatient R BALTA GROSS GABRIEL [facility] GIE [id number] [facility] 2024-06-05 12:24:00 2024-06-05 14:52:00 Hospital Encounter Balta Gross [facility] 1.2.840.114 350.1.13.10 4.2.7.2.686 [id number] [facility] 2024-06-05 13:00:00 2024-06-05 13:45:00 Surgery Balta Gross [facility] 1.2.840.114 350.1.13.10 4.2.7.2.686 [id number] [facility] 2024-06-04 00:00:00 2024-06-04 15:00:01 Telephone John Mckay [facility] ([facility]) 1.2.840.114 350.1.13.10 4.2.7.2.686 [id number] [facility] 2024-05-22 16:21:28 2024-05-22 16:21:28 Outpatient SFA SFA [id number] Nathan Espitia 2024-05-22 00:00:00 2024-05-22 00:00:00 Outpatient Visit SFA [id number] Nathan Singer Omkar 2024-05-10 00:00:00 2024-05-16 08:07:12 Telephone John Mckay [facility] ([facility]) 1.2.840.114 350.1.13.10 4.2.7.2.686 [id number] [facility] 2024-05-14 00:00:00 2024-05-15 09:12:02 Telephone Espinoza Carcamo [facility] 1.2.840.114 350.1.13.10 4.2.7.2.686 [id number] [facility] 2024-05-04 00:00:00 2024-05-04 00:00:00 Outpatient ANDRES BAUTISTAAND CHEY DRAKE [id number] Chey [facility] 2024-04-17 00:00:00 2024-04-17 00:00:00 Outpatient CHAD BAUTISTA [id number] Chey haily 2024-04-16 00:00:00 2024-04-16 00:00:00 Outpatient JOHN ROTHMAN LAUREN [facility] [id number] [facility] 2024-04-13 00:00:00 2024-04-13 09:48:56 Telephone [facility]ckay [facility]) 1.2.840.114 350.1.13.10 4.2.7.2.686 [id number] [facility] 2024-04-10 00:00:00 2024-04-11 10:11:44 Telephone [facility] Mckay [facility]) 1.2.840.114 350.1.13.10 4.2.7.2.686 [id number] [facility] 2024-03-27 00:00:00 2024-04-07 06:10:44 Orders Only Doctor Unassigned, [place] Doctor Unassigned, [place] [facility] 1.2.840.114 350.1.13.10 4.2.7.2.686 [id number] [facility] 2023-06-21 00:00:00 2024-04-07 02:08:32 Orders Only Doctor Unassigned, [place] Doctor Unassigned, [place] [facility] 1.2.840.114 350.1.13.10 4.2.7.2.686 [id number] [facility] 2024-04-06 00:00:00 2024-04-06 09:32:01 [facility] 1.2.840.114 350.1.13.10 4.2.7.2.686 [id number] [facility] 2024-04-02 00:00:00 2024-04-05 13:52:30 Telephone John Mckay [facility]) 1.2.840.114 350.1.13.10 4.2.7.2.686 [id number] [facility] 2024-04-04 00:00:00 2024-04-05 09:01:[address] 1.2.840.114 350.1.13.10 4.2.7.2.686 [id number] [facility] 2024-03-27 00:00:00 2024-03-27 11:56:15 Telephone Alexei Echeverriaammed [facility] 1.2.840.114 350.1.13.10 4.2.7.2.686 [id number] [facility] 2024-03-22 00:00:00 2024-03-22 15:14:32 Telephone Espinoza Carcamo [facility] 1.2.840.114 350.1.13.10 4.2.7.2.686 [id number] [facility] 2024-03-21 15:00:00 2024-03-21 16:18:02 Outpatient R ESPINOZA CARCAMO [facility] [id number] [facility] 2024-03-21 15:00:00 2024-03-21 16:18:02 Office Visit Espinoza Carcamo Rm2, Adc Surg Proc Rm2, Adc Surg [facility] 1.2.840.114 350.1.13.10 4.2.7.2.686 [id number] [facility] 2024-03-20 09:15:00 2024-03-20 09:15:00 Outpatient R JOHN MCKAY [facility] [id number] [facility] 2024-03-16 08:30:00 2024-03-16 09:00:00 Office Visit John Mckay [facility] ([facility] 1.840.114 350.1.13.10 4.2.7.2.686 [id number] [facility] 2024-03-16 08:30:00 2024-03-16 08:30:00 Outpatient R JOHN MCKAY [facility] [id number] [facility] 2024-02-27 00:00:00 2024-03-15 14:35:14 Letter (Out) Eliseo [facility] 1.2.840.114 350.1.13.10 4.2.7.2.686 [id number] [facility] 2024-02-27 15:39:39 2024-02-27 23:59:00 Outpatient R [facility] [id number] [facility] 2024-02-27 15:39:39 2024-02-27 23:59:00 Hospital Encounter Eliseo [facility] 1.2.840.114 350.1.13.10 4.2.7.2.686 [id number] [facility] 2024-02-21 00:00:00 2024-02-21 10:11:29 [facility] FOR[facility]LY [facility] 1.2.840.114 350.1.13.10 4.2.7.2.686 [id number] [facility] 2024-02-21 09:00:00 2024-02-21 10:10:06 Outpatient R [facility]O [facility] [id number] [facility] 2024-02-21 09:00:00 2024-02-21 10:10:06 Office Visit Eliseo [facility] 1.2.840.114 350.1.13.10 4.2.7.2.686 [id number] [facility] 2024-02-20 16:12:00 2024-02-20 23:59:00 Outpatient JOHN ROTHMAN LAUREN [facility] [id number] [facility] 2024-02-20 16:12:00 2024-02-20 23:59:00 [facility] John Mckay [facility] 1.2.840.114 350.1.13.10 4.2.7.2.686 [id number] [facility] 2024-02-20 16:45:00 2024-02-20 17:00:00 Otr Flatbed Driver Visit Pob, Adc Lab John Munoz Pob, Adc Lab Main [facility] 1.2.840.114 350.1.13.10 4.2.7.2.686 [id number] [facility] 2024-02-17 09:45:00 2024-02-17 09:45:00 Outpatient JOHN ROTHMAN LAUREN [facility] [id number] [facility] 2024-02-17 09:45:00 2024-02-17 09:45:00 Otr Flatbed Driver Visit [facility] 1.2.840.114 350.1.13.10 4.2.7.2.686 [id number] [facility] 2024-02-17 00:00:00 2024-02-17 08:59:13 Letter (Out) Doctor Unassigned, [place] Doctor Unassigned, [place] [facility] 1.2.840.114 350.1.13.10 4.2.7.2.686 [id number] [facility] 2024-02-17 08:30:00 2024-02-17 08:30:00 Office Visit [facility]MAN [facility]) 1.2.840.114 350.1.13.10 4.2.7.2.686 [id number] [facility] 2024-02-07 11:00:00 2024-02-07 11:47:25 Outpatient ESPINOZA HART [facility] [id number] [facility] 2024-02-07 11:00:00 2024-02-07 11:47:25 Office Visit Espinoza Carcamo [facility] 1.2840.114 350.1.13.10 4.2.7.2.686 [id number] [facility] 2023-12-09 00:00:00 2023-12-09 00:00:00 Outpatient CHAD BAUTISTA [id number] Chey Beltrán 2023-11-10 00:00:00 2023-11-10 00:00:00 Outpatient CHEY DRAKE [id number] Chey Beltrán 2023-11-10 00:00:00 2023-11-10 00:00:00 [facility] [id number] [facility]23-11-09 13:00:00 2023-11-09 13:00:00 Outpatient LAB90 CHEY DRAKE [id number] Chey Beltrán 2023-11-09 11:30:00 2023-11-09 11:30:00 Outpatient PREZAS, CHAD DRAKE [id number] [facility] 2023-11-04 00:00:00 2023-11-04 00:00:00 Outpatient PREZAS, CHAD DRAKE [id number] [facility] 2023-08-01 00:00:00 2023-08-01 00:00:00 Outpatient PREZAS, CHAD DRAKE [id number] Chey [facility]aily 2023-07-05 13:45:00 2023-07-05 13:45:00 Outpatient PREZAS, CHAD DRAKE [id number] [facility] 2023-06-19 00:00:00 2023-06-19 00:00:00 Outpatient PREZAS, CHAD DRAKE [id number] [facility] 2023-05-26 00:00:00 2023-05-26 00:00:00 Outpatient PREZAS, CHAD DRAKE [id number] [facility] 2023-05-24 08:40:00 2023-05-24 08:40:00 Outpatient LAB90 CHEY DRAKE [id number] [facility] 2023-05-23 14:15:00 2023-05-23 14:15:00 Outpatient PREZAS, CHAD DRAKE [id number] Chey [facility] 2023-04-27 11:30:00 2023-04-27 12:36:11 Outpatient R JOHNATHAN SANCHEZ VIEN [facility] [id number] [facility] 2023-04-27 11:30:00 2023-04-27 11:45:00 Otr Flatbed Driver Visit 2, Adc Lab Johnathan Sanchez [facility] 1.2.840.114 350.1.13.10 4.2.7.2.686 [id number] [facility] 2022-09-28 17:33:00 2022-09-28 20:57:00 Emergency X LEROY LANGLEY [facility] ERT [id number] [facility] 2022-09-28 17:33:00 2022-09-28 20:57:[address] [facility] 1.2.840.114 350.1.13.10 4.2.7.2.686 [id number] [facility] 2021-09-16 15:05:00 2021-09-17 15:50:00 Outpatient X YE CARLOS MANUEL [facility] LEON [id number] [facility] 2021-09-16 15:05:00 2021-09-17 15:50:00 Emergency Grecia, K Lydianannette Luciano [facility] 1.2.840.114 350.1.13.10 4.2.7.2.686 [id number] [facility] Results Test Description Test Time Test Comments Results Result Comments Source US Abdomen limited 2024-10 21:02:2 2 EXAM: US ABDOMEN LIMITED HISTORY: 44 years-old Male; epigastric pain, vomiting, normal EGD andgastric emptying TECHNIQUE: Limited abdominal ultrasound of the right upper quadrant wasperformed. The main portal vein was evaluated with color Doppler imaging.Job Placement Specialist images were obtained for the record. COMPARISON: CT AP dated 08/22/2024. FINDINGS: Limited exam due to bowel gas and body habitus. PANCREAS:The pancreas is unable to be visualized due to shadowing from bowel gas. AORTA:The proximal abdominal aorta is normal in caliber where visualized andmeasures approximately 2.7 cm in diameter. LIVER:Length: The liver is enlarged and measures 18.1 cm.Parenchyma: The liver parenchyma exhibits diffuse increased echogenicity.No focal lesion is detected.Portal vein: Hepatopetal flow is present in the main portal vein.MPV diameter: The main portal vein measures 1.1 cm.MPV velocity: The main portal vein velocity is approximately 20 cm/s. BILE DUCTS:No intrahepatic biliary dilatation is visualized.The common duct diameter is not visualized. GALLBLADDER:No shadowing stones are seen. The gallbladder is contracted. The gallbladder wall thickness is normal and measures 0.28 cm. Nopericholecystic fluid is visualized.Zuluaga's sign was not demonstrated. [facility] XR LUMBAR SPINE 2 VW 2024-09 07:16:1 4 Exam: XR LUMBAR SPINE 2 VW, 10/08/2024 12:45 AM. Ordering Physician: ANISH GUERRIER. History: Low back pain. Technique: XR LUMBAR SPINE 2 VW Technical Quality: Adequate. Comparison: None. Findings: No acute fracture. Normal alignment of the visualized vertebra. Surgicalanchors overlap the bilateral pubic bodies. Unremarkable soft tissuestructures. [facility] MOTILITY REPORTS EPIC 2024-09 14:55:3 6 Ordered by an unspecified provider. [facility] MR Cervical spine wo contrast 2024-08 15:25:3 1 MR CERVICAL SPINE WO CONTRAST HISTORY: Right Upper extremity radiculopathy COMPARISON: Cervical radiograph dated 08/01/2024 TECHNIQUE: Multisequence multiplanar MRI of the cervical spine performedwithout IV contrast. FINDINGS:Evaluation slightly limited due to motion.There is reversal of the normal cervical lordosis. The vertebral bodies arenormal in height and in normal alignment. The cervical cord is normal incaliber and demonstrates normal signal intensity. The background marrow signal is unremarkable. Minimal disc desiccation atC4-C5 and C6-C6. C2-C3: No significant canal stenosis or neuroforaminal narrowing. C3-C4: Shallow disc bulge and mild left facet arthrosis. No significantcanal stenosis or neuroforaminal narrowing. C4-C5: Posterior disc osteophyte complex resulting in mild right more thanleft neuroforaminal narrowing and mild to moderate spinal canal stenosis. C5-C6: Posterior disc osteophyte complex resulting in moderate to severebilateral neuroforaminal narrowing worse on the right. Moderate spinalcanal stenosis. C6-C7: Right more than uncovertebral arthrosis resulting in moderate tosevere right neuroforaminal narrowing and mild to moderate spinal canalstenosis. C7-T1: No significant canal stenosis or neuroforaminal narrowing. The visualized brain and cervical soft tissues are unremarkable. [facility] CT Abdomen pelvis w contrast 2024-08 23:58:[address] ABDOMEN PELVIS W CONTRAST 08/22/2024 6:17 PM HISTORY: Right lower quadrant pain for 3 days. Nausea. COMPARISON: CT abdomen pelvis 02/20/2024 TECHNIQUE: Axial images of the abdomen and pelvis were acquired afteradministration of intravenous contrast. Coronal and sagittalreconstructions were also created. FINDINGS: LOWER CHEST: The lungs bases are clear. ? HEPATOBILIARY: The liver is normal in size.The contour is normal. Normalparenchymal enhancement. Hepatic steatosis.No focal hepatic lesion.The gallbladder is contracted and appears normal.No biliary ductal dilatation. SPLEEN: Enlarged and measures 14 cm. No change 1.5 cm enhancing lesionsuggestive of hemangioma. PANCREAS: Normal parenchymal enhancement. No ductal dilatation. No masses. ADRENAL GLANDS: No adrenal nodules. KIDNEYS: Normal parenchymal enhancement. No hydronephrosis. No stones.Nosolid mass. GI TRACT: No luminal dilation or wall thickening. The appendix is normal. PERITONEUM AND RETROPERITONEUM: No free air.No free fluid. LYMPH NODES: No pathologically enlarged or morphologically abnormal lymphnodes are identified. PELVIS/BLADDER: The urinary bladder is normal. The reproductive organs arewithin normal limits. VESSELS: Within normal limits. BONES AND SOFT TISSUES: No change patchy sclerosis of left sacral bone withnarrow zone of transition, benign Tiny fat-containing left inguinal hernia. [facility] XR Chest 2 vw 2024-08 23:48:4 7 ORDERING PROVIDER: ASHVIN KNOWLES HISTORY: r/o pna TECHNIQUE: PA and lateral views of the chest COMPARISON: None FINDINGS: Shallow inspiratory volumes. ? Mild right infrahilar interstitialopacities. No pleural effusion or pneumothorax. ? The cardiac silhouetteand pulmonary vasculature are within normal limits. ?Degenerative osseouschanges are seen in the spine. [facility] XR Cervical spine 2 vw 2024-07 21:32:4 3 XR CERVICAL SPINE 2 VW HISTORY: Male 44 years neck pain COMPARISON: None FINDINGS: Reversal of the normal cervical lordosis. The vertebral bodies are normal in height and in normal alignment. Theatlantodental space is normal. The prevertebral soft tissues areunremarkable. Mild degenerative changes are present. No acute osseous abnormality. [facility] ENDOSCOPY PROCEDURE DOCUMENTATION 2024-05 14:59:2 4 Ordered by an unspecified provider. [facility] Nathan EspitiaCOMPREHENSIVE METABOLIC [id number] 00:00:00* Test Item Value Reference Range Interpretation Comme nts GLUCOSE (test code = 2345-7) 77 mg/dL UREA NITROGEN (BUN) (test code = 3094-0) 12 mg/dL CREATININE (test code = 2160-0) 1.11 mg/dL EGFR (test code = 99979-8) 85 mL/min/1.73m2 BUN/CREATININE RATIO (test code = 3097-3) SEE NOTE: (calc) SODIUM (test code = 2951-2) 138 mmol/L POTASSIUM (test code = 2823-3) 4.0 mmol/L CHLORIDE (test code = 2075-0) 103 mmol/L CARBON DIOXIDE (test code = 2027-9) 28 mmol/L CALCIUM (test code = 57751-0) 9.7 mg/dL PROTEIN, TOTAL (test code = 2885-2) 7.6 g/dL ALBUMIN (test code = 1751-7) 4.7 g/dL GLOBULIN (test code = 03109-9) 2.9 g/dL(calc) ALBUMIN/GLOBULIN RATIO (test code = 1759-0) 1.6 (calc) BILIRUBIN, TOTAL (test code = 1975-2) 0.8 mg/dL ALKALINE PHOSPHATASE (test code = 6768-6) 68 U/L AST (test code = 1920-8) 28 U/L ALT (test code = 1742-6) 53 U/L Nathan EspitiaHEMOGLOBIN [id number] 00:00:00* Test Item Value Reference Range Interpretation Comme [facility] HEMOGLOBIN A1c (test code = 4548-4) 5.2 %oftotalHgb Nathan EspitiaLIPID [id number] 00:00:00* Test Item Value Reference Range Interpretation Comme [facility] CHOLESTEROL, TOTAL (test cod e = 2093-3) 177 mg/dL HDL CHOLESTEROL (test code = 2085-9) 34 mg/dL TRIGLYCERIDES (test code = 2571-8) 206 mg/dL LDL-CHOLESTEROL (test code = 93077-5) 111 mg/dL(calc) CHOL/HDLC RATIO (test code = 9830-1) 5.2 (calc) NON HDL CHOLESTEROL (test code = 14957-8) 143 mg/dL(calc) Nathan Singer [facility] (INCLUDES DIFF/PLT)2024-05-23 00:00:00* Test Item Value Reference Range Interpretation Comme nts WHITE BLOOD CELL COUNT (test code = 6690-2) 6.4 Thousand/uL RED BLOOD CELL COUNT (test code = 789-8) 5.01 Million/uL HEMOGLOBIN (test code = 718-7) 15.6 g/dL HEMATOCRIT (test code = 4544-3) 43.9 % MCV (test code = 787-2) 87.6 fL MCH (test code = 785-6) 31.1 pg MCHC (test code = 786-4) 35.5 g/dL RDW (test code = 788-0) 12.7 % PLATELET COUNT (test code = 777-3) 265 Thousand/uL MPV (test code = 776-5) 10.8 fL ABSOLUTE NEUTROPHILS (test code = 751-8) 3610 cells/uL ABSOLUTE BAND NEUTROPHILS (test code = 33962-0) DNR cells/uL ABSOLUTE METAMYELOCYTES (damien t code = 73580-8) DNR cells/uL ABSOLUTE MYELOCYTES (test code = 26022-8) DNR cells/uL ABSOLUTE PROMYELOCYTES (test code = 58376-9) DNR cells/uL ABSOLUTE LYMPHOCYTES (test code = 731-0) 1856 cells/uL ABSOLUTE MONOCYTES (test cod e = 742-7) 730 cells/uL ABSOLUTE EOSINOPHILS (test code = 711-2) 154 cells/uL ABSOLUTE BASOPHILS (test cod e = 704-7) 51 cells/uL ABSOLUTE BLASTS (test code = 02098-6) DNR cells/uL ABSOLUTE NUCLEATED RBC (test code = 16008-3) DNR cells/uL NEUTROPHILS (test code = 770-8) 56.4 % BAND NEUTROPHILS (test code = 764-1) DNR % METAMYELOCYTES (test code = 740-1) DNR % MYELOCYTES (test code = 749-2) DNR % PROMYELOCYTES (test code = 783-1) DNR % LYMPHOCYTES (test code = 736-9) 29.0 % REACTIVE LYMPHOCYTES (test code = 67801-1) DNR % MONOCYTES (test code = 5905-5) 11.4 % EOSINOPHILS (test code = 713-8) 2.4 % BASOPHILS (test code = 706-2) 0.8 % BLASTS (test code = 709-6) DNR % NUCLEATED RBC (test code = 27717-6) DNR /100WBC COMMENT(S) (test code = 8251-1) DNR Nathan EspitiaCOMPREHENSIVE METABOLIC [id number] 00:00:00* Test Item Value Reference Range Interpretation Comme nts GLUCOSE (test code = 2345-7) 77 mg/dL UREA NITROGEN (BUN) (test code = 3094-0) 12 mg/dL CREATININE (test code = 2160-0) 1.11 mg/dL EGFR (test code = 48289-7) 85 mL/min/1.73m2 BUN/CREATININE RATIO (test code = 3097-3) SEE NOTE: (calc) SODIUM (test code = 2951-2) 138 mmol/L POTASSIUM (test code = 2823-3) 4.0 mmol/L CHLORIDE (test code = 2075-0) 103 mmol/L CARBON DIOXIDE (test code = 2027-9) 28 mmol/L CALCIUM (test code = 76594-6) 9.7 mg/dL PROTEIN, TOTAL (test code = 2885-2) 7.6 g/dL ALBUMIN (test code = 1751-7) 4.7 g/dL GLOBULIN (test code = 65966-2) 2.9 g/dL(calc) ALBUMIN/GLOBULIN RATIO (test code = 1759-0) 1.6 (calc) BILIRUBIN, TOTAL (test code = 1975-2) 0.8 mg/dL ALKALINE PHOSPHATASE (test code = 6768-6) 68 U/L AST (test code = 1920-8) 28 U/L ALT (test code = 1742-6) 53 U/L Nathan EspitiaHEMOGLOBIN [id number] 00:00:00* Test Item Value Reference Range Interpretation Comme nts HEMOGLOBIN A1c (test code = 4548-4) 5.2 %oftotalHgb Nathan EspitiaLIPID [id number] 00:00:00* Test Item Value Reference Range Interpretation Comme nts CHOLESTEROL, TOTAL (test cod e = 2093-3) 177 mg/dL HDL CHOLESTEROL (test code = 2084-9) 34 mg/dL TRIGLYCERIDES (test code = 2571-8) 206 mg/dL LDL-CHOLESTEROL (test code = 17486-7) 111 mg/dL(calc) CHOL/HDLC RATIO (test code = 9830-1) 5.2 (calc) NON HDL CHOLESTEROL (test code = 46572-8) 143 mg/dL(calc) Nathan Singer AustinPHYSICIAN [id number] 19:16:04Ordered by an unspecified provider.[facility], [id number] 21:16:00* Test Item Value Reference Range Interpretation Comme nts POCT U SP GRAV (test code = 3255) 1.005 mg/dl 1.005-1.025 POCT PH U (test code = 3254) 6.5 mg/dl 5-8 POCT U LEUK EST (test code = 3263) Negative Negative - Negative POCT U NIT (test code = 3262) Negative Negative - Negati ve POCT U PROT (test code = 3259) Negative Negative - Negative POCT U GLU (test code = 3256) Negative Negative - Negati ve POCT U KETONE (test code = 3258) Negative Negative - Negative POCT U UROBILI (test code = 3260) 1.0 mg/dl 0.2-1 POCT U BILI (test code = 3261) Negative Negative - Negative POCT U BLD (test code = 3257) Negative Negative - Negati ve POCT U COLOR (test code = 3266) Yellow POCT U APPEAR (test code = 3267) Clear Lab Interpretation (test cod e = 32181-3) Normal [facility] w [id number] 23:47:11CT ABDOMEN PELVIS W CONTRAST HISTORY: 43 years-old; Male; Abdominal pain, acute, nonlocalized COMPARISON: None. TECHNIQUE AND FINDINGS: Contiguous axial imaging from the level of the lungbases through the pubic symphysis was performed after the uncomplicatedadministration of intravenous Omnipaque co ntrast. Coronal and sagittalreconstructions were obtained. ?Auto mA and/or iterative reconstructionwere used to reduce radiation dose. FINDINGS: LOWER THORAX: The lung bases are clear. No cardiomegaly. LIVER: No focal hepatic lesions. Normal contour. Diffuse hepatichypoattenuation. GALLBLADDER AND BILIARY TREE: No intra or extrahepatic biliary ductaldilation. SPLEEN: Splenomegaly, measuring 14.2 cm, in the craniocaudal dimension. A1.2 cm enhancing lesion is noted, nonspecific. PANCREAS: No ductal dilatation or masses ADRENAL GLANDS: No adrenal lesions. KIDNEYS: No hydronephrosis, stones, or masses. Homogeneous and symmetricalenhancement. GI TRACT: No dilation or bowel wall thickening.The eliana endix is normal.. PERITONEUM AND RETROPERITONEUM: No free air or fluid collection. LYMPH NODES: No intra-abdominal or pelvic lymph node enlargement. PELVIS/BLADDER: Bladder is fully distended with nowall thickening. VESSELS: Unremarkable. BONES AND SOFT TISSUES: No suspicious lytic or sclerotic bony lesions.[facility] [id number] 18:58:58 Ordered by an unspecified provider.[facility] I 2022-09-29 01:30:02* Test Item Value Reference Range Interpretation Comme [facility] TROPONIN I (test code = 1786965011) 0.003 ng/mL <=0.034 SANJIV (test code = [...] of biotin. Lab Interpretation (test code = 00567-2) Normal [facility] [id number] 23:34:45* Test Item Value Reference Range Interpretation Comme nts TROPONIN I (test code = 1988524222) 0.003 ng/mL <=0.034 SANJIV (test code = [...] of biotin. Lab Interpretation (test code = 47310-6) Normal [facility] CenterD-[id number] 23:22:42* Test Item Value Reference Range Interpretation Comments D-DIMER (test code = 7667105878) 0.32 See_Comment [Automated message] The system which [...] a diagnosis. Lab Interpretation (test code = 58229-8) Normal [facility] CenterCBC WITH [id number] 23:09:03* Test Item Value Reference Range Interpretation Comme nts WBC (test code = 6690-2) 5.01 See_Comment [Automated [employer] Credii] The system which generated this result transmitted reference range: 4.20 - 10.70 10*3/?L. The reference range was not used to interpret this result as normal/abnormal. RBC (test code = 789-8) 4.97 See_Comment [Automated [employer] Credii] The system which generated this result transmitted [...] g/dL 31.2-35.0 H RDW-SD (test code = 22635-0) 38.0 fL 38.5-51.6 L RDW-CV (test code = 788-0) 12.6 % 12.1-15.4 PLT (test code = 777-3) 224 See_Comment [Automated messa ge] The system which generated this result transmitted reference range: 150 - 328 10*3/?L. The reference range was not used to interpret this result as normal/abnormal. MPV (test code = 51256-6) 10.6 fL 9.8-13.0 NRBC/100 WBC (test code = 2790098224) 0.0 See_Comment [Automated Re.nooble ssage] The system which generated this result transmitted reference range: 0.0 - 10.0 /100 WBCs. The reference range was not used to interpret this result as normal/abnormal. NRBC x10^3 (test code = 1797652666) See_Comment [Automated Oxagena ge] The system which generated this result transmitted reference range: 10*3/?L. The reference range was not used to interpret this result as normal/abnormal. GRAN MAT (NEUT) % (test code = 770-8) 69.4 % IMM GRAN % (test code = 8690744788) 0.20 % LYMPH % (test code = 736-9) 12.4 % MONO % (test code = 5905-5) 16.0 % EOS % (test code = 713-8) 1.4 % BASO % (test code = 706-2) 0.6 % GRAN MAT x10^3(ANC) (test code = 5581993897) 3.48 10*3/uL 1.99-6.95 IMM GRAN x10^3 (test code = 1260892143) 0.00-0.06 LYMPH x10^3 (test code = 731-0) 0.62 10*3/uL 1.09-3.23 L MONO x10^3 (test code = 742-7) 0.80 10*3/uL 0.36-1.02 EOS x10^3 (test code = 711-2) 0.07 10*3/uL 0.06-0.53 BASO x10^3 (test code = 704-7) 0.03 10*3/uL 0.01-0.09 Lab Interpretation (test code = 94275-2) Abnormal [facility] Center[facility] (TTE)2021-09-17 17:01:28* Test Item Value Reference Range Interpretation Comme nts Height (test code = 0327900457) in Weight (test code = 6543822990) lbs Systolic BP (test code = 7225037536) mmHg Diastolic BP (test code = 1374403436) mmHg Heart Rate (test code = 4633001150) bpm BSA (test code = 8691754219) 2.17 m2 Ao root annulus (test code = 2496259369) 3.7 cm Ao root diam (test code = 1534591110) 3.70 cm Aortic root (test code = 7655826347) 3.7 cm LVOT diameter (test code = 5361187565) 2.19 cm LVIDD (test code = 0511050070) 5.00 cm IVS (test code = 9495931653) 1.06 cm Interventricular Septum Diastolic Thickness by 2D (test code = 7318422) 1.06 cm LVPWD (test code = 3941741403) 1.06 cm PW (test code = 8207847377) 1.06 cm 0.6-1.1 EF(Teich) (test code = 7216086400) 55.80 % LVIDS (test code = 2335543987) 3.60 cm FS (test code = 8829793430) 29 % EF - 2D (test code = 43587081) 55.80 % LA size (test code = 0676298977) 3.2 cm TR Peak Milton (test code = 7991868408) 188.2 cm/s Triscuspid Valve Regurgitation Peak Gradient (test code = 8233465814) mmHg LAV(MOD-sp4) (test code = 9551066649) 59.50 mL E wave decelartion time (test code = 2460029567) 0.22 s MV stenosis pressure 1/2 time (test code = 5254736758) 63.4 ms MV Peak E Milton (test code = 5824713666) 77.8 cm/s MV Peak A Milton (test code = 4554492057) 81.2 cm/s E/A ratio (test code = 5667984996) ratio MV Prop V (test code = 3418615239) 39.70 cm/s MV E/e' septal (test code = 6890596692) 17.5 cm/s Tapse (test code = 0344029720) 2.31 cm LVOT stroke volume (test code = 8560138962) 67.40 cm3 LVOT peak milton (test code = 1362535429) 91.7 cm/s LVOT mn grad (test code = 8403150878) mmHg AV LVOT peak gradient (test code = 0292751034) mmHg LVOT peak VTI (test code = 7473907592) 18.0 cm LV V1 mean (test code = 5907842747) 66.30 cm/s Aortic valve mean velocity (test code = 4457842282) 94.2 cm/s Ao peak milton (test code = 7782929784) 134.8 cm/s Ao VTI (test code = 0861378029) 27.8 cm AV area by cont VTI (test code = 1132321848) 2.4 cm2 AV area peak milton (test code = 1563540483) 2.6 cm2 Ao max PG (test code = 8192089826) 7.30 mm[Hg] AV peak gradient (test code = 3513806746) mmHg AV valve area (test code = 8201383949) 2.42 cm2 AV mean gradient (test code = 2192742481) mmHg AV regurgitation pressure 1/2 time (test code = 5133476643) 978.3 ms AI dec slope (test code = 2397245653) 71.10 cm/s2 AI max milton (test code = 7655798261) 237.50 cm/s AI max PG (test code = 2544747279) 22.60 mm[Hg] Radiology Study observation (narrative) (test code = 56361-5) SANJIV (test code = SANJIV) Formatting of [...] 2D, color flow Doppler and spectral Doppler. [facility] CenterPRAVEEN [id number] 21:30:45* Test Item Value Reference Range Interpretation Comments TROPONIN I (test code = 0865469638) 0.003 ng/mL See_Comment [Automated message] The system [...] of biotin. Lab Interpretation (test code = 63066-7) Normal [facility] CenterN-TERMINAL [id number] 21:27:27* Test Item Value Reference Range Interpretation Comme nts NT-proBNP (test code = 7817673000) 23 pg/mL See_Comment [Automated message] The system which generated this result transmitted reference range: <=125. The reference range was not used to interpret this result as normal/abnormal. SANJIV (test code = SANJIV) Biotin has been reported to cause a negative bias, interpret results relative to patient's use of biotin. Lab Interpretation (test code = 49471-7) Normal [facility] CenterMAGNESIUM2022-07-27 21:19:03* Test Item Value Reference Range Interpretation Comme nts MAGNESIUM (test code = 3014870022) 1.9 mg/dL 1.7-2.4 Lab Interpretation (test cod e = 90258-2) Normal [facility] CenterCOMP. METABOLIC PANEL (78218)2021-09-16 21:18:43* Test Item Value Reference Range Interpretation Comme nts NA (test code = 2948853049) 140 mmol/L 135-145 K (test code = 3462075453) 4.1 mmol/L 3.5-5 CL (test code = 7982967354) 102 mmol/L 98-108 CO2 TOTAL (test code = 9654307149) 27 mmol/L 23-31 AGAP (test code = 0874015568) 2-16 BUN (test code = 1341818880) 4 mg/dL 7-23 L GLUCOSE (test code = 2866625044) 104 mg/dL 70-110 CREATININE (test code = 4936369930) 0.97 mg/dL 0.6-1.25 TOTAL BILI (test code = 0438116370) 0.9 mg/dL 0.1-1.1 CALCIUM (test code = 0116864988) 9.6 mg/dL 8.6-10.6 T PROTEIN (test code = 2973777706) 8.0 g/dL 6.3-8.2 ALBUMIN (test code = 3514665855) 4.8 g/dL 3.5-5 ALK PHOS (test code = 9621516145) 63 U/L 34-122 ALTv (test code = 1742-6) 55 U/L 5-50 H AST(SGOT) (test code = 9111824561) 41 U/L 13-40 H eGFR (test code = 4780772403) mL/min/1.73m2 SANJIV (test code = SANJIV) Association [...] imaging tests). Lab Interpretation (test code = 73305-5) Abnormal [facility] WITH [id number] 21:10:57* Test Item Value Reference Range Interpretation Comme nts WBC (test code = 6690-2) See_Comment [Automated [employer]] The system which generated this result transmitted [...] g/dL 31.2-35 H RDW-SD (test code = 11112-9) 37.2 fL 38.5-51.6 L RDW-CV (test code = 788-0) 12.2 % 12.1-15.4 PLT (test code = 777-3) See_Comment [Automated [employer]] The system which generated this result transmitted reference range: 150 - 328 10*3/?L. The reference range was not used to interpret this result as normal/abnormal. MPV (test code = 08766-3) 10.7 fL 9.8-13 NRBC/100 WBC (test code = 3723913497) See_Comment [Automated Re.nooble ssage] The system which generated this result transmitted reference range: 0.0 - 10.0 /100 WBCs. The reference range was not used to interpret this result as normal/abnormal. NRBC x10^3 (test code = 6483369125) See_Comment [Automated [employer]] The system which generated this result transmitted reference range: 10*3/?L. The reference range was not used to interpret this result as normal/abnormal. GRAN MAT (NEUT) % (test code = 770-8) 70.3 % IMM GRAN % (test code = 4681765369) 0.40 % LYMPH % (test code = 736-9) 19.8 % MONO % (test code = 5905-5) 6.7 % EOS % (test code = 713-8) 1.8 % BASO % (test code = 706-2) 1.0 % GRAN MAT x10^3(ANC) (test code = 3197779265) 5.45 10*3/uL 1.99-6.95 IMM GRAN x10^3 (test code = 5512046861) 0.03 10*3/uL 0-0.06 LYMPH x10^3 (test code = 731-0) 1.54 10*3/uL 1.09-3.23 MONO x10^3 (test code = 742-7) 0.52 10*3/uL 0.36-1.02 EOS x10^3 (test code = 711-2) 0.14 10*3/uL 0.06-0.53 BASO x10^3 (test code = 704-7) 0.08 10*3/uL 0.01-0.09 Lab Interpretation (test code = 77684-8) Abnormal [facility] History and Physical Notes Date/Time Note Provider Source 2024-06-05 12:43:23 Endoscopy H & P Age: [age] year old Sex: male ASA Class: II Indication: upper abdominal pain, bloating, dysphagia, history PUD Amna Jenkins is a 44 year old male with PMH as below who was seen in GI clinic by John Mckay for the above complaints. He reports a history of peptic ulcers with recurrent bleeding about 6-7 years ago. He was reportedly told to have an upper endoscopy every year because of this but has not had one done in 6 years. He reports his last episode of bleeding was "coughing up blood" about 1 week ago. Labs in January showed a hgb of 15.1. He also reports frequent abdominal bloating and periodic RUQ and LUQ abdominal pain. He had a CT scan of the abdomen/pelvis in January which was unremarkable aside from mild splenomegaly and hepatic steatosis. He also reports intermittent dysphagia to solids and liquids, worse with cold foods/liquids. No blood thinner use. No family history of esophageal or gastric cancer. Histories: Past Medical History: Diagnosis Date HTN (hypertension) History of peptic ulcer disease Reported history of a-fib and CAD but recent cardiology w/u was negative FH: father had pancreatic/biliary cancer SurgH: "stomach surgery" as an No current facility-administered medications for this encounter. 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 Will proceed with EGD. Benefits, risks, alternatives, and likelihood of achieving patient's goals of care discussed. Risks discussed including but not limited to aspiration, infection, bleeding, injury to the GI tract or surrounding vessels/structures, perforation, missed polyps/lesions, failure to obtain a diagnosis, failure to complete the procedure, cardiovascular complications such as GA, stroke, arrhythmia, and . Informed consent obtained/verified. Education provided to the patient about the procedure. Balta Gross MD Engineering Associate of Internal Medicine Division of Gastroenterology and Hepatology [facility] Notes Date/Time Note Provider Source 2024-10-30 13:46:42 Patient notified & will keep upcoming appts. Gloria Knox MA [facility] 2024-10-30 12:53:42 Per [facility] note, the CT was ordered as part of surgical planning. If symptoms are improving with PT and pain management, we likely can put off the CT. However, if symptoms are not improving and the patient is looking to need surgical intervention, Dr. Allen will need the CT to determine surgical details and approach. CARBONATOR-FAMILY MIDLEVEL PROVIDER [facility] 2024-10-30 11:43:10 Amna Jenkins is a 44 year old male Patient called in requesting to speak with nurse regarding the CT that was ordered. Patient states he would like to know why it was ordered. Patient states he's done MRI and xray so is unsure why he needs this. He states he can't keep taking off of work and having co pays. Please advise Kayla Hart [facility] 2024-10-17 13:30:00 Images from the original note were not included. Venipuncture collection performed by clean technique on the left anticubitus. Total of 1 attempts were made. Slight pressure and a bandage/dressing were applied to the site(s). The patient experienced no complications. The following specimens were processed according to instructions and sent to [facility] laboratories per lab order on 10/17/2024 : LT BLUE SST 1 RED LAV 1 PPT DK GREEN (LiHep) DK GREEN (SodH) SANTA DK BLUE (K2) DK BLUE (S) ACD Blood Culture NIPT/NTD [facility] 2024-10-16 15:58:12 Per pt to have Medrol pack and if that does not help then return to clinic to see him and potentially discuss surgical intervention. Notified pt of POC and he verbalized understanding. Alisha Cornell RN [facility] 2024-10-16 15:47:41 Rx for medrol dose pack sent to pharmacy for stronger pain medications please see PCP or pain clinic. We will provide post operative pain management if surgery is required. [facility] 2024-10-16 15:28:12 Spoke to pt at this time, he states that GBP and Meloxicam and Robaxin are not helping his pain. States pain management says that due to swelling he was NOT a candidate for injections at this time. Pt reports that PT is not available until mid Oct. PT states pain is posterior neck pain radiates up to head. States pain had him vomiting yesterday. Also reports swelling and pain to lumbar spine area as well [facility] 2024-10-16 13:49:44 Copied from [facility] #[id number]. 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: Amna Jenkins Clinic Name: [facility] [id number] male / 44 year old (1980) Patient Specific Symptoms: Not able sleep, pain is increasing, frustration Patient durations of symptoms: ongoing Patient is calling stating he still having continuos pain Patient states he went to pain mgmt states pain provider is not comfortable with giving an injection Patient requesting to speak with the nurse to see what his next step is Please advise [phone] (home) [facility] [address] [place] [address] Candy Alanis [facility] 2024-10-08 00:14:33 C/o back pain on right lower side Denies new injury yesterday HX: had back and neck injury at work in Feb Viktoria Verdin RN [facility] 2024-10-07 22:34:00 Regarding: pt calling neck and back are hurting bad, he can't move x 2days ----- Message from Patient Rotary Furnace Tender sent at 10/07/2024 10:33 PM CDT ----- Amna Jenkins is a 44 year old male The pt calling neck and back are hurting bad, he can't move x 2days Pain level off the chart. - he states he has never had pain this bad told the patient to call if his pain worsens Endoscopy and manometry in August Velia Kelsey RN [facility] 2024-10-07 22:34:00 Adult Triage Assessment Last Clinic Visit: 10/05/24- Neurosurgery- Neck/ back pain Primary Symptom: "Severe neck/ back pain" Onset / Duration: 2 days Location / Description: Mostly low back, lower abdominal pain Pain / Severity: 11/30 "Off the charts" Associated Symptoms: Dizziness, nausea Fever / Method: "Feel hot" Hydration: Drank a little of water, eating less. Only urinated twice today Treatment so far: Gabapentin, Methocarbamol, Meloxicam Effect on ADL's: Severe LMP: N/A Pre-existing condition / Immunocompromised: Afib, GA, HTN, Hyperlipidemia, Amna Nitin Jenkins is a 44 year old male calling because he is having "Off the charts pain. Never experienced any pain like this before. Have taken all prescription medications and nothing is touching it." Patient reports that the pain he is having is a few inches above his waist and radiates to the right lower abdomen area. He states that when the pain is severe, he gets dizzy and nauseated. Recommendations and care advice given per protocol. Call back triggers given. Patient aware that he can call back for additional questions or reassessment needs 13/09. Patient hesitant to call EMS because he is closest to [facility], and he has had bad experiences with [place] in the past. RN explained to the patient that because he is reporting numbness and tingling in his groin/ hips/ legs, it would be best that he call EMS to safely transport him so that he does not cause himself any further injury. Patient states that he will call EMS to see if they are willing to take him to [facility]. Velia MARADIAGA, RN Reason for Disposition Numbness in groin or rectal area (i.e., loss of sensation) Protocols used: Back [id number] [facility] 2024-09-28 16:37:30 Amna Jenkins is a 44 year old male Patient is returning a call for the nurses. Please advise. Adonis Mayo [facility] 2024-09-28 16:32:28 Spoke with Zeinab Fernandez PA-C during clinic and was advised can send Rx for gabapentin 300 TID for 30 days and can send Rx Methocarbamol 500 mg for 14 days once daily at night PRN. Called the patient and no answer. LVM. Rx's sent to pharmacy. Alisha Martinez LVN [facility] 2024-09-28 13:37:03 Patient returning call to speak with DEEPTHI Brito. Please contact patient at [phone] (home) Thank You! Dolly Zaldivar [facility] 2024-09-28 12:26:50 Patient state is having pain in Neck and Both shoulders Tramodol is not helping. Pain is causing Migraines had to lay down with Ice Hector on head for some relief. Мария Magana [facility] 2024-09-28 12:11:33 Called the patient and no answer. LVM. Plan to discuss encounter with Dr. Sotelo during clinic this afternoon. [facility] 2024-09-28 09:00:36 Amna Jenkins is a 44 year old male Pt is calling states the meloxicam and tramadol that he has been taking for the back pain does not seem to help with pain. Pt states he is unable to sleep because he is not getting any relief. Please call back and assist. Ling Beasley [facility] 2024-09-21 08:15:26 Left message to return call to clinic regarding assessment call. Crystal Camejo LVN [facility] 2024-09-21 08:02:20 Patient needs to go to the ER [facility] 2024-09-20 20:42:56 Amna Jenkins is a 44 year old male Patient having shortness of breath states feels like he is drowning . 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 Informed him that I had not called him recently. He did have a procedure this morning in Endoscopy. Provided him with their number to call. 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 Please advise [id number] Samantha Domingo [facility] 2024-09-19 10:27:24 Patient arrived scheduled for an esophageal manometry. Thank you to Ms Mckay for consenting patient. We spoke about what the esophageal manometry consist of and how it will help doctors diagnose and better treat his ailments. Patient allergies were verified and his right nostril was medicated. After allowing plenty of time for the medication to work the esophageal manometry catheter was introduced into his right nostril and fed to 53 cm. Both landmarks were seen and it was secured to his nose. After a small repose landmark testing was done on 53 cm but patient continued having the gag reflux therefore I pull the catheter to 50 cm where both the UES and the LES are seen in it's entirety and his gag reflex reduced. We started the landmark testing once more. Patient completed 13 out of 10 swallows and tolerate the procedure well. The catheter was removed from his esophagus and he was taken to the first floor and shown how to reach his car in garage 2. Patient understands that he should increase his diet slowly in order to try to prevent nausea from the salt water used during the study. Isiah Mensah RN [facility] 2024-08-22 20:32:06 Pt given printed and verbal discharge instructions regarding right lower quadrant pain, coughing up blood, pneumonia due to infectious organism, unspecified laterally, encouraged hydration. Prescriptions provided x2 Discussed antibiotic therapy and to take until all completed unless adverse reaction occurs - if occurs, discontinue medication and follow up with pcp/seek medical attention Discussed tramadol/phenergan/Tylenol # 3 side affects and to avoid driving/operating machinery/or engaging in activities requiring alertness while taking. Pt verbalized understanding of instructions, pt awake alert oriented, resp reg unlabored, skin w/d, color appropriate for race, moves all ext well,pt encouraged to follow up with pcp. Advised to seek medical attention for new/prolonged/worsening of symptoms. No adverse reaction to meds given in ER noted upon discharge. PIV d'cd, dressing to site, catheter in tact. Awake, alert oriented, resp reg unlabored, skin w/d, pt leaving amb with steady gait, in no apparent distress, Sara Alexander RN [facility] 2024-08-22 19:35:21 Pt states morphine helped with pain. Pt states,"Med did not take pain totally away but it has helped dull the pain." [facility] 2024-08-22 17:15:00 Pt offered a blanket and declined one at this time. [facility] 2024-08-22 16:25:28 CC: patient presents to the ER with complaints of right sided abdominal pain that began for the past 3 days. States he is nauseated. Awake, alert, oriented, resp reg unlabored, skin warm and dry, color appropriate for race, moves all ext without difficulty, amb without assistance. Appears in no distress. Yina Marie RN [facility]2025-04-14 14:48:19 Returned call and spoke with patient. He was telling me that his job is going to want a release to go back to work after the EGD procedure tomorrow "and therapy for leg injury at work". I suggested he talk to Endoscopy tomorrow about the release to go back to work since he will be having the procedure in that clinic it would be best to get it from them. For the leg injury, I advised for him to discuss that with his PCP as GI is not able to manage that issue. Patient voiced understanding and agreed. Alisha [facility]aez [facility]fwvkv7647-57-34 09:19:11 Amna Jenkins is a 44 year old male patient calling to speak with nurse regarding instructions for his EGD tomorrow. Please call [phone] Georgie WilliamnayHighland District HospitalIjmgjg2370-15-88 10:22:13 Patient contacted for pre op phone call. Patient given procedural prep instructions (EGD), NPO status/timing for procedure, medication instructions, denies anticoagulant therapy, diuretics, diabetic or weight loss medications. Patient verbalized understanding of instructions. Discussed with patient they will need a responsible adult, 18 years old or older, to provide transportation on the day of procedure. Patient also informed that they will be contacted the day before their procedure with arrival time. Pre op call complete. Prep instructions sent via [employer]. Salma Ricketts [facility] HospitalGknirz5676-76-38 00:00:00 Nathan FSanya [facility]2025-03-26 08:06:49 Attempted to contact pt. No answer. LVM with return number Kate Joe [facility]Ascbmc3457-83-57 09:10:55 Returned patient call, notified him that I spoke with Kemi and re faxed the semen analysis to her. Patient voiced understanding, states he already received a call from Kemi to schedule semen analysis appointment. [facility] CenterTprgmf5501-58-57 09:03:14 Called Kemi with [facility], she states is the main fax number and although we receive confirmation that the fax went through she doesn't receive them in a timely manner to get the patient scheduled for an appointment. Kemi states she would like us to fax the semen analysis to her from now on as she is the one that schedules these appointments. Semen analysis re faxed to Kemi at , this is also the number to call Kemi with questions. T [facility] [employer] SystemsXjdwqb7739-18-74 11:43:43 Patient called and stated that he is to have a follow up semen analysis done at [facility] he called them and they have not received an order he provided phone number to fertility clinic [phone] rep name is Kemi. Please call pt to discuss at [phone]. Andree [facility] GnipOktzsf4596-12-60 08:06:00 May have to come from his PCP T [facility] Buqrpf6875-21-16 14:47:00 Amna Jenkins is a 44 year old male Pt. Is calling to request a letter of proof of an annual wellness check for his insurance company. Pls call and adv. [phone] (home) [phone] (work) Aniket DesaiUniversity Hospitals TriPoint Medical CenterIvjvwy6287-60-86 09:37:39 CT triple phase was denied for evaluation of spleen lesion. Called Radiology to evaluate the spleen lesion and discuss if additional imaging would be needed and if so what modality would be recommended. Radiology felt lesion looked benign and if further evaluation was needed we can consider an MRI. I called the patient to inform him and let him know to cancel the CT abdomen and consider MRI in future but not urgent right now. Pt was appreciative of the call and in agreement of the plan. John Mckay PA-C Division of Gastroenterology and Hepatology TAPPER [facility] CenterOnfxls1470-62-79 09:44:[address] scan are still active in [facility] and needing to be done for provider to determine best steps for next plan of care. I spoke with patient. He told me that when he went to [facility], there was a younger lady said that it was too soon and that is what I did not understand. Before they could do anything they had to contact Jonh Mckay to see if there is any other type of imaging that can be done. He tried explaining that this CT was for a lesion on his spleen. I asked that he contact that clinic again and try to schedule the appointment to get the CT scan done. If he has any problems he will call me back. TAPPER Alisha Paez [facility] HospitalTpopnh7895-54-84 16:33:23 Amna Jenkins is a 44 year old male Pt is calling in stating that he needs to speak with someone in the clinic about his Plan Of Care. Pt is asking to speak with John Mckay directly. Pt stated that its been over two weeks and he still has not heard from anyone about next steps etc. I ButlerHighland District HospitalSqjkgl5670-16-67 09:31:36 Pt will call back to get scheduled with Dr Echeverria. I ParekhGranville Medical CenterFsscne9978-97-02 09:07:17 Notified pt of physician review from recent monitor. Pt states he did not experience the major symptoms of pain and sweating, just the minor symptoms of palpitations and sob at times. Pt is interested in scheduling a f/u appt with Dr. Echeverria for further discuss this. Will forward to PSS to assist with appt with Dr. Echeverria [facility] Zara Morgan [facility] HospitalLzpzov4126-06-48 08:52:29 Images from the original note were not included. Attempted to contact pt with physician review from recent monitor. Xenia Lambert MD P Cardiology Nurse Event monitor reviewed. Most of the reported symptoms occurred during normal rhythm. There were few extrabeats, low burden and were hardly associated with any symptoms. This is reassuring. [facility]2025-02-13 10:07:15 Called [facility] back and explained to them what the patient had told me. She did not see any notes in computer about why the CT was not done, she says it show that patient did not show for the appointment. She is going to talk to her steam oven operator and call me back with more information. [facility] Alisha Paez [facility] HospitalWfmohz3499-14-70 08:59:37 Pt states he did have some symptoms while wearing the monitor and has returned the device. Notified pt that we will call him with results once reviewed. Pt verbalized understanding. [facility] Zara Morgan [facility] HospitalSlnubo8808-75-64 08:32:57 If no significant symptoms happened while the monitor was worn, I would agree on extending the duration a little more. Xenia Echeverria MD merchandising professor. Division of cardiovascular medicine [facility] IM-CARDIOVASCULAR DISEASE STAFFJason Ville 261725-02-12 13:03:40 From previous notes, pt was unable to wear the monitor for the last 8 days of the original 30 days, and pt was wanting an extension. Pt has received an extension from [employer] for 35 days, but anything beyond that, [employer] would require a letter of medical necessity. Will forward to Dr. Echeverria for review of medical necessity or if we have enough information for monitor return. [place] 258725-02-12 12:49:04 Amna Jenkins is a 44 year old male Ana / [employer]ish calling in regards to extension for study. Pt is requesting the study to be extended to 37 days. Pt has done 35days anything further would require a letter of medical necessity. [employer]wish is asking should it be extended if so please send required documentation if not please advise. When calling please use Call ref# [id number] [facility] Nikos [facility]2025-02-11 17:06:51 Spoke with patient. He states that [facility] told him that because they CT scan that was done on 02/16 and this one are so close together that they would not do it until they can speak with John. Says he tried to explain to them that this scan was ordered because something was found on his spleen but they want to hear from John, not him. "They refused to do anything". They said that if I want it done then I would have to pay $1800.00 ramírez. [place] [id number] 07:33:53 I spoke with [facility] yesterday, they told me that patient did not show for the CT scan. The appointment is listed as "No Show" Will call patient today.. [facility]2025-02-10 12:11:34 Amna Jenkins is a 44 year old male Pt is stating he went for his scan and was told they couldn't do it until they spoke to Orly Mckay. He is wanting to know when the scan will be rescheduled. Please advise [id number] 11:50:30 Patient reports he contacted [employer] a few days ago for additional adhesives for EVM as he ran out. He received adhesives yesterday and reapplied monitor. He is requesting 8 additional days as he did not wear the monitor for the last 8 days. Instructed patient to call [employer] to inform them that he reapplied EVM and would need 8 additional days to completed 30 days of monitoring. Patient verbalized understanding. I [id number] 11[facility]32:09 Received a fax from [employer] stating that patient is requesting an extension for his monitoring time. Attempted to contact patient. Needing to know how many days he is asking for an extension and reason why. Will try to call patient again later. I P[facility]rez [id number] 15:09:42 Reviewed post vasectomy care with patient. Patient verbalized understanding to all instruction. I [facility]uga [id number] 13:36:11 Patient called asking If there are any special instructions in regards to showering due to gauze and wrap needing to stay dry. [facility] Judy Johnson [facility]2024-12-30 16:45:00 Patient presented with specimen for drop-off and was identified by and name. Collection information/ total volume were documented accordingly. The following specimens were sent to [facility] laboratories per lab order on 02/20/2024 : 24 hour urine Random urine Stool 2 Swab Other [facility]2024-12-27 09:45:00 Images from the original note were not included. Venipuncture collection performed by clean technique on the right anticubitus. Total of 1 attempts were made. Slight pressure and a bandage/dressing were applied to the site(s). The patient experienced no complications. 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 Hernandez 12/07/23 T [facility]2024-03-06 11:30:00 Nater collection only [facility]2023-08-08 20:56:02 Awake, alert oriented X4, respiratory even and unlabored,skin w/d color appropriate for race, movesall ext well, pt encouraged to follow up [...] noted upon discharge Pt ambulated to the [facility] with steady gait Marlen Patel [facility] - [id number] 18:26:10 Patient's name and verified with patient. Chief [...] of care. Mirta Webb RN Mirta Webb [facility] - [id number] 17:26:15 Pt to ed via pov. Alert and ambulatory. Vss. C/o chest pain radiating to back and dizziness. Onset approx 2 weeks but has gotten increasingly worse. Took one nitro this morning around 1030 am. Statesit did help slightly. Christy Fernandez [facility] - [facility]
--- NOTE | 2024-11-19 21:35 | RAD REPORT ---
Procedure: Chest Single View HISTORY: Cough COMPARISON: 2023 FINDINGS: The lungs appear clear of acute infiltrate. No significant pleural effusion noted. The heart is normal size. IMPRESSION: No acute abnormality is displayed.
[2024-11-19] MEDS ORDERED: FAMOTIDINE 20 MG/2 ML VIAL IV ONE (21:43)
[2024-11-19] MEDS ORDERED: NA CHLORIDE 0.9% 1,000 ML ONE (21:43)
[2024-11-19 21:54] LABS: Urine Microscopic Reflex YN NO UMIC
[2024-11-19 22:11] LABS: ALT/SGPT 66.0 U/L (16-61); AST/SGOT 25.0 U/L (15-37); Albumin 3.8 g/dL (3.4-5.0); Albumin/Globulin Ratio 1.1 (1.1-1.8); Alkaline Phosphatase 63.0 U/L (45-117); Anion Gap 8.4 mEq/L (5.0-15.0); BUN Blood Urea Nitrogen 11.0 mg/dL (7-18); Bilirubin Indirect, Calculated 0.4 mg/dL (0.2-0.8); Globulin 3.5 g/dL (2.3-3.5); Glucose Level 121.0 mg/dL (74-106); Lipase 35.0 U/L (13-75); Magnesium 2.2 mg/dL (1.6-2.4); NT PRO-BNP 23.0 pg/mL (<125); Potassium 3.4 mEq/L (3.5-5.1); Troponin High Sensitivity 7.2 pg/mL (<58.9)
[2024-11-19 22:15] LABS: Absolute Lymphocytes (CBC) 1.8 K/uL (0.7-4.9); Hematocrit 40.2 % (39.6-49.0); Hemoglobin 14.5 g/dL (13.6-17.9); MCH 30.4 pg (27.0-35.0); MCHC 36.1 g/dL (32.0-36.0); MCV 84.0 fL (80-100); MPV 8.7 fL (7.6-11.3); Nucleated RBC Absolute Count 0.0 (0-0); Nucleated Red Blood Cells % 0.1 % (0-0); RBC Red Blood Cell Count 4.79 M/uL (4.33-5.43); White Blood Count 6.30 thou/uL (4.3-10.9)
[2024-11-19 22:24] LABS: PT Prothrombin Time 12.5 SECONDS (10-13.0); Protime INR 1.11
--- NOTE | 2024-11-19 22:35 | RAD REPORT ---
EXAM: CT brain without contrast HISTORY: Headache COMPARISON: 2023 TECHNIQUE: Multiple contiguous axial images were obtained and a CT of the brain without contrast.. Sagittal and coronal reconstruction performed. Automated exposure control, adjustment of the mA and/or kV according to patient size, and/or iterative reconstruction. Unless otherwise specified, incidental f indings do not require dedicated imaging follow-up FINDINGS: An intracranial bleed is not seen Ventricles are normal caliber No extra-axial fluid collection noted No significant hypodensity within the brain No fluid within the visualized sinuses or mastoids noted. IMPRESSION: No acute intracranial abnormality noted. If the patient continues to have symptoms to suggest an acute intracranial abnormality then MRI of th e brain would be recommended.
--- NOTE | 2024-11-19 22:41 | EDPHYS ---
Physician Documentation [facility] Name: Amna Jenkins Jr Age: 44 yrs Sex: Male : 1980 Arrival Date: 11/19/2024 Time: 20:46 Bed 16 Private MD: ED Physician Gal Francisco HPI: 11/19 22:30 This 44 yrs old Male presents to ER via Ambulatory with complaints of emeli Dizziness, Headache, Weakness. 22:30 The patient presents with dizziness. Onset: The symptoms/episode began/occurred 2 emeli day(s) ago. Context: occurred at home, occurred while the patient was NORMAL ACTIVITY. Modifying factors: The symptoms are alleviated by nothing, the symptoms are aggravated by standing up. Associated signs and symptoms: Pertinent positives: near-syncope. Severity of symptoms: At their worst the symptoms were mild in the emergency department the symptoms are unchanged. Patient's baseline: Neuro: alert and fully oriented. The patient has experienced similar episodes in the past, several times. Historical: - PMHx: 21:05 Atrial fibrillation; Hypertension; kb4 - Immunization history:: Adult Immunizations. - Infectious Disease History:: Denies. - Social history:: Smoking status: Patient denies any tobacco usage or history of. Patient uses alcohol, occasionally. - Family history:: not pertinent. ROS: 22:30 Constitutional: Negative for fever, chills, and weight loss, Eyes: Negative for injury, emeli pain, redness, and discharge, ENT: Negative for injury, pain, and discharge, Neck: Negative for injury, pain, and swelling, Cardiovascular: Negative for chest pain, palpitations, and edema, Respiratory: Negative for shortness of breath, cough, wheezing, and pleuritic chest pain, Abdomen/GI: Negative for abdominal pain, nausea, vomiting, diarrhea, and constipation, Back: Negative for injury and pain, : Negative for injury, bleeding, discharge, and swelling, MS/Extremity: Negative for injury and deformity, Skin: Negative for injury, rash, and discoloration, Psych: Negative for depression, anxiety, suicide ideation, homicidal ideation, and hallucinations, Allergy/Immunology: Negative for hives, rash, and allergies, Endocrine: Negative for neck swelling, polydipsia, polyuria, polyphagia, and marked weight changes, Hematologic/Lymphatic: Negative for swollen nodes, abnormal bleeding, and unusual bruising, 22:30 Neuro: Positive for dizziness, headache, near syncope, weakness, Exam: 22:30 Constitutional: This is a well developed, well nourished patient who is awake, alert, emeli and in no acute distress. Head/Face: Normocephalic, atraumatic. Eyes: Pupils equal round and reactive to light, extra-ocular motions intact. Lids and lashes normal. Conjunctiva and sclera are non-icteric and not injected. Cornea within normal limits. Periorbital areas with no swelling, redness, or edema. ENT: Nares patent. No nasal discharge, no septal abnormalities noted. Tympanic membranes are normal and external auditory canals are clear. Oropharynx with no redness, swelling, or masses, exudates, or evidence of obstruction, uvula midline. Mucous membranes moist. Neck: Trachea midline, no thyromegaly or masses palpated, and no cervical lymphadenopathy. Supple, full range of motion without nuchal rigidity, or vertebral point tenderness. No Meningismus. Chest/axilla: Normal chest wall appearance and motion. Nontender with no deformity. No lesions are appreciated. Cardiovascular: Regular rate and rhythm with a normal S1 and S2. No gallops, murmurs, or rubs. Normal PMI, no JVD. No pulse deficits. Respiratory: Lungs have equal breath sounds bilaterally, clear to auscultation and percussion. No rales, rhonchi or wheezes noted. No increased work of breathing, no retractions or nasal flaring. Abdomen/GI: Soft, non-tender, with normal bowel sounds. No distension or tympany. No guarding or rebound. No evidence of tenderness throughout. Back: No spinal tenderness. No costovertebral tenderness. Full range of motion. Male : Normal genitalia with no discharge or lesions. Skin: Warm, dry with normal turgor. Normal color with no rashes, no lesions, and no evidence of cellulitis. MS/ Extremity: Pulses equal, no cyanosis. Neurovascular intact. Full, normal range of motion., bilateral aka Neuro: Awake and alert, GCS 15, oriented to person, place, time, and situation. Cranial nerves II-XII grossly intact. Motor strength 5/5 in all extremities. Sensory grossly intact. Cerebellar exam normal. Normal gait. Psych: Awake, alert, with orientation to person, place and time. Behavior, mood, and affect are within normal limits. 22:30 ECG was reviewed by the Attending Physician. 22:38 ECG was reviewed by the Attending Physician. [facility] Vital Signs: 21:01 BP 142 / 100; Pulse 85; Resp 18; Temp 97.8; Pulse Ox 98% ; Weight 104.33 kg; Height 5 kb4 ft. 9 in. ; Pain 5/10; 21:05 BP 142 / 100; Pulse 85; Resp 18; Temp 97.8; Pulse Ox 98% ; Weight 104.33 kg; Height 5 kb4 ft. 9 in. ; Pain 5/10; 22:00 BP 127 / 93; Pulse 81; Resp 18; Pulse Ox 96% ; kt5 22:54 BP 125 / 85 Supine; Pulse 65; ts3 22:55 BP 144 / 104 Sitting; Pulse 67; ts3 22:56 BP 140 / 99 Standing; Pulse 70; ts3 23:14 Pulse 84; Resp 16 S; Temp 98.3; Pulse Ox 99% on R/A; kt5 21:05 Body Mass Index 33.96 (104.33 kg, 175.26 cm) kb4 21:01 Pain Scale: Adult kb4 21:05 Pain Scale: Adult kb4 MDM: 21:14 Medical Screening Exam initiated [facility] 22:33 Differential diagnosis: cardiac arrhythmia, CVA, generalized weakness, GI bleed, head emeli injury, hyperventilation, hypovolemia, idiopathic dizziness, near-syncope, sepsis, syncope, TIA, vertigo. Data reviewed: vital signs, nurses notes, lab test result(s), EKG, radiologic studies, CT scan, plain films. Consideration of Admission/Observation Escalation of care including admission/observation considered. I considered the following discharge prescriptions or medication management in the emergency department Medications were administered in the Emergency Department. See MAR. Independent interpretation of the following test(s) in the Emergency Department EKG: See my EKG interpretation above. Test considered but Not performed: Ultrasound NO 2 D ECHO. Historians other than the Patient: PT WELL INFORMED. Care significantly affected by the following chronic conditions: Hypertension, A FIB. Counseling: I had a detailed discussion with the patient and/or guardian regarding the historical points, exam findings, and any diagnostic results supporting the discharge/admit diagnosis, lab results, radiology results, the need for outpatient follow up, for definitive care, a architectural practice manager, a family practitioner. 11/19 21:15 Order name: Basic Metabolic Panel; Complete Time: :28 [facility] 11/19 21:15 Order name: CBC with Diff; Complete Time: : [facility] 11/19 21:15 Order name: LFT's; Complete Time: :28 [facility] 11/19 21:15 Order name: Magnesium; Complete Time: :28 [facility] 11/19 21:15 Order name: NT PRO-BNP; Complete Time: : [facility] 11/19 21:15 Order name: PT-INR; Complete Time: : [facility] 11/19 21:15 Order name: Troponin HS; Complete Time: : [facility] 11/19 21:15 Order name: UA Rfx Eliecer Cult if indicated [facility] 11/19 21:15 Order name: Lipase; Complete Time: :28 [facility] 11/19 21:15 Order name: XRAY Chest (1 view); Complete Time: :28 [facility] 11/19 21:15 Order name: CT Head Brain wo Cont; Complete Time: 22:39 [facility] 11/19 21:15 Order name: Cardiac monitoring; Complete Time: :32 [facility] 11/19 21:15 Order name: EKG - Nurse/Tech; Complete Time: 21:32 [facility] 11/19 21:15 Order name: IV Saline Lock; Complete Time: :32 [facility] 11/19 21:15 Order name: Labs collected and sent; Complete Time: 21:32 [facility] 11/19 21:15 Order name: O2 Per Protocol; Complete Time: 21:32 [facility] 11/19 21:15 Order name: O2 Sat Monitoring; Complete Time: 21:40 [facility] 11/19 22:29 Order name: Orthostatics; Complete Time: 22:51 [facility] 11/19 22:40 Order name: PO challenge: JUICE; Complete Time: 22:51 [facility] EC:38 Rate is 81 beats/min. Rhythm is regular. QRS [place] is Normal. [place] interval is normal. QRS emeli interval is normal. QT interval is normal. No Q waves. T waves are Normal. No ST changes noted. Clinical impression: Normal ECG and No evidence of ischemia. Interpreted by me. Reviewed by me. Administered Medications: 21:45 Drug: NS 0.9% IV 1000 ml IV at 125 ml/hr once; to be given as a bolus over 60 minutes kt5 Route: IV; Rate: 125 ml/hr; Site: left antecubital; 23:13 Follow up: Response: No adverse reaction; IV Status: Completed infusion; IV Intake: kt5 100ml 21:45 Drug: Famotidine IVP 20 mg IVP once; dilute with 10 mL 0.9% NaCl; give over 2 minutes kt5 Route: IVP; Site: left antecubital; 23:13 Follow up: Response: No adverse reaction kt5 22:59 Drug: Potassium PO Effervescent Tablet 25 mEq PO once; dissolve in 4 ounces of water or kt5 juice Route: PO; 23:13 Follow up: Response: No adverse reaction kt5 Disposition Summary: 11/19/24 22:40 Discharge Ordered Notes: Location: Home emeli Problem: new emeli Symptoms: have improved emeli Condition: Stable emeli Diagnosis - Essential (primary) hypertension emeli - Weakness emeli - Syncope Near emeli - Hypokalemia emeli Followup: emeli - With: Private Physician - When: 1 - 2 days - Reason: Recheck today's complaints, Continuance of care, Re-evaluation by your physician Followup: emeli - With: Beto Serrano MD - When: 2 - 3 days - Reason: Recheck today's complaints, Re-evaluation by your physician Discharge Instructions: - Discharge Summary Sheet emeli - Potassium Content of Foods emeli - Hypertension, Adult emeli - Near-Syncope emeli - Weakness emeli - Fatigue emeli - Near-Syncope, Nesr-ep-Ioec emeli - Hypertension, Adult, Annk-db-Qdnn emeli - How to Take Your Blood Pressure, Czor-yb-Oqax emeli - Weakness, Bfyg-xd-Tgcx emeli - Aspirin and Your Heart emeli - Hypokalemia emeli - Managing Your Hypertension emeli - Deconditioning emeli Forms: - Medication Reconciliation Form emeli - Antibiotic Education emeli - Prescription Opioid Use emeli - Patient Portal Instructions emeli - Leadership Thank You Letter [facility] Prescriptions: - Potassium Chloride 20 meq Oral Packet - take 1 packet ORAL route once daily 1 packet in 6 (six) ounces of water or emeli juice; Take after meal; 10 packet; Refills: 0, Product Selection Permitted - Lisinopril 5 mg Oral Tablet - take 1 tablet ORAL route once daily; 20 tablet; Refills: 0, Product Selection emeli Permitted Signatures: Dispatcher [employer] EDGal Cazares MD MD cha Bowen, Kayla, RN RN kb4 María Lopez RN RN kt5 Corrections: (The following items were deleted from the chart) 21:06 21:05 PMHx: GI Bleed; kb4 kb4 21:15 21:15 BASIC METABOLIC PANEL+C.LAB.BRZ ordered. EDMS EDMS 21:15 21:15 CBC+H.LAB.BRZ ordered. EDMS EDMS 21:15 21:15 HEPATIC FUNCTION+C.LAB.BRZ ordered. EDMS EDMS 21:15 21:15 MAGNESIUM+C.LAB.BRZ ordered. EDMS EDMS 21:15 21:15 PROBNP+C.LAB.BRZ ordered. EDMS EDMS 21:15 21:15 PROTIME (+INR)+COAG.LAB.BRZ ordered. EDMS EDMS 21:15 21:15 Troponin High Sensitivity+C.LAB.BRZ ordered. EDMS EDMS 21:15 21:15 UA Rfx Eliecer Cult if indicated+U.LAB.BRZ ordered. EDMS EDMS 21:15 21:15 LIPASE+C.LAB.BRZ ordered. EDMS EDMS 21:15 21:15 Chest Single View+RAD.RAD.BRZ ordered. EDMS EDMS 21:15 21:15 Head Brain Wo Cont+CT.RAD.BRZ ordered. EDMS EDMS 22:39 22:30 Rate is 42 beats/min. Rhythm is regular. QRS [place] is Normal. [place] interval is emeli normal. QRS interval is normal. QT interval is normal. No Q waves. T waves are Normal. No ST changes noted. Clinical impression: NSR w/ Non-specific ST/T Changes and No evidence of ischemia. Interpreted by me. Reviewed by me. emeli
--- NOTE | 2024-11-19 22:41 | ER ---
Nurse's Notes [facility] Name: Amna Jenkins Jr Age: 44 yrs Sex: Male : 1980 Arrival Date: 11/19/2024 Time: 20:46 Bed 16 Private MD: Diagnosis: Essential (primary) hypertension;Weakness;Syncope Near;Hypokalemia Presentation: 11/19 21:01 Chief complaint: Patient states: c/o feeling weak, lightheaded, occasional chest pain kb4 x3 days, stopped taking all medications on 11/11 because he was having abd pain, restarted taking medication again on 11/17. Coronavirus screen: At this time, the client does not indicate any symptoms associated with coronavirus-19. Ebola Screen: No symptoms or risks identified at this time. Initial Sepsis Screen: Does the patient meet any 2 criteria? No. Patient's initial sepsis screen is negative. Does the patient have a suspected source of infection? No. Patient's initial sepsis screen is negative. Risk Assessment: Do you want to hurt yourself or someone else? Patient reports no desire to harm self or others. Onset of symptoms was November 17, 2024. 21:01 Method Of Arrival: Ambulatory kb4 21:01 Acuity: NEYDA 2 kb4 21:08 Chief complaint: Patient states: c/o generalized headache x3 day. kb4 Triage Assessment: 21:05 Headache History: The patient has had previous headaches and this one is similar to kb4 previous episodes. General: Appears in no apparent distress. comfortable, Behavior is calm, cooperative. Pain: Pain currently is 5 out of 10 on a pain scale. Pain began 2-3 days ago. Also complains of sleeplessness. Neuro: Level of Consciousness is awake, alert, obeys commands, Oriented to person, place, time, situation. Historical: - PMHx: 21:05 Atrial fibrillation; Hypertension; kb4 - Immunization history:: Adult Immunizations. - Infectious Disease History:: Denies. - Social history:: Smoking status: Patient denies any tobacco usage or history of. Patient uses alcohol, occasionally. - Family history:: not pertinent. Screenin:10 [facility] ED Fall Risk Assessment (Adult) History of falling in the last 3 months, kt5 including since admission No falls in past 3 months (0 pts) Confusion or Disorientation No (0 pts) Intoxicated or Sedated No (0 pts) Impaired Gait No (0 pts) Mobility Assist Device Used No (0 pt) Altered Elimination No (0 pt) Score/Fall Risk Level 0 - 2 = Low Risk Oriented to surroundings, Maintained a safe environment. Abuse screen: Denies threats or abuse. Nutritional screening: No deficits noted. Tuberculosis screening: No symptoms or risk factors identified. Assessment: 21:10 General: Appears distressed, comfortable, Behavior is calm, cooperative, appropriate kt5 for age. General: pt states with generalized weakness and fatique. Pain: Denies pain. Neuro: No deficits noted. Valle Agitation-Sedation Scale (RASS): 0 - Alert and Calm. Neuro: Reports headache in entire. Cardiovascular: Reports. Cardiovascular: Reports chest pain, shortness of breath, Heart tones S1 S2 present Capillary refill < 3 seconds is brisk Clubbing of nail beds is absent JVD is absent Pulses are all present. Edema is absent. Respiratory: Reports shortness of breath at rest on exertion Airway is patent Trachea midline Respiratory effort is even, unlabored, Respiratory pattern is regular, symmetrical. GI: No deficits noted. Abdomen is round non-distended, Bowel sounds present X 4 quads. Abd is soft and non tender X 4 quads. : No deficits noted. No signs and/or symptoms were reported regarding the genitourinary system. EENT: No deficits noted. No signs and/or symptoms were reported regarding the EENT system. Derm: No deficits noted. No signs and/or symptoms reported regarding the dermatologic system. Skin is intact, is healthy with good turgor, Skin is dry, Skin is pink, warm \T\ dry. Musculoskeletal: No deficits noted. No signs and/or symptoms reported regarding the musculoskeletal system. 22:00 Reassessment: Patient appears in no apparent distress at this time. Patient states kt5 feeling better. Patient states symptoms have improved. 22:21 General: pt to ct with tech via w/c. kt5 22:30 General: pt back from ct, tolerated well. kt5 22:35 Reassessment:. kt5 23:02 Reassessment: Patient appears in no apparent distress at this time. Patient and/or kt5 family updated on plan of care and expected duration. Pain level reassessed. Patient is alert, oriented x 3, equal unlabored respirations, skin warm/dry/pink. Patient states feeling better. Patient states symptoms have improved. 23:12 General: pt po well w/o n/v. kt5 Vital Signs: 21:01 BP 142 / 100; Pulse 85; Resp 18; Temp 97.8; Pulse Ox 98% ; Weight 104.33 kg; Height 5 kb4 ft. 9 in. ; Pain 5/10; 21:05 BP 142 / 100; Pulse 85; Resp 18; Temp 97.8; Pulse Ox 98% ; Weight 104.33 kg; Height 5 kb4 ft. 9 in. ; Pain 5/10; 22:00 BP 127 / 93; Pulse 81; Resp 18; Pulse Ox 96% ; kt5 22:54 BP 125 / 85 Supine; Pulse 65; ts3 22:55 BP 144 / 104 Sitting; Pulse 67; ts3 22:56 BP 140 / 99 Standing; Pulse 70; ts3 23:14 Pulse 84; Resp 16 S; Temp 98.3; Pulse Ox 99% on R/A; kt5 21:05 Body Mass Index 33.96 (104.33 kg, 175.26 cm) kb4 21:01 Pain Scale: Adult kb4 21:05 Pain Scale: Adult kb4 ED Course: 20:49 Patient arrived in ED. gm2 21:05 Triage completed. kb4 21:05 Arm band placed on left wrist. kb4 21:09 María Lopez, RN is Primary Nurse. kt5 21:10 Patient has correct armband on for positive identification. Bed in low position. Call kt5 light in reach. Side rails up X 1. Adult w/ patient. Client placed on continuous cardiac and pulse oximetry monitoring. NIBP monitoring applied. cafeteria monitor on. Door closed. Noise minimized. Warm blanket given. Pillow given. Family accompanied patient. 21:10 No provider procedures requiring assistance completed. kt5 21:14 Gal Francisco MD is Attending Physician. [facility] 21:27 XRAY Chest (1 view) In Process Unspecified. EDMS 21:30 Inserted saline lock: 20 gauge in left antecubital area, using aseptic technique. Blood kt5 collected. Flushed with 10 mL NS. 21:32 Basic Metabolic Panel Sent. kt5 21:32 CBC with Diff Sent. kt5 21:32 EKG done, by technology internship. reviewed by Gal Francisco MD. ts3 21:33 LFT's Sent. kt5 21:33 Magnesium Sent. kt5 21:33 NT PRO-BNP Sent. kt5 21:33 PT-INR Sent. kt5 21:33 Troponin HS Sent. kt5 21:33 Lipase Sent. kt5 21:40 UA Rfx Eliecer Cult if indicated Sent. kt5 21:41 Urine collected: clean catch specimen, sent to lab. ts3 22:24 CT Head Brain wo Cont In Process Unspecified. EDMS 22:40 Beto Serrano MD is Referral Physician. emeli 23:15 Provided Education on: follow up. kt5 23:15 IV discontinued, intact, bleeding controlled, No redness/swelling at site. Pressure kt5 dressing applied. Administered Medications: 21:45 Drug: NS 0.9% IV 1000 ml IV at 125 ml/hr once; to be given as a bolus over 60 minutes kt5 Route: IV; Rate: 125 ml/hr; Site: left antecubital; 23:13 Follow up: Response: No adverse reaction; IV Status: Completed infusion; IV Intake: kt5 100ml 21:45 Drug: Famotidine IVP 20 mg IVP once; dilute with 10 mL 0.9% NaCl; give over 2 minutes kt5 Route: IVP; Site: left antecubital; 23:13 Follow up: Response: No adverse reaction kt5 22:59 Drug: Potassium PO Effervescent Tablet 25 mEq PO once; dissolve in 4 ounces of water or kt5 juice Route: PO; 23:13 Follow up: Response: No adverse reaction kt5 Medication: 22:21 VIS not applicable for this client. kt5 Intake: 23:13 IV: 100ml; Total: 100ml. kt5 Outcome: 22:40 Discharge ordered by . emeli 23:15 Discharged to home ambulatory, kt5 23:15 Condition: improved 23:15 Discharge instructions given to patient, Instructed on discharge instructions, follow up and referral plans. Demonstrated understanding of instructions, follow-up care, medications, Prescriptions given X 2, 23:37 Patient left the ED. kt5 Signatures: Dispatcher [employer] Gal Zamudio MD MD cha Mitchell, Ginger gm2 Sara Andujar RN RN kb4 Cyndi Gong ts3 María Lopez, DEEPTHI RN kt5 Corrections: (The following items were deleted from the chart) 21:06 21:05 PMHx: GI Bleed; kb4 kb4 22:57 22:55 BP 125 / 85 Supine; Pulse 65bpm; ts3 ts3 22:57 22:55 BP 140 / 99 Standing; Pulse 70bpm; ts3 ts3 22:57 22:56 BP 140 / 99 Standing Auto; Pulse 70bpm; ts3 ts3
[2024-11-19] MEDS ORDERED: POTASSIUM 25 MEQ EFFERV TAB ONE (22:54)
[2024-11-20 00:39] VITALS: BP 140/99
[2024-11-20 00:41] VITALS: TEMP 98.3; O2SAT 99
== END 2024-11-19 23:37 | disposition home or self-care (01) ==
LOC: ER 20:46
DX: I10 Essential (primary) hypertension (principal); E87.6 Hypokalemia; R53.1 Weakness; R55 Syncope and collapse
CPT/HCPCS: 96361; 93005; 85025; 80048; 36415; 83735; 85610; 80076; 81003; 84484; 83690; 83880; 70450; 71045; 96374; 99285; J7030